=== PATIENT | male | born 1945 | race Caucasian/White ===

== ENCOUNTER 2018-05-01 09:45 | Day surgery (SDC) | payer MEDICARE ==
[2018-04-30 16:11] VITALS: BMI 29.5
--- NOTE | 2018-05-01 13:47 | OP ---
DATE OF PROCEDURE: 05/01/2018. SURGEON: Javier Neff M.D. PAVER SURGEON: None. PROCEDURE PERFORMED: Colonoscopy with snare polypectomy. INDICATION: 1. Colon cancer screening. This is the patient's first colonoscopy. 2. Family history of colon cancer in his mother, in her 80s. MEDICATIONS: See anesthesia record. FINDINGS: After discussion of the risks, benefits and alternatives of the procedure, informed consen t was obtained and witnessed. Pre-endoscopic cardiopulmonary examination was satisfactory. DESCRIPTION OF PROCEDURE: Timeout was performed before sedation was achieved. Sedation was achieved with anesthesia assistance in the endoscopy unit. Digital rectal exam was performed, which demonstr ated some external hemorrhoidal skin tags. A Pentax adult colonoscope was inserted into the anus and passed forward to the cecum in the usual fashion. The cecal base was identified by the appendiceal orifice as well as the ileocecal valve. The terminal ileum was not intubated. The colonoscope was t hen slowly withdrawn in a gradual and circumferential manner with careful examination of the entire c olonic mucosa. The quality of the prep was good. In the sigmoid colon, there were 2 small polyps me asuring 2-3 mm in diameter. These were both completely removed with cold snare and retrieved for pat hology. The remainder of the colonic mucosa appeared normal. Retroflexion in the rectum demonstrate d no additional abnormalities. The colonoscope was completely withdrawn and the patient allowed to r ecover. The patient tolerated the procedure well. There were no immediate post-procedure complicati ons. IMPRESSION: 1. Two diminutive sigmoid colon polyps, both removed with cold snare and retrieved for pathology. 2. Otherwise, normal colonoscopy to the cecum. RECOMMENDATIONS: 1. Follow up pathology on the sigmoid colon polyps. 2. Resume Plavix. 3. Repeat colonoscopy, recommendations to be based on pathology results. If the polyps are both hyp erplastic, then no further colonoscopy would be advised. If the polyps are adenomas, then I would re commend consideration of surveillance colonoscopy at a 5-year interval.
== END 2018-05-01 14:40 | disposition home or self-care (01) ==
LOC: SDC 09:45
PROVIDERS: ATTEND Internal Medicine
PROC: 0DBN8ZX Excision of Sigmoid Colon, Via Natural or Artificial Opening Endoscopic, Diagnostic (ICD-10-PCS; principal; 2018-05-01)
DX: Z12.11 Encounter for screening for malignant neoplasm of colon (principal); D12.5 Benign neoplasm of sigmoid colon; K64.4 Residual hemorrhoidal skin tags; Z80.0 Family history of malignant neoplasm of digestive organs; Z79.02 Long term (current) use of antithrombotics/antiplatelets; Z79.4 Long term (current) use of insulin; Z79.82 Long term (current) use of aspirin; Z79.899 Other long term (current) drug therapy; Z91.041 Radiographic dye allergy status
CPT/HCPCS: 36416; 88305

== ENCOUNTER 2018-05-03 16:22 | Emergency (ER) | payer MEDICARE ==
[2018-05-03] MEDS ORDERED: Labetalol HCl 100 MG/20 ML VIAL ONE (16:54)
--- NOTE | 2018-05-03 17:12 | RAD ---
CHEST ONE VIEW 05/03/18 HISTORY: Weakness. COMPARISON: Chest radiograph 03/08/17. FINDINGS: Lungs are clear. No pneumothorax or effusion. The cardiac silhouette and mediastinal contours are sim ilar. IMPRESSION: No acute intrathoracic abnormality. POS: [facility]
--- NOTE | 2018-05-03 17:24 | CT ---
CT ABDOMEN AND PELVIS WITHOUT CONTRAST 05/03/18 HISTORY: Weakness. COMPARISON: CT abdomen and pelvis from 2015. FINDINGS: Small volume left sided pleural fluid. No significant pericardial effusion. Extensive vascular calcif ications. There is infiltration of the soft tissue fat of the anterior abdominal wall on both sides of the midl ine. Mild diastasis recti. No hydroureteronephrosis. No calculus within the urinary bladder. No free intraperitoneal gas or fluid. Left hip hemiarthroplasty is in place. There is a wedge jonah adiel fracture at L2 which does not appear acute although is new from the 2015 exam. Old L4 compressio n fracture. IMPRESSION: 1. No acute inflammatory process of the abdomen or pelvis. 2. No hydroureteronephrosis. 3. Extensive arterial medial sclerosis. 4. Subcutaneous fat infiltration anterior abdominal wall may be sequela of injections. Celluliti s is also a possibility. POS: [facility]
[2018-05-03 17:48] LABS: #Basophils 0.1 thou/uL (0.0-0.2); #Eosinphils 0.2 thou/uL (0.0-0.7); #Monocytes 0.8 thou/uL (0.11-0.59); #Neutrophils 7.2 thou/uL (1.40-6.50); %Basophils 0.7 % (0.0-1.0); %Eosinophils 1.9 % (0.0-10.0); %Monocytes 9.1 % (0.0-10.0); %Neutrophils 77.4 % (42.0-75.0); Hemoglobin 11.7 g/dL (14.0-18.0); Mean Corpuscular HGB CONC 33.9 g/dL (32.0-36.0); Mean Corpuscular Hemoglobin 31.7 pg (27.0-31.0); Mean Corpuscular Volume 93.4 fL (78.0-98.0); Mean Platelet Volume 7.5 fL (7.4-10.4); Platelet Count 232 thou/uL (130-400); RBC Distribution Width 11.6 % (11.5-14.5); Red Blood Cell (RBC) Count 3.71 mill/uL (4.70-6.10); White Blood Cell (WBC) Count 9.3 thou/uL (4.8-10.8)
[2018-05-03 17:51] LABS: Bilirubin Negative (Negative); Blood, Urine Negative (Negative); Clarity CLEAR (Clear); Glucose, Urine (Dipstick) Negative (Negative); Leukocyte Negative (Negative); Nitrite Negative (Negative); Protein, Urine (Dipstick) 100 mg/dL (Neg-Trace); Specific Gravity, Urine 1.007 (1.002-1.036); Urobilinogen 0.2 mg/dL (0.2-1.0)
[2018-05-03 17:53] LABS: Bacteria/HPF None Seen HPF (None Seen); Hyaline Casts/LPF 0-3 HYALINE CAST LPF (0-3 Hyaline); Pathc Cast-AUWi Flag 0.14 (0-2.49); RBC/HPF None Seen HPF (0-3); Squamous Epithelial None Seen HPF (0-3); WBC/HPF None Seen HPF (0-3)
[2018-05-03 18:12] LABS: CKMB 2.2 ng/mL (0-6.6); Troponin I 0.021 ng/mL (< 0.028)
[2018-05-03 18:34] LABS: ALT (SGPT) 13 U/L (8-55); AST (SGOT) 18 U/L (5-34); Albumin 4.2 g/dL (3.4-4.8); Alkaline Phosphatase 91 U/L (40-150); Anion Gap 18 mmol/L (10-20); BUN (Urea Nitrogen) 22 mg/dL (8.4-25.7); Bilirubin, Total 0.5 mg/dL (0.2-1.2); CK (CPK) 89 U/L (30-200); Calc. Creatinine Clearance 0 mL/min (70-130); Carbon Dioxide 20 mmol/L (23-31); Chloride 108 mmol/L (98-107); Estimated GFR-MDRD 37; Globulin 2.8 g/dL (2.4-3.5); Glucose 126 mg/dL (80-115); Lipase 19 U/L (8-78); Sodium 141 mmol/L (136-145)
--- NOTE | 2018-05-10 11:32 | EKG ---
Test Reason : WEAKNESS Blood Pressure : / mmHG Vent. Rate : 098 BPM Atrial Rate : 098 BPM P-R Int : 226 ms QRS Dur : 098 ms QT Int : 368 ms P-R-T Axes : 049 -34 089 degrees QTc Int : 469 ms Sinus rhythm with 1st degree A-V block Left axis deviation Prolonged QT Abnormal ECG Confirmed by ROEL VILLARREAL, SHEELA ([id number]), pictures editor SCOTT CISNEROS ([id number]) on 05/10/2018 11:31:53 AM Referred By: Confirmed By:SHEELA SEVILLA MD
== END 2018-05-03 20:10 | disposition home or self-care (01) ==
LOC: ERS 16:22
DX: R53.1 Weakness (principal); I11.0 Hypertensive heart disease with heart failure; I50.9 Heart failure, unspecified; E11.9 Type 2 diabetes mellitus without complications; Z86.73 Personal history of transient ischemic attack (TIA), and cerebral infarction without residual deficits
CPT/HCPCS: 71045; 74176; 80053; 81003; 81015; 82553; 83690; 83880; 84484; 85025; 93005; 96374

== ENCOUNTER 2018-05-12 17:04 | Emergency (ER) | payer MEDICARE ==
[2018-05-12 18:59] LABS: #Lymphocytes 0.8 thou/uL (1.20-3.40); #Monocytes 0.6 thou/uL (0.11-0.59); #Neutrophils 13.4 thou/uL (1.40-6.50); %Basophils 0.2 % (0.0-1.0); %Eosinophils 0.2 % (0.0-10.0); %Lymphocytes 5.6 % (21.0-51.0); %Monocytes 3.9 % (0.0-10.0); %Neutrophils 90.2 % (42.0-75.0); Hemoglobin 11.1 g/dL (14.0-18.0); Mean Corpuscular HGB CONC 32.5 g/dL (32.0-36.0); Mean Corpuscular Hemoglobin 30.3 pg (27.0-31.0); Mean Corpuscular Volume 93.4 fL (78.0-98.0); Mean Platelet Volume 7.2 fL (7.4-10.4); Platelet Count 334 thou/uL (130-400); RBC Distribution Width 11.6 % (11.5-14.5); Red Blood Cell (RBC) Count 3.68 mill/uL (4.70-6.10); White Blood Cell (WBC) Count 14.9 thou/uL (4.8-10.8)
[2018-05-12 19:25] LABS: ALT (SGPT) 8 U/L (8-55); AST (SGOT) 13 U/L (5-34); Albumin 4.1 g/dL (3.4-4.8); Alkaline Phosphatase 77 U/L (40-150); Anion Gap 15 mmol/L (10-20); BUN (Urea Nitrogen) 32 mg/dL (8.4-25.7); Bilirubin, Total 0.4 mg/dL (0.2-1.2); Calc. Creatinine Clearance 0 mL/min (70-130); Calcium 8.9 mg/dL (7.8-10.44); Carbon Dioxide 22 mmol/L (23-31); Chloride 106 mmol/L (98-107); Estimated GFR-MDRD 37; Globulin 2.9 g/dL (2.4-3.5); Glucose 205 mg/dL (80-115); Lipase 13 U/L (8-78); Potassium 4.9 mmol/L (3.5-5.1); Sodium 138 mmol/L (136-145)
--- NOTE | 2018-05-12 20:02 | RAD ---
ABDOMEN ONE VIEW: HISTORY: Constipation for less than 24 hours. COMPARISON: None. FINDINGS: Nonspecific bowel gas pattern. Scattered material in a nondistended colon. Atherosclerosis of the splenic artery is noted. IMPRESSION: Nonspecific bowel gas pattern. There is some scattered fecal material present in the visualized colo n. If there is concern, consider CT. CT should involve oral and intravenous contrast. POS: [facility]
== END 2018-05-12 21:20 ==
LOC: ERS 17:04
DX: K59.00 Constipation, unspecified (principal); E11.9 Type 2 diabetes mellitus without complications; I11.0 Hypertensive heart disease with heart failure; I50.9 Heart failure, unspecified; Z86.73 Personal history of transient ischemic attack (TIA), and cerebral infarction without residual deficits
CPT/HCPCS: 36415; 74018; 80053; 83690; 85025

== ENCOUNTER 2018-11-28 02:07 | Inpatient (IN) | payer MEDICARE ==
[2018-11-28 02:56] LABS: Bilirubin Negative (Negative); Blood, Urine Negative (Negative); Clarity CLEAR (Clear); Glucose, Urine (Dipstick) Negative (Negative); Leukocyte Negative (Negative); Nitrite Negative (Negative); Protein, Urine (Dipstick) 100 mg/dL (Neg-Trace); Specific Gravity, Urine 1.014 (1.002-1.036); Urobilinogen 0.2 mg/dL (0.2-1.0); pH, Urine 5.5 (5.0-9.0)
[2018-11-28 02:59] LABS: Bacteria/HPF None Seen HPF (None Seen); Hyaline Casts/LPF 0-3 HYALINE CAST LPF (0-3 Hyaline); RBC/HPF None Seen HPF (0-3); Squamous Epithelial 0-3 HPF (0-3); WBC/HPF None Seen HPF (0-3)
[2018-11-28] MEDS ORDERED: Oxymetazoline HCl 0.05% ( 15 ML ) ONE (03:35)
[2018-11-28 04:07] LABS: Actual Bicarbonate (HCO3a) 23.8 mEq/L (22-28); Analyzer IN Cardio ER; Base Excess (BEa) -1.3 mEq/L (-2.0 to +3.0); CO2 Tension 41.8 mmHg (35.0-45.0); Calcium, Ionized 1.15 mmol/L (1.12-1.30); Hemoglobin (Hb) 12.5 g/dL (14.0-18.0); Potassium - ABG Lab 4.13 mmol/L (3.70-5.30); pH, Arterial 7.37 (7.35-7.45)
[2018-11-28 04:11] LABS: O2 Tension (PaO2) 45.7 mmHg (> 70.0); Puncture Site RRAD
[2018-11-28 04:32] LABS: #Basophils 0.1 thou/uL (0.0-0.2); #Eosinphils 0.3 thou/uL (0.0-0.7); #Lymphocytes 1.8 thou/uL (1.20-3.40); #Monocytes 0.6 thou/uL (0.11-0.59); #Neutrophils 7.3 thou/uL (1.40-6.50); %Eosinophils 2.5 % (0.0-10.0); %Lymphocytes 17.7 % (21.0-51.0); %Monocytes 5.7 % (0.0-10.0); Hemoglobin 12.4 g/dL (14.0-18.0); Mean Corpuscular HGB CONC 33.1 g/dL (32.0-36.0); Mean Corpuscular Hemoglobin 32.2 pg (27.0-31.0); Mean Corpuscular Volume 97.3 fL (78.0-98.0); Mean Platelet Volume 8.2 fL (7.4-10.4); Platelet Count 265 thou/uL (130-400); RBC Distribution Width 11.8 % (11.5-14.5); Red Blood Cell (RBC) Count 3.85 mill/uL (4.70-6.10)
[2018-11-28 04:56] LABS: ALT (SGPT) 13 U/L (8-55); AST (SGOT) 12 U/L (5-34); Albumin 4.5 g/dL (3.4-4.8); Alkaline Phosphatase 87 U/L (40-150); Anion Gap 17 mmol/L (10-20); BUN (Urea Nitrogen) 38 mg/dL (8.4-25.7); Bilirubin, Total 0.4 mg/dL (0.2-1.2); Calc. Creatinine Clearance 0 mL/min (70-130); Calcium 9.3 mg/dL (7.8-10.44); Carbon Dioxide 20 mmol/L (23-31); Chloride 110 mmol/L (98-107); Estimated GFR-MDRD 35; Globulin 2.6 g/dL (2.4-3.5); Glucose 203 mg/dL (83-110); Potassium 4.4 mmol/L (3.5-5.1); Protein, Total 7.1 g/dL (5.8-8.1); Sodium 143 mmol/L (136-145)
[2018-11-28] MEDS ORDERED: Furosemide 40 MG/4 ML VIAL ONE (05:24)
[2018-11-28] MEDS ORDERED: Nitroglycerin 2% Ointment 1 INCH/1 GM Packet ONE (05:34)
--- NOTE | 2018-11-28 07:33 | CT ---
PRELIMINARY REPORT/[facility]/EMERGENCY AFTER HOURS PROCEDURE: EXAM: CT Head Without Contrast EXAM DATE/TIME: 11/28/2018 3:03 AM CLINICAL HISTORY: 73 years old, male; Injury or trauma; Fall; Initial encounter; Blunt trauma (contusions or hematomas) ; Patient HX: M73 reports to ed via ems from [facility] C/O fall. PT states he had fallen out of bed tonight and landed on left hip. PT states he was not on ground long before someone arrived. PT states the fall woke him up. PT states nose bleed however denies pain to nose. Ems reports abrasion above left eye, hematoma to left eye and abrasion to left arm. TECHNIQUE: Imaging protocol: Axial computed tomography images of the head/brain without contrast. COMPARISON: No relevant prior studies available. FINDINGS: Brain: No acute intracranial hemorrhage. There are frontal and parietal lobe areas of hypoattenuation which appear chronic and probably represent encephalomalacia from chronic infarction. There are focal hypodensities within the basal ganglia compatible with chronic lacunar infarcts. Ventricles: Normal. No ventriculomegaly. Bones/joints: Unremarkable. No acute fracture. Sinuses: Visualized sinuses are unremarkable. No acute sinusitis. Mastoid air cells: Visualized mastoid air cells are unremarkable. No mastoid effusion. Soft tissues: There is a LEFT frontal scalp 7 x 1 cm hematoma. IMPRESSION: 1. No acute intracranial hemorrhage. Probably chronic bilateral frontal and parietal lobe infarcts as well as basal ganglia lacunar infarcts. 2. There is a LEFT frontal scalp 7 x 1 cm hematoma. Thank you for allowing us to participate in the care of your patient. Dictated and Authenticated by: Javier Osman MD 11/28/2018 3:34 AM Central Time ([place] & [place]) FINAL REPORT BRAIN CT WITHOUT IV CONTRAST: Emergency after hours exam 3:00 AM 11/28/2018 Left supraorbital and left frontal scalp hematoma. Stable atrophy and chronic white matter ischemic c briane. Code QA/[facility] Transcribed Date/Time: 11/28/2018 7:40 AM
[2018-11-28 07:55] LABS: Troponin I 0.559 ng/mL (< 0.028)
--- NOTE | 2018-11-28 08:04 | RAD ---
RADIOGRAPH CHEST 1 VIEW: Date: 11/28/18 Time: 0331 HOURS HISTORY: 73-year-old male with dyspnea. COMPARISON: 05/03/18. FINDINGS: Cardiomegaly appears worse now. New finding of pulmonary venous engorgement. Patchy, predominantly in terstitial densities heterogeneously distributed in both lungs, probably represent pulmonary edema, a lthough pneumonia is not excluded. No pneumothorax. IMPRESSION: Congestive heart failure. JN [] POS: [facility]
--- NOTE | 2018-11-28 08:05 | RAD ---
PELVIC RADIOGRAPH: DATE: 11/28/2018. PROVIDED CLINICAL HISTORY: Left hip pain. FINDINGS: There is no evidence for fracture or other acute osseous abnormality. Changes of left hip arthroplas ty are partially visualized. Vascular calcifications are seen. Alignment appears anatomic. IMPRESSION: No evidence for an acute osseous abnormality. If there is persistent clinical concern, conservative management and followup imaging are advised. POS: [facility]
--- NOTE | 2018-11-28 08:07 | RAD ---
LEFT HIP 2 VIEWS: COMPARISON: 12/09/2016. HISTORY: Fall. Pain. FINDINGS: Uncomplicated left hip arthroplasty. Vascular calcifications are noted. There is a hyperdensity projecting over the midline of the perineum and left hip, dependent on positi on, which is of uncertain etiology. This hyperdensity has a round appearance, measuring 5.7 cm. IMPRESSION: 1. No fracture. 2. Nonspecific hyperdensity projecting over the pelvis as described above. Correlate clinically. T here does not appear to be a corresponding finding on a CT from May 03, 2018. CODE T POS: [facility]
--- NOTE | 2018-11-28 08:16 | HP ---
PRIMARY CARE PHYSICIAN: Michael Arguleles MD CHIEF COMPLAINT: "I fell out of bed." HISTORY OF PRESENT ILLNESS: Mr. Blum is a pleasant 73-year-old gentleman, who has a history of hypertension and diabetes as well as congestive heart failure. He resides at the [facility] and says that during the day he was feeling fine and in fact he had some physical therapy earlier in the day, he believes. He had gone to bed and says that he began rolling over and knew that he was falling out of the bed. He says that it actually woke him up and he remembers hitting the side of the bed rail and believes he hit his head on the side of the bed rail. He says he did not lose consciousness and he says luckily he had his alert device in his pocket and he was also able to reach his cellphone. He called for help and one of the staff there called an ambulance. He says that they reached him in less than 15 minutes. It was very quick and brought him to the hospital. In the ER, he had a CT scan of the brain done, which was essentially negative. X-ray of the hip and pelvis, preliminary readings showed no fracture. However, chest x-ray showed findings consistent with pulmonary edema and it was also noted that while he was being evaluated in the ER, he became hypoxic and was having trouble lying down on the stretcher and is having to sit up in a chair in order to breathe and this is the reason he is being admitted. When I ask him, he states that he does not feel short of breath except when he tries to lay back. He denies having this problem at home. He denies any chest pain. He denies any palpitations. No PND. No orthopnea. He does note some swelling in his legs. However, I suspect that his history or memory is not reliable because our entire interview, he asked "well, are you going to watch me in the hospital," when I had told him that earlier. So, he may have had some symptoms consistent with congestive heart failure prior to the fall. REVIEW OF SYSTEMS: All systems were reviewed and are negative except for that mentioned in the history of present illness. PAST MEDICAL HISTORY: Significant for hypertension, diabetes mellitus, coronary artery disease, and chronic diastolic heart failure. PAST SURGICAL HISTORY: He has had coronary artery bypass grafting as well as a tonsillectomy. ALLERGIES: TO IODINE. SOCIAL HISTORY: He is . He has 2 children. He is a nonsmoker. He occasionally drinks some wine. He resides at [facility]. He says his son Jon, who lives in [place], is his surrogate decision maker and he would like to be a do not resuscitate. FAMILY HISTORY: Significant for colon cancer in his mother and father, who of a heart attack. MEDICATIONS: He is not sure of his medications. These are being taken from the ER records and include; 1. Aspirin 81 mg daily. 2. NovoLog insulin. 3. Torsemide 100 mg twice daily. 4. Plavix 75 mg a day. 5. Flomax 0.4 mg daily. 6. Gabapentin 100 mg once a day. 7. Potassium chloride 20 mEq 2 tabs daily. 8. Atorvastatin 20 mg daily. 9. Hydralazine 50 mg twice a day. 10. Lisinopril 10 mg daily. 11. Isosorbide mononitrate extended-release 30 mg daily. 12. Carvedilol 6.25 mg twice daily. 13. Amlodipine 10 mg daily. 14. Levemir insulin twice a day. 15. Namenda 28 mg daily. 16. Nitrostat 0.4 sublingual. 17. Tramadol 50 mg q.6. 18. Dulcolax 5 mg daily. 19. Lactulose 30 mL twice a day. PHYSICAL EXAMINATION: GENERAL: He is alert and oriented. He was actually able to tell me where he is, the year, the month, the date, the president, and the situation. VITAL SIGNS: Blood pressure was 193/83, heart rate 75, respiratory rate of 16, and temperature is 97.8. HEENT: Pupils are equal, round, and reactive. He does have a large bruise over the left eye and a hematoma on the forehead on the left side. Throat; there is no erythema. No exudates. NECK: No adenopathy. No bruits. LUNGS: He had rales at both bases. There is no wheezing. CARDIOVASCULAR: He has a normal S1 and S2. He does have an S3 gallop. He did have a slight grade 2/6 systolic murmur. ABDOMEN: Obese. It is soft, nontender, and nondistended. Positive for bowel sounds. No rebound or guarding. EXTREMITIES: He has 2+ pitting edema bilaterally. NEUROLOGICAL: His exam is grossly nonfocal. His muscle strength is 5/5 in both his upper and lower extremities. SKIN AND INTEGUMENT: There are no skin changes. No rash. LABORATORY DATA AND X-RAY: He had a chest x-ray that was by my reading that showed cardiomegaly with increased pulmonary vascular markings. EKG showed an incomplete left bundle-branch block with a first-degree AV block. Heart rate was 88. His white blood cell count was 10, hemoglobin 12.4, hematocrit is 37.4, and platelet count was 265. D-dimer is 1.2. Sodium is 143, potassium 4.4, chloride is 110, CO2 is 20, BUN of 38, creatinine 1.89, and glucose is 203. ASSESSMENT: This is a 73-year-old gentleman, who presents to the emergency room with a fall. He has had an injury to his head, but CT scan did not show any subdural or acute stroke. He will be monitored in the hospital with regard to the head injury. He also has evidence of an exacerbation of congestive heart failure. 1. Acute on chronic diastolic heart failure. He has already been given a dose of Lasix in the ER. We will continue IV Lasix as he appears to still have some volume overload. Continue aspirin and nitrates and restart his home medications. We will also get an echo. We will also request his records from Dr. Martinez's office. If he has not had a recent echo, then one should be obtained. 2. Closed head injury. Currently, he seems neurologically intact. We will do neuro checks q.shift and also get a PT and OT evaluation. 3. Diabetes mellitus. Again, start his home medications as well as a sliding scale. 4. Hypertension, reconcile and restart home medications and have p.r.n. medications available as needed. Job ID: [id number]
[2018-11-28] MEDS ORDERED: Ondansetron PF 4 MG/2 ML Vial IVP PRN (08:24)
[2018-11-28] MEDS ORDERED: Ondansetron ODT 4 MG TAB PO PRN (08:24)
[2018-11-28] MEDS ORDERED: Dextrose 5% in Water 1,000 ML IV PRN (08:24)
[2018-11-28] MEDS ORDERED: HumaLOG 300 UNITS/3 ML VIAL SC PRN (08:24)
[2018-11-28] MEDS ORDERED: Dextrose 50% Abboject 50 ML SYRINGE SLOW IVP PRN (08:24)
[2018-11-28] MEDS ORDERED: hydrALAZINE 20 MG/ML VIAL SLOW IVP PRN (08:24)
[2018-11-28] MEDS ORDERED: Enoxaparin Sodium 40 MG/0.4 ML SYRINGE ONE (09:34)
[2018-11-28] MEDS: Enoxaparin Sodium 40 MG/0.4 ML SYRINGE SC SCH (10:30)
[2018-11-28] MEDS: Aspirin 81 mg Enteric Coated Tablet PO SCH (10:30)
[2018-11-28 10:49] LABS: Troponin I 1.166 ng/mL (< 0.028)
--- NOTE | 2018-11-28 12:25 | ULT ---
VENOUS DOPPLER ULTRASOUND OF THE LEFT LOWER EXTREMITY: Date: 11/28/18 HISTORY: Left calf pain. TECHNIQUE: [place] scale ultrasound with color flow and spectral Doppler imaging of the deep venous system of the l eft lower extremity was performed. FINDINGS: There is good flow, compression, and augmentation noted in the left common femoral, femoral, deep fem oral, popliteal, posterior tibial, and greater saphenous veins. IMPRESSION: No evidence of deep venous thrombosis in the left lower extremity. POS: [facility]
[2018-11-28] MEDS: HumaLOG 300 UNITS/3 ML VIAL SC PRN ×2 (13:04→18:19)
[2018-11-28] MEDS: Nitroglycerin 2% Ointment 1 INCH/1 GM Packet TOP SCH ×2 (16:45→21:24)
[2018-11-28] MEDS: Acetaminophen 325 MG TAB PO PRN (16:45)
[2018-11-28] MEDS: Furosemide 40 MG/4 ML VIAL SLOW IVP SCH (16:45)
[2018-11-28] MEDS ORDERED: Prevnar 13-Val Conj/PF 0.5 ML SYRINGE IM ONE (21:00)
[2018-11-29 05:41] LABS: #Monocytes 0.6 thou/uL (0.11-0.59); #Neutrophils 11.7 thou/uL (1.40-6.50); %Basophils 0.2 % (0.0-1.0); %Eosinophils 0.2 % (0.0-10.0); %Lymphocytes 7.2 % (21.0-51.0); %Monocytes 4.4 % (0.0-10.0); %Neutrophils 88.1 % (42.0-75.0); Hemoglobin 10.9 g/dL (14.0-18.0); Mean Corpuscular HGB CONC 33.7 g/dL (32.0-36.0); Mean Corpuscular Hemoglobin 32.4 pg (27.0-31.0); Mean Platelet Volume 7.9 fL (7.4-10.4); Platelet Count 239 thou/uL (130-400); RBC Distribution Width 11.7 % (11.5-14.5); Red Blood Cell (RBC) Count 3.38 mill/uL (4.70-6.10); White Blood Cell (WBC) Count 13.3 thou/uL (4.8-10.8)
[2018-11-29 05:55] LABS: Anion Gap 15 mmol/L (10-20); BUN (Urea Nitrogen) 37 mg/dL (8.4-25.7); Calc. Creatinine Clearance 53 mL/min (70-130); Carbon Dioxide 22 mmol/L (23-31); Chloride 108 mmol/L (98-107); Estimated GFR-MDRD 39; Glucose 232 mg/dL (83-110); Potassium 4.4 mmol/L (3.5-5.1); Sodium 141 mmol/L (136-145)
[2018-11-29] MEDS: Nitroglycerin 2% Ointment 1 INCH/1 GM Packet TOP SCH ×2 (06:50→14:56)
[2018-11-29] MEDS: Furosemide 40 MG/4 ML VIAL SLOW IVP SCH ×2 (06:51→14:56)
[2018-11-29] MEDS: HumaLOG 300 UNITS/3 ML VIAL SC PRN ×3 (06:51→18:07)
[2018-11-29] MEDS: Aspirin 81 mg Enteric Coated Tablet PO SCH (08:56)
[2018-11-29] MEDS: Enoxaparin Sodium 40 MG/0.4 ML SYRINGE SC SCH (08:56)
[2018-11-29] MEDS ORDERED: Carvedilol 6.25 MG TAB PO SCH ×2 (09:00→10:31)
[2018-11-29] MEDS ORDERED: Amlodipine 10 MG TAB PO SCH ×2 (09:00→10:30)
--- NOTE | 2018-11-29 09:46 | CON ---
DATE OF CONSULTATION: 11/28/2018 REASON FOR CONSULTATION: Elevated troponin. HISTORY OF PRESENT ILLNESS: Mr. Blum is a very pleasant 73-year-old gentleman with previous history of CAD, status post stent placement to his right coronary artery. This went in 2014. The description of procedure was noted to be a very difficult procedure with difficult access. This was a right radial access. He had no significant coronary artery disease to the LAD or circumflex artery. He states he recently fell. He states he fell out of bed. He had a trauma to his face. He denied chest pain, pressure, or other associated symptoms. PAST MEDICAL HISTORY: 1. CAD status post stent placement as described above. 2. Diabetes mellitus. 3. Hypertension. 4. Hyperlipidemia. ALLERGIES: NONE. SOCIAL HISTORY: No current tobacco or alcohol use. HOME MEDICATIONS: Include; 1. Tamsulosin. 2. Aspirin. 3. Isosorbide. 4. Plavix. 5. NovoLog. 6. Gabapentin. 7. Iron. 8. Multivitamin. 9. Atorvastatin. 10. Amlodipine. 11. Hydralazine. 12. Lisinopril. 13. Pantoprazole. 14. Sertraline. 15. Torsemide. REVIEW OF SYSTEMS: A 10-point review of systems is reviewed and as above, otherwise negative. PHYSICAL EXAMINATION: VITAL SIGNS: . PHYSICAL EXAMINATION: GENERAL: Patient is a pleasant male who is in no acute distress. The patient appears their stated age. VITAL SIGNS: Blood pressure 183/88, pulse 105, and temperature 97.8. NEUROLOGIC: The patient is alert and oriented x3 with no focal neurologic deficits. HEENT: Sclerae without icterus. Mouth has moist mucous membranes with normal pallor. Ecchymosis noted to the right orbital region. NECK: No JVD. Carotid upstroke brisk. No bruits bilaterally. LUNGS: Clear to auscultation with unlabored respirations. BACK: No scoliosis or kyphosis. CARDIAC: Regular rate and rhythm with normal S1 and S2. No S3 or S4 noted. No significant rubs, murmurs, thrills, or gallops noted throughout the precordium. PMI is not displaced. There is no parasternal heave. ABDOMEN: Soft, nontender, nondistended. No peritoneal signs present. No hepatosplenomegaly. No abnormal striae. EXTREMITIES: 2+ femoral and 2+ dorsalis pedis pulses. No cyanosis, clubbing, or edema. SKIN: No gross abnormalities. PERTINENT LABORATORY DATA: Hemoglobin 12.4 and platelet count 265. Creatinine 1.89 with a GFR of 35. Peak troponin 1.1. BNP of 374. IMPRESSION: 1. Recent fall. 2. Elevated troponin. 3. Coronary artery disease. RECOMMENDATIONS: Mr. Blum'adelita elevated troponin likely due to type 2 IA, not type 1. This is not felt to be an acute event. Likely from stress from recent trauma. At this point, I recommend conservative therapy. Continue aspirin and Plavix. Continue Imdur and beta-carole therapy. The patient would prefer conservative means and measures. GFR is also decreased. Job ID: [id number]
[2018-11-29] MEDS ORDERED: traMADol HCl 50 MG TAB PO PRN (10:21)
--- NOTE | 2018-11-29 10:27 | PDOC.PN ---
- Subjective Encounter Start Date: 11/29/18 Encounter Start Time: 10:25 Patient seen and examined. No new complaints. No overnight events. No chest pain or sob reported. sitting up in chair and having breakfast. no headache or N/V. - Objective Resuscitation Status - Order Detail: 11/28/18 07:27 Resuscitation Status Routine Resuscitation Status: DNAR: NO Resuscitation Discussed with: Discussed with the patient MAR Reviewed: Yes Vital Signs & Weight: Vital Signs (12 hours) Temp Pulse Resp BP Pulse Ox 11/29/18 08:00 100.3 F H 98 18 193/100 H 94 L 11/29/18 04:00 98.1 F 76 16 156/75 H 93 L 11/28/18 23:53 97.8 F 105 H 16 183/88 H 87 L Weight Weight 211 lb 3 oz I&O: 11/28/18 11/29/18 11/30/18 06:59 06:59 06:59 Intake Total 240 480 Output Total 700 200 Balance -460 280 Result Diagrams: 11/29/18 05:09 11/29/18 05:09 Additional Labs: Accuchecks 11/29/18 11/28/18 11/28/18 05:58 20:17 16:48 POC Glucose 248 H 193 H 201 H 11/28/18 11:49 POC Glucose 318 H Phys Exam - Physical Examination Constitutional: NAD left periorbital hematoma and edema Respiratory: no wheezing crackles present Cardiovascular: RRR Gastrointestinal: soft Musculoskeletal: no edema Neurological: non-focal Psychiatric: normal affect Skin: normal turgor Deviation from normal: left periorbital hematoma Dx/Plan (1) Diastolic CHF Code(s): I50.30 - UNSPECIFIED DIASTOLIC (CONGESTIVE) HEART FAILURE Status: Acute (2) Closed head injury Code(s): S09.90XA - UNSPECIFIED INJURY OF HEAD, INITIAL ENCOUNTER Status: Acute (3) CAD (coronary artery disease) Code(s): I25.10 - ATHSCL HEART DISEASE OF [place] CORONARY ARTERY W/O ANG PCTRS Status: Chronic Qualifiers: Coronary Disease-Associated Artery/Lesion type: [place] artery [place] vs. transplanted heart: [place] heart (4) CHF (congestive heart failure) Code(s): I50.9 - HEART FAILURE, UNSPECIFIED Status: Chronic (5) CKD (chronic kidney disease) Code(s): N18.9 - CHRONIC KIDNEY DISEASE, UNSPECIFIED Status: Chronic (6) Diabetes mellitus type 2, uncontrolled Code(s): E11.65 - TYPE 2 DIABETES MELLITUS WITH HYPERGLYCEMIA Status: Chronic (7) H/O: CVA (cerebrovascular accident) Code(s): Z86.73 - PRSNL HX OF TIA (TIA), AND CEREB INFRC W/O RESID DEFICITS Status: Chronic (8) Hypertension Code(s): I10 - ESSENTIAL (PRIMARY) HYPERTENSION Status: Chronic Qualifiers: Hypertension type: essential hypertension Qualified Code(s): I10 - Essential (primary) hypertension - Plan cont current plan of care, plan discussed w/ family, PT/OT, social media specialist, DVT proph w/heparin * . low grade fever present blood culture present appreciate input from cardiology will resume selected home meds monitor BP and BS on low dose ASA, will hold plavix for few days due to recent fall. AM labs.
[2018-11-29] MEDS: Gabapentin 100 MG CAP PO SCH (11:30)
[2018-11-29] MEDS: Carvedilol 6.25 MG TAB PO SCH (21:22)
[2018-11-29] MEDS: Atorvastatin Calcium 20 MG TAB PO SCH (21:22)
[2018-11-29] MEDS: Insulin Glargine 20 UNITS in Pre-Filled Syringe 1 EACH SC SCH (21:23)
[2018-11-29] MEDS: Tamsulosin HCl 0.4 MG CAP PO SCH (21:23)
[2018-11-29] MEDS: Acetaminophen 325 MG TAB PO PRN (22:34)
[2018-11-30] MEDS: Nitroglycerin 2% Ointment 1 INCH/1 GM Packet TOP SCH ×3 (03:00→14:33)
[2018-11-30 06:05] LABS: #Basophils 0.1 thou/uL (0.0-0.2); #Lymphocytes 1.7 thou/uL (1.20-3.40); #Monocytes 0.9 thou/uL (0.11-0.59); #Neutrophils 10.4 thou/uL (1.40-6.50); %Basophils 0.6 % (0.0-1.0); %Eosinophils 0.3 % (0.0-10.0); %Lymphocytes 12.9 % (21.0-51.0); %Monocytes 6.8 % (0.0-10.0); %Neutrophils 79.5 % (42.0-75.0); Hemoglobin 9.5 g/dL (14.0-18.0); Mean Corpuscular HGB CONC 33.5 g/dL (32.0-36.0); Mean Corpuscular Hemoglobin 32.6 pg (27.0-31.0); Mean Corpuscular Volume 97.2 fL (78.0-98.0); Mean Platelet Volume 8.1 fL (7.4-10.4); Platelet Count 205 thou/uL (130-400); RBC Distribution Width 11.6 % (11.5-14.5); Red Blood Cell (RBC) Count 2.92 mill/uL (4.70-6.10); White Blood Cell (WBC) Count 13.1 thou/uL (4.8-10.8)
[2018-11-30] MEDS: Furosemide 40 MG/4 ML VIAL SLOW IVP SCH ×2 (06:11→14:33)
[2018-11-30] MEDS: HumaLOG 300 UNITS/3 ML VIAL SC PRN ×2 (06:18→17:27)
[2018-11-30 06:27] LABS: Anion Gap 15 mmol/L (10-20); BUN (Urea Nitrogen) 36 mg/dL (8.4-25.7); Calc. Creatinine Clearance 51 mL/min (70-130); Calcium 8.6 mg/dL (7.8-10.44); Carbon Dioxide 23 mmol/L (23-31); Chloride 107 mmol/L (98-107); Estimated GFR-MDRD 37; Glucose 150 mg/dL (83-110); Potassium 3.6 mmol/L (3.5-5.1); Sodium 141 mmol/L (136-145)
--- NOTE | 2018-11-30 09:33 | PDOC.PN ---
- Subjective Encounter Start Date: 11/30/18 Encounter Start Time: 09:32 Patient seen and examined. No new complaints. No overnight events. feeling better. sitting up in chair. Not on O2. slept well. - Objective Resuscitation Status - Order Detail: 11/28/18 07:27 Resuscitation Status Routine Resuscitation Status: DNAR: NO Resuscitation Discussed with: Discussed with the patient MAR Reviewed: Yes Vital Signs & Weight: Vital Signs (12 hours) Temp Pulse Resp BP BP Pulse Ox 11/30/18 08:00 98.6 F 74 16 152/66 H 93 L 11/30/18 04:09 98.5 F 16 138/63 95 11/30/18 00:00 97.9 F 77 16 133/68 91 L Weight Weight 212 lb 8 oz I&O: 11/29/18 11/30/18 12/01/18 06:59 06:59 06:59 Intake Total 240 1620 Output Total 700 200 Balance -460 1420 Result Diagrams: 11/30/18 05:05 11/30/18 05:05 Additional Labs: Accuchecks 11/30/18 11/29/18 11/29/18 05:31 19:58 16:51 POC Glucose 172 H 168 H 203 H 11/29/18 10:55 POC Glucose 198 H Phys Exam - Physical Examination Constitutional: NAD HEENT: sclera anicteric Neck: supple Respiratory: no wheezing rales present Cardiovascular: RRR Gastrointestinal: soft Musculoskeletal: edema present Neurological: non-focal, moves all 4 limbs Psychiatric: normal affect, A&O x 3 Skin: no rash Dx/Plan (1) Diastolic CHF Code(s): I50.30 - UNSPECIFIED DIASTOLIC (CONGESTIVE) HEART FAILURE Status: Acute (2) Closed head injury Code(s): S09.90XA - UNSPECIFIED INJURY OF HEAD, INITIAL ENCOUNTER Status: Acute (3) CAD (coronary artery disease) Code(s): I25.10 - ATHSCL HEART DISEASE OF [place] CORONARY ARTERY W/O ANG PCTRS Status: Chronic Qualifiers: Coronary Disease-Associated Artery/Lesion type: [place] artery [place] vs. transplanted heart: [place] heart (4) CHF (congestive heart failure) Code(s): I50.9 - HEART FAILURE, UNSPECIFIED Status: Chronic (5) CKD (chronic kidney disease) Code(s): N18.9 - CHRONIC KIDNEY DISEASE, UNSPECIFIED Status: Chronic (6) Diabetes mellitus type 2, uncontrolled Code(s): E11.65 - TYPE 2 DIABETES MELLITUS WITH HYPERGLYCEMIA Status: Chronic (7) H/O: CVA (cerebrovascular accident) Code(s): Z86.73 - PRSNL HX OF TIA (TIA), AND CEREB INFRC W/O RESID DEFICITS Status: Chronic (8) Hypertension Code(s): I10 - ESSENTIAL (PRIMARY) HYPERTENSION Status: Chronic Qualifiers: Hypertension type: essential hypertension Qualified Code(s): I10 - Essential (primary) hypertension - Plan cont current plan of care, PT/OT, pediatric social worker, DVT proph w/lovenox * . continue on IV lasix. Blood cultures remain negative Plavix on hold. Monitor labs. AM labs.
[2018-11-30] MEDS: Enoxaparin Sodium 40 MG/0.4 ML SYRINGE SC SCH (10:15)
[2018-11-30] MEDS: Amlodipine 10 MG TAB PO SCH (10:15)
[2018-11-30] MEDS: Carvedilol 6.25 MG TAB PO SCH ×2 (10:16→21:29)
[2018-11-30] MEDS: Aspirin 81 mg Enteric Coated Tablet PO SCH (10:16)
[2018-11-30] MEDS: Gabapentin 100 MG CAP PO SCH (10:16)
[2018-11-30] MEDS: Insulin Glargine 20 UNITS in Pre-Filled Syringe 1 EACH SC SCH ×2 (10:16→21:30)
[2018-11-30] MEDS: Acetaminophen 325 MG TAB PO PRN (10:53)
--- NOTE | 2018-11-30 14:43 | ULT ---
EXAM: Carotid Doppler PROVIDED CLINICAL HISTORY: Syncope COMPARISON: None FINDINGS: Grayscale and color Doppler sonography with spectral analysis was performed of the extracranial carot id system bilaterally. Intimal thickening and scattered bilateral atherosclerotic plaque. Portions of the left ICA are obscured by shadowing from the anterior plaque. There is no evidence for a hemody namically significant internal carotid artery stenosis by peak systolic velocity or ratio criteria. Antegrade flow is seen in the vertebral arteries. IMPRESSION: No sonographic evidence for a hemodynamically significant internal carotid artery stenosis with limit ations as above.
--- NOTE | 2018-11-30 18:11 | PDOC.CTH ---
Cardiology Progress Note - Subjective The pt seen and examined. No overnight events. No cardiac complaints. He cont having SOB - Objective Vital Signs Temp Pulse Resp BP BP Pulse Ox 11/30/18 16:00 99.3 F 73 20 124/64 92 L 11/30/18 12:00 99.1 F 79 16 134/66 98 11/30/18 10:16 163/78 H 11/30/18 10:15 85 163/78 H 11/30/18 08:00 98.6 F 74 16 152/66 H 93 L Weight 212 lb 8 oz 11/29/18 11/30/18 12/01/18 06:59 06:59 06:59 Intake Total 240 1620 Output Total 700 200 Balance -460 1420 - Physical Examination General/Neuro: alert & oriented x3 Neck: no JVD present Lungs: CTA Heart: RRR Abdomen: soft Extremities: other: (No edema; hematoma around lt obital area) - Telemetry Telemetry Rhythm: SR - Labs Result Diagrams: 11/30/18 05:05 11/30/18 05:05 Troponin/CKMB Troponin I 1.166 ng/mL (< 0.028) H* 11/28/18 10:08 - Assessment/Plan 1. Acute on Chronic Diastolic HF - stable with Lasix 40mg IV BID and Coreg; Not on CARMELITA/ARB due to hx of CKD 2. Closed head injury 2/2 recent fall - Plavix is on hold for now 3. CAD with hx of stent placement in RCA in 2014 - on BBlocker and ASA, but no Plavix due to hx of recent fall 4. DM type 2 - 5. CKD - unchanged 6. HTN - stable MAR reviewed. Pt. seen and eval. by me. I agree with the A/P by the SUPERVISOR [employer] RO[employer] gjm Review of Systems - Review of Systems Constitutional: reports: no symptoms reported EENTM: reports: no symptoms reported Respiratory: reports: see HPI Cardiac (ROS): reports: no symptoms reported ABD/GI: reports: no symptoms reported : reports: no symptoms reported Musculoskeletal: reports: no symptoms reported
[2018-11-30] MEDS: Atorvastatin Calcium 20 MG TAB PO SCH (21:29)
[2018-11-30] MEDS: Tamsulosin HCl 0.4 MG CAP PO SCH (21:29)
[2018-12-01] MEDS: Acetaminophen 325 MG TAB PO PRN ×3 (04:16→18:21)
[2018-12-01] MEDS: Nitroglycerin 2% Ointment 1 INCH/1 GM Packet TOP SCH ×4 (04:18→21:05)
[2018-12-01 05:44] LABS: #Eosinphils 0.1 thou/uL (0.0-0.7); #Monocytes 0.8 thou/uL (0.11-0.59); %Basophils 0.3 % (0.0-1.0); %Eosinophils 1.1 % (0.0-10.0); %Lymphocytes 9.4 % (21.0-51.0); %Monocytes 7.2 % (0.0-10.0); Hemoglobin 9.3 g/dL (14.0-18.0); Mean Corpuscular HGB CONC 33.5 g/dL (32.0-36.0); Mean Corpuscular Hemoglobin 32.2 pg (27.0-31.0); Mean Corpuscular Volume 96.1 fL (78.0-98.0); Mean Platelet Volume 7.5 fL (7.4-10.4); Platelet Count 191 thou/uL (130-400); RBC Distribution Width 11.5 % (11.5-14.5); Red Blood Cell (RBC) Count 2.88 mill/uL (4.70-6.10)
[2018-12-01 06:04] LABS: Anion Gap 12 mmol/L (10-20); BUN (Urea Nitrogen) 45 mg/dL (8.4-25.7); Calc. Creatinine Clearance 47 mL/min (70-130); Calcium 8.2 mg/dL (7.8-10.44); Carbon Dioxide 25 mmol/L (23-31); Chloride 105 mmol/L (98-107); Estimated GFR-MDRD 33; Glucose 96 mg/dL (83-110); Potassium 3.1 mmol/L (3.5-5.1); Sodium 139 mmol/L (136-145)
--- NOTE | 2018-12-01 06:25 | PDOC.CTH ---
Cardiology Progress Note - Subjective Doing well from CV standpoint. No complaints. - Objective Vital Signs Temp Pulse Resp BP BP Pulse Ox 12/01/18 04:15 92 L 12/01/18 04:00 84 18 154/78 H 78 L 11/30/18 23:15 99.0 F 77 20 155/77 H 95 11/30/18 21:29 163/78 H 11/30/18 21:05 95 11/30/18 19:23 99.0 F 79 16 168/77 H 97 Weight 212 lb 8 oz 11/29/18 11/30/18 12/01/18 06:59 06:59 06:59 Intake Total 240 1620 1167 Output Total 700 200 Balance -460 1420 1167 - Physical Examination General/Neuro: alert & oriented x3, NAD Neck: carotid US brisk, no JVD present Lungs: CTA, unlabored respirations Heart: PMI normal, RRR Abdomen: NT/ND, soft Extremities: + femoral B - Telemetry Telemetry Rhythm: SR - Labs Result Diagrams: 12/01/18 05:35 12/01/18 05:35 Troponin/CKMB Troponin I 1.166 ng/mL (< 0.028) H* 11/28/18 10:08 - Assessment/Plan Type II [place] CAD s/p stent Recent head injury Anemia CKD Continue conservative treatment On BB Avoid ACEI, ARB secondary to RI Check echo Avoid plavix for now Last EF 55-60% in 03/2018 If echo stable, recommend close outpatient fu
[2018-12-01] MEDS: Furosemide 40 MG/4 ML VIAL SLOW IVP SCH ×2 (06:36→13:51)
[2018-12-01] MEDS: Gabapentin 100 MG CAP PO SCH (09:48)
[2018-12-01] MEDS: Amlodipine 10 MG TAB PO SCH (09:49)
[2018-12-01] MEDS: Aspirin 81 mg Enteric Coated Tablet PO SCH (09:49)
[2018-12-01] MEDS: Carvedilol 6.25 MG TAB PO SCH ×2 (09:49→20:06)
[2018-12-01] MEDS: Enoxaparin Sodium 40 MG/0.4 ML SYRINGE SC SCH (09:50)
[2018-12-01] MEDS: Insulin Glargine 20 UNITS in Pre-Filled Syringe 1 EACH SC SCH ×2 (10:08→20:05)
--- NOTE | 2018-12-01 12:09 | PQF ---
BRENT CORRIGANRADHA DO [id number] CLINICAL DOCUMENTATION IMPROVEMENT CLARIFICATION FORM: ICD-10 Updated PLEASE DO AN ADDENDUM TO THE PROGRESS NOTE WITH ANY DOCUMENTATION UPDATES OR ADDITIONS AND CARRY THROUGH TO DC SUMMARY. THANK YOU. DATE: 12/01/18 ATTN: Dr. Beck Please exercise your independent, professional judgment in responding to the clarification form. Clinical indicators are provided on the bottom of this form for your review Please check appropriate box(s): [ ] Acute on Chronic Renal Failure please specify Stage of CKD III (see below) [ ] CKD III without ARF/CLAUDIO [ x ] Other diagnosis ___AKI on CKD III [ ] Unable to determine In addition, please specify: Present on Admission (POA): [ x ] Yes [ ] No [ ] Unable to determine National Kidney Foundation Guidelines for CKD Staging Stage I Kidney damage with normal or increased GFRGFR > 90 Stage IIKidney damage with mildly decreased GFRGFR 60-89 Stage III Kidney damage with moderately decreased GFRGFR 30-59 Stage IVKidney damage with severely decreased GFRGFR 16-29 Stage VKidney failureGFR<15 ESRDEnd Stage Renal DiseaseOn dialysis Acute Renal Failure/Acute Kidney Failure defined as: Increases in SCr by (>) 0.3 mg/dl within 48 hours OR- Increases in SCr by (>) 1.5 times baseline, known or presumed to have occurred within the prior 7 days OR- Urine volume < 0.5 ml/kg/hour for 6 hours (KDIGO supplement 2012 for RIFLE/RIVAS criteria) For continuity of documentation, please document condition throughout progress notes and discharge summary. Thank You. CLINICAL INDICATORS - SIGNS / SYMPTOMS / LABS Abnormal labs (BUN, creatinine, K+, creatinine clearance, low GFR)--> LAB (11/28 ) BUN 38, CREAT 1.89, GFR 35, 11/29) BUN 37, CREAT 1.75, GFR 39 ( 11/30) BUN 36, CREAT 1.80, GFR 37; (12/01) BUN 45, CREAT 1.98 GFR 33 11/29 Card notes GFR decreased 11/29 IM: CKD RISK FACTORS admitted 11/28 with acute on chronic diastolic CHF per H&P on IV lasix 11/28-12/01 per MAR TREATMENTS: 12/01 Cardiology notes to avoid ACEi, ARB due to RI daily BMP 11/28-10/31 per orders (This form is maintained as a part of the permanent medical record) 2014 [email or web address]. All Rights Reserved Pao Harden RN, BSN, CCDS [email or web address]
--- NOTE | 2018-12-01 15:35 | RAD ---
2 VIEW CHEST: Date: 12/01/18 HISTORY: Shortness of breath. Correlate with VQ scan. COMPARISON: 11/28/18. FINDINGS: Cardiomegaly with postop sternotomy change. Mild vascular congestion. CP angles are obscured on the l ateral view suggesting small bilateral effusions. I cannot exclude mild interstitial edema. IMPRESSION: Cardiomegaly with mild congestion and small bilateral effusions. POS: [facility]
[2018-12-01 15:53] VITALS: BMI 31.8
--- NOTE | 2018-12-01 16:00 | NM ---
Radionuclide ventilation/perfusion lung scan HISTORY: Hypoxemia. FINDINGS: Ventilation images show good uptake throughout each lung. Mild diffuse air trapping on the delayed images. Perfusion exam: It appears that arms were by the side of the patient on the lateral views.. Heterogen eous uptake. No segmental or subsegmental perfusion mismatches. IMPRESSION: Exam is very low probability for clinically significant pulmonary embolus.
--- NOTE | 2018-12-01 17:13 | CON ---
DATE OF CONSULTATION: 12/01/2018 CONSULTING PHYSICIAN: Franklin Vera MD, who was representing the [employer] when the consult was named. REASON FOR CONSULTATION: Nocturnal hypoxemia. The following encompassed 70 minutes time, of that time, greater than 50% spent with the patient and/or on the patient's unit in the hospital. HISTORY OF PRESENT ILLNESS: The patient is a 73-year-old male, who was initially hospitalized on 11/28/2018 after falling out of bed and sustaining bruises around his eyes. At that time, he was felt to be in acute on chronic diastolic heart failure and started diuresis. Nursing staff has noted him to be extremely hypoxemic at night even while on oxygen. The patient says he has no history of low oxygen levels in the past. He has no previous history of central or obstructive sleep apnea, but has never had a sleep test in the past. PAST MEDICAL HISTORY: 1. Chronic diastolic cardiac dysfunction. 2. Hypertension. 3. Diabetes mellitus. 4. Coronary artery disease. PAST SURGICAL HISTORY: 1. Coronary artery bypass grafting surgery. 2. Tonsillectomy. ALLERGIES: IODINE. SOCIAL HISTORY: He is . He lives in [facility] independently, but has someone come and do the cleaning for him. He very occasionally drinks alcohol. He is a never smoker. He is retired. 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 FAMILY MEDICAL HISTORY: Remarkable for colon cancer and myocardial infarction. MEDICATIONS: Prior to admission were reviewed. See medication list of the chart. Of note, this patient is on carvedilol, but no narcotic type medications. REVIEW OF SYSTEMS: Denies fever, chills, nausea, vomiting, hematemesis, melena, hematochezia, hematuria, or dysuria. Remainder of 12-point review of systems is negative. PHYSICAL EXAMINATION: VITAL SIGNS: Temperature 99.4, pulse 67, blood pressure 156/77, O2 saturation 99% on 5 L, blood pressure 142/66. GENERAL: He is awake and alert, and in no acute distress. HEENT: Remarkable for ecchymosis around both eyes, left greater than right. Oropharynx has a class 4 Mallampati airway. NECK: No adenopathy, JVD or bruits. LUNGS: Inspiratory crackles in both bases. CARDIAC: S1 and S2 regular without audible murmur. ABDOMEN: Soft, nontender, and nondistended. EXTREMITIES: No clubbing, cyanosis, or edema. LABORATORY DATA: White blood cell count 11, hematocrit 27.7, and platelet count 191. D-dimer was 1.22. PH 7.37, pCO2 of 41, PO2 of 45-that appears to be a venous gas. Sodium 139, potassium 3.1, chloride 105, CO2 of 25, BUN 45, creatinine 1.9, and glucose 96. ASSESSMENT: Nocturnal hypoxemia. Also, has daytime hypoxemia. The nocturnal hypoxemia could be caused by congestive heart failure alone. He could also have a component of central or obstructive sleep apnea. He could also have thromboembolic disease. RECOMMENDATIONS: 1. He needs a ventilation-perfusion scan since he has allergy to iodinated contrast. 2. Outpatient sleep study to rule out central or obstructive sleep apnea. 3. May need oxygen at home set up prior to hospital discharge. Thank you for the referral. Job ID: [id number]
[2018-12-01] MEDS ORDERED: Potassium Chloride 20 MEQ TAB PO SCH (18:45)
--- NOTE | 2018-12-01 18:45 | PDOC.PN ---
- Subjective Encounter Start Date: 12/01/18 Encounter Start Time: 18:35 Subjective: f/u for acute hypoxic resp failure and diast CHF on Lasix. Feels better -: overall and currently on RA while seated. Walked short distance with -: PT. Appetite good. - Objective Resuscitation Status - Order Detail: 11/28/18 07:27 Resuscitation Status Routine Resuscitation Status: DNAR: NO Resuscitation Discussed with: Discussed with the patient MAR Reviewed: Yes Vital Signs & Weight: Vital Signs (12 hours) Temp Pulse Pulse Resp BP BP BP 12/01/18 16:00 97.7 F 66 18 145/74 H 12/01/18 14:00 69 126/67 12/01/18 11:24 97.9 F 72 18 162/84 H 12/01/18 09:49 67 156/77 H 12/01/18 07:44 99.4 F 67 18 142/66 H Pulse Ox 12/01/18 16:00 93 L 12/01/18 14:00 12/01/18 11:24 91 L 12/01/18 09:49 99 12/01/18 07:44 99 Weight Weight 215 lb 4.8 oz I&O: 11/30/18 12/01/18 12/02/18 06:59 06:59 06:59 Intake Total 1620 2167 Output Total 200 Balance 1420 2167 Result Diagrams: 12/01/18 05:35 12/01/18 05:35 Additional Labs: Accuchecks 12/01/18 12/01/18 12/01/18 16:53 10:09 06:36 POC Glucose 127 H 218 H 92 11/30/18 20:40 POC Glucose 145 H Laboratory Tests 11/28/18 11/29/18 11/30/18 04:17 05:09 05:05 Potassium 3.6 Creatinine 1.89 H 1.75 H 1.80 H Radiology Reviewed by me: Yes (Echo - EF 50-55%, hypokinesis inf wall, mild ) EKG Reviewed by me: Yes (Tele - SR) Phys Exam - Physical Examination Constitutional: NAD alert, responsive L periorbital ecchymosis HEENT: PERRLA, sclera anicteric, oral pharynx no lesions Neck: no nodes, no JVD, supple, full ROM Respiratory: no wheezing, no rales, no rhonchi, clear to auscultation bilateral S1, S2 Cardiovascular: RRR, no significant murmur, no rub, gallop Gastrointestinal: soft, non-tender, no distention, positive bowel sounds Musculoskeletal: no edema, pulses present Neurological: normal sensation, moves all 4 limbs Psychiatric: A&O x 3 Skin: normal turgor, cap refill <2 seconds Dx/Plan (1) Acute on chronic diastolic CHF (congestive heart failure) Code(s): I50.33 - ACUTE ON CHRONIC DIASTOLIC (CONGESTIVE) HEART FAILURE Status : Acute Comment: EF 50-55%, convert to Lasix 40mg po daily (2) Acute respiratory failure with hypoxia Code(s): J96.01 - ACUTE RESPIRATORY FAILURE WITH HYPOXIA Status: Acute Comment: Suspect secondary to #1, RA resting/ambulation trial, outpt sleep study /PFT's (3) Closed head injury Code(s): S09.90XA - UNSPECIFIED INJURY OF HEAD, INITIAL ENCOUNTER Status: Acute Comment: Stable, monitor clinically (4) Acute kidney failure Status: Acute Qualifiers: Acute renal failure type: unspecified Qualified Code(s): N17.9 - Acute kidney failure, unspecified Comment: Likely iatrogenic, d/c Lasix IV and convert to po, serial creatinine monitoring (5) Chronic kidney disease, stage 3 Status: Chronic Comment: See above, avoid nephrotoxic meds and limit contrast exposure - Plan PT/OT, 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
[2018-12-01] MEDS: Atorvastatin Calcium 20 MG TAB PO SCH (20:06)
[2018-12-01] MEDS: Tamsulosin HCl 0.4 MG CAP PO SCH (20:06)
[2018-12-02 05:24] LABS: Anion Gap 11 mmol/L (10-20); BUN (Urea Nitrogen) 51 mg/dL (8.4-25.7); Calc. Creatinine Clearance 49 mL/min (70-130); Calcium 8.7 mg/dL (7.8-10.44); Carbon Dioxide 29 mmol/L (23-31); Chloride 104 mmol/L (98-107); Estimated GFR-MDRD 35; Glucose 96 mg/dL (83-110); Potassium 3.6 mmol/L (3.5-5.1); Sodium 140 mmol/L (136-145)
[2018-12-02] MEDS: Nitroglycerin 2% Ointment 1 INCH/1 GM Packet TOP SCH ×3 (06:16→21:28)
[2018-12-02] MEDS: Potassium Chloride 20 MEQ TAB PO SCH ×2 (08:05→17:44)
[2018-12-02] MEDS: Amlodipine 10 MG TAB PO SCH (08:08)
[2018-12-02] MEDS: Aspirin 81 mg Enteric Coated Tablet PO SCH (08:09)
[2018-12-02] MEDS: Gabapentin 100 MG CAP PO SCH (08:10)
[2018-12-02] MEDS: Carvedilol 6.25 MG TAB PO SCH ×2 (08:10→21:28)
[2018-12-02] MEDS: Furosemide 20 MG TAB PO SCH (08:11)
[2018-12-02] MEDS: Enoxaparin Sodium 40 MG/0.4 ML SYRINGE SC SCH (08:13)
--- NOTE | 2018-12-02 09:53 | PRG ---
DATE OF SERVICE: 12/02/2018 SUBJECTIVE: Mr. Blum says he feels better. He had no acute complaints. OBJECTIVE: VITAL SIGNS: Temperature 98.4, pulse 69, blood pressure 149/77, and O2 saturations 97% on 4 L nasal cannula. His ventilation perfusion scan yesterday was negative. HEENT: Remarkable for ecchymoses around both eyes. NECK: No JVD. CHEST: His chest is fairly clear. CARDIAC: S1 and S2. Regular. ABDOMEN: Soft. EXTREMITIES: No edema. DIAGNOSTIC DATA: His echo demonstrated hypokinetic motion in the inferior wall of the left ventricle. He has mild mitral regurgitation and mild aortic stenosis. His labs show sodium 140, potassium 3.6, chloride 104, CO2 of 29, BUN 51, creatinine 1.9, and glucose 96. ASSESSMENT: Hypoxemia, which is likely multifactorial. I think the worsening of his nighttime O2 saturations are definite due to sleep apnea. I think his daytime hypoxemia is probably secondary to diastolic congestive heart failure with fluid overload. RECOMMENDATION: 1. He will need a sleep study as an outpatient. This can be set up when he comes to my office for followup. 2. He will need home oxygen at the time of discharge. 3. Continue diuretics. Job ID: [id number]
[2018-12-02] MEDS: Insulin Glargine 20 UNITS in Pre-Filled Syringe 1 EACH SC SCH ×2 (10:31→21:28)
--- NOTE | 2018-12-02 13:38 | PDOC.PN ---
- Subjective Encounter Start Date: 12/02/18 Encounter Start Time: 13:20 Subjective: f/u for acute hypoxic resp failure and diast CHF. Remains on O2 -: supplementation, ambulated in halls today. Feels better overall. - Objective Resuscitation Status - Order Detail: 11/28/18 07:27 Resuscitation Status Routine Resuscitation Status: DNAR: NO Resuscitation Discussed with: Discussed with the patient MAR Reviewed: Yes Vital Signs & Weight: Vital Signs (12 hours) Temp Pulse Pulse Pulse Resp BP BP 12/02/18 11:37 97.8 F 68 18 12/02/18 09:24 71 73 159/80 H 12/02/18 08:10 149/77 H 12/02/18 08:08 69 149/77 H 12/02/18 08:00 12/02/18 07:52 98.4 F 69 18 12/02/18 04:00 97.5 F L 70 16 BP BP BP Pulse Ox 12/02/18 11:37 147/71 H 94 L 12/02/18 09:24 153/77 H 12/02/18 08:10 12/02/18 08:08 12/02/18 08:00 97 12/02/18 07:52 149/77 H 97 12/02/18 04:00 166/83 H 95 Weight Weight 215 lb 4.8 oz I&O: 12/01/18 12/02/18 12/03/18 06:59 06:59 06:59 Intake Total 2167 1080 Balance 2167 1080 Result Diagrams: 12/01/18 05:35 12/02/18 04:39 Additional Labs: Accuchecks 12/02/18 12/02/18 12/01/18 10:32 05:51 19:56 POC Glucose 164 H 109 225 H 12/01/18 16:53 POC Glucose 127 H Laboratory Tests 11/28/18 11/29/18 11/30/18 04:17 05:09 05:05 Potassium 3.6 Creatinine 1.89 H 1.75 H 1.80 H Radiology Reviewed by me: Yes (Echo - EF 50-55%, inf wall hypokinesis) EKG Reviewed by me: Yes (Tele - SR) Phys Exam - Physical Examination Constitutional: NAD alert, responsive periorbital ecchymosis HEENT: PERRLA, sclera anicteric, oral pharynx no lesions Neck: no nodes, no JVD, supple, full ROM Respiratory: no wheezing, no rales, no rhonchi, clear to auscultation bilateral S1, S2 Cardiovascular: RRR, no significant murmur, no rub, gallop Gastrointestinal: soft, non-tender, no distention, positive bowel sounds Musculoskeletal: no edema, pulses present Neurological: normal sensation, moves all 4 limbs Psychiatric: A&O x 3 Skin: normal turgor, cap refill <2 seconds Dx/Plan (1) Acute on chronic diastolic CHF (congestive heart failure) Code(s): I50.33 - ACUTE ON CHRONIC DIASTOLIC (CONGESTIVE) HEART FAILURE Status : Acute Comment: EF 50-55%, convert to Lasix 40mg po daily (2) Acute respiratory failure with hypoxia Code(s): J96.01 - ACUTE RESPIRATORY FAILURE WITH HYPOXIA Status: Acute Comment: Suspect secondary to #1, RA resting/ambulation trial, outpt sleep study /PFT's, appears pt will need continuous O2 supplementation (3) Closed head injury Code(s): S09.90XA - UNSPECIFIED INJURY OF HEAD, INITIAL ENCOUNTER Status: Acute Comment: Stable, monitor clinically (4) Acute kidney failure Status: Acute Qualifiers: Acute renal failure type: unspecified Qualified Code(s): N17.9 - Acute kidney failure, unspecified Comment: Likely iatrogenic, d/c Lasix IV and convert to po, serial creatinine monitoring (5) Chronic kidney disease, stage 3 Status: Chronic Comment: See above, avoid nephrotoxic meds and limit contrast exposure - Plan 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
[2018-12-02] MEDS: HumaLOG 300 UNITS/3 ML VIAL SC PRN (17:44)
[2018-12-02] MEDS: Atorvastatin Calcium 20 MG TAB PO SCH (21:27)
[2018-12-02] MEDS: Tamsulosin HCl 0.4 MG CAP PO SCH (21:28)
[2018-12-03 05:40] LABS: Anion Gap 11 mmol/L (10-20); BUN (Urea Nitrogen) 48 mg/dL (8.4-25.7); Calc. Creatinine Clearance 56 mL/min (70-130); Calcium 8.7 mg/dL (7.8-10.44); Carbon Dioxide 27 mmol/L (23-31); Chloride 106 mmol/L (98-107); Estimated GFR-MDRD 41; Glucose 89 mg/dL (83-110); Sodium 140 mmol/L (136-145)
[2018-12-03] MEDS: Nitroglycerin 2% Ointment 1 INCH/1 GM Packet TOP SCH (06:28)
[2018-12-03] MEDS: Insulin Glargine 20 UNITS in Pre-Filled Syringe 1 EACH SC SCH (08:46)
[2018-12-03] MEDS: Potassium Chloride 20 MEQ TAB PO SCH (08:47)
[2018-12-03] MEDS: Carvedilol 6.25 MG TAB PO SCH (08:47)
[2018-12-03] MEDS: Furosemide 20 MG TAB PO SCH (08:52)
[2018-12-03] MEDS: Aspirin 81 mg Enteric Coated Tablet PO SCH (08:52)
[2018-12-03] MEDS: Amlodipine 10 MG TAB PO SCH (08:52)
[2018-12-03] MEDS: Enoxaparin Sodium 40 MG/0.4 ML SYRINGE SC SCH (08:53)
[2018-12-03] MEDS: Gabapentin 100 MG CAP PO SCH (08:53)
--- NOTE | 2018-12-03 11:27 | DIS ---
DATE OF ADMISSION: 11/28/2018 DATE OF DISCHARGE: 12/03/2018 DISCHARGE DIAGNOSES: 1. Acute on chronic diastolic congestive heart failure with ejection fraction of 50% to 55%. 2. Acute hypoxic respiratory failure, multifactorial. Oxygen requirement 2 to 3 L/minute by nasal cannula. 3. Closed head injury, status post fall. 4. Acute kidney injury on chronic kidney disease, stage 3. 5. Deconditioning. 6. Diabetes mellitus type 2, insulin requiring. CONSULTATIONS: 1. Dr. David Hudson with Pulmonology Service. 2. Dr. Kurtis Martinez with Cardiology Service. PERTINENT LAB AND X-RAY FINDINGS: Creatinine ranged between 1.67 to 1.98. Estimated GFR ranged between 33 to 41. BNP ranged between 374 to 1243. Troponin I ranged between 0.010 to 1.17. CBC showed a white blood cell count ranged between 10.0 to 13.3, hemoglobin ranged between 9.3 to 12.4. Blood culture x2 dated 11/28/2018, showed no growth at [address] of the brain without contrast dated 11/28/2018, showed no acute intracranial process. Chronic changes including encephalomalacia noted. Two views of the left hip dated 11/28/2018, showed no acute fracture dislocation. Pelvic radiographs dated 11/28/2018, showed no evidence for acute process. Portable chest x-ray dated 11/28/2018, showed pulmonary vascular congestion bilaterally. Left lower extremity venous Doppler study dated 11/28/2018, showed no evidence for DVT. Carotid Doppler study dated 11/30/2018, showed no hemodynamically significant stenosis. Pulmonary ventilation perfusion study dated 12/01/2018, showed low probability for pulmonary embolus. 2D transthoracic echocardiogram dated 12/01/2018, showed ejection fraction of 50% to 55%. Hypokinesis of the inferior wall noted. HOSPITAL COURSE: The patient was initially admitted after presenting status post fall with closed head injury. The patient underwent extensive evaluation with multiple imaging modalities and metabolic screening with evidence of pulmonary edema on chest imaging and elevated BNP. The patient was placed on IV Lasix for acute on chronic diastolic heart failure and continued on aspirin and nitroglycerin. 2D transthoracic echocardiogram was performed showing a preserved ejection fraction of 50% to 55% with hypokinesis of the inferior wall. The patient was evaluated by the Cardiology Service after initial troponins were noted elevated as stated previously. No specific acute intervention was recommended and troponin elevation was likely demand ischemic state after patient's fall. The patient received local care for closed head injury and was evaluated by the Physical and Occupational Therapy Service due to history of multiple falls. The patient was deemed an appropriate candidate for ongoing skilled care and met inpatient rehabilitation criteria. The patient continued to receive diuretic therapy throughout the hospital course, stabilizing in regard to volume status. The patient had persistent requirement for oxygen supplementation and was evaluated by the Pulmonology Critical Care Service. Current recommendations are for outpatient sleep study and to continue oxygen supplementation at 2 to 3 L/minute by nasal cannula. Overall, the patient did remain clinically stable during the hospital course, tolerating regular oral intake and voiding appropriately. I have examined the patient at the time of discharge and discussed followup instructions. The patient verbalized understanding and agreement ready for discharge to inpatient rehabilitation on 12/03/2018. DISCHARGE MEDICATIONS: 1. Vitamin C 500 mg p.o. b.i.d. 2. Aspirin 325 mg p.o. daily. 3. Lipitor 40 mg p.o. at bedtime. 4. Vitamin D3 of 2000 units p.o. b.i.d. 5. Plavix 75 mg p.o. daily. 6. Proscar 5 mg p.o. daily. 7. Gabapentin 100 mg p.o. daily. 8. Hydralazine 50 mg p.o. b.i.d. 9. Levemir 22 units subcutaneously b.i.d. 10. Imdur 30 mg p.o. daily. 11. Oxybutynin 5 mg p.o. at bedtime. 12. Protonix 40 mg p.o. daily. 13. K-Dur 40 mEq p.o. daily. 14. Zoloft 50 mg p.o. daily. 15. Flomax 0.4 mg p.o. b.i.d. 16. Coenzyme Q10 of 100 mg p.o. daily. 17. Norvasc 10 mg p.o. daily. 18. Ferrous sulfate 325 mg p.o. daily. 19. Lisinopril 20 mg p.o. q.a.m., hold until first followup visit with primary care provider. 20. Torsemide 20 mg p.o. daily. FOLLOWUP: The patient may follow up with his primary care provider, Dr. Michael Arguelles. The patient will follow up with Dr. Kurtis Martinez with [facility] Cardiology Service. The patient will follow up with Dr. Lisandra Barriga with Urology Service. CONDITION ON DISCHARGE: Fair. ACTIVITY: Ad digna, rolling walker with standby assistance. DIET: ADA and heart healthy. CODE STATUS: Do not attempt resuscitation. SPECIAL INSTRUCTIONS: Continue oxygen supplementation at 2 to 3 L/minute by nasal cannula. DISPOSITION: Discharged to inpatient Rehabilitation, 12/03/2018. TIME SPENT: Total time preparing and coordinating discharge, 37 minutes. Job ID: [id number]
[2018-12-03 12:24] VITALS: BP 129/59; TEMP 97.8
[2018-12-03] MEDS: HumaLOG 300 UNITS/3 ML VIAL SC PRN (12:45)
--- NOTE | 2018-12-04 12:18 | PQF ---
BRENT CORRIGAN RADHA BECK DO [id number] CLINICAL DOCUMENTATION IMPROVEMENT CLARIFICATION FORM: ICD-10 Updated PLEASE DO AN ADDENDUM TO THE PROGRESS NOTE WITH ANY DOCUMENTATION UPDATES OR ADDITIONS AND CARRY THROUGH TO DC SUMMARY. THANK YOU. DATE: 12/04/18 ATTN: Dr. Beck Please exercise your independent, professional judgment in responding to the clarification form. Clinical indicators are provided on the bottom of this form for your review Please check appropriate box(s): Conflicting documentation was noted in the Medical Record, please clarify if patient is being treated/monitored for: [ ] Type II CT d/t Demand Ischemia from recent fall (diagnosis #1) [ ] Demand Ischemia d/t recent fall (diagnosis #2) [ ] Other diagnosis [ ] Unable to determine In addition, please specify: Present on Admission (POA): [ ] Yes [ ] No [ ] Unable to determine For continuity of documentation, please document condition throughout progress notes and discharge summary. Thank You. CLINICAL INDICATORS - SIGNS / SYMPTOMS/ LABS DC Summary 12/03 (Kiran): The patient was evaluated by the Cardiology Service after initial troponins were noted elevated as stated previously. No specific acute intervention was recommended & troponin elevation was likely demand ischemia after the patient's fall. Cardiology consult 11/29 (Juan): Elevated troponins likely D/T Type 2 CT not Type 1. This is not felt to be an acute event. Likely from stress from recent trauma. Troponins: <0.010, 0.559, 1.166 (11/28, admit) RISK FACTORS H&P: fell out of bed with closed head injury; history of HTN, CAD s/p CABG and chronic diastolic CHF TREATMENT Continue conservative measures: asa, plavix, imdur and beta carole per Card note/OCT 20 Thank you, Pao Harden RN, CCDS (This form is maintained as a part of the permanent medical record) 2014 [employer]. All Rights Reserved Pao Harden RN, BSN, CCDS [email or web address]
== END 2018-12-03 13:38 | DRG 280 ==
LOC: ERS 02:07 → ERHOLD 05:10 → 2SE 05:45
PROVIDERS: ADMIT Internal Medicine; ATTEND Internal Medicine
DX: I13.0 Hypertensive heart and chronic kidney disease with heart failure and stage 1 through stage 4 chronic kidney disease, or unspecified chronic kidney disease (principal); I50.33 Acute on chronic diastolic (congestive) heart failure; I21.A1 Myocardial infarction type 2; J96.01 Acute respiratory failure with hypoxia; N17.9 Acute kidney failure, unspecified; Z66 Do not resuscitate; E11.22 Type 2 diabetes mellitus with diabetic chronic kidney disease; N18.3 Chronic kidney disease, stage 3 (moderate); I25.10 Atherosclerotic heart disease of native coronary artery without angina pectoris; E78.00 Pure hypercholesterolemia, unspecified; G47.30 Sleep apnea, unspecified; S09.90XA Unspecified injury of head, initial encounter; Z95.1 Presence of aortocoronary bypass graft; Z91.041 Radiographic dye allergy status; Z79.4 Long term (current) use of insulin; Z79.82 Long term (current) use of aspirin; Z79.899 Other long term (current) drug therapy; Z79.02 Long term (current) use of antithrombotics/antiplatelets; Z95.5 Presence of coronary angioplasty implant and graft; E11.65 Type 2 diabetes mellitus with hyperglycemia; E11.319 Type 2 diabetes mellitus with unspecified diabetic retinopathy without macular edema; W06.XXXA Fall from bed, initial encounter; Y92.099 Unspecified place in other non-institutional residence as the place of occurrence of the external cause; D63.1 Anemia in chronic kidney disease
CPT/HCPCS: 36415; 36416; 70450; 71045; 71046; 72170; 78582; 80048; 80053; 81003; 81015; 82805; 83605; 83880; 84484; 85025; 85379; 87040; 90471; 90670; 93005; 93306; 93798; 93880; A9540; A9558; G0009; J0360; J1650; J1825; J1940

== ENCOUNTER 2019-04-20 14:23 | Inpatient (IN) | payer MEDICARE ==
[2019-04-20 14:57] LABS: #Basophils 0.1 thou/uL (0.0-0.2); #Eosinphils 0.3 thou/uL (0.0-0.7); #Lymphocytes 1.8 thou/uL (1.20-3.40); #Monocytes 1.1 thou/uL (0.11-0.59); #Neutrophils 10.8 thou/uL (1.40-6.50); %Basophils 0.5 % (0.0-1.0); %Eosinophils 1.9 % (0.0-10.0); %Lymphocytes 12.9 % (21.0-51.0); %Monocytes 7.7 % (0.0-10.0); %Neutrophils 77.1 % (42.0-75.0); Hemoglobin 9.7 g/dL (14.0-18.0); Mean Corpuscular HGB CONC 33.3 g/dL (32.0-36.0); Mean Corpuscular Hemoglobin 31.6 pg (27.0-31.0); Mean Platelet Volume 7.6 fL (7.4-10.4); Platelet Count 251 thou/uL (130-400); RBC Distribution Width 11.9 % (11.5-14.5); Red Blood Cell (RBC) Count 3.07 mill/uL (4.70-6.10); White Blood Cell (WBC) Count 13.9 thou/uL (4.8-10.8)
--- NOTE | 2019-04-20 15:01 | RAD ---
EXAM: Chest one view: HISTORY: Cellulitis the chest COMPARISON: 11/28/2018 FINDINGS: Postop midline sternotomy. Heart size: Borderline enlarged. Lungs: Clear of acute process. No evidence for pneumonia, pleural effusion, acute edema, or pneumothorax, or other significant acute process. IMPRESSION: No significant acute intrathoracic disease.
[2019-04-20 15:20] LABS: ALT (SGPT) 8 U/L (8-55); AST (SGOT) 10 U/L (5-34); Albumin 3.9 g/dL (3.4-4.8); Alkaline Phosphatase 71 U/L (40-150); Anion Gap 13 mmol/L (10-20); BUN (Urea Nitrogen) 45 mg/dL (8.4-25.7); Bilirubin, Total 0.4 mg/dL (0.2-1.2); Calc. Creatinine Clearance 0 mL/min (70-130); Calcium 8.9 mg/dL (7.8-10.44); Carbon Dioxide 24 mmol/L (23-31); Chloride 108 mmol/L (98-107); Estimated GFR-MDRD 25; Globulin 2.7 g/dL (2.4-3.5); Glucose 153 mg/dL (83-110); Potassium 5.1 mmol/L (3.5-5.1); Protein, Total 6.6 g/dL (5.8-8.1); Sodium 140 mmol/L (136-145)
[2019-04-20] MEDS ORDERED: Adacel (T-DAP) 0.5 ML SYRINGE ONE (15:33)
[2019-04-20] MEDS ORDERED: Lidocaine 1% w/Epinephrine 1:100K 20 ML VIAL ONE (15:33)
[2019-04-20] MEDS ORDERED: Morphine 4 MG/ML VIAL ONE (16:54)
[2019-04-20] MEDS ORDERED: Aspirin Chewable 81 MG TAB ONE (17:18)
[2019-04-20] MEDS ORDERED: Clindamycin/D5W 600 mg/50 ml Premix Bag ONE (17:18)
[2019-04-20 17:38] LABS: Troponin I 0.068 ng/mL (< 0.028)
--- NOTE | 2019-04-20 17:40 | RAD ---
PORTABLE CHEST ONE VIEW: Date: 04-20-19 Time: 5:04 p.m. History: Chest pain. FINDINGS/IMPRESSION: Comparison made with exam of 04-20-19. There are changes of median sternotomy. The heart size is enlarged. No lobar consolidation, pneumotho races, ibrahima pulmonary edema or large effusions are seen. There is mild prominence of the pulmonary v ascularity. POS: H
[2019-04-20] MEDS ORDERED: Dextrose 50% Abboject 50 ML SYRINGE SLOW IVP PRN (18:15)
[2019-04-20] MEDS ORDERED: Dextrose 5% in Water 1,000 ML IV PRN (18:15)
[2019-04-20] MEDS ORDERED: Acetaminophen 650 MG Suppository PR PRN (18:19)
[2019-04-20] MEDS ORDERED: Ondansetron ODT 4 MG TAB PO PRN (18:19)
[2019-04-20] MEDS ORDERED: Senokot S 8.6-50 MG TAB PO PRN (18:19)
[2019-04-20] MEDS ORDERED: Ondansetron PF 4 MG/2 ML Vial IVP PRN (18:19)
[2019-04-20 18:33] LABS: INR-International Normal Ratio 1.2; PTT 30.5 SEC (22.9-36.1); Prothrombin Time 15.6 SEC (12.0-14.7)
[2019-04-20] MEDS ORDERED: Vancomycin HCl 1.5 GM in Sodium Chloride 0.9% 250 ML 300 ML IVPB SCH ×2 (19:15→21:15)
--- NOTE | 2019-04-20 20:10 | HP ---
PRIMARY CARE PHYSICIAN: Dr. Michael Arguelles. CHIEF COMPLAINT: Chest pain. HISTORY OF PRESENT ILLNESS: Mr. Blum is a pleasant 73-year-old gentleman with a past medical history of CHF, CKD, type 2 diabetes mellitus, and history of CABG as well as stents x5. He was referred to the emergency department by his primary care physician due to infection with a chronic left upper chest cyst. The patient states he required I and D, which was done in the emergency department and immediately after the procedure, he began to experience substernal chest pain which he rates a 2/10 in severity. He states the pain was nonradiating and dull aching in nature. States he was given a pain reliever and his pain subsided. According to the ED notes, he was treated with 324 mg of aspirin and given 4 mg of morphine. The patient states he has remained pain-free since then. He had an EKG done in the emergency department, which showed first-degree AV block with a heart rate of 100 and an incomplete left bundle-branch block. A repeat EKG showed again first- degree AV block and according to the ED physician, no dynamic changes with nonspecific ST abnormality and nonspecific T-wave abnormalities. Laboratory studies were obtained including a troponin. He did have evidence of leukocytosis with a white count of 13.9. Lactic acid was normal. A chest x-ray had been done prior to the procedure and showed no significant acute intrathoracic disease. This was repeated after he experienced chest pain and again there was no interval change and no intrathoracic acute abnormality. Laboratory studies had demonstrated Saturday. The chest x- ray did demonstrate an enlarged heart and mild prominence of the pulmonary vascularity. The initial troponin was elevated at 0.068. He has been referred for further observation and ACS rule out. With regard to the abscess, the wound was packed and he was treated with IV clindamycin. It appears that the morphine was actually given in preparation for the I and D rather than in response to chest pain. The patient likely had improvement after the aspirin was given. He states he is known to Dr. Martinez, but does not recall the last followup he had with him. Of note, the patient had an echo done in November 2018 at which time he was noted to have an EF of 50% to 55% with hypokinetic motion of the inferior wall noted in the left ventricle, mild MR present, moderately thickened trileaflet aortic valve with decreased excursion, mild aortic stenosis and mild tricuspid regurgitation. REVIEW OF SYSTEMS: The patient states he did have a temperature while in the ED of 100.1. I do not see that documented in his chart, but he did have a max temp documented of 99.5. He states he became slightly short of breath when lying flat for the I and D and was put on 3L of oxygen with sats of 98%. His breathing improved once he was set up and took a few breaths. He denies having any cough or hemoptysis. He denies having any lightheadedness or dizziness. He does report feeling more tired recently and felt it was due to the infection. He did have one episode two days ago when walking and became very tired with his legs giving out and he held on to a post. He did not have any presyncope type of symptoms and states he simply got tired. He has not experienced any lightheadedness or dizziness. No headaches. His appetite has been unchanged and he denies having any nausea or vomiting. No changes with his bowels. No urinary symptoms. All other review of systems are negative. PAST MEDICAL HISTORY: 1. Coronary artery disease. 2. Diabetes mellitus. 3. Hypertension. 4. CHF. 5. Hyperlipidemia. 6. Obesity. 7. CKD. PAST SURGICAL HISTORY: 1. History of cardiac stents x5. 2. History of CABG. 3. Tonsillectomy. 4. Left hip surgery. SOCIAL HISTORY: The patient lives at home alone at [facility]. He drinks occasionally a couple of times a month. Denies any history of tobacco use or illicit drug use. FAMILY HISTORY: Noncontributory. ALLERGIES: IODINE CONTRAST. CURRENT MEDICATIONS: 1. Aspirin. 2. NovoLog. 3. Torsemide. 4. Clopidogrel. 5. Tamsulosin. 6. Gabapentin. 7. Potassium chloride. 8. Atorvastatin. 9. Hydralazine. 10. Lisinopril. 11. Isosorbide mononitrate. 12. Carvedilol. 13. Amlodipine. 14. Levemir. 15. Namenda. 16. Nitrostat. 17. Tramadol. 18. Dulcolax. PHYSICAL EXAMINATION: GENERAL: The patient appears well developed, well nourished, and is in no acute distress. VITAL SIGNS: Temperature 99.5, pulse 93, blood pressure 162/88, respirations 20 , O2 saturation 98% on 3 L. HEENT: Normocephalic and atraumatic. Pupils are equal, round, reactive to light. Sclerae without icterus. Oropharynx is clear. NECK: Supple. LUNGS: Clear bilaterally. CARDIAC: S1, S2. No central chest tenderness to palpation. He does have a bandage to the wound in the left upper anterior chest with slight serosanguineous drainage, packing in place. There is surrounding erythema with firm edema. ABDOMEN: Obese, soft, nontender, nondistended. Active bowel sounds present. EXTREMITIES: Trace edema involving bilateral lower extremities, chronic. No calf tenderness. NEUROLOGIC: Alert and oriented x3. SKIN: Pale. No jaundice or rash. LABORATORY DATA: White blood count 13.9, hemoglobin 9.7, chronic and stable, hematocrit 29.2, MCV 95, and platelet count 251. Sodium 140, potassium 5.1, carbon dioxide 24, anion gap 13, BUN 45, creatinine 2.51, GFR 25, glucose 153, lactic acid 0.6, calcium 8.9, total bilirubin 0.4, AST 10, ALT 8, alkaline phosphatase 71, troponin 0.068. Total protein 6.6, albumin 3.9. IMAGING DATA: As mentioned above in HPI. IMPRESSION AND PLAN: Mr. Blum is a pleasant 73-year-old gentleman who has been referred for management of the followin. Chest pain. The patient reports very mild chest pain that has settled after given aspirin. Lasted 20 minutes and has not recurred since. Initial troponin elevated. We will continue to trend. BNP added on to laboratory studies as well as magnesium. The patient with complicated cardiac history. Consultation placed to Dr. Martinez who is his pulper tender. We will continue to monitor results of troponins. We will keep patient n.p.o. starting at midnight. 2. Presyncope. The patient did mention an episode with near fall due to feeling tired suddenly. This could be associated with the underlying infection. We will, however, add on orthostatic blood pressures. 3. Left subcutaneous chest abscess. Status post incision and drainage. Continue antibiotics. We will give him vancomycin and Zosyn given the fact that he is diabetic. We will also consult Wound Care. 4. Chronic kidney disease. The patient with history of stage 3 chronic kidney disease. However, his glomerular filtration rate is further reduced to 25, which is stable since November. However, patient has not been following with Nephrology as an outpatient. In light of medications and the potential need for contrast, we will consult Dr. Vera who has seen him in the past. 5. Congestive heart failure. We will add BNP to his laboratory studies. We will initiate very gentle hydration at midnight once he is made n.p.o. No clinical evidence for congestive heart failure exacerbation at this present time. He does have trace lower extremity edema, which he states is chronic. 6. Diabetes mellitus. We will initiate insulin sliding scale. 7. Code status: The patient is full code at present. He does however wish to discuss advance directives in more detail. We will place consultation with Palliative Care. 8. Deep venous thrombosis prophylaxis with DELONTE hose stockings. The patient is ambulatory. 9. Gastrointestinal prophylaxis. We will resume his home dose of Protonix. The patient's case was discussed with attending, who agrees with plan of care as described above. Job ID: [id number] MTDD
[2019-04-20] MEDS ORDERED: Famotidine/PF 20 mg/2ml Vial SLOW IVP SCH (21:00)
[2019-04-20 21:55] LABS: Troponin I 0.068 ng/mL (< 0.028)
[2019-04-20] MEDS: Piperacillin/Tazobactam 2.25 GM in Sodium Chloride 0.9% 100 ML IVPB SCH (22:10)
[2019-04-21] MEDS: Piperacillin/Tazobactam 2.25 GM in Sodium Chloride 0.9% 100 ML IVPB SCH ×3 (05:27→21:02)
[2019-04-21 05:55] LABS: #Eosinphils 0.1 thou/uL (0.0-0.7); #Lymphocytes 1.9 thou/uL (1.20-3.40); #Monocytes 1.1 thou/uL (0.11-0.59); #Neutrophils 12.3 thou/uL (1.40-6.50); %Basophils 0.2 % (0.0-1.0); %Eosinophils 0.8 % (0.0-10.0); %Lymphocytes 12.3 % (21.0-51.0); %Neutrophils 79.7 % (42.0-75.0); Hemoglobin 10.4 g/dL (14.0-18.0); Mean Corpuscular HGB CONC 33.4 g/dL (32.0-36.0); Mean Corpuscular Hemoglobin 31.9 pg (27.0-31.0); Mean Corpuscular Volume 95.6 fL (78.0-98.0); Platelet Count 257 thou/uL (130-400); RBC Distribution Width 11.9 % (11.5-14.5); Red Blood Cell (RBC) Count 3.27 mill/uL (4.70-6.10); White Blood Cell (WBC) Count 15.5 thou/uL (4.8-10.8)
[2019-04-21 06:20] LABS: Anion Gap 16 mmol/L (10-20); BUN (Urea Nitrogen) 50 mg/dL (8.4-25.7); Calc. Creatinine Clearance 35 mL/min (70-130); Calcium 8.8 mg/dL (7.8-10.44); Carbon Dioxide 19 mmol/L (23-31); Chloride 109 mmol/L (98-107); Estimated GFR-MDRD 24; Glucose 209 mg/dL (83-110); Potassium 5.4 mmol/L (3.5-5.1); Sodium 139 mmol/L (136-145)
[2019-04-21] MEDS ORDERED: Ventilator Sedation Protocol 1 EACH FS ONE (06:44)
[2019-04-21] MEDS ORDERED: Propofol 1,000 MG/100 ML VIAL IV ONE (06:45)
[2019-04-21] MEDS ORDERED: Lorazepam 2 MG/ML VIAL SLOW IVP PRN (06:47)
[2019-04-21] MEDS ORDERED: Fentanyl BOLUS 250 ML IVPB PRN (06:47)
[2019-04-21] MEDS ORDERED: fentaNYL Citrate/PF 2,000 MCG in Sodium Chloride 0.9% 60 ML IV SCH (06:47)
[2019-04-21] MEDS ORDERED: Propofol BOLUS 1,000 MG/100 ML VIAL IV PRN (06:47)
--- NOTE | 2019-04-21 06:57 | PDOC.EVN ---
Event Note - Event Note Event Note: Pt went into cardiac arrest, with rapid ROSC, intubated, placed in icu, cardiology had been consulted and has been notified of changes in pt. status, will follow rec's, will consult pulmonary, ekg, labs reviewed, cxr/abg pending , will follow, please see code sheet for details
--- NOTE | 2019-04-21 06:59 | PDOC.EVN ---
Event Note - Event Note Event Note: CODE BLUE called on patient. I was first physician at the site. Patient had developed bradycardia and then asystole. Chest compressions were started and RT began bagging patient. 1 dose of epinephrine given. Pt had been complaining of chest pain per the nurse Recent labs showed borderline high hyperkalemia, so calcium was given. PEA was noted at first pulse check ROSC was achieved at second pulse check. At this time I intubated patient with glidescope and 7.5 ET tube on first attempt. Tube was secured at 23 with breath sounds heard bilaterally. CXR ordered Patient transferred to ICU, further management per primary team. Addendum - Attending - Attending Attestation Date/Time: 04/21/19 8942 I personally evaluated the patient and discussed the management with Dr. Mccain. I agree with the History, Examination, Assessment and Plan documented above with any addition or exceptions noted below. 30 minutes CC time, including chart review. Patient underwent ACLS with ROSC and subsequent intubation 2/2 agonal breathing after termination of code.
[2019-04-21 07:06] LABS: Actual Bicarbonate (HCO3a) 16.4 mEq/L (22-28); Base Excess (BEa) -10.8 mEq/L (-2.0 to +3.0); CO2 Tension 41.8 mmHg (35.0-45.0); Calcium, Ionized 1.26 mmol/L (1.12-1.30); Carboxyhemoglobin (COHb) 1.1 gm% (0.0-3.0); Hemoglobin (Hb) 10.3 g/dL (14.0-18.0); O2 Tension (PaO2) 71.3 mmHg (> 70.0); Potassium - ABG Lab 4.42 mmol/L (3.70-5.30)
[2019-04-21 07:44] LABS: Puncture Site LRA; pH, Arterial 7.21 (7.35-7.45)
--- NOTE | 2019-04-21 07:45 | RAD ---
RADIOGRAPH CHEST 1 VIEW: DATE: 04/21/2019 TIME: 6:55 AM HISTORY: 73-year-old male status post intubation for respiratory failure. COMPARISON: 04/20/2019 5:04 PM FINDINGS: New endotracheal tube distal tip 1.5 cm superior to k[place]. Interval worsening of patchy airspace opa [place] at right midlung zone, and another one at right infrahilar lower lung zone medially. Defibrillation paddle. Sternotomy wires. This is a supine image which would be insensitive for pneumo thorax detection. Pulmonary venous engorgement. IMPRESSION: 1. Status post intubation with endotracheal tube. 2. Interval development of airspace opacities in the right lung. 3. Pulmonary venous congestion.
[2019-04-21] MEDS ORDERED: PROPOFOL 200 MG/20 ML VIAL ONE (09:00)
[2019-04-21] MEDS: HumaLOG 300 UNITS/3 ML VIAL SC PRN ×2 (10:01→17:22)
[2019-04-21] MEDS: Morphine 2 MG/ML SYRINGE SLOW IVP PRN (10:03)
[2019-04-21 10:40] LABS: Bacteria/HPF 4+ HPF (None Seen); Bilirubin Negative (Negative); Blood, Urine Negative (Negative); Clarity Extra Turbid (Clear); Glucose, Urine (Dipstick) Normal (Negative); Leukocyte 500 Leu/uL (Negative); Nitrite Negative (Negative); Protein, Urine (Dipstick) 200 mg/dL (Neg-Trace); RBC/HPF Greater than 50 HPF (0-3); Urobilinogen Normal mg/dL (Less than 2); WBC/HPF Greater than 50 HPF (0-3)
[2019-04-21] MEDS: Propofol 1,000 MG/100 ML VIAL IV PRN ×2 (10:53→20:19)
--- NOTE | 2019-04-21 11:03 | CON ---
DATE OF CONSULTATION: 04/21/2019 CONSULTING PHYSICIAN: Dr. Beck. REASON FOR CONSULTATION: Acute kidney injury and hyperkalemia. REASON FOR ADMISSION: Chest pain. HISTORY OF PRESENT ILLNESS: This is a 73-year-old male with history of CKD, CHF, type 2 diabetes, edema, CABG, and CAD, came to the hospital with chest pain and has been evaluated. The patient even had a Code Blue and was transferred to ICU. He does follow with me at the clinic for chronic kidney disease care and his creatinine was elevated at 2.6. Baseline is around 1.8 to 2.2. He was also hyperkalemic. The patient is currently intubated, not able to give a history. He is having further evaluation. PAST MEDICAL HISTORY: Positive for coronary artery disease, type 2 diabetes, hypertension, CHF, CKD stage 3, hyperlipidemia, and obesity. PAST SURGICAL HISTORY: History of cardiac stents, CABG, tonsillectomy, and left hip surgery. HOME MEDICATIONS: 1. Hydralazine. 2. CoQ10. 3. Torsemide. 4. Flomax. 5. Zoloft. 6. Protonix. 7. Oxybutynin. 8. Lisinopril. 9. Imdur. 10. Levemir. 11. Gabapentin. 12. Proscar. 13. Lipitor. 14. Amlodipine. ALLERGIES: IODINE CONTRAST. SOCIAL HISTORY: No smoking, alcohol, or illicit drugs abuse. FAMILY HISTORY: No significant kidney disease. REVIEW OF SYSTEMS: CONSTITUTIONAL: Negative for weight loss or gain, ability to conduct usual activities. SKIN: Negative for rash, itching. EYES: Negative for double vision, pain. ENT/MOUTH: Negative for nose bleeding, neck stiffness, pain, tenderness. CARDIOVASCULAR: Negative for palpitations, dyspnea on exertion, orthopnea. RESPIRATORY: Negative for shortness of breath, wheezing, cough, hemoptysis, fever or night sweats. GASTROINTESTINAL: Negative for poor appetite, abdominal pain, heartburn, nausea, vomiting, constipation, or diarrhea. GENITOURINARY: Negative for urgency, frequency, dysuria, nocturia. MUSCULOSKELETAL: Negative for pain, swelling. NEUROLOGIC/PSYCHIATRIC: Negative for anxiety, depression. ALLERGY/IMMUNOLOGIC: Negative for skin rash, bleeding tendency. PHYSICAL EXAMINATION: GENERAL: This is a well-built male, in no apparent distress. VITAL SIGNS: Temperature 98.5, pulse 74, respiratory rate 20, and blood pressure 154/71. HEENT: Intubated. CV: S1 and S2 heard. RESPIRATORY: Coarse breath sounds. GI: Abdomen is distended and soft. No hepatosplenomegaly. Bowel sounds sluggish. MUSCULOSKELETAL: No edema. DERMATOLOGIC: No skin rash. NEUROLOGIC: Intubated. LABORATORY DATA: Hemoglobin is 10.4. A pH is 7.2. Potassium 5.4, bicarb 19, BUN is 50, and creatinine is 2.6. ASSESSMENT AND PLAN: 1. Acute kidney injury on chronic kidney disease, stage 4. We will continue to monitor. No acute indication for dialysis. Monitor urine output. Avoid nephrotoxins. 2. Hyperkalemia. We will monitor. 3. Acidosis. 4. Chronic anemia. 5. Edema. 6. Cardiorenal syndrome. 7. History of hypertension. 8. Acute hypoxic respiratory failure, currently intubated. We will continue to monitor. No acute indication for dialysis. Medication list reviewed. Monitor vancomycin level and dose based on the level. Avoid levels more than 20 to avoid nephrotoxicity. Recommend cautious use of morphine and avoid NSAIDs if possible. Thank you for the consult. We will follow. Job ID: [id number]
[2019-04-21] MEDS ORDERED: Sodium Bicarbonate Tab 325 MG TAB PO SCH (13:00)
[2019-04-21] MEDS ORDERED: Lisinopril 20 MG TAB PO SCH (13:00)
[2019-04-21] MEDS ORDERED: Torsemide 20 MG TAB PO SCH (13:00)
[2019-04-21] MEDS ORDERED: Amlodipine 10 MG TAB PO SCH (13:00)
--- NOTE | 2019-04-21 13:41 | CON ---
DATE OF CONSULTATION: REASON FOR CONSULTATION: Cardiopulmonary arrest. HISTORY OF PRESENT ILLNESS: Mr. Blum is a 73-year-old gentleman, who was seen and evaluated in the past. He has a history of CAD, status post bypass surgery. He recently presented with chest wall abscess. He underwent I and D on 04/19/2019. The information surrounding the events are vague. From the nursing notes, it appears the nurse went to check on the patient and the patient was unresponsive. He had significant bradycardia. He then went into PEA. Code blue was called. CPR was performed briefly. Return of spontaneous circulation then noted. The patient is transferred to the ICU in a guarded condition. He was intubated. His CK and troponin from this morning, so far are negative. CK-MB and troponin second set is currently pending. EKG does not suggest acute ST-segment elevation. PAST MEDICAL HISTORY: Diabetes mellitus, hypertension, hyperlipidemia, CAD status post bypass surgery with ANTHONY to the LAD and multiple stents placed, previous MO. ALLERGIES: NONE. SOCIAL HISTORY: No current tobacco or alcohol use. REVIEW OF SYSTEMS: Unobtainable. He is currently intubated and sedated. PHYSICAL EXAMINATION: GENERAL: He is currently intubated and sedated. VITAL SIGNS: Blood pressure 130/58, pulse 66, temperature afebrile. NEUROLOGIC: The patient is alert and oriented x3 with no focal neurologic deficits. HEENT: Sclerae without icterus. Mouth has moist mucous membranes with normal pallor. NECK: No JVD. Carotid upstroke brisk. No bruits bilaterally. LUNGS: Clear to auscultation with unlabored respirations. BACK: No scoliosis or kyphosis. CARDIAC: Regular rate and rhythm with normal S1 and S2. No S3 or S4 noted. No significant rubs, murmurs, thrills, or gallops noted throughout the precordium. PMI is not displaced. There is no parasternal heave. ABDOMEN: Soft, nontender, nondistended. No peritoneal signs present. No hepatosplenomegaly. No abnormal striae. EXTREMITIES: 2+ femoral and 2+ dorsalis pedis pulses. No cyanosis, clubbing, or edema. SKIN: No gross abnormalities. PERTINENT LABORATORY DATA: Creatinine 2.6, potassium 5.4, chloride 109, GFR 24. Peak troponin 0.3. DIAGNOSTIC STUDIES: Echo pending. IMPRESSION: 1. Cardiopulmonary arrest. 2. Recent I and D of chest wall abscess. 3. Bradycardia. 4. Coronary artery disease, status post bypass surgery. RECOMMENDATIONS: At this point, the inciting event is currently unknown. It appears he glenn down and lost his pulse. He initially did complain of chest pain, but may have been related to his chest wall. At this point, we will continue with serial CK, troponin. We will review his echo. He may need to have angiogram performed prior to discharge. He currently is hemodynamically stable. No family is currently present for discussion. Job ID: [id number]
--- NOTE | 2019-04-21 16:32 | CON ---
DATE OF CONSULTATION: 04/21/2019 SERVICE: Pulmonary Medicine. REASON FOR CONSULTATION: Respiratory failure. HISTORY OF PRESENT ILLNESS: The patient is a 73-year-old white male with past medical history significant for an anterior chest wall abscess. He came into the Emergency Department on the April 21 with complaints of swelling in the left anterior chest. He had purulent drainage coming from this location for a period of about 5 days. He also had increasing weakness. In the Emergency Department, the patient underwent an I and D procedure. He was tucked into the observation unit for further monitoring. At this point, I am told that he was on room air. In the observation unit, he had an event, where he developed some bradycardia. He developed respiratory failure and required mechanical intubation. He had a brief round of chest compressions. He is currently on mechanical ventilation, is not able to provide additional elements of the history. Overnight, he did not have any significant respiratory issues. His oxygen requirements were extremely elevated. They have been decreasing slightly. PAST MEDICAL HISTORY: 1. Coronary artery disease. 2. Type 2 diabetes mellitus. 3. Hypertension. 4. Dyslipidemia. 5. Morbid obesity. 6. Chronic kidney disease. 7. Chronic diastolic heart failure. PAST SURGICAL HISTORY: 1. Coronary artery bypass graft. 2. Percutaneous coronary intervention x5, stent placement. 3. Left hip surgery. 4. Tonsillectomy. 5. I and D of the left anterior chest wall. SOCIAL HISTORY: The patient is a permanent resident of [facility]. He uses alcohol occasionally. Denies any tobacco or illicit drugs. He has no exposure to chemicals, dust, asbestos, or tuberculosis. FAMILY HISTORY: Noncontributory. ALLERGIES: IODINE. MEDICATIONS: List of his inpatient medications was reviewed. No specific updates were made at this time. REVIEW OF SYSTEMS: This cannot be obtained as the patient is currently intubated and sedated. PHYSICAL EXAMINATION: VITAL SIGNS: Currently, afebrile with a T-max of 100.3. Pulse is 73, blood pressure 161/80, respirations 17, and saturation 98%, currently on 53% FiO2 and a PEEP of 10. HEENT: Normocephalic and atraumatic. Sclerae white. Conjunctivae pink. Oral mucosa is moist without lesions. LUNGS: Decent air entry. There is no prolonged expiratory phase. Dependent crackles are noted. No wheezing or rhonchi are appreciated. HEART: Normal rate. Regular. ABDOMEN: Soft. Nontender and nondistended. Bowel sounds are hypoactive. : Grubbs catheter in place. NEUROLOGIC: Grossly nonfocal. MUSCULOSKELETAL: No cyanosis or clubbing. There is trace 1+ pitting throughout, now will move on. LABORATORY DATA: WBC 15.5, hemoglobin 10.4, and platelets 257,000. INR 1.2. A pH of 7.21, pCO2 of 42, and pO2 of 71. Creatinine 2.60, which is fairly close to baseline, bicarb 19 and BUN 50. Troponin is downtrending to 0.3, CK-MB 4, magnesium 1.9, and calcium 8.8. Liver function studies are completely unremarkable. BNP 522, which is slightly above his baseline, but much lower than his high. Urinalysis is positive for significant pyuria, and bacteria with few squamous cells identified. Leukocyte esterase is positive and nitrites are negative. Blood cultures x2. Chest wall culture are negative to-date. IMAGING: Chest x-ray demonstrates endotracheal tube is in good position. Pulmonary venous congestion, and perihilar edema are appreciated. Sternotomy wires are noted. Cardiac silhouette is quite generous despite the fact that this is an AP film. Of note, these findings were not present one day prior. ASSESSMENT: 1. Acute hypoxic respiratory failure secondary to flash pulmonary edema. 2. Acute on chronic diastolic and likely valvular heart failure. 3. Severe sepsis secondary to an anterior chest wall abscess, status post I and D. DISCUSSION AND PLAN: The patient will need to be diuresed to euvolemia, which he is actually quite close to. More important that, however, it is going to be his blood pressure control. His oxygen requirements at this point are too high to consider extubation. We are going to need to wean this over the next 24 hours and hopefully, he will be able to liberate from mechanical ventilation in the morning. I am going to initiate schedule bicarb as the patient has a significant acidosis associated with chronic renal disease. Pulmonary/Critical Care will follow closely. CRITICAL CARE TIME: 30 minutes. Job ID: [id number]
[2019-04-21] MEDS: Acetaminophen 325 MG TAB PO PRN (17:22)
--- NOTE | 2019-04-21 17:51 | PDOC.HOSPP ---
- Subjective Encounter Date: 04/21/19 Encounter Time: 16:00 Subjective: f/u for resp failure, bradycardia and [facility] Receiving Zos[facility]/ Vanc and local wound care to L upper chest abscess s/p I&D. - Objective Vital Signs & Weight: Vital Signs (12 hours) Temp Pulse Resp BP Pulse Ox 04/21/19 17:00 101.7 F H 04/21/19 16:00 17 04/21/19 14:31 71 163/72 H 04/21/19 14:05 72 141/57 H 04/21/19 14:00 17 04/21/19 12:00 99.8 F H 17 04/21/19 11:16 72 158/78 H 04/21/19 10:00 21 H 04/21/19 08:00 21 H 92 L 04/21/19 07:15 98.5 F 04/21/19 06:51 100 131/96 H Weight Weight 200 lb 9.93 oz Most Recent Monitor Data Heart Rate from ECG 67 NIBP 143/80 NIBP BP-Mean 101 Respiration from ECG 0 SpO2 95 I&O: 04/20/19 04/21/19 04/22/19 06:59 06:59 06:59 Intake Total 260 Output Total 610 Balance -350 Result Diagrams: 04/21/19 05:21 04/21/19 05:21 Additional Labs: Accuchecks 04/21/19 04/21/19 04/21/19 17:07 10:01 06:19 POC Glucose 219 H 291 H 289 H 04/20/19 21:03 POC Glucose 172 H Microbiology 04/20/19 17:00 Chest - Pending Bacterial Culture - Preliminary 04/20/19 14:46 Venous blood - Right Hand Blood Culture - Preliminary Specimen has been received and culture in progress. No Growth to date. 04/20/19 14:46 Venous blood - Left Arm Blood Culture - Preliminary Specimen has been received and culture in progress. No Growth to date. Laboratory Tests 11/28/18 11/29/18 11/29/18 04:17 05:09 05:09 WBC Hgb Potassium BUN Creatinine 1.89 H 1.75 H Lactic Acid Troponin I B-Natriuretic Peptide 1242.6 H 11/30/18 04/20/19 04/20/19 05:05 14:40 14:40 WBC 13.9 H Hgb 9.7 L Potassium 3.6 5.1 BUN 45 H Creatinine 1.80 H Lactic Acid Troponin I B-Natriuretic Peptide 04/20/19 04/20/19 04/20/19 14:40 14:40 14:40 WBC Hgb Potassium BUN Creatinine Lactic Acid 0.6 Troponin I 0.068 H B-Natriuretic Peptide 522.8 H 04/20/19 04/20/19 04/21/19 18:19 21:17 08:53 WBC Hgb Potassium BUN Creatinine Lactic Acid Troponin I 0.039 H 0.068 H 0.300 H B-Natriuretic Peptide Radiology Reviewed by me: Yes (PCXR - lines/tubes in place, pulm vasc congestion ) EKG Reviewed by me: Yes (Tele - SR) Hospitalist ROS - Medication Medications: Active Medications Generic Name Dose Route Start Last Admin Trade Name Freq PRN Reason Stop Dose Admin Acetaminophen 650 mg 04/20/19 18:19 04/21/19 17:22 Tylenol PO 650 mg Q4H PRN Administration Headache/Fever/Mild Pain (1-3) Piperacillin Sod/Tazobactam 100 mls @ 200 mls/hr 04/20/19 22:00 04/21/19 14: 06 Sod 2.25 gm/ Sodium Chloride IVPB 100 mls Q8HR AIDAN Administration Insulin Human Lispro 0 units 04/20/19 18:15 04/21/19 17:22 Humalog SC 3 unit .MILD SLIDING SCALE PRN Administration Mild Correctional Scale Morphine Sulfate 2 mg 04/21/19 06:47 04/21/19 10:03 Morphine SLOW IVP 05/21/19 06:47 2 mg Q1H PRN Administration BREAKTHROUGH PAIN/Agitation Ondansetron HCl 4 mg 04/20/19 18:19 04/20/19 20:32 Zofran Odt PO 4 mg Q6H PRN Administration Nausea/Vomiting Propofol 1,000 mg 04/21/19 06:47 04/21/19 10:53 Diprivan IV 05/21/19 06:47 1,000 mg INF PRN Administration TO ACHIEVE GOAL RASS Protocol - Exam General - other findings: sedate on mech vent Eye: PERRL ENT: normocephalic atraumatic, no oropharyngeal lesions ENT - other findings: ETT in place Neck: supple, symmetric, no JVD, no thyromegaly Heart: RRR, no gallops, no rubs, normal peripheral pulses Heart - other findings: S1, S2 Respiratory: no ronchi, normal chest expansion Respiratory - other findings: few basilar crackles Gastrointestinal: soft, non-distended, normal bowel sounds, no palpable masses, no hepatomegaly Extremities: no cyanosis, no edema Skin: normal turgor Neurological - other findings: sedate on mech ventilation Hosp A/P (1) Acute respiratory failure with hypoxia Code(s): J96.01 - ACUTE RESPIRATORY FAILURE WITH HYPOXIA Status: Acute Plan: Continue mech ventilation, pulmonary supportive measures, wean as clinically indicated (2) Cardiac arrest Code(s): I46.9 - CARDIAC ARREST, CAUSE UNSPECIFIED Status: Acute Plan: s/p Cardiac arrest with ROSC, continue med mgmt, may need repeat Echo, continue ASA/Plavix (3) Acute kidney failure Status: Acute Qualifiers: Acute renal failure type: unspecified Qualified Code(s): N17.9 - Acute kidney failure, unspecified Plan: Avoid nephrotoxic meds and limit contrast exposure, serial creatinine (4) Chronic kidney disease, stage 3 Status: Chronic (5) DM2 (diabetes mellitus, type 2) Status: Chronic Plan: Labile, ISS, serial accuchecks (6) Abscess of chest wall Code(s): L02.213 - CUTANEOUS ABSCESS OF CHEST WALL Status: Acute Plan: s/p I&D with WCT and local packing, continue Zosyn/Vanc - Plan continue antibiotics, social media senior associate, respiratory therapy, DVT proph w/SCDs Continue aggressive pulmonary support Continue ASA/Plavix Resume home BP regimen WCT for local care of L upper chest wall abscess PCXR in am AM lab: BMP, CBC
--- NOTE | 2019-04-21 18:35 | PDOC.PALCO ---
Palliative Care Consult - Consult Details Requesting Physician: Dr Hancock Reason for Consult: goals of care, advance directives assistance Family Members Present: none - Pertinent HPI 73 year old male who is a resident at an assisted living facility. He was referred to the emergency room by his primary care physician secondary to infection to left upper chest cyst. I&D to abscess in the emergency room when patient subsequently had chest pain, non radiating and AV block. Admitted for further evaluation. Episode where patient required resuscitative measures and is currently on a mechanical vent. Palliative care consult for assistance with advance directives and goals of care. - Pertinent PMH Coronary artery disease, diabetes mellitus, hypertension, CHF, hyperlipidemia, obesity, CKD - Social History Smoking Status: Never smoker Smoking: no tobacco exposure Alcohol Use: occasional Drug Use History: none Living Situation: independent - Medications MAR Reviewed: Yes - Allergies Allergies/Adverse Reactions: Allergies Allergy/AdvReac Type Severity Reaction Status Date / Time Iodinated Contrast Media Allergy n/v Verified 04/30/18 16:11 [Iodinated Contrast Media - IV Dye] - Objective Vital Signs: Vital Signs - Most Recent Temp Pulse Resp BP Pulse Ox 101.7 F H 63 17 148/68 H 92 L 04/21/19 17:00 04/21/19 18:16 04/21/19 18:00 04/21/19 18:16 04/21/19 08:00 Palliative Performance Scale: 20 (But usually functions independently) - Physical Exam Deviation from normal: Sedated on vent, HEENT: moist MMs Deviation from normal: Vent dependent, Cardiovascular: RRR Gastrointestinal: soft, non-tender, positive bowel sounds Musculoskeletal: no edema, pulses present Deviation from normal: Sedated Skin: normal turgor Deviation from normal: wound to chest wall - Problem List (1) Palliative care encounter Code(s): Z51.5 - ENCOUNTER FOR PALLIATIVE CARE Current Visit: Yes Status: Acute (2) Abscess of chest wall Code(s): L02.213 - CUTANEOUS ABSCESS OF CHEST WALL Current Visit: Yes Status : Acute (3) Cardiac arrest Code(s): I46.9 - CARDIAC ARREST, CAUSE UNSPECIFIED Current Visit: Yes Status : Acute (4) Acute on chronic diastolic CHF (congestive heart failure) Code(s): I50.33 - ACUTE ON CHRONIC DIASTOLIC (CONGESTIVE) HEART FAILURE Current Visit: No Status: Acute (5) Hyperglycemia due to type 2 diabetes mellitus Code(s): E11.65 - TYPE 2 DIABETES MELLITUS WITH HYPERGLYCEMIA Current Visit: No Status: Chronic - Plan/Recommendations Plan: Cesar Miller RN to reach out to the son in [place] to discuss resuscitative measures and establish who is MPOA. It is believed his ex may still be the MPOA. *Palliative Care will continue to address and offer assistance in identifying MPOA for patient and if he has expressed wishes in the past in relation to resuscitative measures. *Further support as needed to identify goals of care for patient [40] minutes spent on this encounter with >50% of the time in counseling and coordination of care. Thank you for this very appropriate consult.
[2019-04-21] MEDS ORDERED: Pancrelipase DR 12000 1 CAP FS PRN (19:00)
[2019-04-21] MEDS ORDERED: Sodium Bicarbonate Tab 325 MG TAB PER TUBE PRN (19:00)
[2019-04-21] MEDS: hydrALAZINE 25 MG TAB PO SCH (20:19)
[2019-04-21] MEDS: Sodium Bicarbonate Tab 325 MG TAB PO SCH (20:19)
[2019-04-21] MEDS: Famotidine 20 MG TAB PO SCH (20:19)
[2019-04-21] MEDS ORDERED: Vancomycin HCl 1.5 GM in Sodium Chloride 0.9% 250 ML 300 ML IVPB SCH (21:00)
[2019-04-22] MEDS: Vancomycin HCl 1.25 GM in Sodium Chloride 0.9% 250 ML 250 ML IVPB SCH ×2 (00:42→23:42)
[2019-04-22] MEDS: Propofol 1,000 MG/100 ML VIAL IV PRN (00:54)
[2019-04-22] MEDS: Morphine 2 MG/ML SYRINGE SLOW IVP PRN ×3 (02:13→16:41)
[2019-04-22] MEDS: Piperacillin/Tazobactam 2.25 GM in Sodium Chloride 0.9% 100 ML IVPB SCH ×3 (05:02→21:04)
[2019-04-22] MEDS: HumaLOG 300 UNITS/3 ML VIAL SC PRN ×4 (05:07→20:21)
[2019-04-22 07:07] LABS: Hemoglobin 9.6 g/dL (14.0-18.0); Mean Corpuscular HGB CONC 33.9 g/dL (32.0-36.0); Mean Corpuscular Volume 94.2 fL (78.0-98.0); Mean Platelet Volume 7.8 fL (7.4-10.4); Platelet Count 225 thou/uL (130-400); RBC Distribution Width 11.8 % (11.5-14.5); Red Blood Cell (RBC) Count 3.02 mill/uL (4.70-6.10); White Blood Cell (WBC) Count 11.3 thou/uL (4.8-10.8)
[2019-04-22 07:26] LABS: Anion Gap 12 mmol/L (10-20); BUN (Urea Nitrogen) 53 mg/dL (8.4-25.7); Calc. Creatinine Clearance 38 mL/min (70-130); Calcium 8.7 mg/dL (7.8-10.44); Carbon Dioxide 21 mmol/L (23-31); Chloride 111 mmol/L (98-107); Estimated GFR-MDRD 28; Glucose 179 mg/dL (83-110); Potassium 3.9 mmol/L (3.5-5.1); Sodium 140 mmol/L (136-145)
[2019-04-22 08:06] LABS: CKMB 2.5 ng/mL (0-6.6)
[2019-04-22 08:14] LABS: Troponin I 1.259 ng/mL (< 0.028)
[2019-04-22] MEDS ORDERED: DC Sedation Protocol FS ONE (08:14)
[2019-04-22 08:21] LABS: Band 6 % (5-11); Lymphocytes 14 % (21-51); MDiff Complete? YES; Monocytes 8 % (0-10); Neutrophil 72 % (42-75); RBC Morphology Normal
[2019-04-22] MEDS: Sodium Bicarbonate Tab 325 MG TAB PO SCH ×2 (08:27→20:22)
[2019-04-22] MEDS: Isosorbide Mononitrate (ER) 30 MG TAB PO SCH (08:27)
[2019-04-22] MEDS: Clopidogrel Bisulfate 75 MG TAB PO SCH (08:27)
[2019-04-22] MEDS: Amlodipine 10 MG TAB PO SCH (08:27)
[2019-04-22] MEDS: Aspirin 81 mg Enteric Coated Tablet PO SCH (08:27)
[2019-04-22] MEDS: Lisinopril 20 MG TAB PO SCH (08:28)
[2019-04-22] MEDS: hydrALAZINE 25 MG TAB PO SCH ×2 (08:28→20:22)
[2019-04-22] MEDS: Torsemide 20 MG TAB PO SCH (08:29)
[2019-04-22] MEDS ORDERED: Furosemide 40 MG/4 ML VIAL SLOW IVP SCH (08:30)
--- NOTE | 2019-04-22 09:52 | PRG ---
DATE OF SERVICE: 04/22/2019 35 minutes critical care time. SUBJECTIVE: The patient remains intubated on mechanical ventilation. He will wake up and follow commands appropriately. OBJECTIVE: VITAL SIGNS: His temperature is 99.6, pulse 61, blood pressure 124/53, O2 saturation 97%. He is currently on propofol for sedation. Intake for last 24 hours 1671, output 1420. HEENT: Unremarkable. NECK: No adenopathy or JVD. CHEST: Clear anteriorly. CARDIAC: S1, S2. Regular with 2/6 systolic murmur. ABDOMEN: Soft. Nontender. EXTREMITIES: No clubbing, cyanosis, or edema. LABORATORY DATA: Sodium 140, potassium 3.9, chloride 111, CO2 of 21, BUN 53, creatinine 2.3, glucose 179. White blood cell count 11.3, hematocrit 28.4, and platelet count 225. His x-ray from yesterday, showed pulmonary edema. Echocardiogram showed a moderately diminished EF, [id number] mitral regurgitation, mild to moderate tricuspid regurgitation. ASSESSMENT: 1. Acute respiratory failure requiring mechanical ventilation. 2. Flash pulmonary edema. 3. Acute systolic cardiac dysfunction. 4. Sepsis secondary to anterior chest wall abscess. 5. Chronic kidney disease. PLAN: 1. One dose diuretics. 2. Extubate to high-flow nasal cannula and observe. 3. Continue IV antibiotics for chest wall abscess. 4. Continue to follow closely. Job ID: [id number]
[2019-04-22] MEDS ORDERED: Morphine 4 MG/ML VIAL SLOW IVP PRN (10:50)
--- NOTE | 2019-04-22 11:25 | PRG ---
DATE OF SERVICE: 04/22/2019 SUBJECTIVE: Patient was seen and examined at bedside and overnight events noted. Patient denies any shortness of breath or chest pain or palpitation. No history of nausea or vomiting or diarrhea or fever or chills or cramps. OBJECTIVE: GENERAL: This is a well-built male, in no apparent distress. VITAL SIGNS: Temperature 97.9. Heart rate 82. Respiratory rate 18. Blood pressure 130/58. HEENT: Atraumatic, normocephalic. Oral mucosa is moist NECK: Supple. CARDIOVASCULAR: S1, S2 heard. Rate and rhythm regular. RESPIRATORY: Clear to auscultation. GASTROINTESTINAL: Abdomen is soft. MUSCULOSKELETAL: No tenderness. No edema. DERMATOLOGIC: No skin rash. NEUROLOGIC: Alert and awake and oriented X3. No focal neurologic deficits. Moving all the extremities. PSYCHIATRIC: Mood and affect normal. LABORATORY DATA: Potassium 3.9, BUN is 53, and creatinine is 2.3. ASSESSMENT AND PLAN: 1. Acute kidney injury, getting better. 2. Chronic kidney disease, stage 4, stable. 3. Edema, okay with Lasix. 4. Cardiorenal syndrome. 5. History of hypertension. 6. Hyperkalemia, better. 7. Mild acidosis. Overall, labs are stable from Nephrology standpoint. I will follow. Okay with Lasix with cautious monitoring. Job ID: [id number]
[2019-04-22 12:04] LABS: Critical Call Chem Troponin I RESULT DECREASING
--- NOTE | 2019-04-22 14:53 | PDOC.HOSPP ---
- Subjective Encounter Date: 04/22/19 Encounter Time: 14:45 Subjective: f/u s/p cardiac arrest ROSC and resp failure now extubated. s/p I&D L upper chest wall abscess on Zosyn/Vanc. - Objective Vital Signs & Weight: Vital Signs (12 hours) Temp Pulse Resp BP Pulse Ox 04/22/19 12:00 99.0 F 99 04/22/19 11:10 95 04/22/19 08:48 93 L 04/22/19 08:28 83 145/59 H 04/22/19 08:27 93 145/59 H 04/22/19 08:26 82 145/59 H 04/22/19 08:00 97.9 F 11 L 97 04/22/19 06:00 11 L 04/22/19 04:00 99.6 F 11 L Weight Admit Weight 212 lb Weight 200 lb 9.93 oz Most Recent Monitor Data Heart Rate from ECG 70 NIBP 156/65 NIBP BP-Mean 95 Respiration from ECG 21 SpO2 98 I&O: 04/21/19 04/22/19 04/23/19 06:59 06:59 06:59 Intake Total 1671 107 Output Total 1420 870 Balance 251 -763 Result Diagrams: 04/22/19 06:48 04/22/19 06:48 Additional Labs: Accuchecks 04/22/19 04/22/19 04/21/19 11:21 05:09 20:56 POC Glucose 225 H 189 H 167 H 04/21/19 04/21/19 17:07 06:19 POC Glucose 219 H 289 H Microbiology 04/21/19 07:20 Urine gonzlaez catheter Urine Culture - Preliminary Gram Negative Renaldo 04/20/19 17:00 Chest - Pending Bacterial Culture - Preliminary 04/20/19 17:00 Chest - Pending Bacterial Culture - Preliminary 04/20/19 14:46 Venous blood - Right Hand Blood Culture - Preliminary Specimen has been received and culture in progress. No Growth to date. 04/20/19 14:46 Venous blood - Right Hand Blood Culture - Preliminary NO GROWTH AT 24 HOURS 04/20/19 14:46 Venous blood - Left Arm Blood Culture - Preliminary Specimen has been received and culture in progress. No Growth to date. 04/20/19 14:46 Venous blood - Left Arm Blood Culture - Preliminary NO GROWTH AT 24 HOURS Laboratory Tests 11/28/18 11/29/18 11/29/18 04:17 05:09 05:09 WBC Hgb Potassium BUN Creatinine 1.89 H 1.75 H Lactic Acid Troponin I B-Natriuretic Peptide 1242.6 H 11/30/18 04/20/19 04/20/19 05:05 14:40 14:40 WBC 13.9 H Hgb 9.7 L Potassium 3.6 5.1 BUN 45 H Creatinine 1.80 H 2.51 H Lactic Acid Troponin I B-Natriuretic Peptide 04/20/19 04/20/19 04/20/19 14:40 14:40 14:40 WBC Hgb Potassium BUN Creatinine Lactic Acid 0.6 Troponin I 0.068 H B-Natriuretic Peptide 522.8 H 04/20/19 04/20/19 04/21/19 18:19 21:17 05:21 WBC Hgb Potassium BUN Creatinine 2.60 H Lactic Acid Troponin I 0.039 H 0.068 H B-Natriuretic Peptide 04/21/19 04/22/19 04/22/19 08:53 06:48 11:34 WBC Hgb Potassium BUN Creatinine Lactic Acid Troponin I 0.300 H 1.259 H* 0.504 H* B-Natriuretic Peptide 04/22/19 12:59 WBC Hgb Potassium BUN Creatinine Lactic Acid Troponin I 0.846 H* B-Natriuretic Peptide Radiology Reviewed by me: Yes (Echo - EF diminished, poor endocardial windows) EKG Reviewed by me: Yes (Tele - SR) Hospitalist ROS - Medication Medications: Active Medications Generic Name Dose Route Start Last Admin Trade Name Freq PRN Reason Stop Dose Admin Acetaminophen 650 mg 04/20/19 18:19 04/21/19 17:22 Tylenol PO 650 mg Q4H PRN Administration Headache/Fever/Mild Pain (1-3) Amlodipine Besylate 10 mg 04/22/19 09:00 04/22/19 08:27 Norvasc PO 10 mg DAILY AIDAN Administration Aspirin 81 mg 04/22/19 09:00 04/22/19 08:27 Ecotrin PO 81 mg DAILY AIDAN Administration Clopidogrel Bisulfate 75 mg 04/22/19 09:00 04/22/19 08:27 Plavix PO 75 mg DAILY AIDAN Administration Famotidine 20 mg 04/21/19 21:00 04/21/19 20:19 Pepcid PO 20 mg HS AIDAN Administration Hydralazine HCl 50 mg 04/21/19 21:00 04/22/19 08:28 Apresoline PO 50 mg BID AIDAN Administration Piperacillin Sod/Tazobactam 100 mls @ 200 mls/hr 04/20/19 22:00 04/22/19 05: 02 Sod 2.25 gm/ Sodium Chloride IVPB 100 mls Q8HR AIDAN Administration Vancomycin HCl 1.25 gm/ Sodium 250 mls @ 166.667 mls/hr 04/21/19 23:59 00:42 Chloride IVPB 250 mls 2359 AIDAN Administration Insulin Human Lispro 0 units 04/20/19 18:15 04/22/19 11:20 Humalog SC 3 unit .MILD SLIDING SCALE PRN Administration Mild Correctional Scale Isosorbide Mononitrate 30 mg 04/22/19 09:00 04/22/19 08:27 Imdur Er PO 30 mg DAILY AIDAN Administration Lisinopril 20 mg 04/22/19 09:00 04/22/19 08:28 Zestril PO 20 mg DAILY AIDAN Administration Morphine Sulfate 2 mg 04/22/19 10:49 04/22/19 11:20 Morphine SLOW IVP 2 mg Q4H PRN Administration CHEST PAIN (1-4) Ondansetron HCl 4 mg 04/20/19 18:19 04/20/19 20:32 Zofran Odt PO 4 mg Q6H PRN Administration Nausea/Vomiting Propofol 1,000 mg 04/21/19 06:47 04/22/19 00:54 Diprivan IV 05/21/19 06:47 1,000 mg INF PRN Administration TO ACHIEVE GOAL RASS Protocol Sodium Bicarbonate 325 mg 04/21/19 21:00 04/22/19 08:27 Bicarbonate, Sodium PO 325 mg BID AIDAN Administration Torsemide 20 mg 04/22/19 09:00 04/22/19 08:29 Demadex PO 20 mg DAILY AIDAN Administration - Exam General Appearance: NAD, awake alert Eye: PERRL, anicteric sclera ENT: normocephalic atraumatic, no oropharyngeal lesions, dry oral mucosa Neck: supple, symmetric, no JVD, no thyromegaly, no lymphadenopathy Heart: RRR, no murmur, no gallops, no rubs, normal peripheral pulses Respiratory: CTAB, no wheezes, no rales, no ronchi, normal chest expansion Gastrointestinal: soft, non-tender, non-distended, normal bowel sounds, no palpable masses Extremities: no cyanosis, no clubbing, no edema Skin: normal turgor Skin - other findings: L upper chest wall with dressing in place Neurological: CN's grossly intact, no new deficit Musculoskeletal: generalized weakness Psychiatric: A&O x 3 Hosp A/P (1) Acute respiratory failure with hypoxia Code(s): J96.01 - ACUTE RESPIRATORY FAILURE WITH HYPOXIA Status: Acute Plan: s/p intubation and extubated this am, continue O2 supplementation NC (2) Cardiac arrest Code(s): I46.9 - CARDIAC ARREST, CAUSE UNSPECIFIED Status: Acute Plan: s/p CPR with ROSC, troponins trending downward (3) Acute kidney failure Status: Acute Qualifiers: Acute renal failure type: unspecified Qualified Code(s): N17.9 - Acute kidney failure, unspecified Plan: Slow improvement, avoid nephrotoxic meds and limit contrast exposure, serial creatinine (4) Chronic kidney disease, stage 3 Status: Chronic (5) DM2 (diabetes mellitus, type 2) Status: Chronic (6) Abscess of chest wall Code(s): L02.213 - CUTANEOUS ABSCESS OF CHEST WALL Status: Acute Plan: s/p I&D without identified dominant organism, continue Zosyn/Vanc pending final cx results, WCT for local care - Plan continue antibiotics, PT/OT, social media designer, respiratory therapy, DVT proph w/ SCDs Consults: Palliative Care Continue aggressive pulmonary support Continue ASA/Plavix Resume home BP regimen WCT for local care of L upper chest wall abscess Place Midline catheter for reliable access AM lab: BMP, CBC
[2019-04-22] MEDS: Acetaminophen 325 MG TAB PO PRN (20:22)
[2019-04-22] MEDS: Famotidine 20 MG TAB PO SCH (20:22)
[2019-04-22 23:29] LABS: Vancomycin, Trough 15.5 ug/mL
[2019-04-23] MEDS: Piperacillin/Tazobactam 2.25 GM in Sodium Chloride 0.9% 100 ML IVPB SCH ×3 (05:01→21:19)
--- NOTE | 2019-04-23 06:26 | CON ---
DATE OF CONSULTATION: 04/22/2019 SUBJECTIVE: Mr. Blum continues to be intubated. He is awake to voice and following commands. He is squeezing hands on command. His CK and troponin have been negative. OBJECTIVE: VITAL SIGNS: Blood pressure 162/72, pulse 78, and T-max 101.0. GENERAL: The patient is currently intubated but following commands. LUNGS: Clear to auscultation. HEART: Regular rate and rhythm. ABDOMEN: Soft, nontender, nondistended. EXTREMITIES: No edema. PERTINENT LABORATORY DATA: Hemoglobin 9.6. Peak troponin 1.2. CK-MB of 2.5. IMPRESSION: 1. Cardiopulmonary arrest. 2. Sepsis? 3. Respiratory failure. 4. Elevated troponin. 5. Coronary artery disease. 6. Status post bypass surgery. 7. Chronic renal insufficiency. RECOMMENDATIONS: I discussed the case with Dr. Holloway. He likely had acidosis that may have likely precipitated his current events. His increased troponin likely related to compression. This may also be a type II WA with demand ischemia. At this point, continue conservative therapy. The patient is to be extubated today. Plan is to proceed with conservative therapy unless his current situation changes. Continue antibiotic therapy for chest wall abscess. Job ID: [id number]
[2019-04-23] MEDS: HumaLOG 300 UNITS/3 ML VIAL SC PRN ×4 (06:48→21:21)
[2019-04-23 07:41] LABS: Hemoglobin 9.9 g/dL (14.0-18.0); Mean Corpuscular HGB CONC 33.8 g/dL (32.0-36.0); Mean Corpuscular Hemoglobin 31.8 pg (27.0-31.0); Mean Corpuscular Volume 94.1 fL (78.0-98.0); Mean Platelet Volume 7.4 fL (7.4-10.4); Platelet Count 272 thou/uL (130-400); RBC Distribution Width 11.8 % (11.5-14.5); White Blood Cell (WBC) Count 12.9 thou/uL (4.8-10.8)
[2019-04-23 07:58] LABS: Anion Gap 17 mmol/L (10-20); BUN (Urea Nitrogen) 50 mg/dL (8.4-25.7); Calc. Creatinine Clearance 41 mL/min (70-130); Calcium 8.7 mg/dL (7.8-10.44); Carbon Dioxide 20 mmol/L (23-31); Chloride 110 mmol/L (98-107); Estimated GFR-MDRD 30; Glucose 198 mg/dL (83-110); Potassium 3.8 mmol/L (3.5-5.1); Sodium 143 mmol/L (136-145)
[2019-04-23] MEDS ORDERED: Furosemide 40 MG/4 ML VIAL SLOW IVP SCH (08:15)
--- NOTE | 2019-04-23 08:22 | RAD ---
CHEST 1 VIEW: HISTORY: Pneumonia. COMPARISON: Radiograph 04/21/2019. FINDINGS: The airspace opacities are worsening. There are enlarging effusions. Heart size is enlarged. The p atient has been extubated. IMPRESSION: Worsening pulmonary edema and pleural effusions. POS: CET
[2019-04-23 08:25] LABS: Band 2 % (5-11); Eosinophils 2 % (0-10); Lymphocytes 5 % (21-51); MDiff Complete? YES; Monocytes 8 % (0-10); Neutrophil 83 % (42-75); Platelet Morphology Comment Appears Adequate; Polychromasia SLIGHT = 2-3 cells (100X) (0-2/hpf)
[2019-04-23] MEDS ORDERED: Calcium Chloride 1 GM/10 ML Abboject SYRINGE ONE (09:00)
[2019-04-23] MEDS ORDERED: EPINEPHrine 1 MG/10 ML Abboject SYRINGE ONE (09:00)
[2019-04-23] MEDS: Amlodipine 10 MG TAB PO SCH (09:06)
[2019-04-23] MEDS: Sodium Bicarbonate Tab 325 MG TAB PO SCH (09:07)
[2019-04-23] MEDS: Aspirin 81 mg Enteric Coated Tablet PO SCH (09:07)
[2019-04-23] MEDS: Lisinopril 20 MG TAB PO SCH (09:07)
[2019-04-23] MEDS: hydrALAZINE 25 MG TAB PO SCH ×2 (09:07→20:35)
[2019-04-23] MEDS: Torsemide 20 MG TAB PO SCH (09:07)
[2019-04-23] MEDS: Clopidogrel Bisulfate 75 MG TAB PO SCH (09:07)
[2019-04-23] MEDS: Isosorbide Mononitrate (ER) 30 MG TAB PO SCH (09:07)
--- NOTE | 2019-04-23 10:17 | PRG ---
DATE OF SERVICE: 04/23/2019 SUBJECTIVE: Mr. Blum was extubated to high-flow nasal cannula yesterday. He did fairly well. He has had borderline oxygenation, where he is now requiring about 75% to 80% high-flow. OBJECTIVE: VITAL SIGNS: His temperature is 100.7 with a T-max of 101.7, pulse 78, blood pressure 155/63, and O2 saturation 93%. Intake for 24 hours 1962, output 2034. HEENT: Unremarkable. NECK: No adenopathy or JVD. LUNGS: Coarse breath sounds anteriorly bilaterally. CARDIOVASCULAR: S1 and S2, regular. ABDOMEN: Mildly tender right upper quadrant. EXTREMITIES: Edematous throughout. LABORATORY DATA: Sodium 143, potassium 3.8, chloride 110, CO2 of 20, BUN 50, creatinine 2.2, and glucose 198. White blood cell count 12.8, hematocrit 29.2, and platelet count 272. Chest x-ray continues to show pulmonary edema bilaterally. ASSESSMENT: 1. Sepsis. 2. Pulmonary edema. 3. Status post acute hypoxic respiratory failure, requiring mechanical ventilation. 4. Renal insufficiency. PLAN: 1. I will go ahead and try to diurese him some more today. 2. Trend labs. 3. Recheck x-ray tomorrow. 4. Continue high-flow nasal cannula, wean oxygen as tolerated. Job ID: [id number]
--- NOTE | 2019-04-23 11:13 | PRG ---
DATE OF SERVICE: SUBJECTIVE: Patient was seen and examined at bedside and overnight events noted. Patient denies any shortness of breath or chest pain or palpitation. No history of nausea or vomiting or diarrhea or fever or chills or cramps. OBJECTIVE: GENERAL: This is a well-built male, in no apparent distress. VITAL SIGNS: Temperature 99.1. Heart rate 82. Respiratory rate . Blood pressure 161/67. HEENT: Atraumatic, normocephalic. Oral mucosa is moist NECK: Supple. CARDIOVASCULAR: S1, S2 heard. Rate and rhythm regular. RESPIRATORY: Clear to auscultation. GASTROINTESTINAL: Abdomen is soft. MUSCULOSKELETAL: 1+ edema. DERMATOLOGIC: No skin rash. NEUROLOGIC: Alert and awake and oriented X3. No focal neurologic deficits. Moving all the extremities. PSYCHIATRIC: Mood and affect normal. LABORATORY DATA: Potassium is 3.8, BUN is 50, creatinine is 2.1. ASSESSMENT AND PLAN: 1. Acute kidney injury on chronic kidney, stage 4. Renal function continues to get better. We will hold lisinopril and sodium bicarb while diuresing. 2. Edema, better. Follow up with Pulmonology. 3. Cardiorenal syndrome. 4. Hypertension. 5. Hyperkalemia, better. 6. Acidosis, stable. We will stop bicarb for now. 7. Continue diuresis with cautious monitoring. renal function and we will follow. Job ID: [id number]
[2019-04-23] MEDS: Morphine 2 MG/ML SYRINGE SLOW IVP PRN ×3 (12:34→20:34)
--- NOTE | 2019-04-23 14:42 | PDOC.HOSPP ---
- Subjective Encounter Date: 04/23/19 Encounter Time: 14:40 Subjective: f/u s/p cardiac arrest with ROSC, CLAUDIO/CKD IV, L upper chest wall abscess s/p I& D and resp failure on current high-flow NC. No new issues per nursing but pt remains weak. - Objective Vital Signs & Weight: Vital Signs (12 hours) Temp Pulse Pulse BP BP BP Pulse Ox 04/23/19 14:09 90 L 04/23/19 12:00 94 L 04/23/19 11:40 86 174/74 H 184/76 H 04/23/19 11:00 99.2 F 04/23/19 10:41 98 04/23/19 09:07 83 182/78 H 04/23/19 09:06 83 182/78 H 04/23/19 08:00 99.1 F 94 L 04/23/19 04:00 100.7 F H Weight Admit Weight 212 lb Weight 204 lb 12.951 oz Most Recent Monitor Data Heart Rate from ECG 86 NIBP 166/82 NIBP BP-Mean 110 Respiration from ECG 27 SpO2 90 I&O: 04/22/19 04/23/19 04/24/19 06:59 06:59 06:59 Intake Total 1671 1963 400 Output Total 1420 2035 850 Balance 251 72 -450 Result Diagrams: 04/23/19 07:30 04/23/19 07:30 Additional Labs: Accuchecks 04/23/19 04/23/19 04/22/19 11:04 06:38 20:19 POC Glucose 231 H 190 H 215 H 04/22/19 16:32 POC Glucose 216 H Microbiology 04/21/19 07:20 Urine gonzalez catheter Urine Culture - Preliminary Gram Negative Renaldo 04/20/19 17:00 Chest - Pending Bacterial Culture - Preliminary 04/20/19 17:00 Chest - Pending Bacterial Culture - Preliminary 04/20/19 14:46 Venous blood - Right Hand Blood Culture - Preliminary Specimen has been received and culture in progress. No Growth to date. 04/20/19 14:46 Venous blood - Right Hand Blood Culture - Preliminary NO GROWTH AT 24 HOURS 04/20/19 14:46 Venous blood - Left Arm Blood Culture - Preliminary Specimen has been received and culture in progress. No Growth to date. 04/20/19 14:46 Venous blood - Left Arm Blood Culture - Preliminary NO GROWTH AT 24 HOURS Laboratory Tests 11/28/18 11/29/18 11/29/18 04:17 05:09 05:09 WBC Hgb Potassium BUN Creatinine 1.89 H 1.75 H Lactic Acid Troponin I B-Natriuretic Peptide 1242.6 H 11/30/18 04/20/19 04/20/19 05:05 14:40 14:40 WBC 13.9 H Hgb 9.7 L Potassium 3.6 5.1 BUN 45 H Creatinine 1.80 H 2.51 H Lactic Acid Troponin I B-Natriuretic Peptide 04/20/19 04/20/19 04/20/19 14:40 14:40 14:40 WBC Hgb Potassium BUN Creatinine Lactic Acid 0.6 Troponin I 0.068 H B-Natriuretic Peptide 522.8 H 04/20/19 04/20/19 04/21/19 18:19 21:17 05:21 WBC Hgb Potassium BUN Creatinine 2.60 H Lactic Acid Troponin I 0.039 H 0.068 H B-Natriuretic Peptide 04/21/19 04/22/19 04/22/19 08:53 06:48 11:34 WBC Hgb Potassium BUN Creatinine Lactic Acid Troponin I 0.300 H 1.259 H* 0.504 H* B-Natriuretic Peptide 04/22/19 12:59 WBC Hgb Potassium BUN Creatinine Lactic Acid Troponin I 0.846 H* B-Natriuretic Peptide Radiology Reviewed by me: Yes (PCXR - increasing pulm edema) EKG Reviewed by me: Yes (Tele - SR) Hospitalist ROS - Medication Medications: Active Medications Generic Name Dose Route Start Last Admin Trade Name Stephanq PRN Reason Stop Dose Admin Acetaminophen 650 mg 04/20/19 18:19 04/22/19 20:22 Tylenol PO 650 mg Q4H PRN Administration Headache/Fever/Mild Pain (1-3) Amlodipine Besylate 10 mg 04/22/19 09:00 04/23/19 09:06 Norvasc PO 10 mg DAILY AIDAN Administration Aspirin 81 mg 04/22/19 09:00 04/23/19 09:07 Ecotrin PO 81 mg DAILY AIDAN Administration Clopidogrel Bisulfate 75 mg 04/22/19 09:00 04/23/19 09:07 Plavix PO 75 mg DAILY AIDAN Administration Famotidine 20 mg 04/21/19 21:00 04/22/19 20:22 Pepcid PO 20 mg HS AIDAN Administration Hydralazine HCl 50 mg 04/21/19 21:00 04/23/19 09:07 Apresoline PO 50 mg BID AIDAN Administration Piperacillin Sod/Tazobactam 100 mls @ 200 mls/hr 04/20/19 22:00 04/23/19 14: 30 Sod 2.25 gm/ Sodium Chloride IVPB 100 mls Q8HR AIDAN Administration Vancomycin HCl 1.25 gm/ Sodium 250 mls @ 166.667 mls/hr 04/21/19 23:59 23:42 Chloride IVPB 250 mls 2359 AIDAN Administration Insulin Human Lispro 0 units 04/20/19 18:15 04/23/19 12:05 Humalog SC 3 unit .MILD SLIDING SCALE PRN Administration Mild Correctional Scale Insulin Human Lispro 0 units 04/20/19 18:15 04/22/19 20:21 Humalog SC 2 unit .BEDTIME SLIDING SC PRN Administration Bedtime Correctional Scale Isosorbide Mononitrate 30 mg 04/22/19 09:00 04/23/19 09:07 Imdur Er PO 30 mg DAILY AIDAN Administration Morphine Sulfate 2 mg 04/22/19 10:49 04/23/19 12:34 Morphine SLOW IVP 2 mg Q4H PRN Administration CHEST PAIN (1-4) Ondansetron HCl 4 mg 04/20/19 18:19 04/20/19 20:32 Zofran Odt PO 4 mg Q6H PRN Administration Nausea/Vomiting Propofol 1,000 mg 04/21/19 06:47 04/22/19 00:54 Diprivan IV 05/21/19 06:47 1,000 mg INF PRN Administration TO ACHIEVE GOAL RASS Protocol Torsemide 20 mg 04/22/19 09:00 04/23/19 09:07 Demadex PO 20 mg DAILY AIDAN Administration - Exam General Appearance: NAD, awake alert Eye: PERRL, anicteric sclera ENT: normocephalic atraumatic, no oropharyngeal lesions ENT - other findings: high-flow NC in place Neck: supple, symmetric, no JVD, no thyromegaly Heart: RRR, no murmur, no gallops, no rubs, normal peripheral pulses Respiratory: no wheezes Respiratory - other findings: few basilar crackles, diminished in bases Gastrointestinal: soft, non-tender, non-distended, normal bowel sounds, no palpable masses Extremities: no cyanosis, no clubbing Skin: normal turgor Skin - other findings: L upper chest wall with dressing in place over prior abscess Neurological: CN's grossly intact, no new deficit Musculoskeletal: generalized weakness Psychiatric: oriented to person, oriented to place Hosp A/P (1) Acute respiratory failure with hypoxia Code(s): J96.01 - ACUTE RESPIRATORY FAILURE WITH HYPOXIA Status: Acute Plan: s/p mech vent now on high-flow NC, continue slow wean, Lasix IV x 1 and continue Torsemide (2) Cardiac arrest Code(s): I46.9 - CARDIAC ARREST, CAUSE UNSPECIFIED Status: Acute Plan: ROSC, continue ASA/Plavix (3) Acute kidney failure Status: Acute Qualifiers: Acute renal failure type: unspecified Qualified Code(s): N17.9 - Acute kidney failure, unspecified Plan: Improving currently, avoid nephrotoxic agents and limit contrast exposure, appreciate Nephrology assistance (4) Chronic kidney disease, stage 3 Status: Chronic (5) DM2 (diabetes mellitus, type 2) Status: Chronic (6) Abscess of chest wall Code(s): L02.213 - CUTANEOUS ABSCESS OF CHEST WALL Status: Acute Plan: s/p I&D, no dominant organism identified, WCT for local care, continue Zosyn/ Vancomycin (7) UTI (urinary tract infection) Status: Acute Plan: Suspected given initial Ucx, await final identification/sensitivities, continue Zosyn/Vanc - Plan continue antibiotics, PT/OT, social worker clinical, respiratory therapy, out of bed/ ambulate, DVT proph w/SCDs Consults: Palliative Care Continue aggressive pulmonary support Continue ASA/Plavix Resume home BP regimen WCT for local care of L upper chest wall abscess Place Midline catheter for reliable access Torsemide 20mg po daily AM lab: BMP, CBC
[2019-04-23] MEDS: Carvedilol 3.125 MG TAB PO SCH (16:21)
--- NOTE | 2019-04-23 16:21 | CON ---
DATE OF CONSULTATION: 04/23/2019 HISTORY OF PRESENT ILLNESS: Mr. Blum was extubated yesterday. He has no current complaints. He does appear tired and weak. He did have elevated temperature of 101.7. PHYSICAL EXAMINATION: GENERAL: The patient is a pleasant 73-year-old, who is in no acute distress. The patient appears their stated age. VITAL SIGNS: Blood pressure 166/82, pulse 86, and temperature afebrile. NEUROLOGIC: The patient is alert and oriented x3 with no focal neurologic deficits. HEENT: Sclerae without icterus. Mouth has moist mucous membranes with normal pallor. NECK: No JVD. Carotid upstroke brisk. No bruits bilaterally. LUNGS: Clear to auscultation with unlabored respirations. BACK: No scoliosis or kyphosis. CARDIAC: Regular rate and rhythm with normal S1 and S2. No S3 or S4 noted. No significant rubs, murmurs, thrills, or gallops noted throughout the precordium. PMI is not displaced. There is no parasternal heave. ABDOMEN: Soft, nontender, nondistended. No peritoneal signs present. No hepatosplenomegaly. No abnormal striae. EXTREMITIES: 2+ femoral and 2+ dorsalis pedis pulses. No cyanosis, clubbing, or edema. SKIN: No gross abnormalities. PERTINENT LABORATORY DATA: Hemoglobin 9.9. Creatinine 2.15 with a GFR of 30. IMPRESSION: 1. Sepsis syndrome. 2. Left chest wall abscess. 3. Coronary artery disease. 4. Status post bypass surgery. 5. Chronic renal insufficiency. RECOMMENDATION: Elevated troponin likely type 2 myocardial infarction and secondary to demand. He continues to have intermittent fevers. He is on antibiotic therapy. He has no current symptoms suggesting angina. At this point, we would recommend continuing aspirin in addition to Plavix and Lasix. We will add low-dose beta-carole therapy. Job ID: [id number]
--- NOTE | 2019-04-23 16:40 | EKG ---
Test Reason : CODE BLUE Blood Pressure : / mmHG Vent. Rate : 104 BPM Atrial Rate : 104 BPM P-R Int : 242 ms QRS Dur : 112 ms QT Int : 340 ms P-R-T Axes : 041 -42 117 degrees QTc Int : 447 ms Sinus tachycardia with 1st degree A-V block with Premature atrial complexes with Abberant conduction Non-specific intra-ventricular conduction delay Left axis deviation Abnormal ECG Confirmed by LISA LARSEN ([id number]) on 04/23/2019 4:39:44 PM Referred By: DEEPTHI Confirmed By:LISA LARSEN
--- NOTE | 2019-04-23 17:10 | PDOC.PALPN ---
Palliative Progress Note - Objective Vital Signs: Vital Signs - Most Recent Temp Pulse Resp BP Pulse Ox 99.4 F 86 11 L 174/74 H 93 L 04/23/19 16:00 04/23/19 11:40 04/22/19 08:00 04/23/19 11:40 04/23/19 16:00 - Assessment (1) Palliative care encounter Code(s): Z51.5 - ENCOUNTER FOR PALLIATIVE CARE Current Visit: Yes Status: Acute (2) Abscess of chest wall Code(s): L02.213 - CUTANEOUS ABSCESS OF CHEST WALL Current Visit: Yes Status : Acute (3) Cardiac arrest Code(s): I46.9 - CARDIAC ARREST, CAUSE UNSPECIFIED Current Visit: Yes Status : Acute (4) Acute on chronic diastolic CHF (congestive heart failure) Code(s): I50.33 - ACUTE ON CHRONIC DIASTOLIC (CONGESTIVE) HEART FAILURE Current Visit: No Status: Acute (5) Hyperglycemia due to type 2 diabetes mellitus Code(s): E11.65 - TYPE 2 DIABETES MELLITUS WITH HYPERGLYCEMIA Current Visit: No Status: Chronic - Plan Plan: [] minutes spent on this encounter with >50% of the time in counseling and coordination of care.
[2019-04-23] MEDS: Famotidine 20 MG TAB PO SCH (20:35)
[2019-04-23] MEDS: Vancomycin HCl 1.25 GM in Sodium Chloride 0.9% 250 ML 250 ML IVPB SCH (23:55)
[2019-04-24] MEDS: Piperacillin/Tazobactam 2.25 GM in Sodium Chloride 0.9% 100 ML IVPB SCH ×3 (05:44→21:08)
[2019-04-24] MEDS: HumaLOG 300 UNITS/3 ML VIAL SC PRN ×3 (05:44→18:07)
[2019-04-24 06:33] LABS: Hemoglobin 8.9 g/dL (14.0-18.0); Mean Corpuscular Hemoglobin 32.2 pg (27.0-31.0); Mean Corpuscular Volume 94.5 fL (78.0-98.0); Mean Platelet Volume 7.7 fL (7.4-10.4); Platelet Count 278 thou/uL (130-400); RBC Distribution Width 11.9 % (11.5-14.5); Red Blood Cell (RBC) Count 2.76 mill/uL (4.70-6.10); White Blood Cell (WBC) Count 12.1 thou/uL (4.8-10.8)
[2019-04-24 06:51] LABS: Anion Gap 14 mmol/L (10-20); BUN (Urea Nitrogen) 49 mg/dL (8.4-25.7); Calc. Creatinine Clearance 41 mL/min (70-130); Calcium 8.2 mg/dL (7.8-10.44); Carbon Dioxide 22 mmol/L (23-31); Chloride 109 mmol/L (98-107); Estimated GFR-MDRD 30; Glucose 208 mg/dL (83-110); Potassium 3.8 mmol/L (3.5-5.1); Sodium 141 mmol/L (136-145)
[2019-04-24 07:48] LABS: Band 4 % (5-11); Eosinophils 1 % (0-10); Lymphocytes 6 % (21-51); MDiff Complete? YES; Monocytes 1 % (0-10); Neutrophil 87 % (42-75); Ovalocytes SLIGHT = 2-5 cells (100X) (0-1/hpf); Platelet Morphology Comment Appears Adequate; Polychromasia SLIGHT = 2-3 cells (100X) (0-2/hpf)
[2019-04-24] MEDS: Carvedilol 3.125 MG TAB PO SCH ×2 (08:44→18:00)
[2019-04-24] MEDS: hydrALAZINE 25 MG TAB PO SCH ×2 (08:44→20:00)
[2019-04-24] MEDS: Isosorbide Mononitrate (ER) 30 MG TAB PO SCH (08:44)
[2019-04-24] MEDS: Amlodipine 10 MG TAB PO SCH (08:44)
[2019-04-24] MEDS: Torsemide 20 MG TAB PO SCH (08:44)
[2019-04-24] MEDS: Aspirin 81 mg Enteric Coated Tablet PO SCH (08:45)
[2019-04-24] MEDS: Clopidogrel Bisulfate 75 MG TAB PO SCH (08:45)
--- NOTE | 2019-04-24 09:14 | PRG ---
DATE OF SERVICE: 04/24/2019 SUBJECTIVE: Patient was seen and examined at bedside and overnight events noted. Patient denies any shortness of breath or chest pain or palpitation. No history of nausea or vomiting or diarrhea or fever or chills or cramps. OBJECTIVE: GENERAL: This is a well-built white male, in no apparent distress. VITAL SIGNS: Temperature 98.5. Heart rate 67. Respiratory rate 18. Blood pressure 150/61. HEENT: Atraumatic, normocephalic. Oral mucosa is moist NECK: Supple. CARDIOVASCULAR: S1, S2 heard. Rate and rhythm regular. RESPIRATORY: Clear to auscultation. GASTROINTESTINAL: Abdomen is soft. MUSCULOSKELETAL: No tenderness. No edema. DERMATOLOGIC: No skin rash. NEUROLOGIC: Alert and awake and oriented X3. No focal neurologic deficits. Moving all the extremities. PSYCHIATRIC: Mood and affect normal. LABORATORY DATA: Potassium is 3.8, BUN is 49, and creatinine is 2.1. ASSESSMENT AND PLAN: 1. Acute kidney injury on chronic kidney disease stage 4. Renal function stable. 2. Edema. 3. Cardiorenal syndrome. 4. Hypertension. 5. Hyperkalemia. 6. Acidosis. Labs are stable. Okay with diuretics with close monitoring. Job ID: [id number]
--- NOTE | 2019-04-24 09:47 | RAD ---
CHEST 1 VIEW: INDICATION: Pneumonia. COMPARISON: Prior exam dated 04/23/2019. IMPRESSION: Stable exam. Cardiomegaly with pulmonary vascular congestion, central edema pattern, and bilateral p leural effusions are stable. No pneumothorax. POS: OFF
--- NOTE | 2019-04-24 10:03 | PRG ---
DATE OF SERVICE: 04/24/2019 SUBJECTIVE: He remains in the CCU on high-flow oxygen. OBJECTIVE: VITAL SIGNS: Temperature is 98.5, O2 saturation 95%, pulse 67, and blood pressure 150/61. HEENT: Unremarkable. NECK: No JVD. LUNGS: He has diminished breath sounds in both bases. CARDIAC: S1 and S2. Regular. ABDOMEN: Soft. EXTREMITIES: Edematous throughout. LABORATORY DATA: Sodium 141, potassium 3.8, chloride 109, CO2 of 22, BUN 49, creatinine 2.2, and glucose 208. White blood cell count 12.1, hematocrit 26.1, and platelet count 278. ASSESSMENT: 1. Status post mechanical ventilation. 2. Anasarca. 3. Congestive heart failure. 4. Status post resection of chest wall abscess. 5. Chronic renal insufficiency. PLAN: 1. He needs to be diuresed significantly. I have gone up on his Lasix and added Zaroxolyn. I will hold his torsemide. Hopefully, we can get volume off so that we can wean the oxygen and then, consider transferring him to intermediate care or telemetry. 2. Follow electrolytes closely. Job ID: [id number]
[2019-04-24] MEDS: Furosemide 40 MG/4 ML VIAL SLOW IVP SCH ×2 (11:18→18:00)
[2019-04-24] MEDS: Metolazone 5 MG TAB PO SCH (11:20)
--- NOTE | 2019-04-24 12:30 | PRG ---
DATE OF SERVICE: SUBJECTIVE: Mr. Blum is doing well. He continues to be on high-flow oxygen. He does continue to complain of persistent chest pain. He did have CPR performed. The pain is worse with deep breath and sharp. His CKs and troponins have trended down. OBJECTIVE: VITAL SIGNS: Blood pressure 159/71, pulse 72, temperature afebrile. LUNGS: Clear to auscultation. HEART: Regular rate and rhythm. ABDOMEN: Soft, nontender, and nondistended. EXTREMITIES: No edema. PERTINENT LABORATORY DATA: Hemoglobin 8.9. Creatinine 2.17. IMPRESSION: 1. Status post cardiopulmonary arrest. 2. Sepsis. 3. Chest wall abscess. 4. Coronary artery disease. 5. Status post bypass surgery. RECOMMENDATIONS: Mr. Blum's symptoms are likely related to recent CPR. Continue conservative therapy from a CV standpoint. The patient does wish on continued medical therapy, but no aggressive means or measures. We will continue carvedilol in addition to aspirin and Plavix. Otherwise, I have no further recommendations. Dr. Lemos to be on-call this weekend. Please call with questions. Job ID: [id number]
--- NOTE | 2019-04-24 13:42 | PDOC.HOSPP ---
- Subjective Subjective: Seen and examined. Requiring high flow NC to maintain O2. Patient denies chest pain currently. LE edema seems to be improving per patient. - Objective Vital Signs & Weight: Vital Signs (12 hours) Temp 04/24/19 11:00 99.1 F 04/24/19 08:00 98.5 F 04/24/19 04:00 99.6 F Weight Admit Weight 212 lb Weight 202 lb 9.677 oz Most Recent Monitor Data Heart Rate from ECG 76 NIBP 154/69 NIBP BP-Mean 97 Respiration from ECG 27 SpO2 98 I&O: 04/23/19 04/24/19 04/25/19 06:59 06:59 06:59 Intake Total 1962 1670 480 Output Total 5 1805 420 Balance -72 -135 60 Result Diagrams: 04/24/19 06:10 04/24/19 06:10 Additional Labs: Accuchecks 04/24/19 04/24/19 04/23/19 11:24 05:45 21:23 POC Glucose 269 H 212 H 204 H 04/23/19 16:20 POC Glucose 259 H Radiology Reviewed by me: Yes (Chest x ray) Hospitalist ROS - Review of Systems All other systems reviewed; all pertinent +/- noted in HPI/Subj - Medication Medications: Active Medications Generic Name Dose Route Start Last Admin Trade Name Freq PRN Reason Stop Dose Admin Acetaminophen 650 mg 04/20/19 18:19 04/22/19 20:22 Tylenol PO 650 mg Q4H PRN Administration Headache/Fever/Mild Pain (1-3) Amlodipine Besylate 10 mg 04/22/19 09:00 04/24/19 08:44 Norvasc PO 10 mg DAILY AIDAN Administration Aspirin 81 mg 04/22/19 09:00 04/24/19 08:45 Ecotrin PO 81 mg DAILY AIDAN Administration Carvedilol 3.125 mg 04/23/19 17:00 04/24/19 08:44 Coreg PO 3.125 mg BID-WM AIDAN Administration Clopidogrel Bisulfate 75 mg 04/22/19 09:00 04/24/19 08:45 Plavix PO 75 mg DAILY AIDAN Administration Famotidine 20 mg 04/21/19 21:00 04/23/19 20:35 Pepcid PO 20 mg HS AIDAN Administration Furosemide 60 mg 04/24/19 12:00 04/24/19 11:18 Lasix SLOW IVP 60 mg 1200,1800 AIDAN Administration Hydralazine HCl 50 mg 04/21/19 21:00 04/24/19 08:44 Apresoline PO 50 mg BID AIDAN Administration Piperacillin Sod/Tazobactam 100 mls @ 200 mls/hr 04/20/19 22:00 04/24/19 05: 44 Sod 2.25 gm/ Sodium Chloride IVPB 100 mls Q8HR AIDAN Administration Vancomycin HCl 1.25 gm/ Sodium 250 mls @ 166.667 mls/hr 04/21/19 23:59 23:55 Chloride IVPB 250 mls 2359 AIDAN Administration Insulin Human Lispro 0 units 04/20/19 18:15 04/24/19 11:22 Humalog SC 4 unit .MILD SLIDING SCALE PRN Administration Mild Correctional Scale Insulin Human Lispro 0 units 04/20/19 18:15 04/23/19 21:21 Humalog SC 2 unit .BEDTIME SLIDING SC PRN Administration Bedtime Correctional Scale Isosorbide Mononitrate 30 mg 04/22/19 09:00 04/24/19 08:44 Imdur Er PO 30 mg DAILY AIDAN Administration Metolazone 5 mg 04/24/19 12:00 04/24/19 11:20 Zaroxolyn PO 5 mg 1200 AIDAN Administration Morphine Sulfate 2 mg 04/22/19 10:49 04/23/19 20:34 Morphine SLOW IVP 2 mg Q4H PRN Administration CHEST PAIN (1-4) Ondansetron HCl 4 mg 04/20/19 18:19 04/20/19 20:32 Zofran Odt PO 4 mg Q6H PRN Administration Nausea/Vomiting Propofol 1,000 mg 04/21/19 06:47 04/22/19 00:54 Diprivan IV 05/21/19 06:47 1,000 mg INF PRN Administration TO ACHIEVE GOAL RASS Protocol Sodium Chloride 10 ml 04/24/19 09:00 04/24/19 11:18 Flush - Normal Saline IVF 10 ml Q12HR AIDAN Administration - Exam General Appearance: NAD, awake alert Eye: PERRL, anicteric sclera Eye - other findings: EOMI ENT: no oropharyngeal lesions, moist mucosa Neck: supple, symmetric Heart: no murmur, no gallops, no rubs Heart - other findings: S1 and S2 present Respiratory: no wheezes, no ronchi, normal chest expansion, rales (Faint, high flow NC limits) Gastrointestinal: soft, non-tender, no guarding, no rigidity Extremities: 2+ LE edema Skin: no lesions, no rashes Neurological: CN's grossly intact, no weakness, no focal deficits Musculoskeletal: generalized weakness Psychiatric: normal affect, A&O x 3 Hosp A/P (1) Abscess of chest wall Code(s): L02.213 - CUTANEOUS ABSCESS OF CHEST WALL Status: Acute (2) Cardiac arrest Code(s): I46.9 - CARDIAC ARREST, CAUSE UNSPECIFIED Status: Acute (3) Acute kidney failure Status: Acute Qualifiers: Acute renal failure type: unspecified Qualified Code(s): N17.9 - Acute kidney failure, unspecified (4) Acute on chronic diastolic CHF (congestive heart failure) Code(s): I50.33 - ACUTE ON CHRONIC DIASTOLIC (CONGESTIVE) HEART FAILURE Status : Acute (5) Acute respiratory failure with hypoxia Code(s): J96.01 - ACUTE RESPIRATORY FAILURE WITH HYPOXIA Status: Acute (6) Systolic CHF, acute on chronic Code(s): I50.23 - ACUTE ON CHRONIC SYSTOLIC (CONGESTIVE) HEART FAILURE Status : Acute (7) CAD (coronary artery disease) Code(s): I25.10 - ATHSCL HEART DISEASE OF [place] CORONARY ARTERY W/O ANG PCTRS Status: Chronic Qualifiers: Coronary Disease-Associated Artery/Lesion type: [place] artery [place] vs. transplanted heart: robinson heart (8) CHF (congestive heart failure) Code(s): I50.9 - HEART FAILURE, UNSPECIFIED Status: Chronic (9) CKD (chronic kidney disease) Code(s): N18.9 - CHRONIC KIDNEY DISEASE, UNSPECIFIED Status: Chronic (10) Diabetes mellitus type 2, uncontrolled Code(s): E11.65 - TYPE 2 DIABETES MELLITUS WITH HYPERGLYCEMIA Status: Chronic - Plan Plan: ICU Pulm/ CC consult, recommendations appreciated Cardiology consult, recommendations appreciated Lasix and Metolazone needs more diuresis, still with central pulm edema cardiomyopathy regimen Restart long acting insulin, ISS for prandial Continue other home meds as able Replace electrolytes as needed GI PPX - restart Protonix DVT PPX
[2019-04-24 15:25] LABS: Potassium 3.8 mmol/L (3.5-5.1)
--- NOTE | 2019-04-24 17:01 | PDOC.PALPN ---
Palliative Progress Note - Subjective Sleeping but arousable. Mild delay in verbal response and recall. States minimal chest wall discomfort that is intermittent, could not rate. On high flow O2 via NC. ROS: 10 point review otherwise negative. - Objective Vital Signs: Vital Signs - Most Recent Temp Pulse Resp BP Pulse Ox 99.1 F 83 11 L 179/77 H 93 L 04/24/19 11:00 04/24/19 13:58 04/22/19 08:00 04/24/19 13:58 04/24/19 07:30 - Physical Exam Deviation from normal: delay in memory recall HEENT: PERRLA, EOMI Respiratory: no wheezing Cardiovascular: RRR Gastrointestinal: soft, positive bowel sounds Musculoskeletal: edema present Neurological: moves all 4 limbs Psychiatric: A&O x 3 Deviation from normal: Delay in thought pattern, but oriented Skin: no rash - Assessment (1) Palliative care encounter Code(s): Z51.5 - ENCOUNTER FOR PALLIATIVE CARE Current Visit: Yes Status: Acute (2) Abscess of chest wall Code(s): L02.213 - CUTANEOUS ABSCESS OF CHEST WALL Current Visit: Yes Status : Acute (3) Cardiac arrest Code(s): I46.9 - CARDIAC ARREST, CAUSE UNSPECIFIED Current Visit: Yes Status : Acute (4) Acute on chronic diastolic CHF (congestive heart failure) Code(s): I50.33 - ACUTE ON CHRONIC DIASTOLIC (CONGESTIVE) HEART FAILURE Current Visit: No Status: Acute (5) Hyperglycemia due to type 2 diabetes mellitus Code(s): E11.65 - TYPE 2 DIABETES MELLITUS WITH HYPERGLYCEMIA Current Visit: No Status: Chronic - Plan Plan: Cesar singh RNradiation therapy technician continues to have contact with patient son, and attempting to obtain daughters contact information. *Rehab consult ordered as patient previous homecare provider states patient was having increase in falls and inability to carry out ALD's. *Toradol IVP for pain [40] minutes spent on this encounter with >50% of the time in counseling and coordination of care.
[2019-04-24] MEDS: Ascorbic Acid 500 mg Chewable Tablet PO SCH (20:00)
[2019-04-24] MEDS: Famotidine 20 MG TAB PO SCH (20:00)
[2019-04-24] MEDS: Insulin Glargine 22 UNITS in Pre-Filled Syringe 1 EACH SC SCH (20:01)
[2019-04-24] MEDS: Tamsulosin HCl 0.4 MG CAP PO SCH (20:01)
[2019-04-24] MEDS ORDERED: Non-Formulary Item 1 EACH (Hydralazine Hcl [Apresoline] 50 MG) PO SCH (21:00)
[2019-04-24] MEDS ORDERED: INSULIN DETEMIR SC SCH (21:00)
[2019-04-24] MEDS: Ketorolac Tromethamine 30 MG/ML VIAL IVP PRN (21:26)
[2019-04-25 00:24] LABS: Vancomycin, Trough 25.5 ug/mL
[2019-04-25] MEDS: Vancomycin HCl 1.25 GM in Sodium Chloride 0.9% 250 ML 250 ML IVPB SCH (01:57)
[2019-04-25] MEDS: Piperacillin/Tazobactam 2.25 GM in Sodium Chloride 0.9% 100 ML IVPB SCH ×3 (05:54→20:59)
[2019-04-25 07:29] LABS: Anion Gap 15 mmol/L (10-20); BUN (Urea Nitrogen) 48 mg/dL (8.4-25.7); Calc. Creatinine Clearance 43 mL/min (70-130); Calcium 8.6 mg/dL (7.8-10.44); Carbon Dioxide 24 mmol/L (23-31); Chloride 104 mmol/L (98-107); Estimated GFR-MDRD 32; Glucose 131 mg/dL (83-110); Potassium 3.1 mmol/L (3.5-5.1); Sodium 140 mmol/L (136-145)
--- NOTE | 2019-04-25 07:38 | RAD ---
EXAM: Portable chest PROVIDED CLINICAL HISTORY: Pneumonia COMPARISON: 04/24/2019 FINDINGS: Significant interval change with respect to the prior examination is not apparent. IMPRESSION: As above.
[2019-04-25] MEDS: hydrALAZINE 25 MG TAB PO SCH ×2 (07:55→20:50)
[2019-04-25] MEDS: Finasteride 5 MG TAB PO SCH (07:55)
[2019-04-25] MEDS: Ascorbic Acid 500 mg Chewable Tablet PO SCH ×2 (07:55→20:50)
[2019-04-25] MEDS: Aspirin 81 mg Enteric Coated Tablet PO SCH (07:56)
[2019-04-25] MEDS: Tamsulosin HCl 0.4 MG CAP PO SCH ×2 (07:56→20:50)
[2019-04-25] MEDS: Isosorbide Mononitrate (ER) 30 MG TAB PO SCH (07:56)
[2019-04-25] MEDS: Carvedilol 3.125 MG TAB PO SCH ×2 (07:56→16:55)
[2019-04-25] MEDS: Ferrous Sulfate 325 MG TAB PO SCH (07:56)
[2019-04-25] MEDS: Clopidogrel Bisulfate 75 MG TAB PO SCH (07:56)
[2019-04-25] MEDS: Amlodipine 10 MG TAB PO SCH (07:56)
[2019-04-25] MEDS: Insulin Glargine 22 UNITS in Pre-Filled Syringe 1 EACH SC SCH ×2 (07:57→20:50)
[2019-04-25] MEDS ORDERED: Clopidogrel Bisulfate 75 MG TAB PO SCH (09:00)
[2019-04-25] MEDS ORDERED: Isosorbide Mononitrate (ER) 30 MG TAB PO SCH (09:00)
[2019-04-25] MEDS ORDERED: Potassium Chloride 20 MEQ TAB PO SCH ×2 (10:45→12:00)
--- NOTE | 2019-04-25 10:45 | PRG ---
DATE OF SERVICE: 04/25/2019 SUBJECTIVE: The patient is up, sitting on the side of the bed, looks better than yesterday. OBJECTIVE: VITAL SIGNS: Temperature is 98.5, pulse 79, blood pressure 173/74, O2 saturation 98%. Intake and output had a negative fluid balance of 1353. HEENT: Unremarkable. NECK: No adenopathy. No JVD. LUNGS: Coarse breath sounds bilaterally. CARDIAC: S1, S2. Regular. ABDOMEN: Soft. EXTREMITIES: Edematous. LABORATORY DATA: Sodium 140, potassium 3.1, chloride 104, CO2 of 24, BUN 48, creatinine 2.0, glucose 131. ASSESSMENT: 1. Congestive heart failure with profound pulmonary edema. 2. Status post respiratory failure, requiring mechanical ventilation. PLAN: 1. Wean high-flow oxygen. 2. Continue diuresis. 3. Replace potassium. 4. Monitor electrolytes and renal function. 5. Keep in ICU until we are able to wean his oxygen down further. Job ID: [id number]
[2019-04-25] MEDS: Furosemide 40 MG/4 ML VIAL SLOW IVP SCH ×2 (11:51→18:18)
[2019-04-25] MEDS: Metolazone 5 MG TAB PO SCH (11:51)
[2019-04-25] MEDS: HumaLOG 300 UNITS/3 ML VIAL SC PRN ×2 (11:52→16:55)
--- NOTE | 2019-04-25 12:33 | PRG ---
DATE OF SERVICE: 04/25/2019 SUBJECTIVE: Patient was seen and examined at bedside and overnight events noted. Patient denies any shortness of breath or chest pain or palpitation. No history of nausea or vomiting or diarrhea or fever or chills or cramps. OBJECTIVE: GENERAL: This is a well-built male, in no apparent distress. VITAL SIGNS: Temperature 98.6. Heart rate 79. Respiratory rate 14. Blood pressure 173/74. HEENT: Atraumatic, normocephalic. Oral mucosa is moist. NECK: Supple. CARDIOVASCULAR: S1, S2 heard. Rate and rhythm regular. RESPIRATORY: Clear to auscultation. GASTROINTESTINAL: Abdomen is soft. MUSCULOSKELETAL: No tenderness. No edema. DERMATOLOGIC: No skin rash. NEUROLOGIC: Alert and awake and oriented x3. No focal neurologic deficits. Moving all the extremities. PSYCHIATRIC: Mood and affect normal. LABORATORY DATA: Potassium is 3.9, BUN is 40, and creatinine is 2.04. ASSESSMENT AND PLAN: 1. Acute kidney injury on chronic kidney disease, stage 4. Stable renal function. Continue on diuresis as tolerated. 2. Cardiorenal syndrome, on diuretics. 3. Hypokalemia. 4. Acidosis. 5. Hypertension. 6. Edema with fluid overload. Okay with diuretics. We will hold lisinopril while diuresing. Monitor labs including magnesium and potassium. We will follow. Job ID: [id number]
--- NOTE | 2019-04-25 14:20 | PDOC.HOSPP ---
- Subjective Subjective: Seen and examined. Patient impulsive and tries to get out of bed without help, he is profoundly weak and is constantly being reminded CALL DONT FALL. Remains on high flow NC. No acute overnight events or complaints. - Objective Vital Signs & Weight: Vital Signs (12 hours) Temp Pulse Ox 04/25/19 11:45 98.6 F 04/25/19 07:50 98.5 F 04/25/19 06:59 96 04/25/19 04:00 98.5 F 04/25/19 03:24 95 Weight Admit Weight 212 lb Weight 202 lb 13.204 oz Most Recent Monitor Data Heart Rate from ECG 73 NIBP 141/62 NIBP BP-Mean 88 Respiration from ECG 17 SpO2 99 I&O: 04/24/19 04/25/19 04/26/19 06:59 06:59 06:59 Intake Total 1670 1987 1077 Output Total 1805 3340 680 Balance -135 -1353 397 Result Diagrams: 04/24/19 06:10 04/25/19 07:00 Additional Labs: Accuchecks 04/25/19 04/25/19 04/24/19 11:53 05:49 20:02 POC Glucose 298 H 136 H 200 H 04/24/19 18:00 POC Glucose 221 H Radiology Reviewed by me: Yes (Chest xray) Hospitalist ROS - Medication Medications: Active Medications Generic Name Dose Route Start Last Admin Trade Name Freq PRN Reason Stop Dose Admin Acetaminophen 650 mg 04/20/19 18:19 04/22/19 20:22 Tylenol PO 650 mg Q4H PRN Administration Headache/Fever/Mild Pain (1-3) Amlodipine Besylate 10 mg 04/22/19 09:00 04/25/19 07:56 Norvasc PO 10 mg DAILY AIDAN Administration Ascorbic Acid 500 mg 04/24/19 21:00 04/25/19 07:55 Vitamin C PO 500 mg BID AIDAN Administration Aspirin 81 mg 04/22/19 09:00 04/25/19 07:56 Ecotrin PO 81 mg DAILY AIDAN Administration Carvedilol 3.125 mg 04/23/19 17:00 04/25/19 07:56 Coreg PO 3.125 mg BID-WM AIDAN Administration Clopidogrel Bisulfate 75 mg 04/22/19 09:00 04/25/19 07:56 Plavix PO 75 mg DAILY AIDAN Administration Famotidine 20 mg 04/21/19 21:00 04/24/19 20:00 Pepcid PO 20 mg HS AIDAN Administration Ferrous Sulfate 325 mg 04/25/19 08:00 04/25/19 07:56 Feosol PO 325 mg QAM-WM AIDAN Administration Finasteride 5 mg 04/25/19 09:00 04/25/19 07:55 Proscar PO 5 mg DAILY AIDAN Administration Furosemide 60 mg 04/24/19 12:00 04/25/19 11:51 Lasix SLOW IVP 60 mg 1200,1800 AIDAN Administration Hydralazine HCl 50 mg 04/21/19 21:00 04/25/19 07:55 Apresoline PO 50 mg BID AIDAN Administration Piperacillin Sod/Tazobactam 100 mls @ 200 mls/hr 04/20/19 22:00 04/25/19 14: 17 Sod 2.25 gm/ Sodium Chloride IVPB 100 mls Q8HR AIDAN Administration Insulin Glargine 22 units/ 0.22 mls @ 0 mls/hr 04/24/19 21:00 04/25/19 07:57 Miscellaneous Medication SC 0.22 mls BID AIDAN Administration As Directed Insulin Human Lispro 0 units 04/20/19 18:15 04/25/19 11:52 Humalog SC 4 unit .MILD SLIDING SCALE PRN Administration Mild Correctional Scale Insulin Human Lispro 0 units 04/20/19 18:15 04/23/19 21:21 Humalog SC 2 unit .BEDTIME SLIDING SC PRN Administration Bedtime Correctional Scale Isosorbide Mononitrate 30 mg 04/22/19 09:00 04/25/19 07:56 Imdur Er PO 30 mg DAILY AIDAN Administration Ketorolac Tromethamine 15 mg 04/24/19 17:05 04/24/19 21:26 Toradol IVP 04/29/19 17:06 15 mg Q6H PRN Administration Pain Metolazone 5 mg 04/24/19 12:00 04/25/19 11:51 Zaroxolyn PO 5 mg 1200 AIDAN Administration Morphine Sulfate 2 mg 04/22/19 10:49 04/23/19 20:34 Morphine SLOW IVP 2 mg Q4H PRN Administration CHEST PAIN (1-4) Ondansetron HCl 4 mg 04/20/19 18:19 04/20/19 20:32 Zofran Odt PO 4 mg Q6H PRN Administration Nausea/Vomiting Pantoprazole Sodium 40 mg 04/25/19 07:30 04/25/19 07:56 Protonix PO 40 mg DAILY-AC AIDAN Administration Propofol 1,000 mg 04/21/19 06:47 04/22/19 00:54 Diprivan IV 05/21/19 06:47 1,000 mg INF PRN Administration TO ACHIEVE GOAL RASS Protocol Sertraline HCl 50 mg 04/25/19 09:00 04/25/19 07:55 Zoloft PO 50 mg DAILY AIDAN Administration Sodium Chloride 10 ml 04/24/19 09:00 04/25/19 07:56 Flush - Normal Saline IVF 10 ml Q12HR AIDAN Administration Tamsulosin HCl 0.4 mg 04/24/19 21:00 04/25/19 07:56 Flomax PO 0.4 mg BID AIDAN Administration - Exam General Appearance: NAD Eye: PERRL Eye - other findings: EOMI ENT: normocephalic atraumatic, moist mucosa Neck: supple, no lymphadenopathy Heart: no murmur, no gallops, no rubs Heart - other findings: S1 and S2 present Respiratory: no wheezes, no ronchi, rales (Faint, loud over high flow NC) Gastrointestinal: soft, non-tender, normal bowel sounds, no guarding, no rigidity Extremities: 1+ LE edema Skin: no lesions, no rashes Neurological: CN's grossly intact, no focal deficits Musculoskeletal: generalized weakness Psychiatric: normal affect, oriented to person, oriented to place Hosp A/P (1) Abscess of chest wall Code(s): L02.213 - CUTANEOUS ABSCESS OF CHEST WALL Status: Acute (2) Cardiac arrest Code(s): I46.9 - CARDIAC ARREST, CAUSE UNSPECIFIED Status: Acute (3) Acute kidney failure Status: Acute Qualifiers: Acute renal failure type: unspecified Qualified Code(s): N17.9 - Acute kidney failure, unspecified (4) Acute on chronic diastolic CHF (congestive heart failure) Code(s): I50.33 - ACUTE ON CHRONIC DIASTOLIC (CONGESTIVE) HEART FAILURE Status : Acute (5) Acute respiratory failure with hypoxia Code(s): J96.01 - ACUTE RESPIRATORY FAILURE WITH HYPOXIA Status: Acute (6) Systolic CHF, acute on chronic Code(s): I50.23 - ACUTE ON CHRONIC SYSTOLIC (CONGESTIVE) HEART FAILURE Status : Acute (7) CAD (coronary artery disease) Code(s): I25.10 - ATHSCL HEART DISEASE OF [place] CORONARY ARTERY W/O ANG PCTRS Status: Chronic Qualifiers: Coronary Disease-Associated Artery/Lesion type: [place] artery [place] vs. transplanted heart: [place] heart (8) CHF (congestive heart failure) Code(s): I50.9 - HEART FAILURE, UNSPECIFIED Status: Chronic (9) CKD (chronic kidney disease) Code(s): N18.9 - CHRONIC KIDNEY DISEASE, UNSPECIFIED Status: Chronic (10) Diabetes mellitus type 2, uncontrolled Code(s): E11.65 - TYPE 2 DIABETES MELLITUS WITH HYPERGLYCEMIA Status: Chronic - Plan Plan: ICU Pulm/ CC consult, recommendations appreciated Cardiology consult, recommendations appreciated Wound care Wound Cx with mixed saeid Urine with citrobacter - castillo sensitive Responding to broad spectrum ABX High flow NC to maintain O2 saturation Lasix and Metolazone needs more diuresis, central pulm edema cardiomyopathy regimen Continue long acting insulin, ISS for prandial Continue other home meds as able Replace electrolytes as needed GI PPX - restart Protonix DVT PPX
[2019-04-25] MEDS: Potassium Chloride 20 MEQ TAB PO SCH (16:55)
[2019-04-25] MEDS: Famotidine 20 MG TAB PO SCH (20:50)
--- NOTE | 2019-04-25 22:58 | EKG ---
Test Reason : Blood Pressure : / mmHG Vent. Rate : 100 BPM Atrial Rate : 100 BPM P-R Int : 224 ms QRS Dur : 112 ms QT Int : 350 ms P-R-T Axes : 068 -41 119 degrees QTc Int : 451 ms Sinus rhythm with 1st degree A-V block Left axis deviation Incomplete left bundle branch block Consider right ventricular involvement in acute inferior infarct No STEMI Abnormal ECG Confirmed by XENA Toure, CHRISSY ([id number]), non linear editor SERAFIN IHGGINS ([id number] on 04/25/2019 10:57:47 PM Referred By: Confirmed By:CHRISSY MCCALLUM M.D.
--- NOTE | 2019-04-25 23:04 | EKG ---
Test Reason : Blood Pressure : / mmHG Vent. Rate : 088 BPM Atrial Rate : 088 BPM P-R Int : 236 ms QRS Dur : 102 ms QT Int : 378 ms P-R-T Axes : 062 -25 106 degrees QTc Int : 457 ms Sinus rhythm with 1st degree A-V block Abnormal ECG Confirmed by CHRISSY MCCALLUM M.D. ([id number]), general expeditor SERAFIN HIGGINS ([id number] on 04/25/2019 11:04:00 PM Referred By: Confirmed By:CHRISSY MCCALLUM M.D.
--- NOTE | 2019-04-25 23:04 | EKG ---
Test Reason : Blood Pressure : / mmHG Vent. Rate : 084 BPM Atrial Rate : 084 BPM P-R Int : 230 ms QRS Dur : 102 ms QT Int : 386 ms P-R-T Axes : 047 -39 116 degrees QTc Int : 456 ms Sinus rhythm with 1st degree A-V block with occasional Premature ventricular complexes Left axis deviation Abnormal ECG Confirmed by CHRISSY MCCALLUM M.D. ([id number]), editorial clerk SERAFIN HIGGINS ([id number]) on 04/25/2019 11:03:58 PM Referred By: Confirmed By:CHRISSY MCCALLUM M.D.
[2019-04-26] MEDS: Vancomycin HCl 1 GM in Premix Bag 1 BAG IVPB SCH (00:38)
[2019-04-26] MEDS: Piperacillin/Tazobactam 2.25 GM in Sodium Chloride 0.9% 100 ML IVPB SCH ×3 (05:53→21:04)
[2019-04-26] MEDS: Carvedilol 3.125 MG TAB PO SCH ×2 (07:40→17:50)
[2019-04-26] MEDS: Potassium Chloride 20 MEQ TAB PO SCH ×2 (07:40→17:49)
[2019-04-26] MEDS: Amlodipine 10 MG TAB PO SCH (07:41)
[2019-04-26] MEDS: Isosorbide Mononitrate (ER) 30 MG TAB PO SCH (07:41)
[2019-04-26] MEDS: Clopidogrel Bisulfate 75 MG TAB PO SCH (07:41)
[2019-04-26] MEDS: Ascorbic Acid 500 mg Chewable Tablet PO SCH ×2 (07:41→20:59)
[2019-04-26] MEDS: hydrALAZINE 25 MG TAB PO SCH ×2 (07:41→20:59)
[2019-04-26] MEDS: Tamsulosin HCl 0.4 MG CAP PO SCH ×2 (07:41→21:00)
--- NOTE | 2019-04-26 07:41 | RAD ---
EXAM: Portable chest PROVIDED CLINICAL HISTORY: Pneumonia COMPARISON: 04/25/2019 FINDINGS: Given differences in technique, significant interval change with respect to the prior examination is not apparent. IMPRESSION: As above.
[2019-04-26] MEDS: Finasteride 5 MG TAB PO SCH (07:42)
[2019-04-26] MEDS: Ferrous Sulfate 325 MG TAB PO SCH (07:42)
[2019-04-26] MEDS: Aspirin 81 mg Enteric Coated Tablet PO SCH (07:42)
[2019-04-26] MEDS: Insulin Glargine 22 UNITS in Pre-Filled Syringe 1 EACH SC SCH ×2 (07:44→21:00)
[2019-04-26 08:57] LABS: Anion Gap 19 mmol/L (10-20); BUN (Urea Nitrogen) 51 mg/dL (8.4-25.7); Calc. Creatinine Clearance 39 mL/min (70-130); Carbon Dioxide 21 mmol/L (23-31); Chloride 104 mmol/L (98-107); Estimated GFR-MDRD 29; Glucose 139 mg/dL (83-110); Magnesium 2.1 mg/dL (1.6-2.6); Potassium 3.7 mmol/L (3.5-5.1); Sodium 140 mmol/L (136-145)
--- NOTE | 2019-04-26 09:51 | PRG ---
DATE OF SERVICE: 04/26/2019 SUBJECTIVE: He is sitting up. He remains on a high-flow nasal cannula about 55%. There have been no acute changes overnight. OBJECTIVE: VITAL SIGNS: His temperature is 99.0 with a T-max of 100.6, pulse 79, blood pressure 156/88, and O2 saturation 96%. A 24-hour intake was 2006 and output 2815. HEENT: Unremarkable. NECK: No JVD. LUNGS: Inspiratory crackles bilaterally. CARDIAC: S1 and S2, regular. ABDOMEN: Soft and nontender. EXTREMITIES: Edematous throughout. LABORATORY DATA: Sodium 140, potassium 3.7, chloride 104, CO2 of 21, BUN 51, creatinine 2.3, glucose 139. White blood cell count 12.1, hematocrit 26.1, and platelet count 278. ASSESSMENT: 1. Anasarca. 2. Systolic heart failure. 3. Probably some component of pneumonitis. PLAN: 1. Continue antibiotics. 2. Decrease his diuretic dose because his renal function is beginning to get compromised. 3. Remain in ICU while we are trying to wean the high-flow oxygen down. Job ID: [id number]
--- NOTE | 2019-04-26 11:31 | PDOC.HOSPP ---
- Subjective Subjective: Seen and examined. Patient on high flow NC to maintain O2 sats. Impulsive. No new complaints. No acute overnight events. - Objective Vital Signs & Weight: Vital Signs (12 hours) Temp 04/26/19 07:00 99.0 F 04/26/19 04:00 100.6 F H 04/26/19 00:00 99.2 F Weight Admit Weight 212 lb Weight 199 lb 15.348 oz Most Recent Monitor Data Heart Rate from ECG 72 NIBP 141/74 NIBP BP-Mean 96 Respiration from ECG 22 SpO2 94 I&O: 04/25/19 04/26/19 04/27/19 06:59 06:59 06:59 Intake Total 1986 Output Total 4075 1259 335 Balance -3563 -344 142 Result Diagrams: 04/24/19 06:10 04/26/19 08:30 Additional Labs: Accuchecks 04/26/19 04/25/19 04/25/19 06:38 20:58 16:56 POC Glucose 114 H 181 H 196 H 04/25/19 11:53 POC Glucose 298 H Hospitalist ROS - Review of Systems All other systems reviewed; all pertinent +/- noted in HPI/Subj - Medication Medications: Active Medications Generic Name Dose Route Start Last Admin Trade Name Freq PRN Reason Stop Dose Admin Acetaminophen 650 mg 04/20/19 18:19 04/22/19 20:22 Tylenol PO 650 mg Q4H PRN Administration Headache/Fever/Mild Pain (1-3) Amlodipine Besylate 10 mg 04/22/19 09:00 04/26/19 07:41 Norvasc PO 10 mg DAILY AIDAN Administration Ascorbic Acid 500 mg 04/24/19 21:00 04/26/19 07:41 Vitamin C PO 500 mg BID AIDAN Administration Aspirin 81 mg 04/22/19 09:00 04/26/19 07:42 Ecotrin PO 81 mg DAILY AIDAN Administration Carvedilol 3.125 mg 04/23/19 17:00 04/26/19 07:40 Coreg PO 3.125 mg BID-WM AIDAN Administration Clopidogrel Bisulfate 75 mg 04/22/19 09:00 04/26/19 07:41 Plavix PO 75 mg DAILY AIDAN Administration Famotidine 20 mg 04/21/19 21:00 04/25/19 20:50 Pepcid PO 20 mg HS AIDAN Administration Ferrous Sulfate 325 mg 04/25/19 08:00 04/26/19 07:42 Feosol PO 325 mg QAM-WM AIDAN Administration Finasteride 5 mg 04/25/19 09:00 04/26/19 07:42 Proscar PO 5 mg DAILY AIDAN Administration Hydralazine HCl 50 mg 04/21/19 21:00 04/26/19 07:41 Apresoline PO 50 mg BID AIDAN Administration Piperacillin Sod/Tazobactam 100 mls @ 200 mls/hr 04/20/19 22:00 04/26/19 05: 53 Sod 2.25 gm/ Sodium Chloride IVPB 100 mls Q8HR AIDAN Administration Insulin Glargine 22 units/ 0.22 mls @ 0 mls/hr 04/24/19 21:00 04/26/19 07:44 Miscellaneous Medication SC 0.22 mls BID AIDAN Administration As Directed Vancomycin HCl 1 gm/ Device 200 mls @ 200 mls/hr 04/25/19 23:59 04/26/19 00: 38 IVPB 200 mls 2359 AIDAN Administration Insulin Human Lispro 0 units 04/20/19 18:15 04/25/19 16:55 Humalog SC 2 unit .MILD SLIDING SCALE PRN Administration Mild Correctional Scale Insulin Human Lispro 0 units 04/20/19 18:15 04/23/19 21:21 Humalog SC 2 unit .BEDTIME SLIDING SC PRN Administration Bedtime Correctional Scale Isosorbide Mononitrate 30 mg 04/22/19 09:00 04/26/19 07:41 Imdur Er PO 30 mg DAILY AIDAN Administration Ketorolac Tromethamine 15 mg 04/24/19 17:05 04/24/19 21:26 Toradol IVP 04/29/19 17:06 15 mg Q6H PRN Administration Pain Metolazone 5 mg 04/24/19 12:00 04/25/19 11:51 Zaroxolyn PO 5 mg 1200 AIDAN Administration Morphine Sulfate 2 mg 04/22/19 10:49 04/23/19 20:34 Morphine SLOW IVP 2 mg Q4H PRN Administration CHEST PAIN (1-4) Ondansetron HCl 4 mg 04/20/19 18:19 04/20/19 20:32 Zofran Odt PO 4 mg Q6H PRN Administration Nausea/Vomiting Pantoprazole Sodium 40 mg 04/25/19 07:30 04/26/19 07:41 Protonix PO 40 mg DAILY-AC AIDAN Administration Potassium Chloride 40 meq 04/25/19 17:00 04/26/19 07:40 K-Dur PO 04/26/19 17:01 40 meq BID-WM AIDAN Administration Propofol 1,000 mg 04/21/19 06:47 04/22/19 00:54 Diprivan IV 05/21/19 06:47 1,000 mg INF PRN Administration TO ACHIEVE GOAL RASS Protocol Senna/Docusate Sodium 2 tab 04/20/19 18:19 04/26/19 07:42 Senokot S PO 2 tab BID PRN Administration Constipation Sertraline HCl 50 mg 04/25/19 09:00 04/26/19 07:41 Zoloft PO 50 mg DAILY AIDAN Administration Sodium Chloride 10 ml 04/24/19 09:00 04/26/19 07:42 Flush - Normal Saline IVF Not Given Q12HR AIDAN Tamsulosin HCl 0.4 mg 04/24/19 21:00 04/26/19 07:41 Flomax PO 0.4 mg BID AIDAN Administration - Exam General Appearance: NAD Eye: anicteric sclera Eye - other findings: EOMI ENT: no oropharyngeal lesions, moist mucosa Neck: supple, no lymphadenopathy Heart: no murmur, no gallops, no rubs Heart - other findings: S1 and S2 present Respiratory: no wheezes, no ronchi, rales Respiratory - other findings: Poor air movement, decreased respiratory excusion secondary to body habitus Gastrointestinal: soft, non-tender, no palpable masses, no guarding, no rigidity Gastrointestinal - other findings: Obese Extremities: 1+ LE edema Skin: no lesions, no rashes Skin - other findings: Left upper chest dressing clean and intact. Decub dressing clean and intact Neurological: CN's grossly intact, normal sensation to touch, no focal deficits Musculoskeletal: generalized weakness Psychiatric: normal affect, oriented to person, oriented to place Hosp A/P (1) Abscess of chest wall Code(s): L02.213 - CUTANEOUS ABSCESS OF CHEST WALL Status: Acute (2) Cardiac arrest Code(s): I46.9 - CARDIAC ARREST, CAUSE UNSPECIFIED Status: Acute (3) Acute kidney failure Status: Acute Qualifiers: Acute renal failure type: unspecified Qualified Code(s): N17.9 - Acute kidney failure, unspecified (4) Acute on chronic diastolic CHF (congestive heart failure) Code(s): I50.33 - ACUTE ON CHRONIC DIASTOLIC (CONGESTIVE) HEART FAILURE Status : Acute (5) Acute respiratory failure with hypoxia Code(s): J96.01 - ACUTE RESPIRATORY FAILURE WITH HYPOXIA Status: Acute (6) Systolic CHF, acute on chronic Code(s): I50.23 - ACUTE ON CHRONIC SYSTOLIC (CONGESTIVE) HEART FAILURE Status : Acute (7) CAD (coronary artery disease) Code(s): I25.10 - ATHSCL HEART DISEASE OF [place] CORONARY ARTERY W/O ANG PCTRS Status: Chronic Qualifiers: Coronary Disease-Associated Artery/Lesion type: [place] artery [place] vs. transplanted heart: [place] heart (8) CHF (congestive heart failure) Code(s): I50.9 - HEART FAILURE, UNSPECIFIED Status: Chronic (9) CKD (chronic kidney disease) Code(s): N18.9 - CHRONIC KIDNEY DISEASE, UNSPECIFIED Status: Chronic (10) Diabetes mellitus type 2, uncontrolled Code(s): E11.65 - TYPE 2 DIABETES MELLITUS WITH HYPERGLYCEMIA Status: Chronic - Plan Plan: ICU Pulm/ CC consult, recommendations appreciated Cardiology consult, recommendations appreciated Wound care Wound Cx with mixed saeid Urine with citrobacter - castillo sensitive Responding to broad spectrum ABX High flow NC to maintain O2 saturation Lasix and Metolazone needs more diuresis, central pulm edema cardiomyopathy regimen as able Continue long acting insulin, ISS for prandial Continue other home meds as able Replace electrolytes as needed GI PPX - restart Protonix DVT PPX
[2019-04-26] MEDS: HumaLOG 300 UNITS/3 ML VIAL SC PRN ×2 (12:10→17:54)
[2019-04-26] MEDS: Furosemide 40 MG/4 ML VIAL SLOW IVP SCH ×2 (12:23→17:49)
[2019-04-26] MEDS: Metolazone 5 MG TAB PO SCH (12:23)
[2019-04-26] MEDS: Ketorolac Tromethamine 30 MG/ML VIAL IVP PRN (12:31)
--- NOTE | 2019-04-26 14:43 | PRG ---
DATE OF SERVICE: 04/26/2019 SUBJECTIVE: Patient was seen and examined at bedside and overnight events noted. Patient denies any shortness of breath or chest pain or palpitation. No history of nausea or vomiting or diarrhea or fever or chills or cramps. OBJECTIVE: GENERAL: This is a well-built male, in no apparent distress. VITAL SIGNS: Temperature 98.6. Heart rate 79. Respiratory rate 18. Blood pressure 147/76. HEENT: Atraumatic, normocephalic. Oral mucosa is moist NECK: Supple. CARDIOVASCULAR: S1, S2 heard. Rate and rhythm regular. RESPIRATORY: Clear to auscultation. GASTROINTESTINAL: Abdomen is soft. MUSCULOSKELETAL: No tenderness. No edema. DERMATOLOGIC: No skin rash. NEUROLOGIC: Alert and awake and oriented X3. No focal neurologic deficits. Moving all the extremities. PSYCHIATRIC: Mood and affect normal. LABORATORY DATA: Potassium 3.7, BUN is 51, and creatinine is 2.2. ASSESSMENT AND PLAN: 1. Acute kidney injury on chronic kidney disease, stage 4, stable. Agree with reducing the diuretic dose. 2. Cardiorenal syndrome. 3. Hypokalemia, replaced. 4. Acidosis. 5. Hypertension. 6. Edema, on diuretics. We will continue close monitor of renal function. Job ID: [id number]
[2019-04-26] MEDS: Famotidine 20 MG TAB PO SCH (21:00)
[2019-04-27] MEDS: Vancomycin HCl 1 GM in Premix Bag 1 BAG IVPB SCH (00:22)
[2019-04-27] MEDS: Piperacillin/Tazobactam 2.25 GM in Sodium Chloride 0.9% 100 ML IVPB SCH ×3 (05:12→21:35)
[2019-04-27 06:24] LABS: Anion Gap 15 mmol/L (10-20); BUN (Urea Nitrogen) 57 mg/dL (8.4-25.7); Calc. Creatinine Clearance 35 mL/min (70-130); Calcium 8.8 mg/dL (7.8-10.44); Carbon Dioxide 26 mmol/L (23-31); Chloride 104 mmol/L (98-107); Estimated GFR-MDRD 26; Glucose 92 mg/dL (83-110); Magnesium 2.2 mg/dL (1.6-2.6); Potassium 3.7 mmol/L (3.5-5.1); Sodium 141 mmol/L (136-145)
[2019-04-27] MEDS ORDERED: DOBUTamine 500 mg/250 ml 250 ML IVPB SCH (07:45)
--- NOTE | 2019-04-27 07:53 | PRG ---
DATE OF SERVICE: 04/27/2019 SUBJECTIVE: He remains in the CCU on high-flow oxygen approximately 67%. He had been weaned down in the 40s, but had a coughing fit this morning and had to be turned back up because of desaturation. He says he feels okay. He is eating. OBJECTIVE: VITAL SIGNS: Temperature is 98.8, pulse 75, blood pressure 160/64, and O2 saturation 93%. 24-hour intake was 1865, output 1970. HEENT: Unremarkable. NECK: No JVD. LUNGS: Coarse breath sounds. CARDIAC: S1 and S2. Regular. ABDOMEN: Soft. EXTREMITIES: No overt edema. LABORATORY DATA: Sodium 140, potassium 3.7, chloride 104, CO2 of 26, BUN 57, creatinine 2.5, and glucose 92. ASSESSMENT: 1. Congestive heart failure with poor ejection fraction. 2. Renal dysfunction with worsening BUN and creatinine with diuretics. 3. Possible component of pneumonia. PLAN: I will try low-dose dobutamine to see if that will improve his cardiac output. I am concerned about going up on the diuretics because of slowly increasing BUN and creatinine. He will remain in the CCU while on high-flow oxygen and the dobutamine. Job ID: [id number]
--- NOTE | 2019-04-27 09:11 | PDOC.PALPN ---
Palliative Progress Note - Subjective Sitting at bedside, sipping on coffee. States "I'm getting better". States cough has improved, and chest wall pain diminished. Continues with mild confusion. Dressing to left chest clean dry and intact. ROS: 10 point review otherwise negative - Objective Vital Signs: Vital Signs - Most Recent Temp Pulse Resp BP Pulse Ox 98.8 F 71 11 L 142/66 H 94 L 04/27/19 04:00 04/26/19 20:59 04/22/19 08:00 04/26/19 20:59 04/27/19 04:14 - Physical Exam Constitutional: confusion HEENT: moist MMs, EOMI Deviation from normal: mild adventicous lung sounds Cardiovascular: RRR Gastrointestinal: non-tender, positive bowel sounds Musculoskeletal: edema present Neurological: moves all 4 limbs Psychiatric: A&O x 3 Deviation from normal: Although oriented x 3 delay in memory recall Skin: cap refill <2 seconds - Assessment (1) Palliative care encounter Code(s): Z51.5 - ENCOUNTER FOR PALLIATIVE CARE Current Visit: Yes Status: Acute (2) Abscess of chest wall Code(s): L02.213 - CUTANEOUS ABSCESS OF CHEST WALL Current Visit: Yes Status : Acute (3) Cardiac arrest Code(s): I46.9 - CARDIAC ARREST, CAUSE UNSPECIFIED Current Visit: Yes Status : Acute (4) Acute on chronic diastolic CHF (congestive heart failure) Code(s): I50.33 - ACUTE ON CHRONIC DIASTOLIC (CONGESTIVE) HEART FAILURE Current Visit: No Status: Acute (5) Hyperglycemia due to type 2 diabetes mellitus Code(s): E11.65 - TYPE 2 DIABETES MELLITUS WITH HYPERGLYCEMIA Current Visit: No Status: Chronic - Plan Plan: *CM placed consult with Rehab for discharge. *Encouraged deep breathing/use of incentive spirometer Cesar Miller RNradial arm saw operator will continue to support/follow as appropriate. [30] minutes spent on this encounter with >50% of the time in counseling and coordination of care.
[2019-04-27] MEDS: Isosorbide Mononitrate (ER) 30 MG TAB PO SCH (10:13)
[2019-04-27] MEDS: Aspirin 81 mg Enteric Coated Tablet PO SCH (10:14)
[2019-04-27] MEDS: Ferrous Sulfate 325 MG TAB PO SCH (10:14)
[2019-04-27] MEDS: hydrALAZINE 25 MG TAB PO SCH ×2 (10:15→20:10)
[2019-04-27] MEDS: Amlodipine 10 MG TAB PO SCH (10:15)
[2019-04-27] MEDS: Ascorbic Acid 500 mg Chewable Tablet PO SCH ×2 (10:16→20:10)
[2019-04-27] MEDS: Clopidogrel Bisulfate 75 MG TAB PO SCH (10:16)
[2019-04-27] MEDS: Tamsulosin HCl 0.4 MG CAP PO SCH ×2 (10:16→20:10)
[2019-04-27] MEDS: Finasteride 5 MG TAB PO SCH (10:16)
[2019-04-27] MEDS: Carvedilol 3.125 MG TAB PO SCH ×2 (10:16→17:14)
[2019-04-27] MEDS: Insulin Glargine 22 UNITS in Pre-Filled Syringe 1 EACH SC SCH ×2 (10:18→20:09)
--- NOTE | 2019-04-27 11:00 | PRG ---
DATE OF SERVICE: 04/27/2019 SUBJECTIVE: Patient was seen and examined at bedside and overnight events noted. Patient denies any shortness of breath or chest pain or palpitation. No history of nausea or vomiting or diarrhea or fever or chills or cramps. OBJECTIVE: GENERAL: This is a well-built in no apparent distress. VITAL SIGNS: Temperature 98.8. Heart rate 75. Respiratory rate 20. Blood pressure 160/64. HEENT: Atraumatic, normocephalic. Oral mucosa is moist NECK: Supple. CARDIOVASCULAR: S1, S2 heard. Rate and rhythm regular. RESPIRATORY: Clear to auscultation. GASTROINTESTINAL: Abdomen is soft. MUSCULOSKELETAL: No tenderness. No edema. DERMATOLOGIC: No skin rash. NEUROLOGIC: Alert and awake and oriented X3. No focal neurologic deficits. Moving all the extremities. PSYCHIATRIC: Mood and affect normal. LABORATORY DATA: Potassium 3.7, BUN is 57, and creatinine is 2.5. ASSESSMENT AND PLAN: 1. Acute kidney injury on chronic kidney disease stage 4. Creatinine with worsening most likely secondary to diuretics, but the patient remains fluid overloaded and diuretic being adjusted and dobutamine being added as an inotrope. 2. Cardiorenal syndrome. Dobutamine to be added today. 3. Hypokalemia. Monitor. 4. Acidosis. 5. Hypertension. 6. Edema. Would recommend to hold metolazone if creatinine continues to get worse and adjust the Lasix. Agree with dobutamine. Continue close monitoring. No acute indication for dialysis unless fluid overload not getting better with medical management. We will follow. Job ID: [id number]
--- NOTE | 2019-04-27 11:34 | PDOC.HOSPP ---
- Subjective Subjective: Seen and examined in ICU. On high flow NC. Still with trouble breathing, coughing, and maintaining O2 sats. No new complaints. No acute overnight events. - Objective Vital Signs & Weight: Vital Signs (12 hours) Temp Pulse BP Pulse Ox 04/27/19 10:15 70 163/76 H 04/27/19 04:14 94 L 04/27/19 04:00 98.8 F 04/27/19 00:00 98 F Weight Admit Weight 212 lb Weight 199 lb 4.766 oz Most Recent Monitor Data Heart Rate from ECG 75 NIBP 160/64 NIBP BP-Mean 96 Respiration from ECG 20 SpO2 93 I&O: 04/26/19 04/27/19 04/28/19 06:59 06:59 06:59 Intake Total 2005 1864 Output Total 2850 1970 Balance -844 -105 Result Diagrams: 04/24/19 06:10 04/27/19 05:44 Additional Labs: Accuchecks 04/27/19 04/26/19 04/26/19 05:46 21:01 16:19 POC Glucose 90 142 H 200 H 04/26/19 12:07 POC Glucose 244 H Radiology Reviewed by me: Yes (CXR 04/26) Hospitalist ROS - Review of Systems All other systems reviewed; all pertinent +/- noted in HPI/Subj - Medication Medications: Active Medications Generic Name Dose Route Start Last Admin Trade Name Freq PRN Reason Stop Dose Admin Acetaminophen 650 mg 04/20/19 18:19 04/22/19 20:22 Tylenol PO 650 mg Q4H PRN Administration Headache/Fever/Mild Pain (1-3) Amlodipine Besylate 10 mg 04/22/19 09:00 04/27/19 10:15 Norvasc PO 10 mg DAILY AIDAN Administration Ascorbic Acid 500 mg 04/24/19 21:00 04/27/19 10:16 Vitamin C PO 500 mg BID AIDAN Administration Aspirin 81 mg 04/22/19 09:00 04/27/19 10:14 Ecotrin PO 81 mg DAILY AIDAN Administration Carvedilol 3.125 mg 04/23/19 17:00 04/27/19 10:16 Coreg PO 3.125 mg BID-WM AIDAN Administration Clopidogrel Bisulfate 75 mg 04/22/19 09:00 04/27/19 10:16 Plavix PO 75 mg DAILY AIDAN Administration Famotidine 20 mg 04/21/19 21:00 04/26/19 21:00 Pepcid PO Not Given HS AIDAN Ferrous Sulfate 325 mg 04/25/19 08:00 04/27/19 10:14 Feosol PO 325 mg QAM-WM AIDAN Administration Finasteride 5 mg 04/25/19 09:00 04/27/19 10:16 Proscar PO 5 mg DAILY AIDAN Administration Furosemide 40 mg 04/26/19 12:00 04/26/19 17:49 Lasix SLOW IVP 40 mg 1200,1800 AIDAN Administration Hydralazine HCl 50 mg 04/21/19 21:00 04/27/19 10:15 Apresoline PO 50 mg BID AIDAN Administration Piperacillin Sod/Tazobactam 100 mls @ 200 mls/hr 04/20/19 22:00 04/27/19 05: 12 Sod 2.25 gm/ Sodium Chloride IVPB 100 mls Q8HR AIDAN Administration Insulin Glargine 22 units/ 0.22 mls @ 0 mls/hr 04/24/19 21:00 04/27/19 10:18 Miscellaneous Medication SC 0.22 mls BID AIDAN Administration As Directed Dobutamine HCl/Dextrose 250 mls @ 6.803 mls/hr 04/27/19 07:45 04/27/19 10:18 Dobutamine 500 Mg/250 Ml IVPB 250 mls INF AIDAN Administration Protocol 2.5 MCG/KG/MIN Insulin Human Lispro 0 units 04/20/19 18:15 04/26/19 17:54 Humalog SC 2 unit .MILD SLIDING SCALE PRN Administration Mild Correctional Scale Insulin Human Lispro 0 units 04/20/19 18:15 04/23/19 21:21 Humalog SC 2 unit .BEDTIME SLIDING SC PRN Administration Bedtime Correctional Scale Isosorbide Mononitrate 30 mg 04/22/19 09:00 04/27/19 10:13 Imdur Er PO 30 mg DAILY AIDAN Administration Metolazone 5 mg 04/24/19 12:00 04/26/19 12:23 Zaroxolyn PO 5 mg 1200 AIDAN Administration Morphine Sulfate 2 mg 04/22/19 10:49 04/23/19 20:34 Morphine SLOW IVP 2 mg Q4H PRN Administration CHEST PAIN (1-4) Ondansetron HCl 4 mg 04/20/19 18:19 04/20/19 20:32 Zofran Odt PO 4 mg Q6H PRN Administration Nausea/Vomiting Pantoprazole Sodium 40 mg 04/25/19 07:30 04/27/19 10:16 Protonix PO 40 mg DAILY-AC AIDAN Administration Propofol 1,000 mg 04/21/19 06:47 04/22/19 00:54 Diprivan IV 05/21/19 06:47 1,000 mg INF PRN Administration TO ACHIEVE GOAL RASS Protocol Senna/Docusate Sodium 2 tab 04/20/19 18:19 04/26/19 07:42 Senokot S PO 2 tab BID PRN Administration Constipation Sertraline HCl 50 mg 04/25/19 09:00 04/27/19 10:14 Zoloft PO 50 mg DAILY AIDAN Administration Sodium Chloride 10 ml 04/24/19 09:00 04/27/19 10:17 Flush - Normal Saline IVF 10 ml Q12HR AIDAN Administration Tamsulosin HCl 0.4 mg 04/24/19 21:00 04/27/19 10:16 Flomax PO 0.4 mg BID AIDAN Administration - Exam General Appearance: awake alert, ill appearing Eye: PERRL, anicteric sclera ENT: no oropharyngeal lesions, moist mucosa Neck: supple, symmetric, no lymphadenopathy Heart: no murmur, no gallops, no rubs Heart - other findings: S1 and S2 present Respiratory: no wheezes, no ronchi. negative: normal chest expansion Respiratory - other findings: Poor air movement. Patient takes short shallow breaths. No rales heard onNC Gastrointestinal: soft, non-tender, non-distended, no guarding, no rigidity Gastrointestinal - other findings: Obese Extremities: 1+ LE edema Skin: no lesions, no rashes Neurological: CN's grossly intact, normal sensation to touch, no focal deficits Musculoskeletal: generalized weakness Psychiatric: normal affect, A&O x 3 Hosp A/P (1) Abscess of chest wall Code(s): L02.213 - CUTANEOUS ABSCESS OF CHEST WALL Status: Acute (2) Cardiac arrest Code(s): I46.9 - CARDIAC ARREST, CAUSE UNSPECIFIED Status: Acute (3) Acute kidney failure Status: Acute Qualifiers: Acute renal failure type: unspecified Qualified Code(s): N17.9 - Acute kidney failure, unspecified (4) Acute on chronic diastolic CHF (congestive heart failure) Code(s): I50.33 - ACUTE ON CHRONIC DIASTOLIC (CONGESTIVE) HEART FAILURE Status : Acute (5) Acute respiratory failure with hypoxia Code(s): J96.01 - ACUTE RESPIRATORY FAILURE WITH HYPOXIA Status: Acute (6) Systolic CHF, acute on chronic Code(s): I50.23 - ACUTE ON CHRONIC SYSTOLIC (CONGESTIVE) HEART FAILURE Status : Acute (7) CAD (coronary artery disease) Code(s): I25.10 - ATHSCL HEART DISEASE OF [place] CORONARY ARTERY W/O ANG PCTRS Status: Chronic Qualifiers: Coronary Disease-Associated Artery/Lesion type: [place] artery [place] vs. transplanted heart: [place] heart (8) CHF (congestive heart failure) Code(s): I50.9 - HEART FAILURE, UNSPECIFIED Status: Chronic (9) CKD (chronic kidney disease) Code(s): N18.9 - CHRONIC KIDNEY DISEASE, UNSPECIFIED Status: Chronic (10) Diabetes mellitus type 2, uncontrolled Code(s): E11.65 - TYPE 2 DIABETES MELLITUS WITH HYPERGLYCEMIA Status: Chronic - Plan Plan: ICU Pulm/ CC consult, recommendations appreciated Cardiology consult, recommendations appreciated High flow NC to maintain O2 saturation Lasix and Metolazone needs more diuresis, central pulm edema cardiomyopathy regimen as able Dobutamine starting Wound care Wound Cx with mixed saeid Urine with citrobacter - castillo sensitive Responding to broad spectrum ABX Uptrending renal function Continue long acting insulin, ISS for prandial Continue other home meds as able Replace electrolytes as needed GI PPX- Protonix DVT PPX
[2019-04-27] MEDS: Furosemide 40 MG/4 ML VIAL SLOW IVP SCH ×2 (12:23→17:13)
[2019-04-27] MEDS: Metolazone 5 MG TAB PO SCH (12:23)
[2019-04-27] MEDS: Famotidine 20 MG TAB PO SCH (20:10)
[2019-04-28] MEDS: Piperacillin/Tazobactam 2.25 GM in Sodium Chloride 0.9% 100 ML IVPB SCH ×3 (05:12→21:00)
[2019-04-28 05:20] LABS: Anion Gap 13 mmol/L (10-20); BUN (Urea Nitrogen) 55 mg/dL (8.4-25.7); Calc. Creatinine Clearance 36 mL/min (70-130); Calcium 8.3 mg/dL (7.8-10.44); Carbon Dioxide 28 mmol/L (23-31); Chloride 101 mmol/L (98-107); Estimated GFR-MDRD 27; Glucose 107 mg/dL (83-110); Magnesium 2.2 mg/dL (1.6-2.6); Potassium 3.5 mmol/L (3.5-5.1); Sodium 138 mmol/L (136-145)
[2019-04-28] MEDS ORDERED: DOBUTamine 500 mg/250 ml 250 ML IVPB SCH (07:30)
[2019-04-28] MEDS: Isosorbide Mononitrate (ER) 30 MG TAB PO SCH (08:42)
[2019-04-28] MEDS: hydrALAZINE 25 MG TAB PO SCH ×2 (08:42→20:56)
[2019-04-28] MEDS: Finasteride 5 MG TAB PO SCH (08:42)
[2019-04-28] MEDS: Amlodipine 10 MG TAB PO SCH (08:43)
[2019-04-28] MEDS: Clopidogrel Bisulfate 75 MG TAB PO SCH (08:43)
[2019-04-28] MEDS: Ferrous Sulfate 325 MG TAB PO SCH (08:43)
[2019-04-28] MEDS: Carvedilol 3.125 MG TAB PO SCH ×2 (08:43→17:18)
[2019-04-28] MEDS: Tamsulosin HCl 0.4 MG CAP PO SCH ×2 (08:43→20:56)
[2019-04-28] MEDS: Ascorbic Acid 500 mg Chewable Tablet PO SCH ×2 (08:43→20:56)
[2019-04-28] MEDS: Aspirin 81 mg Enteric Coated Tablet PO SCH (08:43)
--- NOTE | 2019-04-28 08:51 | PRG ---
DATE OF SERVICE: 04/28/2019 SUBJECTIVE: This is a 73-year-old gentleman being seen for acute kidney injury. The patient denied nausea, vomiting, or chest pain. OBJECTIVE: See above. The patient is awake and alert, in no acute distress. VITAL SIGNS: Afebrile, pulse 70, breathing 16, blood pressure 155/82. GENERAL APPEARANCE AND MENTAL STATUS: Fair. HEAD/NECK: Normocephalic. Atraumatic. EYES: EOMI. No deformity. EARS: Clear. No ulcers. NOSE: Intact. No lesions. MOUTH: Clear. No discharge. THROAT: Clear. No exudate. LUNGS: Clear. No crackles. CARDIAC: S1, S2. No rub. ABDOMEN: Benign. Bowel sounds positive. GENITALIA/RECTUM: Grubbs absent. BACK/EXTREMITIES: Edema 0+. NEUROLOGICAL: Alert and motor intact. SKIN: LYMPHATICS: LABORATORY DATA: Hemoglobin is 8.9. Creatinine is 2.3. ASSESSMENT AND PLAN: 1. Acute kidney injury with chronic kidney disease, improved. 2. Hypertension, stable. 3. Anemia, stable. No indication for dialysis. 4. Acute tubular necrosis, stable. Job ID: [id number]
--- NOTE | 2019-04-28 09:32 | PRG ---
DATE OF SERVICE: 04/28/2019 SUBJECTIVE: Mr. Blum awakens easily, had a good day yesterday. OBJECTIVE: VITAL SIGNS: Temperature 98.5, pulse 70, blood pressure ranging while with systolic blood pressure 115 to the current systolic of 191, O2 saturation in the high 90s on about 48% oxygen by high-flow nasal cannula. Total intake for 24 hours was 2251, output 2869. Weight 196 pounds. HEENT: Unremarkable. NECK: No JVD. LUNGS: He has few inspiratory crackles. CARDIAC: S1, S2. Regular. ABDOMEN: Soft. EXTREMITIES: No edema. LABORATORY DATA: Sodium 138, potassium 3.5, chloride 101, CO2 of 28, BUN 55, creatinine 2.3, and glucose 107. ASSESSMENT: 1. Congestive heart failure with poor ejection fraction. 2. Renal dysfunction. 3. Possible component of pneumonia. PLAN: I will go ahead and try to increase his dobutamine since there appears to have been a response to that yesterday in terms of increased urine output and improved renal parameters. I will discontinue the metolazone. We will recheck his x-ray tomorrow. We will try to wean his high-flow oxygen as tolerated. Job ID: [id number]
[2019-04-28] MEDS: HumaLOG 300 UNITS/3 ML VIAL SC PRN ×3 (11:17→20:55)
[2019-04-28] MEDS: Furosemide 40 MG/4 ML VIAL SLOW IVP SCH ×2 (11:19→17:18)
[2019-04-28] MEDS: Insulin Glargine 22 UNITS in Pre-Filled Syringe 1 EACH SC SCH ×2 (12:15→20:56)
--- NOTE | 2019-04-28 15:28 | PDOC.HOSPP ---
- Subjective Subjective: Seen and examined. Seems to be breathing more easily today on high flow NC. Less LE edema. Responding to Dobutamine drip. No new complaints. - Objective Vital Signs & Weight: Vital Signs (12 hours) Temp Pulse Pulse Pulse BP BP BP 04/28/19 13:18 04/28/19 12:25 94 93 151/75 H 129/76 04/28/19 12:00 98.4 F 04/28/19 10:20 04/28/19 08:43 91 163/76 H 04/28/19 08:42 70 163/76 H 04/28/19 08:30 04/28/19 08:01 04/28/19 07:00 98.3 F 04/28/19 04:00 98.5 F Pulse Ox Pulse Ox Pulse Ox 04/28/19 13:18 93 L 04/28/19 12:25 94 L 93 L 04/28/19 12:00 04/28/19 10:20 99 04/28/19 08:43 04/28/19 08:42 04/28/19 08:30 96 04/28/19 08:01 94 L 04/28/19 07:00 04/28/19 04:00 Weight Admit Weight 212 lb Weight 196 lb 3.382 oz Most Recent Monitor Data Heart Rate from ECG 96 NIBP 166/81 NIBP BP-Mean 109 Respiration from ECG 15 SpO2 93 I&O: 04/27/19 04/28/19 04/29/19 06:59 06:59 06:59 Intake Total 1865 2251.8 460 Output Total 3102 2369 985 Balance -105 -617.2 -525 Result Diagrams: 04/24/19 06:10 04/28/19 04:30 Additional Labs: Accuchecks 04/28/19 04/28/19 04/27/19 11:13 05:27 20:11 POC Glucose 184 H 110 166 H 04/27/19 17:05 POC Glucose 123 H Hospitalist ROS - Review of Systems All other systems reviewed; all pertinent +/- noted in HPI/Subj - Medication Medications: Active Medications Generic Name Dose Route Start Last Admin Trade Name Freq PRN Reason Stop Dose Admin Acetaminophen 650 mg 04/20/19 18:19 04/22/19 20:22 Tylenol PO 650 mg Q4H PRN Administration Headache/Fever/Mild Pain (1-3) Amlodipine Besylate 10 mg 04/22/19 09:00 04/28/19 08:43 Norvasc PO 10 mg DAILY AIDAN Administration Ascorbic Acid 500 mg 04/24/19 21:00 04/28/19 08:43 Vitamin C PO 500 mg BID AIDAN Administration Aspirin 81 mg 04/22/19 09:00 04/28/19 08:43 Ecotrin PO 81 mg DAILY AIDAN Administration Carvedilol 3.125 mg 04/23/19 17:00 04/28/19 08:43 Coreg PO 3.125 mg BID-WM AIDAN Administration Clopidogrel Bisulfate 75 mg 04/22/19 09:00 04/28/19 08:43 Plavix PO 75 mg DAILY AIDAN Administration Famotidine 20 mg 04/21/19 21:00 04/27/19 20:10 Pepcid PO 20 mg HS AIDAN Administration Ferrous Sulfate 325 mg 04/25/19 08:00 04/28/19 08:43 Feosol PO 325 mg QAM-WM AIDAN Administration Finasteride 5 mg 04/25/19 09:00 04/28/19 08:42 Proscar PO 5 mg DAILY AIDAN Administration Furosemide 40 mg 04/26/19 12:00 04/28/19 11:19 Lasix SLOW IVP 40 mg 1200,1800 AIDAN Administration Hydralazine HCl 50 mg 04/21/19 21:00 04/28/19 08:42 Apresoline PO 50 mg BID AIDAN Administration Piperacillin Sod/Tazobactam 100 mls @ 200 mls/hr 04/20/19 22:00 04/28/19 14: 26 Sod 2.25 gm/ Sodium Chloride IVPB 100 mls Q8HR AIDAN Administration Insulin Glargine 22 units/ 0.22 mls @ 0 mls/hr 04/24/19 21:00 04/27/19 20:09 Miscellaneous Medication SC 0.22 mls BID AIDAN Administration As Directed Insulin Human Lispro 0 units 04/20/19 18:15 04/28/19 11:17 Humalog SC 2 unit .MILD SLIDING SCALE PRN Administration Mild Correctional Scale Insulin Human Lispro 0 units 04/20/19 18:15 04/23/19 21:21 Humalog SC 2 unit .BEDTIME SLIDING SC PRN Administration Bedtime Correctional Scale Isosorbide Mononitrate 30 mg 04/22/19 09:00 04/28/19 08:42 Imdur Er PO 30 mg DAILY AIDAN Administration Morphine Sulfate 2 mg 04/22/19 10:49 04/23/19 20:34 Morphine SLOW IVP 2 mg Q4H PRN Administration CHEST PAIN (1-4) Ondansetron HCl 4 mg 04/20/19 18:19 04/20/19 20:32 Zofran Odt PO 4 mg Q6H PRN Administration Nausea/Vomiting Pantoprazole Sodium 40 mg 04/25/19 07:30 04/28/19 08:43 Protonix PO 40 mg DAILY-AC AIDAN Administration Propofol 1,000 mg 04/21/19 06:47 04/22/19 00:54 Diprivan IV 05/21/19 06:47 1,000 mg INF PRN Administration TO ACHIEVE GOAL RASS Protocol Senna/Docusate Sodium 2 tab 04/20/19 18:19 04/26/19 07:42 Senokot S PO 2 tab BID PRN Administration Constipation Sertraline HCl 50 mg 04/25/19 09:00 04/28/19 08:43 Zoloft PO 50 mg DAILY AIDAN Administration Sodium Chloride 10 ml 04/24/19 09:00 04/28/19 08:44 Flush - Normal Saline IVF Not Given Q12HR [facility] Tamsulosin HCl 0.4 mg 04/24/19 21:00 04/28/19 08:43 Flomax PO 0.4 mg BID AIDAN Administration - Exam General Appearance: NAD, awake alert Eye: anicteric sclera ENT: no oropharyngeal lesions, moist mucosa Neck: supple, symmetric Heart: no murmur, no gallops, no rubs Respiratory: no wheezes, no rales, no ronchi Gastrointestinal: soft, non-tender, non-distended, no guarding, no rigidity Extremities: 1+ LE edema (improving) Skin: no rashes Skin - other findings: Left upper chest lesion healing Neurological: CN's grossly intact, normal sensation to touch Musculoskeletal: generalized weakness Psychiatric: normal affect, A&O x 3 Hosp A/P (1) Abscess of chest wall Code(s): L02.213 - CUTANEOUS ABSCESS OF CHEST WALL Status: Acute (2) Cardiac arrest Code(s): I46.9 - CARDIAC ARREST, CAUSE UNSPECIFIED Status: Acute (3) Acute kidney failure Status: Acute Qualifiers: Acute renal failure type: unspecified Qualified Code(s): N17.9 - Acute kidney failure, unspecified (4) Acute on chronic diastolic CHF (congestive heart failure) Code(s): I50.33 - ACUTE ON CHRONIC DIASTOLIC (CONGESTIVE) HEART FAILURE Status : Acute (5) Acute respiratory failure with hypoxia Code(s): J96.01 - ACUTE RESPIRATORY FAILURE WITH HYPOXIA Status: Acute (6) Systolic CHF, acute on chronic Code(s): I50.23 - ACUTE ON CHRONIC SYSTOLIC (CONGESTIVE) HEART FAILURE Status : Acute (7) CAD (coronary artery disease) Code(s): I25.10 - ATHSCL HEART DISEASE OF [place] CORONARY ARTERY W/O ANG PCTRS Status: Chronic Qualifiers: Coronary Disease-Associated Artery/Lesion type: [place] artery [place] vs. transplanted heart: redd[place] heart (8) CHF (congestive heart failure) Code(s): I50.9 - HEART FAILURE, UNSPECIFIED Status: Chronic (9) CKD (chronic kidney disease) Code(s): N18.9 - CHRONIC KIDNEY DISEASE, UNSPECIFIED Status: Chronic (10) Diabetes mellitus type 2, uncontrolled Code(s): E11.65 - TYPE 2 DIABETES MELLITUS WITH HYPERGLYCEMIA Status: Chronic - Plan Plan: ICU Pulm/ CC consult, recommendations appreciated Cardiology consult, recommendations appreciated High flow NC to maintain O2 saturation Lasix and Metolazone needs more diuresis, central pulm edema cardiomyopathy regimen as able Dobutamine drip, with improving renal function Wound care Wound Cx with mixed saeid Urine with citrobacter - castillo sensitive Responding to broad spectrum ABX Uptrending renal function Continue long acting insulin, ISS for prandial Continue other home meds as able Replace electrolytes as needed GI PPX- Protonix DVT PPX
[2019-04-28] MEDS: Famotidine 20 MG TAB PO SCH (20:56)
[2019-04-29 04:56] LABS: Anion Gap 15 mmol/L (10-20); BUN (Urea Nitrogen) 49 mg/dL (8.4-25.7); Calc. Creatinine Clearance 39 mL/min (70-130); Calcium 8.5 mg/dL (7.8-10.44); Carbon Dioxide 26 mmol/L (23-31); Chloride 99 mmol/L (98-107); Estimated GFR-MDRD 30; Glucose 188 mg/dL (83-110); Potassium 3.2 mmol/L (3.5-5.1); Sodium 137 mmol/L (136-145)
[2019-04-29] MEDS: Piperacillin/Tazobactam 2.25 GM in Sodium Chloride 0.9% 100 ML IVPB SCH (06:04)
[2019-04-29] MEDS ORDERED: DOBUTamine 500 mg/250 ml 250 ML IVPB SCH (07:42)
--- NOTE | 2019-04-29 07:52 | RAD ---
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 The cardiac silhouette is magnified by projecti on but does appear enlarged. The alveolar opacities in the midlung zones bilaterally have almost completely resolved with only minimal persistent interstitial densities now present. There is subopti mal evaluation of the left lung base due to the enlarged cardiac silhouette. Pleural fluid, infiltrate, or atelectasis at the left lung base cannot be entirely excluded. Vascular calcifications are seen in the thoracic aorta. No other interval change. IMPRESSION: 1. Almost complete resolution of the alveolar opacities within the lung zones bilaterally. Only minim al linear and minimal patchy densities persist. Findings may be related to either improvement in pulmonary edema or pneumonia. 2. Suboptimal evaluation of the left lung base as described above. 3. Cardiomegaly.
[2019-04-29] MEDS: Finasteride 5 MG TAB PO SCH (08:26)
[2019-04-29] MEDS: Tamsulosin HCl 0.4 MG CAP PO SCH ×2 (08:26→20:14)
[2019-04-29] MEDS: Potassium Chloride 20 MEQ TAB PO SCH ×2 (08:26→17:55)
[2019-04-29] MEDS: Ascorbic Acid 500 mg Chewable Tablet PO SCH ×2 (08:26→20:14)
[2019-04-29] MEDS: Aspirin 81 mg Enteric Coated Tablet PO SCH (08:27)
[2019-04-29] MEDS: Amlodipine 10 MG TAB PO SCH (08:27)
--- NOTE | 2019-04-29 08:29 | PRG ---
DATE OF SERVICE: 04/29/2019 SUBJECTIVE: The patient did well yesterday. He says he feels better. OBJECTIVE: VITAL SIGNS: Temperature 98.5, pulse 93, blood pressure 146/65. A 24-hour intake 1719 mL, output 3030 mL. Weight today 196 pounds. HEENT: Unremarkable. NECK: No JVD. LUNGS: He has fairly clear breath sounds anteriorly bilaterally. CARDIAC: S1 and S2. Regular. ABDOMEN: Soft and nontender. EXTREMITIES: Decreased edema. LABORATORY DATA: Sodium 137, potassium 3.2, chloride 99, CO2 of 26, BUN 49, creatinine 2.2, glucose 188. IMAGING STUDIES: His chest x-ray shows improvement in the bilateral infiltrates compared to 04/26. ASSESSMENT: 1. Systolic congestive heart failure. 2. Renal insufficiency, which has improved. 3. Possible component of pneumonia. PLAN: I will go ahead and decrease his Lasix dose. We will continue dobutamine at 5 mcg/kg/minute today, and hopefully, begin to wean that tomorrow. I have stopped his antibiotics. His potassium will be replaced. Continue attempts to wean oxygen. Job ID: [id number]
[2019-04-29] MEDS: Ferrous Sulfate 325 MG TAB PO SCH (08:36)
[2019-04-29] MEDS: Isosorbide Mononitrate (ER) 30 MG TAB PO SCH (08:36)
[2019-04-29] MEDS: Clopidogrel Bisulfate 75 MG TAB PO SCH (08:37)
[2019-04-29] MEDS: Carvedilol 3.125 MG TAB PO SCH ×2 (08:37→17:55)
[2019-04-29] MEDS: hydrALAZINE 25 MG TAB PO SCH ×2 (08:37→20:14)
[2019-04-29] MEDS: Insulin Glargine 22 UNITS in Pre-Filled Syringe 1 EACH SC SCH ×2 (08:38→20:12)
[2019-04-29] MEDS: HumaLOG 300 UNITS/3 ML VIAL SC PRN ×3 (11:54→20:13)
[2019-04-29] MEDS ORDERED: Furosemide 40 MG/4 ML VIAL SLOW IVP SCH (12:00)
[2019-04-29 12:36] VITALS: BMI 29.9
--- NOTE | 2019-04-29 12:48 | PRG ---
DATE OF SERVICE: 04/29/2019 SUBJECTIVE: A 73-year-old gentleman, being seen for acute kidney injury. The patient denied nausea, vomiting, or chest pain. OBJECTIVE: CONSTITUTIONAL: The patient is awake and alert. VITAL SIGNS: Pulse 79, breathing 16, and blood pressure 132/68. GENERAL APPEARANCE AND MENTAL STATUS: Fair. HEAD/NECK: Normocephalic. Atraumatic. EYES: EOMI. No deformity. EARS: Clear. No ulcers. NOSE: Intact. No lesions. MOUTH: Clear. No discharge. THROAT: Clear. No exudate. LUNGS: Clear. No crackles. CARDIAC: S1, S2. No rub. ABDOMEN: Benign. Bowel sounds positive. GENITALIA/RECTUM: Grubbs absent. BACK/EXTREMITIES: Edema 0+. NEUROLOGICAL: Alert and motor intact. SKIN: LYMPHATICS: LABORATORY DATA: Reviewed. ASSESSMENT AND PLAN: 1. Chronic kidney disease, stage 3, stable. 2. Acute kidney injury, stable. 3. Hypertension, stable. 4. Hypokalemia, recommended high-potassium diet, on 20 mEq of potassium. 5. Medication based on GFR appropriate. 6. No indication for dialysis. Job ID: [id number]
--- NOTE | 2019-04-29 15:25 | PDOC.HOSPP ---
- Subjective Subjective: Seen and examined. Clinically improving. On low-flow oxygen. Breathing more comfortably. Less lower extremity edema. Having a very good day today. - Objective Vital Signs & Weight: Vital Signs (12 hours) Temp Pulse Pulse Pulse Pulse BP BP 04/29/19 12:00 97.9 F 04/29/19 10:15 88 88 85 132/64 04/29/19 08:37 99 143/109 H 04/29/19 08:27 98 143/109 H 04/29/19 08:00 04/29/19 07:00 97.9 F 04/29/19 04:00 98.5 F BP Pulse Ox Pulse Ox Pulse Ox Pulse Ox 04/29/19 12:00 04/29/19 10:15 133/67 94 L 98 99 04/29/19 08:37 04/29/19 08:27 04/29/19 08:00 96 04/29/19 07:00 04/29/19 04:00 Weight Admit Weight 212 lb Weight 196 lb 10.437 oz Most Recent Monitor Data Heart Rate from ECG 84 NIBP 169/80 NIBP BP-Mean 109 Respiration from ECG 16 SpO2 97 I&O: 04/28/19 04/29/19 04/30/19 06:59 06:59 06:59 Intake Total 2251.8 1719 240 Output Total 2869 3030 1135 [facility]617.2 -1311 -895 Result Diagrams: 04/24/19 06:10 04/29/19 04:21 Additional Labs: Accuchecks 04/29/19 04/29/19 04/28/19 11:23 06:09 20:56 POC Glucose 158 H 134 H 250 H 04/28/19 16:36 POC Glucose 239 H Radiology Reviewed by me: Yes (CXR - resolving CHF) Hospitalist ROS - Review of Systems All other systems reviewed; all pertinent +/- noted in HPI/Subj - Medication Medications: Active Medications Generic Name Dose Route Start Last Admin Trade Name Freq PRN Reason Stop Dose Admin Acetaminophen 650 mg 04/20/19 18:19 04/22/19 20:22 Tylenol PO 650 mg Q4H PRN Administration Headache/Fever/Mild Pain (1-3) Amlodipine Besylate 10 mg 04/22/19 09:00 04/29/19 08:27 Norvasc PO 10 mg DAILY AIDAN Administration Ascorbic Acid 500 mg 04/24/19 21:00 04/29/19 08:26 Vitamin C PO 500 mg BID AIDAN Administration Aspirin 81 mg 04/22/19 09:00 04/29/19 08:27 Ecotrin PO 81 mg DAILY AIDAN Administration Carvedilol 3.125 mg 04/23/19 17:00 04/29/19 08:37 Coreg PO 3.125 mg BID-WM AIDAN Administration Clopidogrel Bisulfate 75 mg 04/22/19 09:00 04/29/19 08:37 Plavix PO 75 mg DAILY AIDAN Administration Ferrous Sulfate 325 mg 04/25/19 08:00 04/29/19 08:36 Feosol PO 325 mg QAM-WM AIDAN Administration Finasteride 5 mg 04/25/19 09:00 04/29/19 08:26 Proscar PO 5 mg DAILY AIDAN Administration Furosemide 40 mg 04/29/19 12:00 04/29/19 11:54 Lasix SLOW IVP 40 mg 1200 AIDAN Administration Hydralazine HCl 50 mg 04/21/19 21:00 04/29/19 08:37 Apresoline PO 50 mg BID AIDAN Administration Insulin Glargine 22 units/ 0.22 mls @ 0 mls/hr 04/24/19 21:00 04/29/19 08:38 Miscellaneous Medication SC 0.22 mls BID [facility] Administration As Directed Insulin Human Lispro 0 units 04/20/19 18:15 04/29/19 11:54 Humalog SC 2 unit .MILD SLIDING SCALE PRN Administration Mild Correctional Scale Insulin Human Lispro 0 units 04/20/19 18:15 04/28/19 20:55 Humalog SC 2 unit .BEDTIME SLIDING SC PRN Administration Bedtime Correctional Scale Isosorbide Mononitrate 30 mg 04/22/19 09:00 04/29/19 08:36 Imdur Er PO 30 mg DAILY [facility] Administration Morphine Sulfate 2 mg 04/22/19 10:49 04/23/19 20:34 Morphine SLOW IVP 2 mg Q4H PRN Administration CHEST PAIN (1-4) Ondansetron HCl 4 mg 04/20/19 18:19 04/20/19 20:32 Zofran Odt PO 4 mg Q6H PRN Administration Nausea/Vomiting Pantoprazole Sodium 40 mg 04/25/19 07:30 04/29/19 08:26 Protonix PO 40 mg DAILY-AC AIDAN Administration Potassium Chloride 40 meq 04/29/19 08:00 04/29/19 08:26 K-Dur PO 04/29/19 17:01 40 meq BID-WM AIDAN Administration Propofol 1,000 mg 04/21/19 06:47 04/22/19 00:54 Diprivan IV 05/21/19 06:47 1,000 mg INF PRN Administration TO ACHIEVE GOAL RASS Protocol Senna/Docusate Sodium 2 tab 04/20/19 18:19 04/26/19 07:42 Senokot S PO 2 tab BID PRN Administration Constipation Sertraline HCl 50 mg 04/25/19 09:00 04/29/19 08:27 Zoloft PO 50 mg DAILY AIDAN Administration Sodium Chloride 10 ml 04/24/19 09:00 04/29/19 08:38 Flush - Normal Saline IVF Not Given Q12HR AIDAN Tamsulosin HCl 0.4 mg 04/24/19 21:00 04/29/19 08:26 Flomax PO 0.4 mg BID AIDAN Administration - Exam General Appearance: NAD Eye: anicteric sclera ENT: no oropharyngeal lesions, moist mucosa Neck: supple, symmetric Heart: no murmur, no gallops, no rubs Respiratory: CTAB, no wheezes, no rales, no ronchi, normal chest expansion Gastrointestinal: soft, non-tender, non-distended, no guarding, no rigidity Extremities: 1+ LE edema (Improved significantly) Skin: no lesions, no rashes Neurological: CN's grossly intact, normal sensation to touch, no weakness Musculoskeletal: no muscle wasting Psychiatric: normal affect, A&O x 3 Hosp A/P (1) Abscess of chest wall Code(s): L02.213 - CUTANEOUS ABSCESS OF CHEST WALL Status: Acute (2) Cardiac arrest Code(s): I46.9 - CARDIAC ARREST, CAUSE UNSPECIFIED Status: Acute (3) Acute kidney failure Status: Acute Qualifiers: Acute renal failure type: unspecified Qualified Code(s): N17.9 - Acute kidney failure, unspecified (4) Acute on chronic diastolic CHF (congestive heart failure) Code(s): I50.33 - ACUTE ON CHRONIC DIASTOLIC (CONGESTIVE) HEART FAILURE Status : Acute (5) Acute respiratory failure with hypoxia Code(s): J96.01 - ACUTE RESPIRATORY FAILURE WITH HYPOXIA Status: Acute (6) Systolic CHF, acute on chronic Code(s): I50.23 - ACUTE ON CHRONIC SYSTOLIC (CONGESTIVE) HEART FAILURE Status : Acute (7) CAD (coronary artery disease) Code(s): I25.10 - ATHSCL HEART DISEASE OF [place] CORONARY ARTERY W/O ANG PCTRS Status: Chronic Qualifiers: Coronary Disease-Associated Artery/Lesion type: [place] artery [place] vs. transplanted heart: [place] heart (8) CHF (congestive heart failure) Code(s): I50.9 - HEART FAILURE, UNSPECIFIED Status: Chronic (9) CKD (chronic kidney disease) Code(s): N18.9 - CHRONIC KIDNEY DISEASE, UNSPECIFIED Status: Chronic (10) Diabetes mellitus type 2, uncontrolled Code(s): E11.65 - TYPE 2 DIABETES MELLITUS WITH HYPERGLYCEMIA Status: Chronic - Plan Plan: ICU Pulm/ CC consult, recommendations appreciated Cardiology consult, recommendations appreciated High flow NC to maintain O2 saturation Lasix and Metolazone responding well cardiomyopathy regimen as able Dobutamine drip, responding well Wound care Wound Cx with mixed saeid Finished ABX Urine with citrobacter - castillo sensitive Responding to broad spectrum ABX Uptrending renal function Continue long acting insulin, ISS for prandial Continue other home meds as able Replace electrolytes as needed GI PPX- Protonix DVT PPX
[2019-04-30 05:38] LABS: Anion Gap 16 mmol/L (10-20); BUN (Urea Nitrogen) 37 mg/dL (8.4-25.7); Calc. Creatinine Clearance 46 mL/min (70-130); Calcium 8.2 mg/dL (7.8-10.44); Carbon Dioxide 21 mmol/L (23-31); Chloride 103 mmol/L (98-107); Estimated GFR-MDRD 37; Glucose 79 mg/dL (83-110); Potassium 4.5 mmol/L (3.5-5.1); Sodium 135 mmol/L (136-145)
--- NOTE | 2019-04-30 08:53 | RAD ---
PORTABLE CHEST: HISTORY: Respiratory distress. COMPARISON: Prior day's exam. FINDINGS: Heart size is enlarged. There are postop sternotomy changes. Parenchymal changes in the left lung a nd right lung base all appear stable. IMPRESSION: Stable examination. POS: MUNDO
[2019-04-30] MEDS: Carvedilol 3.125 MG TAB PO SCH (09:30)
[2019-04-30] MEDS: Amlodipine 10 MG TAB PO SCH (09:30)
[2019-04-30] MEDS: Ferrous Sulfate 325 MG TAB PO SCH (09:30)
[2019-04-30] MEDS: Finasteride 5 MG TAB PO SCH (09:31)
[2019-04-30] MEDS: hydrALAZINE 25 MG TAB PO SCH ×2 (09:31→20:09)
[2019-04-30] MEDS: Aspirin 81 mg Enteric Coated Tablet PO SCH (09:31)
[2019-04-30] MEDS: Ascorbic Acid 500 mg Chewable Tablet PO SCH ×2 (09:31→20:09)
[2019-04-30] MEDS: Clopidogrel Bisulfate 75 MG TAB PO SCH (09:31)
[2019-04-30] MEDS: Isosorbide Mononitrate (ER) 30 MG TAB PO SCH (09:32)
[2019-04-30] MEDS: Insulin Glargine 22 UNITS in Pre-Filled Syringe 1 EACH SC SCH ×2 (09:32→20:15)
[2019-04-30] MEDS: Tamsulosin HCl 0.4 MG CAP PO SCH ×2 (09:33→20:08)
--- NOTE | 2019-04-30 09:48 | PRG ---
DATE OF SERVICE: 04/30/2019 SUBJECTIVE: The patient is doing extremely well. He is up in a chair. He has no acute complaints. Continues on dobutamine drip at 2.5 mcg/minute. OBJECTIVE: VITAL SIGNS: His temperature is 97.7, pulse 86, blood pressure 171/91, and O2 saturation 98%. Intake for 24 hours 1228, output 3130. Weight 191 pounds. HEENT: Unremarkable. NECK: No adenopathy or JVD. LUNGS: Fairly clear anteriorly. CARDIAC: S1 and S2. Regular. ABDOMEN: Soft. EXTREMITIES: No edema. LABORATORY DATA: Sodium 135, potassium 4.5, chloride 103, CO2 of 21, BUN 37, creatinine 1.8, and glucose 79. ASSESSMENT: 1. Acute systolic heart failure, better after diuresis and dobutamine. 2. Acute hypoxic respiratory failure, improved. 3. Renal insufficiency, improved. PLAN: The patient will be transferred out to the telemetry floor. I will stop his Grubbs. Stop his Dobutrex. We will convert most of his medicines to oral. He should be ready for rehab soon. Job ID: [id number]
[2019-04-30] MEDS: Furosemide 40 MG TAB PO SCH (12:08)
[2019-04-30] MEDS: HumaLOG 300 UNITS/3 ML VIAL SC PRN (12:16)
--- NOTE | 2019-04-30 13:01 | PRG ---
DATE OF SERVICE: 04/30/2019 SUBJECTIVE: A 73-year-old gentleman, being seen for acute kidney injury. The patient denied nausea, vomiting, or chest pain. OBJECTIVE: See above. Awake, alert, in no acute distress. VITAL SIGNS: Afebrile, pulse 75, breathing 16, blood pressure 141/70. GENERAL APPEARANCE AND MENTAL STATUS: Fair. HEAD/NECK: Normocephalic. Atraumatic. EYES: EOMI. No deformity. EARS: Clear. No ulcers. NOSE: Intact. No lesions. MOUTH: Clear. No discharge. THROAT: Clear. No exudate. LUNGS: Clear. No crackles. CARDIAC: S1, S2. No rub. ABDOMEN: Benign. Bowel sounds positive. GENITALIA/RECTUM: Grubbs absent. BACK/EXTREMITIES: Edema 0+. NEUROLOGICAL: Alert and motor intact. SKIN: LYMPHATICS: LABORATORY DATA: Reviewed. ASSESSMENT AND PLAN: 1. Stage 3 chronic kidney disease, stable. 2. Acute kidney injury due to acute tubular necrosis, stable. 3. Hypertensive, stable. 4. Anemia, stable. I will sign off on this patient. Please reconsult as needed. The patient will follow up as an outpatient in 1 to 2 weeks. Job ID: [id number]
[2019-04-30] MEDS ORDERED: Carvedilol 3.125 MG TAB PO SCH (13:19)
--- NOTE | 2019-04-30 13:21 | PDOC.HOSPP ---
- Subjective Subjective: Seen and examined. Breathing well on low flow NC. Transitioned off Dobutamine drip. Pulmonary edema and LE edema dramatically improved. Being transitioned out of ICU, plan for rehab in the next 24-48 hours pending bed availability. - Objective Vital Signs & Weight: Vital Signs (12 hours) Temp Pulse Pulse Pulse Resp BP BP 04/30/19 12:05 98.5 F 75 16 04/30/19 09:31 79 174/76 H 04/30/19 09:30 79 174/76 H 04/30/19 08:44 108 H 98 174/76 H 04/30/19 08:00 98.5 F 04/30/19 04:00 97.7 F BP BP Pulse Ox Pulse Ox Pulse Ox 04/30/19 12:05 141/70 H 97 04/30/19 09:31 04/30/19 09:30 04/30/19 08:44 149/73 H 98 98 04/30/19 08:00 99 04/30/19 04:00 Weight Admit Weight 212 lb Weight 191 lb 9.307 oz Most Recent Monitor Data Heart Rate from ECG 76 NIBP 166/90 NIBP BP-Mean 115 Respiration from ECG 12 SpO2 95 I&O: 04/29/19 04/30/19 05/01/19 06:59 06:59 06:59 Intake Total 1719 1228.0 219.6 Output Total 3030 3130 160 Balance -1311 -1902.0 59.6 Result Diagrams: 04/24/19 06:10 04/30/19 05:18 Additional Labs: Accuchecks 04/30/19 04/30/19 04/29/19 12:10 05:20 20:13 POC Glucose 180 H 91 258 H 04/29/19 16:15 POC Glucose 198 H Hospitalist ROS - Review of Systems All other systems reviewed; all pertinent +/- noted in HPI/Subj - Medication Medications: Active Medications Generic Name Dose Route Start Last Admin Trade Name Freq PRN Reason Stop Dose Admin Acetaminophen 650 mg 04/20/19 18:19 04/22/19 20:22 Tylenol PO 650 mg Q4H PRN Administration Headache/Fever/Mild Pain (1-3) Amlodipine Besylate 10 mg 04/22/19 09:00 04/30/19 09:30 Norvasc PO 10 mg DAILY AIDAN Administration Ascorbic Acid 500 mg 04/24/19 21:00 04/30/19 09:31 Vitamin C PO 500 mg BID AIDAN Administration Aspirin 81 mg 04/22/19 09:00 04/30/19 09:31 Ecotrin PO 81 mg DAILY AIDAN Administration Clopidogrel Bisulfate 75 mg 04/22/19 09:00 04/30/19 09:31 Plavix PO 75 mg DAILY AIDAN Administration Ferrous Sulfate 325 mg 04/25/19 08:00 04/30/19 09:30 Feosol PO 325 mg QAM-WM AIDAN Administration Finasteride 5 mg 04/25/19 09:00 04/30/19 09:31 Proscar PO 5 mg DAILY AIDAN Administration Furosemide 40 mg 04/30/19 12:00 04/30/19 12:08 Lasix PO 40 mg 1200 AIDAN Administration Hydralazine HCl 50 mg 04/21/19 21:00 04/30/19 09:31 Apresoline PO 50 mg BID AIDAN Administration Insulin Glargine 22 units/ 0.22 mls @ 0 mls/hr 04/24/19 21:00 04/30/19 09:32 Miscellaneous Medication SC 0.22 mls BID AIDAN Administration As Directed Insulin Human Lispro 0 units 04/20/19 18:15 04/30/19 12:16 Humalog SC 2 unit .MILD SLIDING SCALE PRN Administration Mild Correctional Scale Insulin Human Lispro 0 units 04/20/19 18:15 04/29/19 20:13 Humalog SC 3 unit .BEDTIME SLIDING SC PRN Administration Bedtime Correctional Scale Isosorbide Mononitrate 30 mg 04/22/19 09:00 04/30/19 09:32 Imdur Er PO 30 mg DAILY AIDAN Administration Ondansetron HCl 4 mg 04/20/19 18:19 04/20/19 20:32 Zofran Odt PO 4 mg Q6H PRN Administration Nausea/Vomiting Pantoprazole Sodium 40 mg 04/25/19 07:30 04/30/19 09:30 Protonix PO 40 mg DAILY-AC AIDAN Administration Senna/Docusate Sodium 2 tab 04/20/19 18:19 04/26/19 07:42 Senokot S PO 2 tab BID PRN Administration Constipation Sertraline HCl 50 mg 04/25/19 09:00 09/12/19 09:32 Zoloft PO 50 mg DAILY AIDAN Administration Tamsulosin HCl 0.4 mg 04/24/19 21:00 04/30/19 09:33 Flomax PO 0.4 mg BID AIDAN Administration - Exam General Appearance: NAD, awake alert Eye: anicteric sclera ENT: no oropharyngeal lesions, moist mucosa Neck: supple, symmetric, no lymphadenopathy Heart: no murmur, no gallops, no rubs Respiratory: CTAB, no wheezes, no rales Gastrointestinal: soft, non-tender, non-distended, normal bowel sounds, no guarding, no rigidity Extremities: no cyanosis, 1+ LE edema (Significantly improved) Skin: no lesions, no rashes Neurological: cranial nerve grossly intact, no focal deficits, no new deficit Musculoskeletal: generalized weakness Psychiatric: oriented to person, oriented to place, flat affect Hosp A/P (1) Abscess of chest wall Code(s): L02.213 - CUTANEOUS ABSCESS OF CHEST WALL Status: Acute (2) Cardiac arrest Code(s): I46.9 - CARDIAC ARREST, CAUSE UNSPECIFIED Status: Acute (3) Acute kidney failure Status: Acute Qualifiers: Acute renal failure type: unspecified Qualified Code(s): N17.9 - Acute kidney failure, unspecified (4) Acute on chronic diastolic CHF (congestive heart failure) Code(s): I50.33 - ACUTE ON CHRONIC DIASTOLIC (CONGESTIVE) HEART FAILURE Status : Acute (5) Acute respiratory failure with hypoxia Code(s): J96.01 - ACUTE RESPIRATORY FAILURE WITH HYPOXIA Status: Acute (6) Systolic CHF, acute on chronic Code(s): I50.23 - ACUTE ON CHRONIC SYSTOLIC (CONGESTIVE) HEART FAILURE Status : Acute (7) CAD (coronary artery disease) Code(s): I25.10 - ATHSCL HEART DISEASE OF [place] CORONARY ARTERY W/O ANG PCTRS Status: Chronic Qualifiers: Coronary Disease-Associated Artery/Lesion type: [place] artery [place] vs. transplanted heart: [place] heart (8) CHF (congestive heart failure) Code(s): I50.9 - HEART FAILURE, UNSPECIFIED Status: Chronic (9) CKD (chronic kidney disease) Code(s): N18.9 - CHRONIC KIDNEY DISEASE, UNSPECIFIED Status: Chronic (10) Diabetes mellitus type 2, uncontrolled Code(s): E11.65 - TYPE 2 DIABETES MELLITUS WITH HYPERGLYCEMIA Status: Chronic - Plan Plan: ICU, Pending d/g to med/ tel Pulm/ CC consult, recommendations appreciated Cardiology consult, recommendations appreciated Profoundly weak and debilitated from critical illness - will need continuation of PT/OT services in inpatient setting plan for rehab in the next 24-48 hours pending bed availability Now on low flow NC, with adequate O2 sats cardiomyopathy regimen as able Off Dobutamine drip Wound care Wound Cx with mixed saeid Finished ABX Urine with citrobacter - castillo sensitive Continue long acting insulin, ISS for prandial Continue other home meds as able Replace electrolytes as needed GI PPX- Protonix DVT PPX
[2019-04-30] MEDS: Carvedilol 6.25 MG TAB PO SCH (17:45)
[2019-05-01 04:58] LABS: Anion Gap 13 mmol/L (10-20); BUN (Urea Nitrogen) 42 mg/dL (8.4-25.7); Calc. Creatinine Clearance 44 mL/min (70-130); Calcium 8.8 mg/dL (7.8-10.44); Carbon Dioxide 29 mmol/L (23-31); Chloride 100 mmol/L (98-107); Estimated GFR-MDRD 33; Glucose 80 mg/dL (83-110); Potassium 3.6 mmol/L (3.5-5.1); Sodium 138 mmol/L (136-145)
[2019-05-01] MEDS: Insulin Glargine 22 UNITS in Pre-Filled Syringe 1 EACH SC SCH (08:56)
[2019-05-01] MEDS: Aspirin 81 mg Enteric Coated Tablet PO SCH (08:57)
[2019-05-01] MEDS: Amlodipine 10 MG TAB PO SCH (08:57)
[2019-05-01] MEDS: Isosorbide Mononitrate (ER) 30 MG TAB PO SCH (08:57)
[2019-05-01] MEDS: Tamsulosin HCl 0.4 MG CAP PO SCH ×2 (08:58→20:26)
[2019-05-01] MEDS: Carvedilol 6.25 MG TAB PO SCH ×2 (08:58→19:34)
[2019-05-01] MEDS: Finasteride 5 MG TAB PO SCH (08:58)
[2019-05-01] MEDS: hydrALAZINE 25 MG TAB PO SCH ×2 (08:58→20:26)
[2019-05-01] MEDS: Clopidogrel Bisulfate 75 MG TAB PO SCH (08:58)
[2019-05-01] MEDS: Ferrous Sulfate 325 MG TAB PO SCH (08:59)
[2019-05-01] MEDS: Ascorbic Acid 500 mg Chewable Tablet PO SCH ×2 (08:59→20:27)
--- NOTE | 2019-05-01 10:21 | PRG ---
DATE OF SERVICE: 05/01/2019 SUBJECTIVE: The patient is doing well. No complaints. OBJECTIVE: VITAL SIGNS: Temperature 98.2, pulse 75, respirations 18, O2 saturation 94% on 2 L. HEENT: Unremarkable. Neck: No JVD. CHEST: Clear anteriorly. CARDIAC: S1 and S2, regular. ABDOMEN: Soft. EXTREMITIES: No edema. ASSESSMENT: 1. Systolic heart failure, better after diuresis. 2. Renal insufficiency, which has improved with dobutamine. PLAN: Continue management of heart failure. There are no active pulmonary issues. We will sign off the case. Please recall if further assistance needed over the weekend. Job ID: [id number]
[2019-05-01] MEDS: Furosemide 40 MG TAB PO SCH (12:23)
--- NOTE | 2019-05-01 15:22 | PDOC.HOSPP ---
- Subjective Subjective: Seen and examined. Breathing well on low-flow oxygen. Confused in the night. Now alert and oriented to his baseline. Being evaluated for rehab placement. Bed availability tomorrow per case management assistant. - Objective Vital Signs & Weight: Vital Signs (12 hours) Temp Pulse Resp BP BP Pulse Ox 05/01/19 12:06 97.6 F 71 18 116/55 L 90 L 05/01/19 08:58 65 171/75 H 05/01/19 08:57 65 171/75 H 05/01/19 08:00 98.0 F 65 16 171/75 H 94 L 05/01/19 03:23 98.2 F 75 18 162/70 H 94 L Weight Admit Weight 212 lb Weight 200 lb 3.2 oz Most Recent Monitor Data Heart Rate from ECG 76 NIBP 166/90 NIBP BP-Mean 115 Respiration from ECG 12 SpO2 95 I&O: 04/30/19 05/01/19 05/02/19 06:59 06:59 06:59 Intake Total 1228.0 1479.6 Output Total 3130 160 Balance -1902.0 1319.6 Result Diagrams: 04/24/19 06:10 05/01/19 04:15 Additional Labs: Accuchecks 05/01/19 05/01/19 04/30/19 10:52 06:01 20:17 POC Glucose 136 H 82 166 H 04/30/19 17:03 POC Glucose 134 H Hospitalist ROS - Review of Systems All other systems reviewed; all pertinent +/- noted in HPI/Subj - Medication Medications: Active Medications Generic Name Dose Route Start Last Admin Trade Name Ilana PRN Reason Stop Dose Admin Acetaminophen 650 mg 04/20/19 18:19 04/22/19 20:22 Tylenol PO 650 mg Q4H PRN Administration Headache/Fever/Mild Pain (1-3) Amlodipine Besylate 10 mg 04/22/19 09:00 05/01/19 08:57 Norvasc PO 10 mg DAILY AIDAN Administration Ascorbic Acid 500 mg 04/24/19 21:00 05/01/19 08:59 Vitamin C PO 500 mg BID AIDAN Administration Aspirin 81 mg 04/22/19 09:00 05/01/19 08:57 Ecotrin PO 81 mg DAILY AIDAN Administration Carvedilol 6.25 mg 04/30/19 17:00 05/01/19 08:58 Coreg PO 6.25 mg BID-WM AIDAN Administration Clopidogrel Bisulfate 75 mg 04/22/19 09:00 05/01/19 08:58 Plavix PO 75 mg DAILY AIDAN Administration Ferrous Sulfate 325 mg 04/25/19 08:00 05/01/19 08:59 Feosol PO 325 mg QAM-WM AIDAN Administration Finasteride 5 mg 04/25/19 09:00 05/01/19 08:58 Proscar PO 5 mg DAILY AIDAN Administration Furosemide 40 mg 04/30/19 12:00 05/01/19 12:23 Lasix PO 40 mg 1200 AIDAN Administration Hydralazine HCl 50 mg 04/21/19 21:00 05/01/19 08:58 Apresoline PO 50 mg BID AIDAN Administration Insulin Glargine 22 units/ 0.22 mls @ 0 mls/hr 04/24/19 21:00 05/01/19 08:56 Miscellaneous Medication SC 0.22 mls BID AIDAN Administration As Directed Insulin Human Lispro 0 units 04/20/19 18:15 04/30/19 12:16 Humalog SC 2 unit .MILD SLIDING SCALE PRN Administration Mild Correctional Scale Insulin Human Lispro 0 units 04/20/19 18:15 04/29/19 20:13 Humalog SC 3 unit .BEDTIME SLIDING SC PRN Administration Bedtime Correctional Scale Isosorbide Mononitrate 30 mg 04/22/19 09:00 05/01/19 08:57 Imdur Er PO 30 mg DAILY AIDAN Administration Ondansetron HCl 4 mg 04/20/19 18:19 04/20/19 20:32 Zofran Odt PO 4 mg Q6H PRN Administration Nausea/Vomiting Pantoprazole Sodium 40 mg 04/25/19 07:30 05/01/19 08:59 Protonix PO 40 mg DAILY-AC AIDAN Administration Senna/Docusate Sodium 2 tab 04/20/19 18:19 04/26/19 07:42 Senokot S PO 2 tab BID PRN Administration Constipation Sertraline HCl 50 mg 04/25/19 09:00 05/01/19 08:59 Zoloft PO 50 mg DAILY AIDAN Administration Sodium Chloride 10 ml 04/30/19 21:00 05/01/19 09:00 Flush - Normal Saline IVF 10 ml Q12HR AIDAN Administration Tamsulosin HCl 0.4 mg 04/24/19 21:00 05/01/19 08:58 Flomax PO 0.4 mg BID AIDAN Administration - Exam General Appearance: NAD, awake alert Eye: anicteric sclera ENT: no oropharyngeal lesions, moist mucosa Neck: supple, symmetric, no lymphadenopathy Heart: no murmur, no gallops, no rubs Respiratory: CTAB, no wheezes, no rales, no ronchi Gastrointestinal: soft, non-tender, non-distended, normal bowel sounds, no palpable masses, no guarding, no rigidity Extremities: 1+ LE edema Skin: no lesions, no rashes Neurological: cranial nerve grossly intact, no focal deficits Musculoskeletal: generalized weakness Psychiatric: oriented to person, oriented to place, flat affect Hosp A/P (1) Abscess of chest wall Code(s): L02.213 - CUTANEOUS ABSCESS OF CHEST WALL Status: Acute (2) Cardiac arrest Code(s): I46.9 - CARDIAC ARREST, CAUSE UNSPECIFIED Status: Acute (3) Acute kidney failure Status: Acute Qualifiers: Acute renal failure type: unspecified Qualified Code(s): N17.9 - Acute kidney failure, unspecified (4) Acute on chronic diastolic CHF (congestive heart failure) Code(s): I50.33 - ACUTE ON CHRONIC DIASTOLIC (CONGESTIVE) HEART FAILURE Status : Acute (5) Acute respiratory failure with hypoxia Code(s): J96.01 - ACUTE RESPIRATORY FAILURE WITH HYPOXIA Status: Acute (6) Systolic CHF, acute on chronic Code(s): I50.23 - ACUTE ON CHRONIC SYSTOLIC (CONGESTIVE) HEART FAILURE Status : Acute (7) CAD (coronary artery disease) Code(s): I25.10 - ATHSCL HEART DISEASE OF [place] CORONARY ARTERY W/O ANG PCTRS Status: Chronic Qualifiers: Coronary Disease-Associated Artery/Lesion type: [place] artery [place] vs. transplanted heart: [place] heart (8) CHF (congestive heart failure) Code(s): I50.9 - HEART FAILURE, UNSPECIFIED Status: Chronic (9) CKD (chronic kidney disease) Code(s): N18.9 - CHRONIC KIDNEY DISEASE, UNSPECIFIED Status: Chronic (10) Diabetes mellitus type 2, uncontrolled Code(s): E11.65 - TYPE 2 DIABETES MELLITUS WITH HYPERGLYCEMIA Status: Chronic - Plan Plan: med/ tel Cardiology consult, recommendations appreciated Profoundly weak and debilitated from critical illness - will need continuation of PT/OT services in inpatient setting - Rehab bed available tomorrow plan for rehab in the next 24-48 hours pending bed availability Now on low flow NC, with adequate O2 sats cardiomyopathy regimen as able Off Dobutamine drip Wound care Wound Cx with mixed saeid Finished ABX Urine with citrobacter - castillo sensitive Continue long acting insulin, ISS for prandial Continue other home meds as able Replace electrolytes as needed GI PPX- Protonix DVT PPX
[2019-05-01] MEDS: HumaLOG 300 UNITS/3 ML VIAL SC PRN (19:22)
[2019-05-02 06:02] LABS: Anion Gap 13 mmol/L (10-20); BUN (Urea Nitrogen) 43 mg/dL (8.4-25.7); Calc. Creatinine Clearance 44 mL/min (70-130); Calcium 8.6 mg/dL (7.8-10.44); Carbon Dioxide 27 mmol/L (23-31); Chloride 104 mmol/L (98-107); Estimated GFR-MDRD 34; Glucose 70 mg/dL (83-110); Potassium 3.3 mmol/L (3.5-5.1); Sodium 141 mmol/L (136-145)
[2019-05-02] MEDS: Insulin Glargine 22 UNITS in Pre-Filled Syringe 1 EACH SC SCH ×2 (06:32→09:26)
[2019-05-02] MEDS: Carvedilol 6.25 MG TAB PO SCH ×2 (09:27→17:30)
[2019-05-02] MEDS: hydrALAZINE 25 MG TAB PO SCH (09:27)
[2019-05-02] MEDS: Amlodipine 10 MG TAB PO SCH (09:27)
[2019-05-02] MEDS: Ferrous Sulfate 325 MG TAB PO SCH (09:27)
[2019-05-02] MEDS: Tamsulosin HCl 0.4 MG CAP PO SCH (09:27)
[2019-05-02] MEDS: Ascorbic Acid 500 mg Chewable Tablet PO SCH (09:27)
[2019-05-02] MEDS: Isosorbide Mononitrate (ER) 30 MG TAB PO SCH (09:28)
[2019-05-02] MEDS: Aspirin 81 mg Enteric Coated Tablet PO SCH (09:28)
[2019-05-02] MEDS: Clopidogrel Bisulfate 75 MG TAB PO SCH (09:28)
[2019-05-02] MEDS: Finasteride 5 MG TAB PO SCH (09:28)
[2019-05-02] MEDS ORDERED: Potassium Chloride 20 MEQ TAB PO SCH (10:15)
--- NOTE | 2019-05-02 10:31 | PDOC.HOSPP ---
- Subjective Encounter Date: 05/02/19 Encounter Time: 10:22 Subjective: 73 y/o male withmultiple medical issues including chronic systolic heart failure , CAD s/p CABG, DM, CKD stage 4, amongst others who was admitted due to acute chest pain that started after I&D of left upper chest abscess. Patient on same days of admission went into PEA arrest with prompt ROSC with CPR. Was intubated and mechanically ventilated subsequently. Echo showed moderate systolic dysfunctioin. Treated with dobutamine and lasix with improvement. Feeling better. discharge to inpatient rehab is planned. - Objective Vital Signs & Weight: Vital Signs (12 hours) Temp Pulse Pulse Resp BP BP BP 05/02/19 09:27 71 151/67 H 05/02/19 08:50 69 151/67 H 161/74 H 05/02/19 08:00 98.2 F 77 17 05/02/19 05:01 05/02/19 04:00 98.1 F 77 16 05/02/19 00:00 98.3 F 76 18 BP Pulse Ox 05/02/19 09:27 05/02/19 08:50 05/02/19 08:00 164/70 H 94 L 05/02/19 05:01 95 05/02/19 04:00 170/74 H 95 05/02/19 00:00 185/77 H 95 Weight Admit Weight 212 lb Weight 196 lb 11.2 oz Most Recent Monitor Data Heart Rate from ECG 76 NIBP 166/90 NIBP BP-Mean 115 Respiration from ECG 12 SpO2 95 I&O: 05/01/19 05/02/19 05/03/19 06:59 06:59 06:59 Intake Total 1479.6 158 Output Total 160 Balance 1319.6 158 Result Diagrams: 04/24/19 06:10 05/02/19 05:14 Additional Labs: Accuchecks 05/02/19 05/01/19 05/01/19 05:40 20:17 16:43 POC Glucose 92 166 H 227 H 05/01/19 10:52 POC Glucose 136 H Hospitalist ROS - Medication Medications: Active Medications Generic Name Dose Route Start Last Admin Trade Name Freq PRN Reason Stop Dose Admin Acetaminophen 650 mg 04/20/19 18:19 04/22/19 20:22 Tylenol PO 650 mg Q4H PRN Administration Headache/Fever/Mild Pain (1-3) Amlodipine Besylate 10 mg 04/22/19 09:00 05/02/19 09:27 Norvasc PO 10 mg DAILY AIDAN Administration Ascorbic Acid 500 mg 04/24/19 21:00 05/02/19 09:27 Vitamin C PO 500 mg BID AIDAN Administration Aspirin 81 mg 04/22/19 09:00 05/02/19 09:28 Ecotrin PO 81 mg DAILY AIDAN Administration Carvedilol 6.25 mg 04/30/19 17:00 05/02/19 09:27 Coreg PO 6.25 mg BID-WM AIDAN Administration Clopidogrel Bisulfate 75 mg 04/22/19 09:00 05/02/19 09:28 Plavix PO 75 mg DAILY AIDAN Administration Ferrous Sulfate 325 mg 04/25/19 08:00 05/02/19 09:27 Feosol PO 325 mg QAM-WM AIDAN Administration Finasteride 5 mg 04/25/19 09:00 05/02/19 09:28 Proscar PO 5 mg DAILY AIDAN Administration Furosemide 40 mg 04/30/19 12:00 05/01/19 12:23 Lasix PO 40 mg 1200 AIDAN Administration Hydralazine HCl 50 mg 04/21/19 21:00 05/02/19 09:27 Apresoline PO 50 mg BID AIDAN Administration Insulin Glargine 22 units/ 0.22 mls @ 0 mls/hr 04/24/19 21:00 05/02/19 09:26 Miscellaneous Medication SC 0.22 mls BID AIDAN Administration As Directed Insulin Human Lispro 0 units 04/20/19 18:15 05/01/19 19:22 Humalog SC 3 unit .MILD SLIDING SCALE PRN Administration Mild Correctional Scale Insulin Human Lispro 0 units 04/20/19 18:15 04/29/19 20:13 Humalog SC 3 unit .BEDTIME SLIDING SC PRN Administration Bedtime Correctional Scale Ondansetron HCl 4 mg 04/20/19 18:19 04/20/19 20:32 Zofran Odt PO 4 mg Q6H PRN Administration Nausea/Vomiting Pantoprazole Sodium 40 mg 04/25/19 07:30 05/02/19 09:28 Protonix PO Not Given DAILY-AC [facility] Senna/Docusate Sodium 2 tab 04/20/19 18:19 04/26/19 07:42 Senokot S PO 2 tab BID PRN Administration Constipation Sertraline HCl 50 mg 04/25/19 09:00 05/02/19 09:26 Zoloft PO 50 mg DAILY AIDAN Administration Sodium Chloride 10 ml 04/30/19 21:00 05/02/19 09:28 Flush - Normal Saline IVF Not Given Q12HR AIDAN Tamsulosin HCl 0.4 mg 04/24/19 21:00 05/02/19 09:27 Flomax PO 0.4 mg BID AIDAN Administration - Exam General Appearance: awake alert Eye: anicteric sclera ENT: normocephalic atraumatic, moist mucosa Neck: supple, no JVD Heart: RRR, murmur present Respiratory: CTAB, no ronchi, normal chest expansion Respiratory - other findings: decreased air entry both bases Gastrointestinal: soft, non-tender, non-distended, normal bowel sounds Extremities: no cyanosis, no edema Neurological: cranial nerve grossly intact, no focal deficits Musculoskeletal: normal tone, generalized weakness Psychiatric: normal affect, A&O x 3 Hosp A/P (1) Cardiac arrest Code(s): I46.9 - CARDIAC ARREST, CAUSE UNSPECIFIED Status: Acute (2) Acute on chronic combined systolic (congestive) and diastolic (congestive) heart failure Code(s): I50.43 - ACUTE ON CHRONIC COMBINED SYSTOLIC AND DIASTOLIC HRT FAIL Status: Acute (3) Abscess of chest wall Code(s): L02.213 - CUTANEOUS ABSCESS OF CHEST WALL Status: Acute (4) Acute kidney failure Status: Acute Qualifiers: Acute renal failure type: unspecified Qualified Code(s): N17.9 - Acute kidney failure, unspecified (5) Acute respiratory failure with hypoxia Code(s): J96.01 - ACUTE RESPIRATORY FAILURE WITH HYPOXIA Status: Acute (6) Elevated troponin I level Code(s): R74.8 - ABNORMAL LEVELS OF OTHER SERUM ENZYMES Status: Acute (7) Weakness generalized Code(s): R53.1 - WEAKNESS Status: Acute (8) CKD (chronic kidney disease) Code(s): N18.9 - CHRONIC KIDNEY DISEASE, UNSPECIFIED Status: Chronic (9) DM2 (diabetes mellitus, type 2) Status: Chronic (10) Hypertension Code(s): I10 - ESSENTIAL (PRIMARY) HYPERTENSION Status: Chronic Qualifiers: Hypertension type: essential hypertension Qualified Code(s): I10 - Essential (primary) hypertension (11) Hypokalemia Code(s): E87.6 - HYPOKALEMIA Status: Acute - Plan increase imdur to 30 bid to get better BP control. Give 40 meq of KCL and get serum magnesium. Continue other treatments. PT/OT to continue. Wean oxygen as tolerated. For discharge to inpatient rehab once arrangement is concluded Follow renal function and electrolytes
[2019-05-02] MEDS ORDERED: Lorazepam 2 MG/ML VIAL SLOW IVP SCH (10:45)
[2019-05-02 11:53] VITALS: TEMP 98.3
[2019-05-02] MEDS: Furosemide 40 MG TAB PO SCH (11:57)
[2019-05-02] MEDS: HumaLOG 300 UNITS/3 ML VIAL SC PRN ×2 (11:57→17:29)
--- NOTE | 2019-05-02 15:48 | PDOC.EVN ---
Event Note - Event Note Event Note: Discharged to inpatient rehab. Discharge dictated. #[id number]
[2019-05-02 15:58] VITALS: BP 141/65
[2019-05-02] MEDS ORDERED: Isosorbide Mononitrate (ER) 30 MG TAB PO SCH (21:00)
--- NOTE | 2019-05-04 09:25 | DIS ---
DATE OF ADMISSION: 04/21/2019 DATE OF DISCHARGE: 05/02/2019 PRIMARY CARE PHYSICIAN: Michael Arguelles MD. DISCHARGE DIAGNOSES: 1. Cardiopulmonary arrest (PEA arrest). 2. Acute on chronic combined systolic and diastolic heart failure. 3. Acute kidney injury. 4. Chronic kidney disease stage 3/4. 5. Acute respiratory failure with hypoxia. 6. Elevated troponin. 7. Hypertension. 8. Hypokalemia. 9. Diabetes mellitus. 10. Physical deconditioning. 11. Abscess of left chest wall. 12. Chest pain. CONSULTS: 1. Cardiology. 2. Pulmonary and Critical Care. 3. Nephrology. HOSPITAL COURSE: A 73-year-old male with multiple comorbidities including chronic systolic heart failure, coronary artery disease status post CABG, diabetes mellitus, CKD stage 4 amongst others, who was admitted due to acute chest pain that started after the patient had incision and drainage by the ED physician in the emergency room for left upper chest abscess. Same day of admission, the patient was noticed to be having bradycardia and was found to be unresponsive with no pulse, hence cardiopulmonary resuscitation was started with prompt return of spontaneous circulation with CPR. The patient was intubated and mechanically ventilated in the ICU. Further evaluation with echocardiogram showed moderate systolic dysfunction. Cardiology consult was obtained and the patient was treated with dobutamine and diuretics with improvement. Acute kidney injury which was felt to be cardiorenal improved with improved hemodynamics. The patient was discharged to the telemetry floor and continued to get physical therapy. He was, however, felt to be deconditioned in need of acute rehabilitation and was subsequently discharged to inpatient rehabilitation for further restorative therapy. DISCHARGE CONDITION: Improved and stable. TIME SPENT: This discharge took more than 38 minutes. Job ID: [id number]
--- NOTE | 2019-05-05 08:54 | PQF ---
BRENT CORRIGAN JR RADHA SHOOK DO [id number] CLINICAL DOCUMENTATION CLARIFICATION FORM: POST DISCHARGE Addendum to original discharge summary date: ____ Late entry note date: __ Please submit query to Dr. Yao Spain who rounded for 8 straight days on patient. Thank you, Dr. Shook DATE: 05/05/2019 ATTN: Radha Shook Please exercise your independent, professional judgment in responding to the clarification form. Clinical indicators are provided on the bottom of this form for your review Kindly clarify regarding ruled in/ruled out sepsis Please check appropriate box(s) to clarify if the following diagnosis has been ruled in or ruled out: Sepsis [ ] Ruled in diagnosis [ ] Continue to treat [ ] Resolved [ ] Ruled out diagnosis [ ] Cannot rule out diagnosis [ ] Other diagnosis [ ] Unable to determine In addition, please specify: Present on Admission (POA): [ ] Yes [ ] No [ ] Unable to determine For continuity of documentation, please document condition throughout progress notes and discharge summary. Thank You. CLINICAL INDICATORS - SIGNS / SYMPTOMS / LABS Severe sepsis secondary to anterior chest wall abscess, status I and D Left subcutaneous chest abscess, status I and D. Continue antibiotics - H and P WBC 15.5 on 04/21 - Laboratory RISK FACTORS Abcess of left chest wall - Discharge summary CLAUDIO - discharge summary Acute respiratory failure with hypoxia - discharge summary TREATMENTS I and D of left chest wall done in ED - ED report IV vancomycin from 04/20 - Medications IV Zosyn from 04/20 Medications (This form is maintained as a part of the permanent medical record) 2014 [email or web address]. All Rights Reserved Jammie [email or web address] [phone] MTDOma
--- NOTE | 2019-05-12 00:18 | PQF ---
[employer] Reports Winform ViewerGIBRENT CARRASCO JR ELVIS SPAIN [id number] [address] [place] [address] [id number] CLINICAL DOCUMENTATION CLARIFICATION FORM: POST DISCHARGE Addendum to original discharge summary date: ____ Late entry note date: __ DATE: 05/11/2019 ATTN: Elvis Spain Please exercise your independent, professional judgment in responding to the clarification form. Clinical indicators are provided on the bottom of this form for your review Please check appropriate box(s) to clarify if the following diagnosis has been ruled in or ruled out: Kindly clarify regarding ruled in/ruled out sepsis Sepsis [ XX ] Ruled in diagnosis [ ] Continue to treat [ ] Resolved [ ] Ruled out diagnosis [ ] Cannot rule out diagnosis [ ] Other diagnosis [ ] Unable to determine In addition, please specify: Present on Admission (POA): [ XX ] Yes [ ] No [ ] Unable to determine For continuity of documentation, please document condition throughout progress notes and discharge summary. Thank You. CLINICAL INDICATORS - SIGNS / SYMPTOMS / LABS Severe sepsis secondary to anterior chest wall abscess, status post I and D - Progress note dated 04/[address] Hudson Sepsis syndrome - Consult dated 04/[address] Martinez Left subcutaneous chest abscess, status post I and D, continue antbiotics - H and P WBC 15.5 on 04/21 - Laboratory RISK FACTORS Abscess of left chest wall - discharge summary CLAUDIO - discharge summary Acute respiratory failure with hypoxia - discharge summary TREATMENTS I and D of left chest wall done in ED - ED report [employer] Crystal Reports Winform ViewerIV vancomycin from 04/20 - Medications IV Zosyn from 04/20 - Medications (This form is maintained as a part of the permanent medical record) 2014 [employer]. All Rights Reserved Jammie [email or web address] [phone] MTDD
== END 2019-05-02 19:34 | DRG 208 ==
LOC: ERS 14:23 → 2SW 17:38 → CCU 04-21 06:42 → OBSVTOIN 04-21 06:44 → CCU 04-28 19:51 → 2SE 04-30 11:24
PROVIDERS: ADMIT Family Medicine; ATTEND Family Medicine
PROC: 5A1935Z Respiratory Ventilation, Less than 24 Consecutive Hours (ICD-10-PCS; principal; 2019-04-21)
PROC: 0W983ZZ Drainage of Chest Wall, Percutaneous Approach (ICD-10-PCS; 2019-04-21)
PROC: 0BH18EZ Insertion of Endotracheal Airway into Trachea, Via Natural or Artificial Opening Endoscopic (ICD-10-PCS; 2019-04-21)
PROC: 5A12012 Performance of Cardiac Output, Single, Manual (ICD-10-PCS; 2019-04-21)
DX: J96.01 Acute respiratory failure with hypoxia (principal); A41.9 Sepsis, unspecified organism; I46.9 Cardiac arrest, cause unspecified; I21.A1 Myocardial infarction type 2; I50.43 Acute on chronic combined systolic (congestive) and diastolic (congestive) heart failure; N17.0 Acute kidney failure with tubular necrosis; L02.213 Cutaneous abscess of chest wall; I13.0 Hypertensive heart and chronic kidney disease with heart failure and stage 1 through stage 4 chronic kidney disease, or unspecified chronic kidney disease; N18.4 Chronic kidney disease, stage 4 (severe); E87.2 Acidosis; N39.0 Urinary tract infection, site not specified; Z51.5 Encounter for palliative care; I25.10 Atherosclerotic heart disease of native coronary artery without angina pectoris; E87.6 Hypokalemia; E11.22 Type 2 diabetes mellitus with diabetic chronic kidney disease; R53.81 Other malaise; E87.5 Hyperkalemia; E78.5 Hyperlipidemia, unspecified; D64.9 Anemia, unspecified; R74.8 Abnormal levels of other serum enzymes; E11.65 Type 2 diabetes mellitus with hyperglycemia; Z95.1 Presence of aortocoronary bypass graft; Z90.89 Acquired absence of other organs; Z91.041 Radiographic dye allergy status
CPT/HCPCS: 10060; 36415; 36416; 71045; 80048; 80053; 80202; 81001; 82553; 82805; 83605; 83735; 83880; 84484; 85007; 85025; 85027; 85610; 85730; 87040; 87070; 87076; 87077; 87086; 87186; 87205; 90471; 90715; 93005; 93010; 93306; 94002; 94003; 96365; 96375; J0171; J1250; J1815; J1885; J1940; J2001; J2270; J2543; J2704; J3370; J3490; J7050; Q0162; S0028

== ENCOUNTER 2019-08-04 08:30 | Emergency (ER) | payer MEDICARE | END 2019-08-04 09:45 | disposition home or self-care (01) | LOC: ERS 08:30 | DX: S91.202A Unspecified open wound of left great toe with damage to nail, initial encounter (principal); I11.0 Hypertensive heart disease with heart failure; I50.9 Heart failure, unspecified; E11.9 Type 2 diabetes mellitus without complications; E78.00 Pure hypercholesterolemia, unspecified; Z79.82 Long term (current) use of aspirin; Z79.01 Long term (current) use of anticoagulants; Z79.899 Other long term (current) drug therapy; Z79.4 Long term (current) use of insulin; X58.XXXA Exposure to other specified factors, initial encounter | CPT/HCPCS: 99283 ==

== ENCOUNTER 2020-09-24 09:37 | Inpatient (IN) | payer MEDICARE, OTHER ==
[2020-09-24] MEDS ORDERED: HYDROcodone/Acetaminophen 10/325 mg Tablet ONE (10:13)
[2020-09-24 10:22] LABS: #Eosinphils 0.1 thou/uL (0.0-0.7); #Lymphocytes 0.6 thou/uL (1.20-3.40); #Neutrophils 6.7 thou/uL (1.40-6.50); %Eosinophils 0.7 % (0.0-10.0); %Lymphocytes 7.4 % (21.0-51.0); Hemoglobin 10.9 g/dL (14.0-18.0); Mean Corpuscular HGB CONC 34.6 g/dL (32.0-36.0); Mean Corpuscular Hemoglobin 33.3 pg (27.0-31.0); Mean Corpuscular Volume 96.2 fL (78.0-98.0); Mean Platelet Volume 7.7 fL (7.4-10.4); Platelet Count 212 thou/uL (130-400); RBC Distribution Width 11.6 % (11.5-14.5); Red Blood Cell (RBC) Count 3.26 mill/uL (4.70-6.10); White Blood Cell (WBC) Count 8.4 thou/uL (4.8-10.8)
[2020-09-24 10:41] LABS: Bacteria/HPF 4+ HPF (None Seen); Bilirubin Negative (Negative); Blood, Urine Negative (Negative); Clarity Turbid (Clear); Glucose, Urine (Dipstick) Normal (Negative); Ketone, Urine Negative (Negative); Leukocyte 500 Leu/uL (Negative); Nitrite Negative (Negative); Protein, Urine (Dipstick) 20 mg/dL (Neg-Trace); RBC/HPF 0-3 HPF (0-3); Squamous Epithelial None Seen HPF (0-3); Urobilinogen Normal mg/dL (Less than 2); WBC/HPF Greater than 50 HPF (0-3)
[2020-09-24 10:59] LABS: ALT (SGPT) 10 U/L (8-55); AST (SGOT) 21 U/L (5-34); Albumin 3.9 g/dL (3.4-4.8); Alkaline Phosphatase 76 U/L (40-110); Anion Gap 19 mmol/L (10-20); BUN (Urea Nitrogen) 58 mg/dL (8.4-25.7); Bilirubin, Total 0.4 mg/dL (0.2-1.2); CK (CPK) 540 U/L (30-200); Calc. Creatinine Clearance 0 mL/min (70-130); Calcium 8.8 mg/dL (7.8-10.44); Carbon Dioxide 20 mmol/L (23-31); Chloride 107 mmol/L (98-107); Globulin 2.9 g/dL (2.4-3.5); Glucose 258 mg/dL (83-110); Lipase 13 U/L (8-78); Potassium 4.8 mmol/L (3.5-5.1); Protein, Total 6.8 g/dL (5.8-8.1); Sodium 141 mmol/L (136-145)
[2020-09-24 11:59] LABS: CKMB 11.9 ng/mL (0-6.6)
--- NOTE | 2020-09-24 12:22 | CT ---
CT CHEST WITHOUT IV CONTRAST CT ABDOMEN WITHOUT IV CONTRAST CT PELVIS WITHOUT IV CONTRAST CORONAL AND SAGITTAL REFORMATIONS OF THE THORACOLUMBAR SPINE: Date: 09/24/2020 HISTORY: Fall. Bilateral chest pain, back pain, and abdominal pain. FINDINGS: Exam limited due to the absence of oral and IV contrast. The possibility of vascular or solid organ i njury cannot be completely excluded on this exam. No mediastinal hematoma seen. No pleural or pericardial effusions are noted. There are mild dependent changes at the lung bases. There is subsegmental atelectatic change versus scarring in the lingula. No pneumothoraces or pulmonary contusions are identified. No free air or free fluid is noted in the abdomen or pelvis. The urinary bladder is well distended an d intact. The patient is post cholecystectomy. The small bowel loops are not abnormally dilated. There are vascular calcifications without evidence of aneurysmal dilatation of the abdominal aorta. T here are degenerative changes in the thoracolumbar spine. There is an old compression fracture of the L2 vertebral body which was also seen on the CT scan of 05/03/2018. There are postop changes of left hip arthroplasty. No acute fracture or subluxation is seen in the thoracolumbar spine. No acute osse ous abnormalities are seen. IMPRESSION: No definite evidence of acute process within the limitations of the exam. Discussed over the phone with ER physician, Dr. Jordon Finney, at 1149 hours. CODE CR. POS: [id number]
--- NOTE | 2020-09-24 13:40 | PDOC.HHP ---
Hospitalist HPI Found [facility] History of Present Illness: Mr. Blum is a 75-year-old male with past medical history of CVA with residual left-sided deficits (uses cane at baseline), coronary artery disease status post 5 vessel CABG in 2015, congestive heart failure, type 2 diabetes mellitus, hypertension, hyperlipidemia, diabetic retinopathy, CKD stage III who presents from independent living facility found down. Patient reports that he fell sometime yesterday afternoon. He is unsure why he fell and believes he trips but is not sure. He fell over a lazy boy recliner and denies head strike or any injury. He reports he was not able to get up from the ground and his life alert bracelet battery had . Patient was on the ground until early the next morning when his housekeeper and laundry assistant found him and called 911. Patient initially refused transport, however due to rib pain he did decide to come to the emergency room. Patient denies any lightheadedness dizziness or shortness of breath. He endorses bilateral rib/flank pain. He endorses a mild chest discomfort on deep inspiration. He reports he is not on blood thinners, but does take aspirin and Plavix. He reports no changes in vision, numbness weakness or paresthesias. He denies any melena, hematochezia or hematemesis. No abdominal pain. In emergency room initial vital signs 160/76, 109, 27, 99.4, 95% on room air. EKG showed sinus tachycardia with a first-degree AV block and partial left bundle branch block, with no ST changes. Troponin elevated at 2.240. CK-MB 11.9. BUN/CR 58/2.76, which appears patient's baseline. Sodium 141, potassium 4.8, glucose 258. BNP 510.3, UA grossly positive. H/H 10.9/31.4, WBC 8.4. CT chest abdomen pelvis was performed which showed no acute findings or evidence of bleed, however study was limited by lack of contrast. Patient received aspirin, and Levaquin in the emergency room. Allergies/Adverse Reactions: Allergy/AdvReac Type Severity Reaction Status Date / Time Iodinated Contrast Media AdvReac Mild n/v Verified 09/24/20 13:41 [Iodinated Contrast Media - IV Dye] Home Medications: Medication Instructions Recorded Confirmed Type Potassium Chloride [K-Dur] 40 meq PO DAILY 11/26/14 09/24/20 History Tamsulosin HCl [Flomax] 0.4 mg PO HS 11/26/14 09/24/20 History Atorvastatin Calcium 40 mg PO QPM 12/09/16 09/24/20 History Ferrous Sulfate [Feosol] 325 mg PO QAM-WM tab 12/12/16 09/24/20 Rx Ascorbic Acid [Vitamin C] 500 mg PO BID 12/01/18 09/24/20 History Cholecalciferol (Vitamin D3) 2,000 mg PO BID 12/01/18 09/24/20 History [Vitamin D3] Pantoprazole [Protonix] 40 mg PO DAILY-AC 12/01/18 09/24/20 History Amlodipine [Norvasc] 10 mg PO DAILY tab 05/01/19 09/24/20 Rx Aspirin [Ecotrin Low Strength] 81 mg PO DAILY tab 05/01/19 09/24/20 Rx Carvedilol [Coreg] 6.25 mg PO BID- tab 05/01/19 09/24/20 Rx Clopidogrel Bisulfate [Plavix] 75 mg PO DAILY tab 05/01/19 09/24/20 Rx Insulin Glargine [Lantus Vial] 22 units SC BID vial 05/01/19 09/24/20 Rx Ondansetron [Zofran ODT] 4 mg PO Q6H PRN tab 05/01/19 09/24/20 Rx Sennosides/Docusate Sodium 2 tab PO BID PRN tab 05/01/19 09/24/20 Rx [Senokot S] Sertraline HCl [Zoloft] 50 mg PO DAILY tab 05/01/19 09/24/20 Rx hydrALAZINE [Apresoline] 50 mg PO BID tab 05/01/19 09/24/20 Rx Finasteride [Proscar] 5 mg PO HS 09/24/20 09/24/20 History Gabapentin [Neurontin] 100 mg PO DAILY 09/24/20 09/24/20 History Isosorbide Mononitrate [Imdur ER] 30 mg PO DAILY 09/24/20 09/24/20 History Lisinopril [Zestril] 20 mg PO DAILY 09/24/20 09/24/20 History Oxybutynin [Ditropan] 5 mg PO DAILY 09/24/20 09/24/20 History Torsemide [Demadex] 100 mg PO BID 09/24/20 09/24/20 History Past History: PMHx: Hypertension Hyperlipidemia Coronary artery disease status post CABG CKD stage III Congestive heart failure Left chest wall abscess CVA with residual left-sided deficits PSHx: CABG with 5 vessel bypass Cardiac stents Diabetic retinopathy surgery Tonsillectomy Left hip surgery FHx: Patient denies family history of cardiac disease or cancers Social: Patient lives at an independent living facility. He denies alcohol, tobacco, drug use. Hospitalist HPI ROS Constitutional: reports: weakness. denies: fever, chills, sweats, malaise, other Eyes: denies: pain, vision change, conjunctivae inflammation, eyelid inflammation, redness, other ENT: denies: ear pain, ear discharge, nose pain, nose discharge, nose congestion, mouth pain, mouth swelling, throat pain, throat swelling, other Respiratory: denies: cough, dry, shortness of breath, hemoptysis, SOB with excertion, pleuritic pain, sputum, wheezing, other Cardiovascular: reports: chest pain. denies: palpitations, orthopnea, paroxysmal noc. dyspnea, edema, light headedness, other Gastrointestinal: denies: nausea, vomiting, abdominal pain, diarrhea, constipation, melena, hematochezia, other Genitourinary: denies: dysuria, frequency, incontinence, hematuria, retention, other Musculoskeletal: denies: neck pain, shoulder pain, arm pain, back pain, hand pain, leg pain, foot pain, other Skin: denies: rash, lesions, la, bruising, other Neurological: denies: weakness, numbness, incoordination, change in speech, confusion, seizures, other Hospitalist Exam General Appearance: NAD, awake alert Eye: PERRL, anicteric sclera ENT: normocephalic atraumatic, no oropharyngeal lesions, moist mucosa Neck: supple, symmetric, no JVD, no thyromegaly, no lymphadenopathy, no carotid bruit Heart: RRR, no murmur, no gallops, no rubs, normal peripheral pulses Respiratory: CTAB, no wheezes, no rales, no ronchi, normal chest expansion, no tachypnea, normal percussion Gastrointestinal: soft, non-tender, non-distended, normal bowel sounds, no palpable masses, no hepatomegaly, no splenomegaly, no bruit Extremities: no cyanosis, no clubbing, no edema Skin: normal turgor, no lesions, no rashes Neurological: cranial nerve grossly intact, normal sensation to touch, no weakness, no focal deficits, no new deficit Musculoskeletal: normal tone, normal strength, no muscle wasting Psychiatric: normal affect, normal behavior, A&O x 3 Hospitalist Results Result Diagrams: 10/01/20 04:12 10/01/20 04:12 Lab results: Laboratory Last Values WBC 8.4 thou/uL (4.8-10.8) 09/24/20 10:13 RBC 3.26 mill/uL (4.70-6.10) L 09/24/20 10:13 Hgb 10.9 g/dL (14.0-18.0) L 09/24/20 10:13 Hct 31.4 % (42.0-52.0) L 09/24/20 10:13 MCV 96.2 fL (78.0-98.0) 09/24/20 10:13 MCH 33.3 pg (27.0-31.0) H 09/24/20 10:13 MCHC 34.6 g/dL (32.0-36.0) 09/24/20 10:13 RDW 11.6 % (11.5-14.5) 09/24/20 10:13 Plt Count 212 thou/uL (130-400) 09/24/20 10:13 MPV 7.7 fL (7.4-10.4) 09/24/20 10:13 Neutrophils % 80.0 % (42.0-75.0) H 09/24/20 10:13 Lymphocytes % 7.4 % (21.0-51.0) L 09/24/20 10:13 Monocytes % 12.0 % (0.0-10.0) H 09/24/20 10:13 Eosinophils % 0.7 % (0.0-10.0) 09/24/20 10:13 Basophils % 0.0 % (0.0-1.0) 09/24/20 10:13 Neutrophils # 6.7 thou/uL (1.40-6.50) H 09/24/20 10:13 Lymphocytes # 0.6 thou/uL (1.20-3.40) L 09/24/20 10:13 Monocytes # 1.0 thou/uL (0.11-0.59) H 09/24/20 10:13 Eosinophils # 0.1 thou/uL (0.0-0.7) 09/24/20 10:13 Basophils # 0.0 thou/uL (0.0-0.2) 09/24/20 10:13 Sodium 141 mmol/L (136-145) 09/24/20 10:13 Potassium 4.8 mmol/L (3.5-5.1) 09/24/20 10:13 Chloride 107 mmol/L (98-107) 09/24/20 10:13 Carbon Dioxide 20 mmol/L (23-31) L 09/24/20 10:13 Anion Gap 19 mmol/L (10-20) 09/24/20 10:13 BUN 58 mg/dL (8.4-25.7) H 09/24/20 10:13 Creatinine 2.76 mg/dL (0.7-1.3) H 09/24/20 10:13 Estimated GFR (MDRD) 23 09/24/20 10:13 Glucose 258 mg/dL (83-110) H 09/24/20 10:13 Calcium 8.8 mg/dL (7.8-10.44) 09/24/20 10:13 Total Bilirubin 0.4 mg/dL (0.2-1.2) 09/24/20 10:13 AST 21 U/L (5-34) 09/24/20 10:13 ALT 10 U/L (8-55) 09/24/20 10:13 Alkaline Phosphatase 76 U/L (40-110) 09/24/20 10:13 Creatine Kinase 540 U/L (30-200) H 09/24/20 10:13 CK-MB (CK-2) 11.9 ng/mL (0-6.6) H* 09/24/20 10:13 Troponin I 2.240 ng/mL (< 0.028) H* 09/24/20 10:13 B-Natriuretic Peptide 510.3 pg/mL (0-100) H 09/24/20 10:13 Serum Total Protein 6.8 g/dL (5.8-8.1) 09/24/20 10:13 Albumin 3.9 g/dL (3.4-4.8) 09/24/20 10:13 Globulin 2.9 g/dL (2.4-3.5) 09/24/20 10:13 Albumin/Globulin Ratio 1.3 g/dL (1.2-2.2) 09/24/20 10:13 Lipase 13 U/L (8-78) 09/24/20 10:13 Urine Color Light-Yellow (Yellow) 09/24/20 10:23 Urine Clarity Turbid (Clear) A 09/24/20 10:23 Urine pH 5.0 (5.0-9.0) 09/24/20 10:23 Ur Specific [place] 1.010 (1.002-1.036) 09/24/20 10:23 Urine Protein 20 mg/dL (Neg-Trace) 09/24/20 10:23 Urine Glucose (UA) Normal mg/dL (Negative) 09/24/20 10:23 Urine Ketones Negative mg/dL (Negative) 09/24/20 10:23 Urine Blood Negative (Negative) 09/24/20 10:23 Urine Nitrite Negative (Negative) 09/24/20 10:23 Urine Bilirubin Negative (Negative) 09/24/20 10:23 Urine Urobilinogen Normal mg/dL (Less than 2) 09/24/20 10:23 Ur Leukocyte Esterase 500 Michaela/uL (Negative) A 09/24/20 10:23 Urine RBC 0-3 HPF (0-3) 09/24/20 10:23 Urine WBC Greater than 50 HPF (0-3) A 09/24/20 10:23 Ur Squamous Epith Cells None Seen HPF (0-3) 09/24/20 10:23 Urine Bacteria 4+ HPF (None Seen) A 09/24/20 10:23 Hyaline Casts 4-6 LPF (0-3) A 09/24/20 10:23 Hospitalist H&P A/P Plan: 75-year-old male with past medical history of CKD stage III, hypertension, hyperlipidemia, coronary artery disease status post CABG x5 in 2015, type 2 diabetes mellitus, BPH presents after a mechanical fall at home found down after 24 hours found to be in mild rhabdo with an NSTEMI. Mechanical Fall Patient with fall evening prior to admission which patient reports is mechanical, although he is unsure. Denies chest pain shortness of breath dizziness or lightheadedness. Denies head strike. Is on aspirin Plavix but no blood thinners. Does endorse rib pain and musculoskeletal pain. CT abdomen chest and pelvis negative for acute findings. Patient nontoxic-appearing. Will obtain CT brain as patient is unsure why he fell. CK 510.3, troponin II 0.240, CK-MB 11.9. Patient also noted to have a UTI which may have precipitated the fall. Currently A&O x4. Will obtain head CT to rule out brain bleed and start anticoagulation for NSTEMI. Patient reports he has had a few falls in the past week. Will also obtain PT OT consult. Plan Stat brain CT -Telemetry monitoring -Echocardiogram PT OT consult Treat UTI, NSTEMI as below NSTEMI Patient with troponin elevated to 2.240. Patient endorses mild chest discomfort, but mostly rib pain. CT chest abdomen pelvis negative for any rib fractures. Patient with significant cardiac history with 5 vessel CABG done in 2014. Patient does take aspirin and Plavix. EKG showed normal sinus rhythm with first-degree AV block, left bundle branch block with negative sclerosis criteria. Did discuss with Dr. Ward of cardiology who did not feel that this was a STEMI equivalent, and will see the patient. Pending head CT will start patient on anticoagulation as long as head CT negative for any bleeding. Plan Stat head CT to rule out bleed, will start AC Aspirin, statin Echocardiogram Trend troponin, telemetry monitoring Cardiology consult, recommendations appreciated Rhabdomyolysis Patient found down for approximately 24 hours. In mild rhabdomyolysis CK 5-10. BUN/CR 58/2.76. Patient has CKD at baseline and appears baseline creatinine is approximately 2.5. Will administer gentle IV fluids and continue to trend. Plan Gentle IV fluids Trend CK, kidney function Urinary tract infection UA grossly positive on presentation. Patient denies any urinary symptoms. May have precipitated patient's generalized weakness and recent falls for the past few days. Patient started on Levaquin in emergency room. Will continue with IV antibiotics and obtain stat lactic acid. Plan IV antibiotics Gentle IV fluids Coronary artery disease History of coronary artery disease status post multivessel CABG in 2014. Follows with Dr. Martinez. Patient with elevated troponin and NSTEMI see above. We will continue home beta-carole, statin, aspirin, Imdur. Plan Continue home medications Stage III chronic kidney disease History of stage III chronic kidney disease baseline creatinine approximately 2.5. BUN/CR on admission 58/2.76. Likely very mild rhabdomyolysis. Will administer gentle IV fluids and continue to monitor. Plan Trend kidney function Avoid nephrotoxic agents were possible Gentle IV fluids Type 2 diabetes mellitus History of type 2 diabetes mellitus on Levemir. Patient unsure as to dosage. Will place on insulin sliding scale and ACH S glucose checks for now. Will restart home medications once dosages are confirmed. Hypertension Continue home medications once dosages are confirmed Hyperlipidemia Continue home statin BPH Continue home tamsulosin DVT prophylaxiswe will decide pending results of CT brain Full codeMDM is patient's ex- Case discussed with attending physician, Dr. Marie. Addendum: CT brain negative for bleed, will start Heparin drip for NSTEMI.
--- NOTE | 2020-09-24 13:46 | CT ---
CT Brain WO Con: 09/24/2020 1:30 PM CLINICAL HISTORY: Fall. IMAGING TECHNIQUE: Multiple CT images were obtained of the brain without IV contrast. COMPARISON: Prior CT the brain dated November 28, 2018 FINDINGS: BRAIN: Evidence of acute infarct: None. Evidence of chronic ischemic change:The severe chronic small vessel white matter ischemic changes sta ble. The large area of encephalomalacia involving the right parietal and temporal lobes are stable. Small lacunar infarct involving the right cerebellum is stable. Small lacunar infarction involving th e left cerebellum is stable. Evidence of intracranial hemorrhage: None. Evidence of brain volume loss:Prominent atrophy of the frontal lobes and left parietal region is stab le. Evidence of midline shift: Third ventricle and septum pellucidum are midline. Ventricles: Normal. No hydrocephalus. SKULL: Intact. VISUALIZED PARANASAL SINUSES: There is a small mucous retention cyst within the right maxillary sinu s. MASTOID AIR CELLS: Clear. EXTRACRANIAL SOFT TISSUES: Normal. IMPRESSION: No acute intracranial abnormality.
[2020-09-24] MEDS ORDERED: Nitroglycerin 0.4 MG TAB (25 Tab Bottle) SL PRN (14:08)
[2020-09-24] MEDS ORDERED: HumaLOG 300 UNITS/3 ML VIAL SC PRN ×2 (14:12)
[2020-09-24] MEDS ORDERED: Dextrose 5% in Water 1,000 ML IV PRN (14:12)
[2020-09-24] MEDS ORDERED: Dextrose 50% Abboject 50 ML SYRINGE SLOW IVP PRN (14:12)
[2020-09-24 15:24] LABS: Troponin I 4.804 ng/mL (< 0.028)
[2020-09-24] MEDS ORDERED: Enoxaparin Sodium 100 MG/ML SYRINGE ONE (15:37)
[2020-09-24] MEDS ORDERED: Aspirin 325 MG TAB ONE (15:37)
[2020-09-24] MEDS ORDERED: Heparin 25,000 units/D5W 500 ML IVPB SCH (15:45)
[2020-09-24] MEDS ORDERED: Heparin 10,000 UNITS/ 10 ML VIAL SLOW IVP SCH (15:45)
[2020-09-24 16:20] LABS: Hemoglobin 10.4 g/dL (14.0-18.0); Platelet Count 218 thou/uL (130-400)
[2020-09-24] MEDS ORDERED: cefTRIAXone\\ROCEPHIN 1 GM VIAL ONE (18:13)
[2020-09-24 18:20] LABS: Troponin I 6.521 ng/mL (< 0.028)
[2020-09-24] MEDS: cefTRIAXone\\ROCEPHIN 1 GM in Sodium Chloride 0.9% 100 ML IVPB SCH (18:59)
[2020-09-24] MEDS: Sodium Chloride 0.9% 1,000 ML IV SCH (18:59)
[2020-09-24] MEDS: Carvedilol 6.25 MG TAB PO SCH (19:56)
[2020-09-24] MEDS ORDERED: Ondansetron PF 4 MG/2 ML Vial IVP PRN (21:00)
[2020-09-24] MEDS ORDERED: Ondansetron ODT 4 MG TAB SL PRN (21:00)
[2020-09-24] MEDS: Acetaminophen 325 MG TAB PO PRN (22:22)
[2020-09-24] MEDS: Tamsulosin HCl 0.4 MG CAP PO SCH (22:22)
[2020-09-24] MEDS: Atorvastatin Calcium 40 MG TAB PO SCH (22:22)
[2020-09-24 23:46] LABS: SARS-CoV-2 PCR by NAA DETECTED (NotDetected)
[2020-09-25 04:34] LABS: #Lymphocytes 0.7 thou/uL (1.20-3.40); #Monocytes 0.8 thou/uL (0.11-0.59); #Neutrophils 4.4 thou/uL (1.40-6.50); %Basophils 0.3 % (0.0-1.0); %Eosinophils 0.3 % (0.0-10.0); %Monocytes 12.6 % (0.0-10.0); %Neutrophils 74.7 % (42.0-75.0); Mean Corpuscular HGB CONC 33.4 g/dL (32.0-36.0); Mean Corpuscular Volume 96.1 fL (78.0-98.0); Mean Platelet Volume 7.7 fL (7.4-10.4); Platelet Count 191 thou/uL (130-400); RBC Distribution Width 11.6 % (11.5-14.5); Red Blood Cell (RBC) Count 3.14 mill/uL (4.70-6.10); White Blood Cell (WBC) Count 5.9 thou/uL (4.8-10.8)
[2020-09-25 04:54] LABS: Anion Gap 15 mmol/L (10-20); BUN (Urea Nitrogen) 54 mg/dL (8.4-25.7); Calc. Creatinine Clearance 35 mL/min (70-130); Calcium 8.2 mg/dL (7.8-10.44); Carbon Dioxide 19 mmol/L (23-31); Cardiac Risk 5.1 (Less than 4.5); Chloride 111 mmol/L (98-107); Cholesterol 107 mg/dl (< 200 Desired); Glucose 330 mg/dL (83-110); HDL Cholesterol 21 mg/dL (>60 Neg Risk); LDL Cholesterol, Calculated 59 mg/dL; Potassium 4.4 mmol/L (3.5-5.1); Sodium 141 mmol/L (136-145); Triglycerides 137 mg/dL (Less than 150)
[2020-09-25] MEDS: Sodium Chloride 0.9% 1,000 ML IV SCH ×2 (07:20→17:31)
--- NOTE | 2020-09-25 08:19 | ULT ---
EXAM: Bilateral lower extremity venous Doppler US HISTORY: bilateral lower extremity edema and pain FINDINGS: Grayscale, color-flow, Doppler evaluation, spectral analysis of the bilateral lower extremities venou s structures is performed with 2-D imaging. The bilateral common femoral, superficial femoral, popliteal, posterior tibial, proximal greater saphenous and profunda femoral veins are imaged. There is normal luminal compressibility, flow, and augmentation in the visualized deep venous structu res of the bilateral lower extremities. IMPRESSION: No evidence of a deep vein thrombosis in either lower extremity.
[2020-09-25] MEDS ORDERED: Aspirin Chewable 81 MG TAB PO SCH (09:00)
[2020-09-25] MEDS ORDERED: Ascorbic Acid 500 mg Chewable Tablet PO SCH (09:00)
[2020-09-25] MEDS ORDERED: Dextrose 5% in Water 1,000 ML IV PRN (10:13)
[2020-09-25] MEDS: Tamsulosin HCl 0.4 MG CAP PO SCH ×2 (11:25→22:58)
[2020-09-25] MEDS: Carvedilol 6.25 MG TAB PO SCH ×2 (11:25→18:24)
[2020-09-25] MEDS: Zinc Sulfate 220 MG CAP PO SCH (11:26)
[2020-09-25] MEDS ORDERED: Ondansetron ODT 4 MG TAB PO PRN (14:08)
[2020-09-25] MEDS ORDERED: Senokot S 8.6-50 MG TAB PO PRN (14:08)
--- NOTE | 2020-09-25 14:10 | PDOC.HOSPP ---
- Subjective Encounter Date: 09/25/20 Encounter Time: 09:45 Subjective: Patient feels better. He is on 3 L oxygen satting around 95%. Nursing at bedside. He wants to get up walk around with the can. Some muscle cramps. - Objective Vital Signs & Weight: Vital Signs (12 hours) Temp Pulse Resp BP BP Pulse Ox 09/25/20 11:25 184/92 H 09/25/20 04:00 99.8 F H 81 16 153/65 H 95 Weight Weight 204 lb 2.369 oz I&O: 09/24/20 09/25/20 09/26/20 06:59 06:59 06:59 Intake Total 795 Balance 795 Result Diagrams: 09/25/20 04:29 09/25/20 04:29 Additional Labs: Accuchecks 09/25/20 09/25/20 09/24/20 13:08 05:40 20:43 POC Glucose 191 H 277 H 238 H Hospitalist ROS - Medication Medications: Active Medications Generic Name Dose Route Start Last Admin Trade Name Freq PRN Reason Stop Dose Admin Acetaminophen 650 mg 09/24/20 21:11 09/24/20 22:22 Acetaminophen 325 Mg Tab PO 650 mg Q4H PRN Administration Headache/Fever or Pain Aspirin 81 mg 09/25/20 09:00 09/25/20 11:26 Aspirin Chewable 81 Mg Tab PO 81 mg DAILY AIDAN Administration Atorvastatin Calcium 40 mg 09/24/20 21:00 09/24/20 22:22 Atorvastatin Calcium 40 Mg Tab PO 40 mg QPM AIDAN Administration Carvedilol 6.25 mg 09/24/20 17:00 09/25/20 11:25 Carvedilol 6.25 Mg Tab PO 6.25 mg BID-WM AIDAN Administration Heparin Sodium (Porcine) 0 units 09/24/20 15:45 09/24/20 19:44 Heparin 10,000 Units/ 10 Ml Vial SLOW IVP 4,000 unit ASDIR AIDAN Administration Protocol Sodium Chloride 1,000 mls @ 75 mls/hr 09/24/20 14:15 09/25/20 07:20 Normal Saline 0.9% IV Not Given .[id number] [facility] Ceftriaxone Sodium 1 gm/ 100 mls @ 200 mls/hr 09/24/20 15:00 09/24/20 18:59 Sodium Chloride IVPB 100 mls Q24HR AIDAN Administration Heparin Sodium/Dextrose 500 mls @ 0 mls/hr 09/24/20 15:45 09/24/20 19:45 Heparin 25,000 Units/D5w IVPB 500 mls INF AIDAN Administration Protocol Per Protocol Pantoprazole Sodium 40 mg 09/25/20 07:30 09/25/20 11:21 Pantoprazole 40 Mg Tab PO 40 mg DAILY-AC AIDAN Administration Sertraline HCl 50 mg 09/25/20 09:00 09/25/20 11:25 Sertraline Hcl 25 Mg Tab PO 50 mg DAILY AIDAN Administration Sodium Chloride 10 ml 09/24/20 21:00 09/25/20 11:26 Flush - Normal Saline 10 Ml Syringe IVF 10 ml Q12HR AIDAN Administration Tamsulosin HCl 0.4 mg 09/24/20 21:00 09/25/20 11:25 Tamsulosin Hcl 0.4 Mg Cap PO 0.4 mg BID AIDAN Administration Zinc Sulfate 220 mg 09/25/20 09:00 09/25/20 11:26 Zinc Sulfate 220 Mg Cap PO 220 mg DAILY AIDAN Administration Hospitalist Exam Vitals: Vital Signs (12 hours) Temp Pulse Resp BP BP Pulse Ox 09/25/20 11:25 184/92 H 09/25/20 04:00 99.8 F H 81 16 153/65 H 95 Weight Weight 204 lb 2.369 oz General Appearance: NAD, awake alert Eye: PERRL ENT: normocephalic atraumatic Neck: supple Heart: RRR Respiratory: CTAB, normal chest expansion Gastrointestinal: soft, normal bowel sounds Neurological: cranial nerve grossly intact, no focal deficits Psychiatric: A&O x 3 Hosp A/P - Plan 75-year-old male with past medical history of CKD stage III, hypertension, hyperlipidemia, coronary artery disease status post CABG x5 in 2014, type 2 diabetes mellitus, BPH presents after a mechanical fall at home found down after 24 hours found to be in mild rhabdo with an NSTEMI. fall Rhabdomyolysis - CT abdomen chest and pelvis negative for acute findings. -CT head no acute intracranial abnormality. pT OT consult. NSTEMI History of coronary artery disease status post multivessel CABG in 2014. Follows with Dr. Martinez. Patient with troponin elevated to 2.240. Patient endorses mild chest discomfort, but mostly rib pain. Dr. Ward of cardiology following and does not appear to be a STEMI equivalent. Aspirin, statin Echocardiogram Trend troponin, telemetry monitoring Cardiology following with us. Urinary tract infection -On ceftriaxone and urine culture growing gram-negative traci with 50-75,000 colonies await sensitivity Stage III chronic kidney disease Type 2 diabetes mellitus - Jenir. Patient unsure as to dosage. -nsulin sliding scale and ACH S rmed. Hypertension -restarted home meds -He is on several high doses of blood pressure medications including isosorbide mononitrate 30 mg lisinopril 20 mg and torsemide 100 mg twice a day due to his normotensive blood pressure readings I will reduce his home regimen and titrate accordingly. Hyperlipidemia Continue home statin BPH Continue home tamsulosin
[2020-09-25] MEDS: cefTRIAXone\\ROCEPHIN 1 GM in Sodium Chloride 0.9% 100 ML IVPB SCH (15:00)
--- NOTE | 2020-09-25 16:06 | NM ---
NM Lung Perfusion Paticulate HISTORY: Bilateral chest pain COMPARISON: None. Correlation: Chest radiograph of same date. Radiopharmaceutical: 5.8 mCi technetium 99m-MAA injected intravenously FINDINGS: There is homogeneous tracer distribution to the lungs bilaterally without pleural-based wed ge-shaped segmental or subsegmental perfusion defects. IMPRESSION: No evidence of pulmonary embolism.
--- NOTE | 2020-09-25 16:10 | RAD ---
RADIOGRAPH CHEST 1 VIEW: DATE: 09/25/2020 TIME: 3:43 PM HISTORY: 75-year-old male with dyspnea. COMPARISON: endoscope technician image for CT of 09/24/2020 FINDINGS: There is a new patchy airspace opacity at the right midlung field. New small focus of subsegmental atelectasis at lateral aspect of left midlung field. No pulmonary edema or pneumothorax. Sternotomy wires. IMPRESSION: New right-sided infiltrate
--- NOTE | 2020-09-25 19:44 | CON ---
DATE OF CONSULTATION: HISTORY: Ion Blum is a 75-year-old white male who has been seen and evaluated by Dr. Martinez in the past. He underwent stent placement in the distal right coronary artery in September 2013. He then apparently underwent CABG x5 in 2014. In April 2019, he underwent I and D of a chest abscess. When the nurse went to check him later, he was apparently unresponsive and with significant bradycardia. He went into pulseless electrical activity, CPR was performed and he had return of spontaneous circulation. He was admitted yesterday with history of a fall the day before. He thinks he was on the floor for approximately 12 hours. He denies any chest pain or shortness of breath. He also remembers falling and landed on the floor. It is uncertain why he fell. He was brought to the hospital for further evaluation. PAST MEDICAL HISTORY: Diabetes, hypertension, hyperlipidemia, coronary artery disease. PAST SURGICAL HISTORY: CABG and coronary artery stents. MEDICATIONS: 1. Amlodipine 10 mg daily. 2. Aspirin 81 daily. 3. Atorvastatin 40 q.p.m. 4. Carvedilol 6.25 b.i.d. 5. Plavix 75 daily. 6. Ferrous sulfate 325 q.a.m. 7. Proscar 5 mg at bedtime. 8. Neurontin 100 mg daily. 9. Apresoline 50 b.i.d. 10. Lantus. 11. Isosorbide mononitrate 30 daily. 12. Lisinopril 20 daily. 13. Zofran p.r.n. 14. Ditropan 5 mg daily. 15. Protonix 40 q.a.m. 16. KCl 40 mEq daily. 17. Sertraline 50 daily. 18. Flomax 0.4 mg at bedtime. 19. Torsemide 100 mg b.i.d. ALLERGIES: IODINE. PHYSICAL EXAMINATION: VITAL SIGNS: 184/92, pulse 81. HEENT: PERRL. NECK: Supple. CHEST: Clear. CARDIAC: S1 and S2 normal without any S3, S4, or murmurs. ABDOMEN: Normal bowel sounds without tenderness or organomegaly. EXTREMITIES: Revealed no clubbing, cyanosis, or edema. NEUROLOGICAL: Grossly intact. LABORATORY DATA: EKG reveals normal sinus rhythm with first-degree AV block, left axis deviation, lateral ST and T wave changes. Sodium 141, potassium 4.4, chloride 111, carbon dioxide 19, BUN 54, creatinine 2.49. Troponin I is up to 6.521. Cholesterol 107, triglycerides 137, HDL 21, LDL 59. Hemoglobin 10.0, hematocrit 31.1, white count 5900, platelets 191,000. COVID positive. IMPRESSION: 1. Mild rhabdomyolysis-Total CK was 510.3. 2. [id number] myocardial infarction. The patient was asymptomatic from a cardiac standpoint and in the past he has had elevated troponin I's. 3. Chronic kidney disease. 4. Hypertension. 5. Hyperlipidemia. PLAN: The patient currently is under COVID protocol. He has had fairly significant elevation in troponin I, although no significant symptoms. Continue to treat him medically at this time. Certainly, any invasive testing could be very detrimental to his kidney function, especially if he has had 5 bypass grafts placed, which is what I can find from the old records. We will continue to follow this patient with you. Job ID: [id number] MTDD
[2020-09-25] MEDS ORDERED: FLU VACC QS2020-21(65YR UP)/PF 240 MCG/0.7 ML SYRINGE IM ONE (21:00)
[2020-09-25] MEDS: hydrALAZINE 25 MG TAB PO SCH (22:56)
[2020-09-25] MEDS: Insulin Glargine 22 UNITS in Pre-Filled Syringe 1 EACH SC SCH (22:58)
[2020-09-25] MEDS: Finasteride 5 MG TAB PO SCH (22:58)
[2020-09-25] MEDS: Atorvastatin Calcium 40 MG TAB PO SCH (22:58)
[2020-09-25] MEDS: Cholecalciferol 1,000 UNITS (25 MCG) TAB PO SCH (22:58)
[2020-09-25] MEDS: Acetaminophen 325 MG TAB PO PRN (22:59)
[2020-09-26] MEDS: Sodium Chloride 0.9% 1,000 ML IV SCH ×2 (05:41→15:01)
[2020-09-26] MEDS: HumaLOG 300 UNITS/3 ML VIAL SC SCH ×2 (05:54→17:19)
[2020-09-26 07:14] LABS: Anion Gap 12 mmol/L (10-20); BUN (Urea Nitrogen) 21 mg/dL (8.4-25.7); Calc. Creatinine Clearance 73 mL/min (70-130); Calcium 8.3 mg/dL (7.8-10.44); Carbon Dioxide 24 mmol/L (23-31); Chloride 104 mmol/L (98-107); Glucose 166 mg/dL (83-110); Potassium 4.4 mmol/L (3.5-5.1); Sodium 136 mmol/L (136-145)
[2020-09-26] MEDS ORDERED: Heparin 5,000 UNITS/ML VIAL SC SCH (09:00)
[2020-09-26] MEDS ORDERED: Lisinopril 20 MG TAB PO SCH ×2 (09:00)
[2020-09-26] MEDS ORDERED: Dexamethasone 4 mg/ml Vial SLOW IVP SCH (09:00)
[2020-09-26] MEDS ORDERED: Cholecalciferol (Vitamin D3) 400 UNITS TAB PO SCH (09:00)
[2020-09-26] MEDS ORDERED: Cholecalciferol 1,000 UNITS (25 MCG) TAB PO SCH ×2 (09:00)
[2020-09-26] MEDS: Amlodipine 10 MG TAB PO SCH (09:13)
[2020-09-26] MEDS: Aspirin 81 mg Enteric Coated Tablet PO SCH (09:13)
[2020-09-26] MEDS: Carvedilol 6.25 MG TAB PO SCH ×2 (09:13→17:19)
[2020-09-26] MEDS: Tamsulosin HCl 0.4 MG CAP PO SCH ×2 (09:14→21:00)
[2020-09-26] MEDS: Cholecalciferol 1,000 UNITS (25 MCG) TAB PO SCH ×2 (09:14→20:59)
[2020-09-26] MEDS: Ascorbic Acid 500 mg Chewable Tablet PO SCH (09:14)
[2020-09-26] MEDS: Clopidogrel Bisulfate 75 MG TAB PO SCH (09:14)
[2020-09-26] MEDS: Zinc Sulfate 220 MG CAP PO SCH (09:15)
[2020-09-26] MEDS: Oxybutynin 5 MG TAB PO SCH (09:15)
[2020-09-26] MEDS: Ferrous Sulfate 325 MG TAB PO SCH (09:15)
[2020-09-26] MEDS: hydrALAZINE 25 MG TAB PO SCH ×4 (09:16→20:59)
[2020-09-26] MEDS: Insulin Glargine 22 UNITS in Pre-Filled Syringe 1 EACH SC SCH ×2 (09:19→21:04)
--- NOTE | 2020-09-26 12:26 | RAD ---
XR Chest 1 View Portable History: Covid possibility. Aspiration Comparison: Radiograph prior day Findings: Markedly worsening of airspace opacities throughout the lungs, greatest in the right upper lobe. No pneumothorax. Heart size mildly enlarged. Trace effusions. Multiple midline sternotomy wires. Impression: Marked worsening of lung consolidation.
--- NOTE | 2020-09-26 12:57 | PRG ---
DATE OF SERVICE: 09/26/2020 SUBJECTIVE: Chart was reviewed. The patient is currently COVID positive and on high-flow oxygen. As discussed with the nurse, no current cardiac issues. The patient is requiring a higher oxygen needs and has now required high-flow oxygen. OBJECTIVE: VITAL SIGNS: Blood pressure 130/60, pulse 80, temperature 98.6. Physical exam deferred due to COVID positive pneumonia. PERTINENT LABORATORY DATA: Hemoglobin 10.0. Creatinine 1.1, down from 2.24. IMPRESSION: 1. Elevated troponin with peak of 6.5. 2. COVID positive pneumonia. 3. Hypoxia. 4. Coronary artery disease status post bypass surgery. RECOMMENDATIONS: At this point, we will continue with supportive care. His main issue currently is being COVID positive pneumonia. Elevated troponin likely is secondary to demand ischemia. He did have a recent fall with a negative CT scan. Chest x-ray dated 09/25/2020 did suggest right-sided infiltrate. Lung consolidation appears to have worsened after repeat chest x-ray this a.m. From a CV standpoint, continue to monitor blood pressure and heart rate in addition to rhythm disturbances. Patient is currently on heparin and we will continue. Job ID: [id number]
--- NOTE | 2020-09-26 13:20 | PDOC.HOSPP ---
- Subjective Encounter Date: 09/26/20 Encounter Time: 10:20 Subjective: Patient is on high flow oxygen still have some respiratory distress. But alert oriented x3. This a.m. he had a significant emesis. Chest x-ray showed marked worsening of lung consolidation with greatest in the right upper lobe. No pneumothorax - Objective Vital Signs & Weight: Vital Signs (12 hours) Temp Pulse Resp BP Pulse Ox 09/26/20 11:34 94 L 09/26/20 10:55 98.6 F 80 23 H 130/63 93 L 09/26/20 08:01 96 09/26/20 07:50 99.5 F 83 18 188/87 H 96 09/26/20 04:03 95 09/26/20 03:50 98.9 F 85 20 177/80 H 92 L Weight Weight 204 lb 2.369 oz I&O: 09/25/20 09/26/20 09/27/20 06:59 06:59 06:59 Intake Total 795 2455 Balance 795 2455 Result Diagrams: 09/25/20 04:29 09/26/20 06:36 Additional Labs: Accuchecks 09/26/20 09/26/20 09/25/20 10:12 05:41 23:08 POC Glucose 235 H 246 H 254 H 09/25/20 18:13 POC Glucose 191 H Hospitalist ROS - Medication Medications: Active Medications Generic Name Dose Route Start Last Admin Trade Name Freq PRN Reason Stop Dose Admin Acetaminophen 650 mg 09/24/20 21:11 09/25/20 22:59 Acetaminophen 325 Mg Tab PO 650 mg Q4H PRN Administration Headache/Fever or Pain Amlodipine Besylate 10 mg 09/26/20 09:00 09/26/20 09:13 Amlodipine 10 Mg Tab PO 10 mg DAILY AIDAN Administration Ascorbic Acid 1,000 mg 09/26/20 09:00 09/26/20 09:14 Ascorbic Acid 500 Mg Chewable Tablet PO 1,000 mg DAILY AIDAN Administration Aspirin 81 mg 09/26/20 09:00 09/26/20 09:13 Aspirin 81 Mg Enteric Coated Tablet PO 81 mg DAILY AIDAN Administration Atorvastatin Calcium 40 mg 09/24/20 21:00 09/25/20 22:58 Atorvastatin Calcium 40 Mg Tab PO 40 mg QPM AIDAN Administration Carvedilol 6.25 mg 09/24/20 17:00 09/26/20 09:13 Carvedilol 6.25 Mg Tab PO 6.25 mg BID-WM AIDAN Administration Cholecalciferol 2,000 units 09/25/20 21:00 09/26/20 09:14 Cholecalciferol 1,000 Units (25 Mcg) Tab PO 2,000 units BID AIDAN Administration Clopidogrel Bisulfate 75 mg 09/26/20 09:00 09/26/20 09:14 Clopidogrel Bisulfate 75 Mg Tab PO 75 mg DAILY AIDAN Administration Ferrous Sulfate 325 mg 09/26/20 08:00 09/26/20 09:15 Ferrous Sulfate 325 Mg Tab PO 325 mg QAM-WM AIDAN Administration Finasteride 5 mg 09/25/20 21:00 09/25/20 22:58 Finasteride 5 Mg Tab PO 5 mg HS AIDAN Administration Hydralazine HCl 50 mg 09/26/20 15:00 09/26/20 09:16 Hydralazine 25 Mg Tab PO 50 mg TID AIDAN Administration Dextrose/Water 1,000 mls @ 0 mls/hr 09/25/20 10:13 09/26/20 05:36 D5w IV 1,000 mls .Q0M PRN Administration Hypoglycemia As Directed Insulin Glargine 22 units/ 0.22 mls @ 0 mls/hr 09/25/20 21:00 09/26/20 09:19 Miscellaneous Medication SC 0.22 mls BID AIDAN Administration Insulin Human Lispro 0 units 09/25/20 10:15 09/26/20 05:54 Humalog 300 Units/3 Ml Vial SC 6 unit .AGGRESSIVE SLIDING AIDAN Administration Isosorbide Mononitrate 30 mg 09/26/20 09:00 09/26/20 09:19 Isosorbide Mononitrate Er 30 Mg Tab PO 30 mg DAILY AIDAN Administration Oxybutynin Chloride 5 mg 09/26/20 09:00 09/26/20 09:15 Oxybutynin 5 Mg Tab PO 5 mg DAILY AIDAN Administration Pantoprazole Sodium 40 mg 09/25/20 07:30 09/26/20 05:54 Pantoprazole 40 Mg Tab PO 40 mg DAILY-AC AIDAN Administration Sertraline HCl 50 mg 09/25/20 09:00 09/26/20 09:14 Sertraline Hcl 25 Mg Tab PO 50 mg DAILY AIDAN Administration Sodium Chloride 10 ml 09/24/20 21:00 09/26/20 09:17 Flush - Normal Saline 10 Ml Syringe IVF 10 ml Q12HR AIDAN Administration Tamsulosin HCl 0.4 mg 09/24/20 21:00 09/26/20 09:14 Tamsulosin Hcl 0.4 Mg Cap PO 0.4 mg BID AIDAN Administration Zinc Sulfate 220 mg 09/25/20 09:00 09/26/20 09:15 Zinc Sulfate 220 Mg Cap PO 220 mg DAILY AIDAN Administration Hospitalist Exam Vitals: Vital Signs (12 hours) Temp Pulse Resp BP Pulse Ox 09/26/20 11:34 94 L 09/26/20 10:55 98.6 F 80 23 H 130/63 93 L 09/26/20 08:01 96 09/26/20 07:50 99.5 F 83 18 188/87 H 96 09/26/20 04:03 95 09/26/20 03:50 98.9 F 85 20 177/80 H 92 L Weight Weight 204 lb 2.369 oz General Appearance: NAD, awake alert, ill appearing Eye: PERRL ENT: normocephalic atraumatic Neck: supple Heart: RRR, normal peripheral pulses Respiratory: tachypneic Gastrointestinal: soft, normal bowel sounds Neurological: no focal deficits Musculoskeletal: generalized weakness Psychiatric: A&O x 3 Hosp A/P - Plan 75-year-old male with past medical history of CKD stage III, hypertension, hyperlipidemia, coronary artery disease status post CABG x5 in 2015, type 2 diabetes mellitus, BPH presents after a mechanical fall at home found down after 24 hours found to be in mild rhabdo with an NSTEMI. fall Rhabdomyolysis - CT abdomen chest and pelvis negative for acute findings. -CT head no acute intracranial abnormality. pT OT consult. NSTEMI History of coronary artery disease status post multivessel CABG in 2015. Follows with Dr. Martinez. Patient with troponin elevated to 2.240. Patient endorses mild chest discomfort, but mostly rib pain. Dr. Ward of cardiology following and does not appear to be a STEMI equivalent. Aspirin, statin Echocardiogram Trend troponin, telemetry monitoring Cardiology following with us. Urinary tract infection -On ceftriaxone and urine culture growing gram-negative traci with 50-75,000 colonies await sensitivity Stage III chronic kidney disease Type 2 diabetes mellitus - Levemir. Patient unsure as to dosage. -nsulin sliding scale and ACH S rmed. Hypertension -restarted home meds -He is on several high doses of blood pressure medications including isosorbide mononitrate 30 mg lisinopril 20 mg and torsemide 100 mg twice a day due to his normotensive blood pressure readings I will reduce his home regimen and titrate accordingly. Hyperlipidemia Continue home statin BPH Continue home tamsulosin 8th Worsening Covid pneumonia Right upper lobe pneumonia without pneumothorax -Increased the Decadron dose to twice a day -Escalated the antibiotics to Zosyn -Talk to Dr. Hudson. NSTEMI with a troponin at 6.5--type II mismatch/demand ischemia possibly due to worsening Covid pneumonia -He is on aspirin Plavix and heparin 3 times daily for DVT prophylaxis Full code
--- NOTE | 2020-09-26 14:54 | CON ---
DATE OF CONSULTATION: 09/26/2020 CONSULTING PHYSICIAN: Dr. Sims. REASON FOR CONSULTATION: COVID-19 infection. HISTORY OF PRESENT ILLNESS: Mr. Blum is a 75-year-old male, who presented to the hospital on 09/24 after being found down at his nursing facility. He was down for at least half a day before he was found by his clinical massage therapist. He was diagnosed with rhabdomyolysis and had elevated cardiac enzymes and elevated CK level. He was also diagnosed with urinary tract infection. He was found to be COVID positive. He has had worsening oxygenation over the last 12 hours. On admission, he had a CT abdomen, chest and pelvis, which did not show any pulmonary infiltrates. He had a chest x-ray done yesterday, which was fairly clear. He had a ventilation perfusion scan, which did not show any evidence of clots. He has been moved over and has been put on high-flow oxygen. He is currently wearing 70% oxygen. His O2 saturations are in the mid 90s. PAST MEDICAL HISTORY: 1. Chronic diastolic cardiac dysfunction. 2. Hypertension. 3. Hyperlipidemia. 4. Coronary artery disease. 5. Hypertension. PAST SURGICAL HISTORY: Coronary artery bypass grafting surgery, coronary artery stents. MEDICATIONS: Prior to admission, 1. Amlodipine. 2. Aspirin. 3. Atorvastatin. 4. Carvedilol. 5. Plavix. 6. Iron sulfate. 7. Proscar. 8. Neurontin. 9. Apresoline. 10. Lantus insulin. 11. Isosorbide mononitrate. 12. Lisinopril. 13. Zofran. 14. Ditropan. 15. Protonix. 16. Potassium chloride. 17. Sertraline. 18. Flomax. 19. Torsemide. ALLERGIES: NONE. REVIEW OF SYSTEMS: Remarkable for fall and generalized pain throughout his body. Denies any shortness of breath, fever, chills. PHYSICAL EXAMINATION: VITAL SIGNS: Temperature 98.6 with a T-max of 99.8, pulse 80, blood pressure 130/63. GENERAL: He is awake, alert, and in no acute distress. HEENT: Unremarkable. NECK: No adenopathy or JVD. CHEST: Fairly clear anteriorly and posteriorly. CARDIOVASCULAR: S1 and S2. Regular. ABDOMEN: Soft and nontender to palpation. EXTREMITIES: No clubbing, cyanosis, or edema. He has bruises over his hands and shins. LABORATORY DATA: Sodium 136, potassium 4.4, chloride 104, CO2 of 24, BUN 21, creatinine 1.2, glucose 166. White blood cell count 5.9, hematocrit 30, and platelet count 191. Repeat x-ray is pending. ASSESSMENT: 1. COVID infection with worsening oxygenation. 2. Multiple comorbid factors listed above. In addition to the steroids, I would like to use colchicine as long as his kidney function would handle it. He is anticoagulated with heparin. I will review his chest x-ray. Continue the oxygen high-flow as needed. Hopefully, he can avoid intubation. We will follow with you peripherally. Job ID: [id number]
--- NOTE | 2020-09-26 14:57 | PQF ---
CLINICAL DOCUMENTATION CLARIFICATION FORM: Dear Dr. Travis Sims Date: [id number] Please exercise your independent, professional judgment in responding to the clarification form. Clinical indicators are provided on the bottom of this form for your review. Please check appropriate box(es): [ ] Acute Respiratory Failure [ x ] Acute on chronic respiratory failure [ ] Chronic Respiratory failure only [ ] Other diagnosis [ ] Unable to determine Present on Admission [ x ] Yes [ ] No [ ] Unable to determine For continuity of documentation, please document condition throughout progress notes and discharge summary. Thank You. To be completed by CDI/Coding staff for physician review: CLINICAL INDICATORS - SIGNS / SYMPTOMS / LABS/ RESULTS AND LOCATION IN MR Resp 27, pulse 109, pt found down by caregiver, fell at night found next morning (ED report) 09/24) CXR new right side infiltrates 09/25 CXR marked worsening of lung consolidation 09/26 Pt is currently COVID positive and on high flow oxygen, Impression: Hypoxia (Martinez/PN) 09/26 RISKS FACTORS / RESULTS AND LOCATION IN MR I Covid Pneumonia, NSTEMI ( PN/Levi) 09/26 TREATMENT / RESULTS AND LOCATION IN MR Supplemental oxygen (09/25 present) Thank you! CDS Signature: Steffanie Paz RN Phone #: [phone] Date: 09/26/2020 This is a permanent part of the Medical Record [facility]
[2020-09-26] MEDS: Piperacillin/Tazobactam 3.375 GM in Sodium Chloride 0.9% 100 ML IVPB SCH ×2 (14:59→21:32)
[2020-09-26] MEDS: Heparin 5,000 UNITS/ML VIAL SC SCH ×2 (15:00→21:00)
[2020-09-26 17:48] LABS: #Lymphocytes 0.6 thou/uL (1.20-3.40); #Monocytes 0.3 thou/uL (0.11-0.59); #Neutrophils 11.3 thou/uL (1.40-6.50); %Basophils 0.1 % (0.0-1.0); %Eosinophils 0.1 % (0.0-10.0); %Lymphocytes 5.2 % (21.0-51.0); %Monocytes 2.5 % (0.0-10.0); %Neutrophils 92.1 % (42.0-75.0); Hemoglobin 11.9 g/dL (14.0-18.0); Mean Corpuscular HGB CONC 34.1 g/dL (32.0-36.0); Mean Corpuscular Hemoglobin 32.2 pg (27.0-31.0); Mean Corpuscular Volume 94.3 fL (78.0-98.0); Mean Platelet Volume 7.9 fL (7.4-10.4); Platelet Count 196 thou/uL (130-400); RBC Distribution Width 11.5 % (11.5-14.5); Red Blood Cell (RBC) Count 3.69 mill/uL (4.70-6.10); White Blood Cell (WBC) Count 12.3 thou/uL (4.8-10.8)
[2020-09-26] MEDS: Atorvastatin Calcium 40 MG TAB PO SCH (20:59)
[2020-09-26] MEDS: Dexamethasone 4 mg/ml Vial SLOW IVP SCH (21:02)
[2020-09-26] MEDS: Colchicine 0.6 MG TAB PO SCH (21:22)
[2020-09-26] MEDS: Finasteride 5 MG TAB PO SCH (21:31)
[2020-09-26] MEDS: HumaLOG 300 UNITS/3 ML VIAL SC PRN (21:41)
[2020-09-27 05:19] LABS: #Lymphocytes 0.8 thou/uL (1.20-3.40); #Monocytes 0.3 thou/uL (0.11-0.59); #Neutrophils 9.5 thou/uL (1.40-6.50); %Eosinophils 0.1 % (0.0-10.0); %Lymphocytes 7.7 % (21.0-51.0); %Neutrophils 89.2 % (42.0-75.0); Hemoglobin 10.4 g/dL (14.0-18.0); Mean Corpuscular HGB CONC 32.6 g/dL (32.0-36.0); Mean Platelet Volume 8.1 fL (7.4-10.4); Platelet Count 186 thou/uL (130-400); RBC Distribution Width 11.5 % (11.5-14.5); Red Blood Cell (RBC) Count 3.34 mill/uL (4.70-6.10); White Blood Cell (WBC) Count 10.7 thou/uL (4.8-10.8)
[2020-09-27 05:50] LABS: Anion Gap 14 mmol/L (10-20); BUN (Urea Nitrogen) 49 mg/dL (8.4-25.7); Calc. Creatinine Clearance 38 mL/min (70-130); Calcium 8.2 mg/dL (7.8-10.44); Carbon Dioxide 22 mmol/L (23-31); Chloride 107 mmol/L (98-107); Glucose 256 mg/dL (83-110); Potassium 3.7 mmol/L (3.5-5.1); Sodium 139 mmol/L (136-145)
[2020-09-27] MEDS: HumaLOG 300 UNITS/3 ML VIAL SC SCH ×3 (06:06→17:19)
[2020-09-27] MEDS: Sodium Chloride 0.9% 1,000 ML IV SCH ×2 (06:13→06:21)
[2020-09-27] MEDS: Piperacillin/Tazobactam 3.375 GM in Sodium Chloride 0.9% 100 ML IVPB SCH ×3 (06:20→21:50)
[2020-09-27] MEDS: Dexamethasone 4 mg/ml Vial SLOW IVP SCH ×2 (08:10→21:10)
[2020-09-27] MEDS: Heparin 5,000 UNITS/ML VIAL SC SCH ×3 (08:10→21:12)
[2020-09-27] MEDS: hydrALAZINE 25 MG TAB PO SCH ×3 (08:11→21:08)
[2020-09-27] MEDS: Amlodipine 10 MG TAB PO SCH (08:42)
[2020-09-27] MEDS: Zinc Sulfate 220 MG CAP PO SCH (08:42)
[2020-09-27] MEDS: Ferrous Sulfate 325 MG TAB PO SCH (08:42)
[2020-09-27] MEDS: Colchicine 0.6 MG TAB PO SCH (08:42)
[2020-09-27] MEDS: Tamsulosin HCl 0.4 MG CAP PO SCH ×2 (08:43→21:49)
[2020-09-27] MEDS: Cholecalciferol 1,000 UNITS (25 MCG) TAB PO SCH ×2 (08:44→21:10)
[2020-09-27] MEDS: Clopidogrel Bisulfate 75 MG TAB PO SCH (08:44)
[2020-09-27] MEDS: Ascorbic Acid 500 mg Chewable Tablet PO SCH (08:44)
[2020-09-27] MEDS: Carvedilol 6.25 MG TAB PO SCH ×2 (08:45→18:06)
[2020-09-27] MEDS: Aspirin 81 mg Enteric Coated Tablet PO SCH (08:45)
[2020-09-27] MEDS: Oxybutynin 5 MG TAB PO SCH (08:45)
[2020-09-27] MEDS: Insulin Glargine 22 UNITS in Pre-Filled Syringe 1 EACH SC SCH ×2 (09:25→21:16)
[2020-09-27] MEDS ORDERED: Albuterol 200 PUFF (6.7GM INHALER) INH PRN (09:30)
[2020-09-27] MEDS: Acetaminophen 325 MG TAB PO PRN (12:03)
--- NOTE | 2020-09-27 12:39 | PDOC.HOSPP ---
- Subjective Encounter Date: 09/27/20 Encounter Time: 09:40 Subjective: Patient appears much more comfortable than yesterday he is not in any respiratory distress is still on high flow oxygen. Blood pressure is slightly elevated. - Objective Vital Signs & Weight: Vital Signs (12 hours) Temp Pulse Resp BP BP Pulse Ox 09/27/20 08:45 165/75 H 09/27/20 08:42 67 165/75 H 09/27/20 08:11 67 165/75 H 09/27/20 03:30 100 09/27/20 03:24 98.6 F 64 18 167/77 H 100 Weight Weight 204 lb 2.369 oz I&O: 09/26/20 09/27/20 09/28/20 06:59 06:59 06:59 Intake Total 2455 1405 Balance 2455 1405 Result Diagrams: 09/27/20 04:47 09/27/20 04:47 Additional Labs: Accuchecks 09/27/20 09/26/20 09/26/20 05:20 20:03 16:43 POC Glucose 224 H 283 H 342 H Hospitalist ROS - Medication Medications: Active Medications Generic Name Dose Route Start Last Admin Trade Name Freq PRN Reason Stop Dose Admin Acetaminophen 650 mg 09/24/20 21:11 09/27/20 12:03 Acetaminophen 325 Mg Tab PO 650 mg Q4H PRN Administration Headache/Fever or Pain Amlodipine Besylate 10 mg 09/26/20 09:00 09/27/20 08:42 Amlodipine 10 Mg Tab PO 10 mg DAILY AIDAN Administration Ascorbic Acid 1,000 mg 09/26/20 09:00 09/27/20 08:44 Ascorbic Acid 500 Mg Chewable Tablet PO 1,000 mg DAILY AIDAN Administration Aspirin 81 mg 09/26/20 09:00 09/27/20 08:45 Aspirin 81 Mg Enteric Coated Tablet PO 81 mg DAILY AIDAN Administration Atorvastatin Calcium 40 mg 09/24/20 21:00 09/26/20 20:59 Atorvastatin Calcium 40 Mg Tab PO 40 mg QPM AIDAN Administration Carvedilol 6.25 mg 09/24/20 17:00 09/27/20 08:45 Carvedilol 6.25 Mg Tab PO 6.25 mg BID- AIDAN Administration Cholecalciferol 2,000 units 09/25/20 21:00 09/27/20 08:44 Cholecalciferol 1,000 Units (25 Mcg) Tab PO 2,000 units BID AIDAN Administration Clopidogrel Bisulfate 75 mg 09/26/20 09:00 09/27/20 08:44 Clopidogrel Bisulfate 75 Mg Tab PO 75 mg DAILY AIDAN Administration Dexamethasone 6 mg 09/26/20 21:00 09/27/20 08:10 Dexamethasone 4 Mg/Ml Vial SLOW IVP 6 mg BID AIDAN Administration Ferrous Sulfate 325 mg 09/26/20 08:00 09/27/20 08:42 Ferrous Sulfate 325 Mg Tab PO 325 mg QAM-WM AIDAN Administration Finasteride 5 mg 09/25/20 21:00 09/26/20 21:31 Finasteride 5 Mg Tab PO 5 mg HS AIDAN Administration Heparin Sodium (Porcine) 5,000 units 09/26/20 15:00 09/27/20 08:10 Heparin 5,000 Units/Ml Vial SC 5,000 units TID AIDAN Administration Hydralazine HCl 50 mg 09/26/20 15:00 09/27/20 08:11 Hydralazine 25 Mg Tab PO 50 mg TID AIDAN Administration Dextrose/Water 1,000 mls @ 0 mls/hr 09/25/20 10:13 09/26/20 05:36 D5w IV 1,000 mls .Q0M PRN Administration Hypoglycemia As Directed Insulin Glargine 22 units/ 0.22 mls @ 0 mls/hr 09/25/20 21:00 09/27/20 09:25 Miscellaneous Medication SC 0.22 mls BID AIDAN Administration Sodium Chloride 1,000 mls @ 60 mls/hr 09/26/20 12:13 09/27/20 06:21 Normal Saline 0.9% IV 1,000 mls .[id number] AIDAN Administration Piperacillin Sod/Tazobactam 100 mls @ 200 mls/hr 09/26/20 14:00 09/27/20 06:20 Sod 3.375 gm/ Sodium Chloride IVPB 100 mls Q8HR AIDAN Administration Insulin Human Lispro 0 units 09/25/20 10:15 09/27/20 12:18 Humalog 300 Units/3 Ml Vial SC 9 unit .AGGRESSIVE SLIDING AIDAN Administration Insulin Human Lispro 0 units 09/26/20 21:18 09/26/20 21:41 Humalog 300 Units/3 Ml Vial SC 3 unit .BEDTIME SLIDING SC PRN Administration Bedtime Correctional Scale Isosorbide Mononitrate 30 mg 09/26/20 09:00 09/27/20 08:45 Isosorbide Mononitrate Er 30 Mg Tab PO 30 mg DAILY AIDAN Administration Oxybutynin Chloride 5 mg 09/26/20 09:00 09/27/20 08:45 Oxybutynin 5 Mg Tab PO 5 mg DAILY AIDAN Administration Pantoprazole Sodium 40 mg 09/25/20 07:30 09/27/20 08:45 Pantoprazole 40 Mg Tab PO 40 mg DAILY-AC AIDAN Administration Sertraline HCl 50 mg 09/25/20 09:00 09/27/20 08:44 Sertraline Hcl 25 Mg Tab PO 50 mg DAILY AIDAN Administration Sodium Chloride 10 ml 09/24/20 21:00 09/27/20 08:46 Flush - Normal Saline 10 Ml Syringe IVF 10 ml Q12HR AIDAN Administration Tamsulosin HCl 0.4 mg 09/24/20 21:00 09/27/20 08:43 Tamsulosin Hcl 0.4 Mg Cap PO 0.4 mg BID AIDAN Administration Zinc Sulfate 220 mg 09/25/20 09:00 09/27/20 08:42 Zinc Sulfate 220 Mg Cap PO 220 mg DAILY AIDAN Administration Hospitalist Exam Vitals: Vital Signs (12 hours) Temp Pulse Resp BP BP Pulse Ox 09/27/20 08:45 165/75 H 09/27/20 08:42 67 165/75 H 09/27/20 08:11 67 165/75 H 09/27/20 03:30 100 09/27/20 03:24 98.6 F 64 18 167/77 H 100 Weight Weight 204 lb 2.369 oz General Appearance: awake alert, ill appearing Eye: PERRL, anicteric sclera ENT: normocephalic atraumatic Neck: supple Heart: RRR, normal peripheral pulses Respiratory: CTAB, normal chest expansion Gastrointestinal: soft, normal bowel sounds Neurological: no focal deficits Musculoskeletal: generalized weakness Psychiatric: A&O x 3 Hosp A/P - Plan 75-year-old male with past medical history of CKD stage III, hypertension, hyperlipidemia, coronary artery disease status post CABG x5 in 2015, type 2 diabetes mellitus, BPH presents after a mechanical fall at home found down after 24 hours found to be in mild rhabdo with an NSTEMI. fall Rhabdomyolysis - CT abdomen chest and pelvis negative for acute findings. -CT head no acute intracranial abnormality. pT OT consult. NSTEMI History of coronary artery disease status post multivessel CABG in 2014. Follows with Dr. Martinez. Patient with troponin elevated to 2.240. Patient endorses mild chest discomfort, but mostly rib pain. Dr. Ward of cardiology following and does not appear to be a STEMI equivalent. Aspirin, statin Echocardiogram Trend troponin, telemetry monitoring Cardiology following with us. Urinary tract infection -On ceftriaxone and urine culture growing gram-negative traci with 50-75,000 colonies await sensitivity Stage III chronic kidney disease Type 2 diabetes mellitus - Levemir. Patient unsure as to dosage. -nsulin sliding scale and ACH S rmed. Hypertension -restarted home meds -He is on several high doses of blood pressure medications including isosorbide mononitrate 30 mg lisinopril 20 mg and torsemide 100 mg twice a day due to his normotensive blood pressure readings I will reduce his home regimen and titrate accordingly. Hyperlipidemia Continue home statin BPH Continue home tamsulosin 8th Worsening Covid pneumonia Right upper lobe pneumonia without pneumothorax -Increased the Decadron dose to twice a day -Escalated the antibiotics to Zosyn -Talk to Dr. Hudson. NSTEMI with a troponin at 6.5--type II mismatch/demand ischemia possibly due to worsening Covid pneumonia -He is on aspirin Plavix and heparin 3 times daily for DVT prophylaxis Full code -Colchicine added to the judgment of Covid -he still requires high flow oxygen with FiO2 currently at 74 and sats are 100%
[2020-09-27] MEDS: Finasteride 5 MG TAB PO SCH (21:09)
[2020-09-27] MEDS: Atorvastatin Calcium 40 MG TAB PO SCH (21:09)
[2020-09-27] MEDS: HumaLOG 300 UNITS/3 ML VIAL SC PRN (21:16)
[2020-09-28] MEDS: Sodium Chloride 0.9% 1,000 ML IV SCH ×2 (02:37→21:00)
[2020-09-28 04:59] LABS: #Lymphocytes 0.9 thou/uL (1.20-3.40); #Monocytes 0.5 thou/uL (0.11-0.59); #Neutrophils 10.9 thou/uL (1.40-6.50); %Basophils 0.1 % (0.0-1.0); %Eosinophils 0.1 % (0.0-10.0); %Lymphocytes 7.3 % (21.0-51.0); %Monocytes 4.2 % (0.0-10.0); %Neutrophils 88.3 % (42.0-75.0); Hemoglobin 10.3 g/dL (14.0-18.0); Mean Corpuscular HGB CONC 32.9 g/dL (32.0-36.0); Mean Corpuscular Hemoglobin 31.2 pg (27.0-31.0); Mean Corpuscular Volume 94.8 fL (78.0-98.0); Mean Platelet Volume 8.1 fL (7.4-10.4); Platelet Count 215 thou/uL (130-400); RBC Distribution Width 11.7 % (11.5-14.5); Red Blood Cell (RBC) Count 3.31 mill/uL (4.70-6.10); White Blood Cell (WBC) Count 12.3 thou/uL (4.8-10.8)
[2020-09-28] MEDS: Piperacillin/Tazobactam 3.375 GM in Sodium Chloride 0.9% 100 ML IVPB SCH ×3 (05:17→20:58)
[2020-09-28 05:20] LABS: Anion Gap 13 mmol/L (10-20); BUN (Urea Nitrogen) 56 mg/dL (8.4-25.7); Calc. Creatinine Clearance 37 mL/min (70-130); Calcium 8.1 mg/dL (7.8-10.44); Carbon Dioxide 21 mmol/L (23-31); Chloride 110 mmol/L (98-107); Glucose 225 mg/dL (83-110); Potassium 3.8 mmol/L (3.5-5.1); Sodium 140 mmol/L (136-145)
[2020-09-28] MEDS: HumaLOG 300 UNITS/3 ML VIAL SC SCH ×3 (05:49→17:27)
[2020-09-28] MEDS: Ascorbic Acid 500 mg Chewable Tablet PO SCH (07:33)
[2020-09-28] MEDS: Zinc Sulfate 220 MG CAP PO SCH (07:33)
[2020-09-28] MEDS: Amlodipine 10 MG TAB PO SCH (07:34)
[2020-09-28] MEDS: Colchicine 0.6 MG TAB PO SCH (07:34)
[2020-09-28] MEDS: Aspirin 81 mg Enteric Coated Tablet PO SCH (07:35)
[2020-09-28] MEDS: Dexamethasone 4 mg/ml Vial SLOW IVP SCH ×2 (07:36→20:50)
[2020-09-28] MEDS: Cholecalciferol 1,000 UNITS (25 MCG) TAB PO SCH ×2 (07:40→20:48)
[2020-09-28] MEDS: Tamsulosin HCl 0.4 MG CAP PO SCH ×2 (07:40→20:49)
[2020-09-28] MEDS: hydrALAZINE 25 MG TAB PO SCH ×3 (07:41→20:48)
[2020-09-28] MEDS: Oxybutynin 5 MG TAB PO SCH (07:42)
[2020-09-28] MEDS: Clopidogrel Bisulfate 75 MG TAB PO SCH (07:42)
[2020-09-28] MEDS: Ferrous Sulfate 325 MG TAB PO SCH (07:42)
[2020-09-28] MEDS: Carvedilol 6.25 MG TAB PO SCH ×2 (07:43→17:23)
[2020-09-28] MEDS: Heparin 5,000 UNITS/ML VIAL SC SCH ×3 (07:44→20:49)
[2020-09-28] MEDS: Insulin Glargine 22 UNITS in Pre-Filled Syringe 1 EACH SC SCH ×2 (08:42→20:47)
--- NOTE | 2020-09-28 13:02 | PDOC.HOSPP ---
- Subjective Encounter Date: 09/28/20 Encounter Time: 10:25 Subjective: Patient's blood pressure is slightly higher earlier in the morning he was tachypneic and now he is much better he is still on high flow oxygen at 55 of FiO2 and flow rate of 50 and his sats around 97%. He is alert oriented x3 does not appear to be in any respiratory distress at rest. He is talking in his usual mood; mild elevation in the leukocytosis around 12.3 probably due to the steroid. Slight bump in his creatinine 2.35 - Objective Vital Signs & Weight: Vital Signs (12 hours) Temp Pulse Resp BP Pulse Ox 09/28/20 11:28 97.9 F 70 15 145/64 H 97 09/28/20 08:15 98.8 F 71 18 161/72 H 98 09/28/20 07:24 96 09/28/20 04:00 79 28 H 126/72 99 Weight Weight 204 lb 2.369 oz I&O: 09/27/20 09/28/20 09/29/20 06:59 06:59 06:59 Intake Total 1405 1549 Balance 1405 1549 Result Diagrams: 09/28/20 04:36 09/28/20 04:36 Additional Labs: Accuchecks 09/28/20 09/28/20 09/27/20 10:48 05:19 20:46 POC Glucose 202 H 199 H 246 H 09/27/20 09/27/20 16:44 10:48 POC Glucose 192 H 253 H Hospitalist ROS - Medication Medications: Active Medications Generic Name Dose Route Start Last Admin Trade Name Freq PRN Reason Stop Dose Admin Acetaminophen 650 mg 09/24/20 21:11 09/27/20 12:03 Acetaminophen 325 Mg Tab PO 650 mg Q4H PRN Administration Headache/Fever or Pain Amlodipine Besylate 10 mg 09/26/20 09:00 09/28/20 07:34 Amlodipine 10 Mg Tab PO 10 mg DAILY AIDAN Administration Ascorbic Acid 1,000 mg 09/26/20 09:00 09/28/20 07:33 Ascorbic Acid 500 Mg Chewable Tablet PO 1,000 mg DAILY AIDAN Administration Aspirin 81 mg 09/26/20 09:00 09/28/20 07:35 Aspirin 81 Mg Enteric Coated Tablet PO 81 mg DAILY AIDAN Administration Atorvastatin Calcium 40 mg 09/24/20 21:00 09/27/20 21:09 Atorvastatin Calcium 40 Mg Tab PO 40 mg QPM AIDAN Administration Carvedilol 6.25 mg 09/24/20 17:00 09/28/20 07:43 Carvedilol 6.25 Mg Tab PO 6.25 mg BID-WM AIDAN Administration Cholecalciferol 2,000 units 09/25/20 21:00 09/28/20 07:40 Cholecalciferol 1,000 Units (25 Mcg) Tab PO 2,000 units BID AIDAN Administration Clopidogrel Bisulfate 75 mg 09/26/20 09:00 09/28/20 07:42 Clopidogrel Bisulfate 75 Mg Tab PO 75 mg DAILY AIDAN Administration Colchicine 0.6 mg 09/28/20 09:00 09/28/20 07:34 Colchicine 0.6 Mg Tab PO 0.6 mg DAILY AIDAN Administration Dexamethasone 6 mg 09/26/20 21:00 09/28/20 07:36 Dexamethasone 4 Mg/Ml Vial SLOW IVP 6 mg BID AIDAN Administration Ferrous Sulfate 325 mg 09/26/20 08:00 09/28/20 07:42 Ferrous Sulfate 325 Mg Tab PO 325 mg QAM-WM IADAN Administration Finasteride 5 mg 09/25/20 21:00 09/27/20 21:09 Finasteride 5 Mg Tab PO 5 mg HS AIDAN Administration Heparin Sodium (Porcine) 5,000 units 09/26/20 15:00 09/28/20 07:44 Heparin 5,000 Units/Ml Vial SC 5,000 units TID AIDAN Administration Hydralazine HCl 50 mg 09/26/20 15:00 09/28/20 07:41 Hydralazine 25 Mg Tab PO 50 mg TID AIDAN Administration Dextrose/Water 1,000 mls @ 0 mls/hr 09/25/20 10:13 09/26/20 05:36 D5w IV 1,000 mls .Q0M PRN Administration Hypoglycemia As Directed Insulin Glargine 22 units/ 0.22 mls @ 0 mls/hr 09/25/20 21:00 09/28/20 08:42 Miscellaneous Medication SC 0.22 mls BID AIDAN Administration Sodium Chloride 1,000 mls @ 60 mls/hr 09/26/20 12:13 09/28/20 02:37 Normal Saline 0.9% IV 1,000 mls .[id number] AIDAN Administration Piperacillin Sod/Tazobactam 100 mls @ 200 mls/hr 09/26/20 14:00 09/28/20 05:17 Sod 3.375 gm/ Sodium Chloride IVPB 100 mls Q8HR AIDAN Administration Insulin Human Lispro 0 units 09/25/20 10:15 09/28/20 05:49 Humalog 300 Units/3 Ml Vial SC 3 unit .AGGRESSIVE SLIDING AIDAN Administration Insulin Human Lispro 0 units 09/26/20 21:18 09/27/20 21:16 Humalog 300 Units/3 Ml Vial SC 2 unit .BEDTIME SLIDING SC PRN Administration Bedtime Correctional Scale Isosorbide Mononitrate 30 mg 09/26/20 09:00 09/28/20 07:35 Isosorbide Mononitrate Er 30 Mg Tab PO 30 mg DAILY AIDAN Administration Oxybutynin Chloride 5 mg 09/26/20 09:00 09/28/20 07:42 Oxybutynin 5 Mg Tab PO 5 mg DAILY AIDAN Administration Pantoprazole Sodium 40 mg 09/25/20 07:30 09/28/20 07:43 Pantoprazole 40 Mg Tab PO 40 mg DAILY-AC AIDAN Administration Sertraline HCl 50 mg 09/25/20 09:00 09/28/20 07:35 Sertraline Hcl 25 Mg Tab PO 50 mg DAILY AIDAN Administration Sodium Chloride 10 ml 09/24/20 21:00 09/28/20 07:49 Flush - Normal Saline 10 Ml Syringe IVF 10 ml Q12HR AIDAN Administration Tamsulosin HCl 0.4 mg 09/24/20 21:00 09/28/20 07:40 Tamsulosin Hcl 0.4 Mg Cap PO 0.4 mg BID AIDAN Administration Zinc Sulfate 220 mg 09/25/20 09:00 09/28/20 07:33 Zinc Sulfate 220 Mg Cap PO 220 mg DAILY AIDAN Administration Hospitalist Exam Vitals: Vital Signs (12 hours) Temp Pulse Resp BP Pulse Ox 09/28/20 11:28 97.9 F 70 15 145/64 H 97 09/28/20 08:15 98.8 F 71 18 161/72 H 98 09/28/20 07:24 96 09/28/20 04:00 79 28 H 126/72 99 Weight Weight 204 lb 2.369 oz General Appearance: NAD, awake alert Eye: PERRL ENT: normocephalic atraumatic Neck: supple Heart: RRR, normal peripheral pulses Respiratory: CTAB, normal chest expansion Gastrointestinal: soft, normal bowel sounds Neurological: cranial nerve grossly intact, no focal deficits Psychiatric: normal affect, normal behavior, A&O x 3 Hosp A/P - Plan 75-year-old male with past medical history of CKD stage III, hypertension, hyperlipidemia, coronary artery disease status post CABG x5 in 2014, type 2 diabetes mellitus, BPH presents after a mechanical fall at home found down after 24 hours found to be in mild rhabdo with an NSTEMI. fall Rhabdomyolysis - CT abdomen chest and pelvis negative for acute findings. -CT head no acute intracranial abnormality. pT OT consult. NSTEMI History of coronary artery disease status post multivessel CABG in 2014. Follows with Dr. Martinez. Patient with troponin elevated to 2.240. Patient endorses mild chest discomfort, but mostly rib pain. Dr. Ward of cardiology following and does not appear to be a STEMI equivalent. Aspirin, statin Echocardiogram Trend troponin, telemetry monitoring Cardiology following with us. Urinary tract infection -On ceftriaxone and urine culture growing gram-negative traci with 50-75,000 colonies await sensitivity Stage III chronic kidney disease Type 2 diabetes mellitus - Levemir. Patient unsure as to dosage. -nsulin sliding scale and ACH S rmed. Hypertension -restarted home meds -He is on several high doses of blood pressure medications including isosorbide mononitrate 30 mg lisinopril 20 mg and torsemide 100 mg twice a day due to his normotensive blood pressure readings I will reduce his home regimen and titrate accordingly. Hyperlipidemia Continue home statin BPH Continue home tamsulosin 8th Worsening Covid pneumonia Right upper lobe pneumonia without pneumothorax -Increased the Decadron dose to twice a day -Escalated the antibiotics to Zosyn -Talk to Dr. Hudson. NSTEMI with a troponin at 6.5--type II mismatch/demand ischemia possibly due to worsening Covid pneumonia -He is on aspirin Plavix and heparin 3 times daily for DVT prophylaxis Full code 9th -Colchicine added to the management of Covid -he still requires high flow oxygen with FiO2 currently at 74 and sats are 100% 10th mild elevation in the leukocytosis around 12.3 probably due to the steroid. Slight bump in his creatinine 2.35 Chronic kidney disease 3. -He does have a chronic kidney disease and her creatinine ranged anywhere from 3.37-2.79 since 2017. -He is on colchicine 0.6 mg daily dose will monitor his creatinine level closely. If it still going up, then we may need to stop the colchicine.
[2020-09-28 16:06] LABS: Hemoglobin 10.9 g/dL (14.0-18.0); Platelet Count 219 thou/uL (130-400)
[2020-09-28] MEDS: Finasteride 5 MG TAB PO SCH (20:48)
[2020-09-28] MEDS: Atorvastatin Calcium 40 MG TAB PO SCH (20:51)
[2020-09-28] MEDS: HumaLOG 300 UNITS/3 ML VIAL SC PRN (20:52)
[2020-09-29 04:54] LABS: #Lymphocytes 0.8 thou/uL (1.20-3.40); #Monocytes 0.6 thou/uL (0.11-0.59); #Neutrophils 13.3 thou/uL (1.40-6.50); %Eosinophils 0.1 % (0.0-10.0); %Lymphocytes 5.2 % (21.0-51.0); %Monocytes 4.2 % (0.0-10.0); %Neutrophils 90.5 % (42.0-75.0); Hemoglobin 10.7 g/dL (14.0-18.0); Mean Corpuscular HGB CONC 34.3 g/dL (32.0-36.0); Mean Corpuscular Hemoglobin 32.4 pg (27.0-31.0); Mean Corpuscular Volume 94.6 fL (78.0-98.0); Mean Platelet Volume 7.7 fL (7.4-10.4); Platelet Count 225 thou/uL (130-400); RBC Distribution Width 11.7 % (11.5-14.5); Red Blood Cell (RBC) Count 3.29 mill/uL (4.70-6.10); White Blood Cell (WBC) Count 14.7 thou/uL (4.8-10.8)
[2020-09-29 05:11] LABS: Anion Gap 14 mmol/L (10-20); BUN (Urea Nitrogen) 55 mg/dL (8.4-25.7); Calc. Creatinine Clearance 40 mL/min (70-130); Calcium 8.1 mg/dL (7.8-10.44); Carbon Dioxide 20 mmol/L (23-31); Chloride 111 mmol/L (98-107); Glucose 132 mg/dL (83-110); Potassium 3.3 mmol/L (3.5-5.1); Sodium 142 mmol/L (136-145)
[2020-09-29] MEDS: Piperacillin/Tazobactam 3.375 GM in Sodium Chloride 0.9% 100 ML IVPB SCH ×3 (05:32→21:21)
[2020-09-29] MEDS: Insulin Glargine 22 UNITS in Pre-Filled Syringe 1 EACH SC SCH ×2 (08:28→21:16)
[2020-09-29] MEDS: Heparin 5,000 UNITS/ML VIAL SC SCH ×3 (08:31→20:09)
[2020-09-29] MEDS: Ferrous Sulfate 325 MG TAB PO SCH (08:32)
[2020-09-29] MEDS: Carvedilol 6.25 MG TAB PO SCH ×2 (08:32→16:14)
[2020-09-29] MEDS: Ascorbic Acid 500 mg Chewable Tablet PO SCH (08:33)
[2020-09-29] MEDS: Aspirin 81 mg Enteric Coated Tablet PO SCH (08:33)
[2020-09-29] MEDS: Cholecalciferol 1,000 UNITS (25 MCG) TAB PO SCH ×2 (08:33→20:08)
[2020-09-29] MEDS: Amlodipine 10 MG TAB PO SCH (08:33)
[2020-09-29] MEDS: Clopidogrel Bisulfate 75 MG TAB PO SCH (08:34)
[2020-09-29] MEDS: Dexamethasone 4 mg/ml Vial SLOW IVP SCH ×2 (08:34→20:08)
[2020-09-29] MEDS: Colchicine 0.6 MG TAB PO SCH (08:34)
[2020-09-29] MEDS: hydrALAZINE 25 MG TAB PO SCH ×3 (08:35→20:08)
[2020-09-29] MEDS: Oxybutynin 5 MG TAB PO SCH (08:36)
[2020-09-29] MEDS: Tamsulosin HCl 0.4 MG CAP PO SCH ×2 (08:37→20:08)
[2020-09-29] MEDS: Zinc Sulfate 220 MG CAP PO SCH (08:37)
[2020-09-29] MEDS ORDERED: hydrALAZINE 25 MG TAB PO SCH (09:30)
[2020-09-29] MEDS: HumaLOG 300 UNITS/3 ML VIAL SC SCH ×2 (11:00→16:14)
--- NOTE | 2020-09-29 12:18 | PDOC.HOSPP ---
- Subjective Encounter Date: 09/29/20 Encounter Time: 09:10 Subjective: He is little sleepy but he said he rested well last night. Currently he is on nasal cannula oxygen his sats are 95%. His blood pressure is quite elevated. - Objective Vital Signs & Weight: Vital Signs (12 hours) Temp Pulse Resp BP Pulse Ox 09/29/20 10:40 98.2 F 68 20 170/79 H 100 09/29/20 08:00 97.2 F L 67 22 H 197/87 H 95 09/29/20 05:00 97.9 F 70 18 163/77 H 94 L Weight Weight 204 lb 2.369 oz I&O: 09/28/20 09/29/20 09/30/20 06:59 06:59 06:59 Intake Total 1549 1360 Balance 1549 1360 Result Diagrams: 09/29/20 04:31 09/29/20 04:31 Additional Labs: Accuchecks 09/29/20 09/29/20 09/28/20 10:36 05:36 20:44 POC Glucose 162 H 117 H 227 H 09/28/20 16:34 POC Glucose 228 H Hospitalist ROS - Medication Medications: Active Medications Generic Name Dose Route Start Last Admin Trade Name Freq PRN Reason Stop Dose Admin Acetaminophen 650 mg 09/24/20 21:11 09/27/20 12:03 Acetaminophen 325 Mg Tab PO 650 mg Q4H PRN Administration Headache/Fever or Pain Amlodipine Besylate 10 mg 09/26/20 09:00 09/29/20 08:33 Amlodipine 10 Mg Tab PO 10 mg DAILY AIDAN Administration Ascorbic Acid 1,000 mg 09/26/20 09:00 09/29/20 08:33 Ascorbic Acid 500 Mg Chewable Tablet PO 1,000 mg DAILY AIDAN Administration Aspirin 81 mg 09/26/20 09:00 09/29/20 08:33 Aspirin 81 Mg Enteric Coated Tablet PO 81 mg DAILY AIDAN Administration Atorvastatin Calcium 40 mg 09/24/20 21:00 09/28/20 20:51 Atorvastatin Calcium 40 Mg Tab PO 40 mg QPM AIDAN Administration Cholecalciferol 2,000 units 09/25/20 21:00 09/29/20 08:33 Cholecalciferol 1,000 Units (25 Mcg) Tab PO 2,000 units BID AIDAN Administration Clopidogrel Bisulfate 75 mg 09/26/20 09:00 09/29/20 08:34 Clopidogrel Bisulfate 75 Mg Tab PO 75 mg DAILY AIDAN Administration Colchicine 0.6 mg 09/28/20 09:00 09/29/20 08:34 Colchicine 0.6 Mg Tab PO 0.6 mg DAILY AIDAN Administration Dexamethasone 6 mg 09/26/20 21:00 09/29/20 08:34 Dexamethasone 4 Mg/Ml Vial SLOW IVP 6 mg BID AIDAN Administration Ferrous Sulfate 325 mg 09/26/20 08:00 09/29/20 08:32 Ferrous Sulfate 325 Mg Tab PO 325 mg QAM-WM AIDAN Administration Finasteride 5 mg 09/25/20 21:00 09/28/20 20:48 Finasteride 5 Mg Tab PO 5 mg HS AIDAN Administration Heparin Sodium (Porcine) 5,000 units 09/26/20 15:00 09/29/20 08:31 Heparin 5,000 Units/Ml Vial SC 5,000 units TID AIDAN Administration Dextrose/Water 1,000 mls @ 0 mls/hr 09/25/20 10:13 09/26/20 05:36 D5w IV 1,000 mls .Q0M PRN Administration Hypoglycemia As Directed Insulin Glargine 22 units/ 0.22 mls @ 0 mls/hr 09/25/20 21:00 09/29/20 08:28 Miscellaneous Medication SC 0.22 mls BID AIDAN Administration Sodium Chloride 1,000 mls @ 60 mls/hr 09/26/20 12:13 09/28/20 21:00 Normal Saline 0.9% IV 1,000 mls .[id number] AIDAN Administration Piperacillin Sod/Tazobactam 100 mls @ 200 mls/hr 09/26/20 14:00 09/29/20 05:32 Sod 3.375 gm/ Sodium Chloride IVPB 100 mls Q8HR AIDAN Administration Insulin Human Lispro 0 units 09/25/20 10:15 09/29/20 11:00 Humalog 300 Units/3 Ml Vial SC 3 unit .AGGRESSIVE SLIDING AIDAN Administration Insulin Human Lispro 0 units 09/26/20 21:18 09/28/20 20:52 Humalog 300 Units/3 Ml Vial SC 2 unit .BEDTIME SLIDING SC PRN Administration Bedtime Correctional Scale Isosorbide Mononitrate 30 mg 09/26/20 09:00 09/29/20 08:36 Isosorbide Mononitrate Er 30 Mg Tab PO 30 mg DAILY AIDAN Administration Oxybutynin Chloride 5 mg 09/26/20 09:00 09/29/20 08:36 Oxybutynin 5 Mg Tab PO 5 mg DAILY AIDAN Administration Pantoprazole Sodium 40 mg 09/25/20 07:30 09/29/20 08:32 Pantoprazole 40 Mg Tab PO 40 mg DAILY-AC AIDAN Administration Sertraline HCl 50 mg 09/25/20 09:00 09/29/20 08:36 Sertraline Hcl 25 Mg Tab PO 50 mg DAILY AIDAN Administration Sodium Chloride 10 ml 09/24/20 21:00 09/29/20 08:37 Flush - Normal Saline 10 Ml Syringe IVF 10 ml Q12HR AIDAN Administration Tamsulosin HCl 0.4 mg 09/24/20 21:00 09/29/20 08:37 Tamsulosin Hcl 0.4 Mg Cap PO 0.4 mg BID AIDAN Administration Zinc Sulfate 220 mg 09/25/20 09:00 09/29/20 08:37 Zinc Sulfate 220 Mg Cap PO 220 mg DAILY AIDAN Administration Hospitalist Exam Vitals: Vital Signs (12 hours) Temp Pulse Resp BP Pulse Ox 09/29/20 10:40 98.2 F 68 20 170/79 H 100 09/29/20 08:00 97.2 F L 67 22 H 197/87 H 95 09/29/20 05:00 97.9 F 70 18 163/77 H 94 L Weight Weight 204 lb 2.369 oz General Appearance: NAD, awake alert Eye: PERRL ENT: normocephalic atraumatic Neck: supple Heart: RRR Respiratory: CTAB, normal chest expansion Gastrointestinal: soft, normal bowel sounds Psychiatric: A&O x 3 Hosp A/P - Plan 75-year-old male with past medical history of CKD stage III, hypertension, hyperlipidemia, coronary artery disease status post CABG x5 in 2015, type 2 diabetes mellitus, BPH presents after a mechanical fall at home found down after 24 hours found to be in mild rhabdo with an NSTEMI. fall Rhabdomyolysis - CT abdomen chest and pelvis negative for acute findings. -CT head no acute intracranial abnormality. pT OT consult. NSTEMI History of coronary artery disease status post multivessel CABG in 2014. Follows with Dr. Martinez. Patient with troponin elevated to 2.240. Patient endorses mild chest discomfort, but mostly rib pain. Dr. Ward of cardiology following and does not appear to be a STEMI equivalent. Aspirin, statin Echocardiogram Trend troponin, telemetry monitoring Cardiology following with us. Urinary tract infection -On ceftriaxone and urine culture growing gram-negative traci with 50-75,000 colonies await sensitivity Stage III chronic kidney disease Type 2 diabetes mellitus - Levemir. Patient unsure as to dosage. -nsulin sliding scale and ACH S rmed. Hypertension -restarted home meds -He is on several high doses of blood pressure medications including isosorbide mononitrate 30 mg lisinopril 20 mg and torsemide 100 mg twice a day due to his normotensive blood pressure readings I will reduce his home regimen and titrate accordingly. Hyperlipidemia Continue home statin BPH Continue home tamsulosin 8th Worsening Covid pneumonia Right upper lobe pneumonia without pneumothorax -Increased the Decadron dose to twice a day -Escalated the antibiotics to Zosyn -Talk to Dr. Hudson. NSTEMI with a troponin at 6.5--type II mismatch/demand ischemia possibly due to worsening Covid pneumonia -He is on aspirin Plavix and heparin 3 times daily for DVT prophylaxis Full code 9th -Colchicine added to the management of Covid -he still requires high flow oxygen with FiO2 currently at 74 and sats are 100% 10th mild elevation in the leukocytosis around 12.3 probably due to the steroid. Slight bump in his creatinine 2.35 Chronic kidney disease 3. -He does have a chronic kidney disease and her creatinine ranged anywhere from 3.37-2.79 since 2017. -He is on colchicine 0.6 mg daily dose will monitor his creatinine level closely. If it still going up, then we may need to stop the colchicine. 10th Accelerated hypertension -Increased Coreg and hydralazine doses of home regimen. He weaned off from high flow oxygen and currently is on nasal cannula. physical therapy consult placed. Creatinine remained stable given the chronic kidney disease. Generalized weakness secondary to Covid pneumonia He would benefit with inpatient rehab --disposition probably early next week.
[2020-09-29] MEDS: Finasteride 5 MG TAB PO SCH (20:08)
[2020-09-29] MEDS: Atorvastatin Calcium 40 MG TAB PO SCH (20:08)
[2020-09-30] MEDS: hydrALAZINE 20 MG/ML VIAL SLOW IVP PRN (00:41)
[2020-09-30 04:53] LABS: Anion Gap 12 mmol/L (10-20); BUN (Urea Nitrogen) 55 mg/dL (8.4-25.7); Calc. Creatinine Clearance 39 mL/min (70-130); Carbon Dioxide 20 mmol/L (23-31); Chloride 110 mmol/L (98-107); Glucose 101 mg/dL (83-110); Potassium 3.2 mmol/L (3.5-5.1); Sodium 139 mmol/L (136-145)
[2020-09-30 05:29] LABS: Band 10 % (5-11); Hemoglobin 10.3 g/dL (14.0-18.0); Lymphocytes 4 % (21-51); MDiff Complete? YES; Mean Corpuscular HGB CONC 32.9 g/dL (32.0-36.0); Mean Corpuscular Hemoglobin 30.7 pg (27.0-31.0); Mean Corpuscular Volume 93.4 fL (78.0-98.0); Mean Platelet Volume 7.9 fL (7.4-10.4); Monocytes 4 % (0-10); Neutrophil 82 % (42-75); Platelet Count 239 thou/uL (130-400); RBC Distribution Width 11.7 % (11.5-14.5); Red Blood Cell (RBC) Count 3.37 mill/uL (4.70-6.10); White Blood Cell (WBC) Count 13.1 thou/uL (4.8-10.8)
[2020-09-30] MEDS: Piperacillin/Tazobactam 3.375 GM in Sodium Chloride 0.9% 100 ML IVPB SCH ×3 (05:45→21:43)
[2020-09-30] MEDS: Insulin Glargine 22 UNITS in Pre-Filled Syringe 1 EACH SC SCH ×3 (08:03→21:00)
[2020-09-30] MEDS: Heparin 5,000 UNITS/ML VIAL SC SCH ×3 (08:04→20:43)
[2020-09-30] MEDS: Carvedilol 6.25 MG TAB PO SCH (08:06)
[2020-09-30] MEDS: Ferrous Sulfate 325 MG TAB PO SCH (08:07)
[2020-09-30] MEDS: Amlodipine 10 MG TAB PO SCH (08:08)
[2020-09-30] MEDS: Aspirin 81 mg Enteric Coated Tablet PO SCH (08:08)
[2020-09-30] MEDS: Cholecalciferol 1,000 UNITS (25 MCG) TAB PO SCH ×2 (08:08→20:41)
[2020-09-30] MEDS: Dexamethasone 4 mg/ml Vial SLOW IVP SCH (08:09)
[2020-09-30] MEDS: Colchicine 0.6 MG TAB PO SCH (08:09)
[2020-09-30] MEDS: Clopidogrel Bisulfate 75 MG TAB PO SCH (08:09)
[2020-09-30] MEDS: Tamsulosin HCl 0.4 MG CAP PO SCH ×2 (08:10→20:46)
[2020-09-30] MEDS: hydrALAZINE 25 MG TAB PO SCH ×3 (08:10→20:43)
[2020-09-30] MEDS: Oxybutynin 5 MG TAB PO SCH (08:10)
[2020-09-30] MEDS: Zinc Sulfate 220 MG CAP PO SCH (08:11)
[2020-09-30] MEDS: Ascorbic Acid 500 mg Chewable Tablet PO SCH (08:17)
[2020-09-30] MEDS ORDERED: Potassium Chloride 20 MEQ TAB PO SCH (09:15)
[2020-09-30] MEDS ORDERED: Furosemide 20 MG/2 ML VIAL SLOW IVP SCH (09:15)
--- NOTE | 2020-09-30 09:24 | RAD ---
Portable frontal chest radiograph: 09/30/2020 COMPARISON: 09/26/2020 HISTORY: Covid positive patient, aspiration, worsening hypoxia FINDINGS: There has been interval improvement in the right lung aeration with residual perihilar and infrahilar airspace disease. There has been worsening aeration within the left lung with interval development of left perihilar/left upper lobe airspace disease and worsening patchy opacity within th e left base medially. Midline sternotomy wires are present. There is atherosclerotic calcification of the aortic arch. IMPRESSION: Nonspecific bilateral airspace disease, improved on the right and worsened on the left.
--- NOTE | 2020-09-30 13:28 | PDOC.HOSPP ---
- Subjective Encounter Date: 09/30/20 Encounter Time: 09:45 Subjective: Patient has significant crackles if he is quite somnolent this morning. Chest x-ray showed nonspecific bilateral airspace disease improved on the right and worse on the left. His BNP is almost 2000 and he is inflammatory markers are quite high. Creatinine remains stable. - Objective Vital Signs & Weight: Vital Signs (12 hours) Temp Pulse Resp BP Pulse Ox 09/30/20 11:04 99.9 F H 73 24 H 179/84 H 98 09/30/20 08:56 100.5 F H 87 28 H 172/79 H 95 09/30/20 08:08 79 09/30/20 08:00 100.5 F H 87 26 H 172/79 H 95 09/30/20 02:50 148/72 H Weight Weight 204 lb 2.369 oz I&O: 09/29/20 09/30/20 10/01/20 06:59 06:59 06:59 Intake Total 1360 2710 240 Balance 1360 2710 240 Result Diagrams: 09/30/20 04:18 09/30/20 04:18 Additional Labs: Accuchecks 09/30/20 09/30/20 09/29/20 10:55 05:01 20:31 POC Glucose 109 H 101 H 136 H 09/29/20 15:33 POC Glucose 186 H Hospitalist ROS - Medication Medications: Active Medications Generic Name Dose Route Start Last Admin Trade Name Freq PRN Reason Stop Dose Admin Acetaminophen 650 mg 09/24/20 21:11 09/27/20 12:03 Acetaminophen 325 Mg Tab PO 650 mg Q4H PRN Administration Headache/Fever or Pain Amlodipine Besylate 10 mg 09/26/20 09:00 09/30/20 08:08 Amlodipine 10 Mg Tab PO 10 mg DAILY AIDAN Administration Ascorbic Acid 1,000 mg 09/26/20 09:00 09/30/20 08:17 Ascorbic Acid 500 Mg Chewable Tablet PO 1,000 mg DAILY AIDAN Administration Aspirin 81 mg 09/26/20 09:00 09/30/20 08:08 Aspirin 81 Mg Enteric Coated Tablet PO 81 mg DAILY AIDAN Administration Atorvastatin Calcium 40 mg 09/24/20 21:00 09/29/20 20:08 Atorvastatin Calcium 40 Mg Tab PO 40 mg QPM AIDAN Administration Cholecalciferol 2,000 units 09/25/20 21:00 09/30/20 08:08 Cholecalciferol 1,000 Units (25 Mcg) Tab PO 2,000 units BID AIDAN Administration Clopidogrel Bisulfate 75 mg 09/26/20 09:00 09/30/20 08:09 Clopidogrel Bisulfate 75 Mg Tab PO 75 mg DAILY AIDAN Administration Colchicine 0.6 mg 09/28/20 09:00 09/30/20 08:09 Colchicine 0.6 Mg Tab PO 0.6 mg DAILY AIDAN Administration Dexamethasone 6 mg 09/26/20 21:00 09/30/20 08:09 Dexamethasone 4 Mg/Ml Vial SLOW IVP 6 mg BID AIDAN Administration Ferrous Sulfate 325 mg 09/26/20 08:00 09/30/20 08:07 Ferrous Sulfate 325 Mg Tab PO 325 mg QAM-WM AIDAN Administration Finasteride 5 mg 09/25/20 21:00 09/29/20 20:08 Finasteride 5 Mg Tab PO 5 mg HS AIDAN Administration Heparin Sodium (Porcine) 5,000 units 09/26/20 15:00 09/30/20 08:04 Heparin 5,000 Units/Ml Vial SC 5,000 units TID AIDAN Administration Hydralazine HCl 10 mg 09/26/20 09:02 09/30/20 00:41 Hydralazine 20 Mg/Ml Vial SLOW IVP 10 mg Q4H PRN Administration Blood Pressure Hydralazine HCl 75 mg 09/29/20 15:00 09/30/20 08:10 Hydralazine 25 Mg Tab PO 75 mg TID AIDAN Administration Dextrose/Water 1,000 mls @ 0 mls/hr 09/25/20 10:13 09/26/20 05:36 D5w IV 1,000 mls .Q0M PRN Administration Hypoglycemia As Directed Insulin Glargine 22 units/ 0.22 mls @ 0 mls/hr 09/25/20 21:00 09/30/20 11:07 Miscellaneous Medication SC Not Given BID AIDAN Piperacillin Sod/Tazobactam 100 mls @ 200 mls/hr 09/26/20 14:00 09/30/20 05:4 5 Sod 3.375 gm/ Sodium Chloride IVPB 100 mls Q8HR AIDAN Administration Insulin Human Lispro 0 units 09/25/20 10:15 09/29/20 16:14 Humalog 300 Units/3 Ml Vial SC 3 unit .AGGRESSIVE SLIDING AIDAN Administration Insulin Human Lispro 0 units 09/26/20 21:18 09/28/20 20:52 Humalog 300 Units/3 Ml Vial SC 2 unit .BEDTIME SLIDING SC PRN Administration Bedtime Correctional Scale Isosorbide Mononitrate 30 mg 09/26/20 09:00 09/30/20 08:10 Isosorbide Mononitrate Er 30 Mg Tab PO 30 mg DAILY AIDAN Administration Oxybutynin Chloride 5 mg 09/26/20 09:00 09/30/20 08:10 Oxybutynin 5 Mg Tab PO 5 mg DAILY AIDAN Administration Pantoprazole Sodium 40 mg 09/25/20 07:30 09/30/20 08:06 Pantoprazole 40 Mg Tab PO 40 mg DAILY-AC AIDAN Administration Sertraline HCl 50 mg 09/25/20 09:00 09/30/20 11:08 Sertraline Hcl 25 Mg Tab PO Not Given DAILY AIDAN Sodium Chloride 10 ml 09/24/20 21:00 09/30/20 08:10 Flush - Normal Saline 10 Ml Syringe IVF 10 ml Q12HR AIDAN Administration Sodium Chloride 10 ml 09/24/20 19:15 09/30/20 09:18 Flush - Normal Saline 10 Ml Syringe IVF 10 ml PRN PRN Administration Saline Flush Tamsulosin HCl 0.4 mg 09/24/20 21:00 09/30/20 08:10 Tamsulosin Hcl 0.4 Mg Cap PO 0.4 mg BID AIDAN Administration Zinc Sulfate 220 mg 09/25/20 09:00 09/30/20 08:11 Zinc Sulfate 220 Mg Cap PO 220 mg DAILY AIDAN Administration Hospitalist Exam Vitals: Vital Signs (12 hours) Temp Pulse Resp BP Pulse Ox 09/30/20 11:04 99.9 F H 73 24 H 179/84 H 98 09/30/20 08:56 100.5 F H 87 28 H 172/79 H 95 09/30/20 08:08 79 09/30/20 08:00 100.5 F H 87 26 H 172/79 H 95 09/30/20 02:50 148/72 H Weight Weight 204 lb 2.369 oz General Appearance: ill appearing Eye: PERRL ENT: normocephalic atraumatic Neck: supple Heart: RRR Respiratory: rales, rhonchi, tachypneic Gastrointestinal: soft, distended Extremities: 1+ LE edema Neurological: cranial nerve grossly intact, no new deficit Musculoskeletal: generalized weakness Psychiatric: oriented to person, somnolent, lethargic Hosp A/P - Plan 75-year-old male with past medical history of CKD stage III, hypertension, hyperlipidemia, coronary artery disease status post CABG x5 in 2015, type 2 diabetes mellitus, BPH presents after a mechanical fall at home found down after 24 hours found to be in mild rhabdo with an NSTEMI. fall Rhabdomyolysis - CT abdomen chest and pelvis negative for acute findings. -CT head no acute intracranial abnormality. pT OT consult. NSTEMI History of coronary artery disease status post multivessel CABG in 2015. Follows with Dr. Martinez. Patient with troponin elevated to 2.240. Patient endorses mild chest discomfort, but mostly rib pain. Dr. Ward of cardiology following and does not appear to be a STEMI equivalent. Aspirin, statin Cardiology following with us. Urinary tract infection -urine culture growing gram-negative traci with 50-75,000 colonies await -Proteus and sensitive to Zosyn we will continue the Zosyn until he is clinically much more improved Stage III chronic kidney disease Type 2 diabetes mellitus - Levemir. Patient unsure as to dosage. -nsulin sliding scale and ACH S rmed. Hyperlipidemia Continue home statin BPH Continue home tamsulosin Worsening Covid pneumonia Right upper lobe pneumonia without pneumothorax -Increased the Decadron dose to twice a day -Escalated the antibiotics to Zosyn -Talk to Dr. Hudson. NSTEMI with a troponin at 6.5--type II mismatch/demand ischemia possibly due to worsening Covid pneumonia -He is on aspirin Plavix and heparin 3 times daily for DVT prophylaxis Accelerated hypertension -Increased Coreg and hydralazine doses of home regimen. He weaned off from high flow oxygen and currently is on nasal cannula. physical therapy consult placed. Creatinine remained stable given the chronic kidney disease. 12th Worsening pneumonia more on the left side and febrile episode -He is on appropriate steroid as well as broad-spectrum antibiotic. -Follow-up on the blood cultures -ID consult placed and appreciate their input. -Inflammatory markers are persistently elevated -Echo is not done though it is started on seventh perhaps due to being isolated condition. -Though his creatinine is around 2.2, I will go ahead and start him on aggressive diuresis as far as blood pressure allows. [BNP over 1999] -Due to his chronic kidney disease his DVT prophylaxis is heparin 3 times daily. Full code
[2020-09-30] MEDS: Furosemide 40 MG/4 ML VIAL SLOW IVP SCH (13:51)
--- NOTE | 2020-09-30 16:44 | PDOC.PULPN ---
Progress Note: Subj/Obj - Subjective Date: 09/30/20 Time: 15:30 Narrative: called urgently to see patient with increased respiratory difficulty - ROS All systems: reviewed and no additional remarkable complaints except as stated (thirsty does not want to participate w/ PT poor appetite for lunch denies PND/Orthopnea) - Objective Allergies/Adverse Reactions: Allergies Allergy/AdvReac Type Severity Reaction Status Date / Time Iodinated Contrast Media AdvReac Mild n/v Verified 09/24/20 13:41 [Iodinated Contrast Media - IV Dye] MAR Reviewed: Yes Vital Signs: Vital Signs Temp 98.1 F 09/30/20 15:43 Pulse 75 09/30/20 15:43 Resp 24 H 09/30/20 15:43 BP 162/76 H 09/30/20 15:43 Pulse Ox 94 L 09/30/20 15:43 Intake & Output 09/29/20 09/30/20 09/30/20 18:59 06:59 18:59 Intake Total 1760 950 360 Balance 1760 950 360 Intake: Intake, IV Amount 540 Oral 1220 950 360 Other: Voiding Method Diaper Diaper Diaper # Urine Diapers 1 1 # Bowel Movements 1 # Bowel Movement Diapers 1 Progress Note: Exam - Physical Exam HEENT: oral pharynx no lesions (dry) Neck: no nodes, no JVD (sitting upright, very weak, does not have trunk strengt h), supple Respiratory: prolonged expiratory phase, rales, rhonchi Focused Respiratory Location: decreased breath sounds: Upper, Lower, rales: Right, Left, rhonchi: Right, wheezes: Right Gastrointestinal: positive bowel sounds (hypoactive, firm, subcut edema) Musculoskeletal: edema present (4Plus in thighs, hips, flanks, abd wall) Deviation from normal: contractures left shoulder, elbow, wrist, no truncal strength full assist Progress Note: Data - Labs Result Diagrams: 09/30/20 04:18 09/30/20 04:18 Progress Note: A/P - Problems (1) Pulmonary edema cardiac cause Status: Acute Code(s): I50.1 - LEFT VENTRICULAR FAILURE, UNSPECIFIED (2) COVID-19 Current Visit: Yes Status: Acute Code(s): U07.1 - COVID-19 (3) Anasarca associated with disorder of kidney Current Visit: Yes Status: Acute Code(s): N04.9 - NEPHROTIC SYNDROME WITH UNSPECIFIED MORPHOLOGIC CHANGES - Plan Plan: Increase lasix dosing to 40mg iv bid and add additional dose at [address] to better manage anasarca, chf as he is virtually bedridden Replace potassium as needed Monitor bmp, likely to have more advanced CKD than is evident on current labs, his BUN and Cr are lower than admission CXR today is very c/w cardiogenic pulm edema, his prior CXR looked like pneumonia, he is on Zosyn follow chest xray in am discussed with ID, we agree to reduce steroids to 2 mg po daily and maybe to off pending COVID antibody studies COVID infection, doubt COVID pneumonia, inflammatory markers are elevated. D dimer elevated, he is on heparin, aspirin, plavix, remains high risk of DVT and of bleeding, will check venous dopper
[2020-09-30] MEDS ORDERED: Carvedilol 6.25 MG TAB PO SCH (17:00)
[2020-09-30] MEDS: Carvedilol 25 MG TAB PO SCH (17:46)
[2020-09-30] MEDS ORDERED: Furosemide 40 MG/4 ML VIAL SLOW IVP SCH ×2 (18:00→21:00)
[2020-09-30 18:57] LABS: Hemoglobin 10.7 g/dL (14.0-18.0); Platelet Count 228 thou/uL (130-400)
[2020-09-30] MEDS: Atorvastatin Calcium 40 MG TAB PO SCH (20:44)
[2020-09-30] MEDS: Finasteride 5 MG TAB PO SCH (20:44)
--- NOTE | 2020-09-30 20:44 | CON ---
DATE OF CONSULTATION: HISTORY OF PRESENT ILLNESS: A 75-year-old with history of prior CVA with left hemiparesis, ischemic cardiomyopathy, type 2 diabetes and hypertension, and CKD stage 3, who lives in an independent living apartment next to the hospital, was found by a sales support specialist on the ground after accidental fall. EMS was activated. Did not lose consciousness. Did not have seizure activity. He felt some dizziness. Had some left-sided rib pain mostly on the rib cage. Did not have any cough or shortness of breath. No fever documented. No changes in neuro examination overall. Initial vitals, BP 150/72, pulse 105, temperature 98.9, O2 saturation 97% on room air. Lungs were described as clear. S1, S2, regular rate. Abdomen is soft, not distended. He has had the initial chest x-ray on the , which demonstrated right-sided infiltrate, which was patchy airspace opacity. He also had a CT of chest, abdomen, and pelvis the day of admission, which showed no acute process. There was mild subsegmental atelectases changes in the lingula, but nothing else really. Initial impression was non-STEMI by troponin, some rhabdomyolysis, UTI, coronary disease, type 2 diabetes. He had a positive SARS-CoV-2 on the , which resulted later on. He had nuclear scan to rule out the pulmonary embolism, which was negative, and on the , he was requiring 3 L of oxygen supplementation, some muscle cramps were noted. He was on Rocephin, pantoprazole, tamsulosin, zinc. Dr. Ward was consulted. Dr. Hudson was consulted on the , and his assessment was COVID-19 with worsening oxygenation, comorbid factors, so colchicine was started. Steroids were started. He is not eligible for remdesivir due to renal function issues. His BNP was noted to be 510 on admission and it went up to 2000 two days later. He was given diuresis, and his O2 requirements went up to high- flow requirements up to 60 and then after diuresis went rapidly down back to nasal cannula 2 L. Repeat chest x-ray today shows improvement in right lung aeration, residual perihilar infrahilar airspace disease. He is awake. He is not tachypneic. He denies any headaches. No visual symptoms. No cough. The dyspnea has improved. No abdominal pain. He is voiding in the diaper. He is weaker on the left side. Still able to move the extremities, though. PAST MEDICAL HISTORY: Prior CVA with left hemiparesis, ischemic cardiomyopathy, CHF, hypertension, type 2 diabetes, hyperlipidemia, CKD, 3. PAST SURGICAL HISTORY: Bypass graft surgery x5, tonsillectomy, left hip surgery. SOCIAL HISTORY: Lives at independent facility by himself. Drinks twice a month. Never smoker. FAMILY HISTORY: Noncontributory. ALLERGIES: IODINATED CONTRAST. CURRENT MEDICATIONS: 1. Inhalers. 2. Norvasc. 3. Vitamin C. 4. Ecotrin. 5. Lipitor. 6. Coreg. 7. Plavix. 8. Colcrys. 9. Decadron has been decreased to 2 mg daily. 10. Feosol. 11. Proscar. 12. Lasix. 13. Insulin. 14. Zofran. 15. Ditropan. 16. Senokot. 17. Zinc. PHYSICAL EXAMINATION: VITAL SIGNS: Temperature went up to low-grade at 100.5 and nasal cannula O2 at 2 L, 94-98% saturation, is breathing anywhere from 24-28 times a minute. SKIN: No areas of skin breakdown. Peripheral IV access. Voiding in the diaper. HEENT: Ocular movements conjugate. Somewhat pale conjunctivae. Nasal passages patent. Oral cavity with no abnormalities noted. No jugular vein distention. LUNGS: With bilateral scattered inspiratory crackles, particularly in the dependent areas. No wheezing. HEART: S1 and S2. Regular rate. No S3 or S4. ABDOMEN: Soft, not distended or tender. No ascites. GENITOURINARY: No bladder distention. EXTREMITIES: No joint inflammatory activity. No edema. Pulses 1+ in dorsalis pedis. Left hemiparesis. NEUROLOGIC: Awake, good recollection of events. Speech is a little sluggish, but no speech errors. No delusional thinking process. LABORATORY STUDIES: Creatinine started 2.76, now is 2.20. Sodium 139, ferritin 662, and CRP 7.55 on September 26, albumin 3.9. Urinalysis with greater than 50 wbcs. Cultures with Citrobacter koseri. ASSESSMENT: 1. Ischemic cardiomyopathy. 2. Chronic kidney disease, 3. 3. Type 2 diabetes. 4. Hypertension. 5. COVID-19 of uncertain duration. 6. Congestive heart failure. DISCUSSION: The current status is still uncertain as to the prognosis in the ensuing days, and we will go ahead and submit a COVID antibody test to kind of try to determine more or less the duration of illness thus far. In part, his recent decompensation is secondary to his cardiomyopathy rather than COVID in view of the rapid improvement with diuresis. He did have this infiltrate, not clear if this was from bacterial infection or from COVID or his CHF. The patient has all the risk factors that would predict deterioration in the ensuing days. In terms of management, he is not eligible for remdesivir if he decompensates and ends up in the unit on high-flow or BiPAP or even intubated, and he would be a candidate for tocilizumab if it is approved by [facility]. Repeat CRP, ferritin. If those are still elevated, then I would increase his Decadron back to 6 mg once a day but not higher than that. Job ID: [id number] MTDD
[2020-09-30] MEDS: Colchicine 0.3 MG TAB PO SCH (21:52)
[2020-10-01 04:51] LABS: #Lymphocytes 0.6 thou/uL (1.20-3.40); #Monocytes 0.9 thou/uL (0.11-0.59); #Neutrophils 9.9 thou/uL (1.40-6.50); %Basophils 0.3 % (0.0-1.0); %Eosinophils 0.3 % (0.0-10.0); %Lymphocytes 4.8 % (21.0-51.0); %Neutrophils 86.6 % (42.0-75.0); Hemoglobin 10.8 g/dL (14.0-18.0); Mean Corpuscular Hemoglobin 31.9 pg (27.0-31.0); Mean Corpuscular Volume 93.8 fL (78.0-98.0); Mean Platelet Volume 8.2 fL (7.4-10.4); Platelet Count 220 thou/uL (130-400); RBC Distribution Width 11.6 % (11.5-14.5); Red Blood Cell (RBC) Count 3.38 mill/uL (4.70-6.10); White Blood Cell (WBC) Count 11.4 thou/uL (4.8-10.8)
[2020-10-01 05:13] LABS: Anion Gap 17 mmol/L (10-20); BUN (Urea Nitrogen) 59 mg/dL (8.4-25.7); Calc. Creatinine Clearance 37 mL/min (70-130); Calcium 8.1 mg/dL (7.8-10.44); Carbon Dioxide 19 mmol/L (23-31); Chloride 107 mmol/L (98-107); Glucose 106 mg/dL (83-110); Sodium 140 mmol/L (136-145)
[2020-10-01 05:22] LABS: Potassium 2.8 mmol/L (3.5-5.1)
[2020-10-01] MEDS: Furosemide 40 MG/4 ML VIAL SLOW IVP SCH ×2 (06:00→15:11)
[2020-10-01] MEDS: Piperacillin/Tazobactam 3.375 GM in Sodium Chloride 0.9% 100 ML IVPB SCH ×3 (06:00→22:09)
[2020-10-01] MEDS ORDERED: Loratadine 10 MG TAB PO PRN (08:52)
[2020-10-01] MEDS ORDERED: Nitroglycerin 0.4 MG TAB (25 Tab Bottle) SL PRN (08:52)
[2020-10-01] MEDS ORDERED: Ondansetron PF 4 MG/2 ML Vial IVP PRN (08:52)
[2020-10-01] MEDS ORDERED: Bisacodyl 5 MG TAB PO PRN (08:52)
[2020-10-01] MEDS ORDERED: Benzonatate 100 MG CAP PO PRN (08:52)
[2020-10-01] MEDS ORDERED: Calcium Carbonate 500 MG ChewTAB PO PRN (08:52)
[2020-10-01] MEDS ORDERED: Cepastat Lozenges 1 LOZ PO PRN (08:52)
[2020-10-01] MEDS ORDERED: Loperamide HCl 2 MG CAP PO PRN (08:52)
[2020-10-01] MEDS ORDERED: Sodium Chloride 0.65% Nasal 44 ML BOT EA NARE PRN (08:52)
[2020-10-01] MEDS ORDERED: GUAIFENESIN SF SOLN 200 MG/10 ML UDCUP PO PRN (08:52)
[2020-10-01] MEDS ORDERED: Albuterol Sulfate 2.5 mg/3 ml Neb NEB PRN (08:54)
[2020-10-01] MEDS ORDERED: Potassium Chloride 20 MEQ TAB PO SCH ×2 (09:00→17:00)
[2020-10-01] MEDS: Tamsulosin HCl 0.4 MG CAP PO SCH ×2 (09:31→20:49)
[2020-10-01] MEDS: Dexamethasone 4 MG TAB PO SCH (09:32)
[2020-10-01] MEDS: Insulin Glargine 22 UNITS in Pre-Filled Syringe 1 EACH SC SCH ×2 (09:33→20:49)
[2020-10-01] MEDS: hydrALAZINE 25 MG TAB PO SCH ×3 (09:35→20:48)
[2020-10-01] MEDS: Clopidogrel Bisulfate 75 MG TAB PO SCH (09:37)
[2020-10-01] MEDS: Ascorbic Acid 500 mg Chewable Tablet PO SCH (09:37)
[2020-10-01] MEDS: Ferrous Sulfate 325 MG TAB PO SCH (09:37)
[2020-10-01] MEDS: Aspirin 81 mg Enteric Coated Tablet PO SCH (09:37)
[2020-10-01] MEDS: Zinc Sulfate 220 MG CAP PO SCH (09:38)
[2020-10-01] MEDS: Oxybutynin 5 MG TAB PO SCH (09:38)
[2020-10-01] MEDS: Amlodipine 10 MG TAB PO SCH (09:39)
[2020-10-01] MEDS: Carvedilol 25 MG TAB PO SCH ×2 (09:39→18:04)
[2020-10-01] MEDS: Heparin 5,000 UNITS/ML VIAL SC SCH ×3 (09:41→20:45)
[2020-10-01] MEDS: Cholecalciferol 1,000 UNITS (25 MCG) TAB PO SCH ×2 (09:45→20:47)
[2020-10-01] MEDS: Colchicine 0.3 MG TAB PO SCH ×2 (09:46→21:00)
--- NOTE | 2020-10-01 11:36 | PDOC.HOSPP ---
- Subjective Encounter Date: 10/01/20 Encounter Time: 09:40 Subjective: Patient seen and examined bedside today, patient is on oxygen, patient is physically very weak, he denies any new complaint, no fever, - Objective Vital Signs & Weight: Vital Signs (12 hours) Temp Pulse Resp BP Pulse Ox 10/01/20 08:07 99.0 F 68 18 170/74 H 95 10/01/20 04:02 99 F 74 19 154/73 H 93 L 09/30/20 23:59 99.5 F 86 22 H 179/74 H 93 L Weight Weight 204 lb 2.369 oz I&O: 09/30/20 10/01/20 10/02/20 06:59 06:59 06:59 Intake Total 2710 700 Output Total 1750 Balance 2710 -1050 Result Diagrams: 10/01/20 04:12 10/01/20 04:12 Additional Labs: Accuchecks 10/01/20 09/30/20 09/30/20 10:39 20:42 15:33 POC Glucose 129 H 118 H 107 H Radiology Reviewed by me: Yes EKG Reviewed by me: Yes Hospitalist ROS - Review of Systems Constitutional: reports: weakness, malaise Respiratory: reports: shortness of breath, SOB with excertion. denies: cough, dry, hemoptysis, pleuritic pain, sputum, wheezing, other Cardiovascular: denies: chest pain, palpitations, orthopnea, paroxysmal noc. dyspnea, edema, light headedness, other Gastrointestinal: denies: nausea, vomiting, abdominal pain, diarrhea, constipation, melena, hematochezia, other Genitourinary: denies: dysuria, frequency, incontinence, hematuria, retention, other Musculoskeletal: denies: neck pain, shoulder pain, arm pain, back pain, hand pain, leg pain, foot pain, other - Medication Medications: Active Medications Generic Name Dose Route Start Last Admin Trade Name Freq PRN Reason Stop Dose Admin Acetaminophen 650 mg 09/24/20 21:11 09/27/20 12:03 Acetaminophen 325 Mg Tab PO 650 mg Q4H PRN Administration Headache/Fever or Pain Amlodipine Besylate 10 mg 09/26/20 09:00 10/01/20 09:39 Amlodipine 10 Mg Tab PO 10 mg DAILY AIDAN Administration Ascorbic Acid 1,000 mg 09/26/20 09:00 10/01/20 09:37 Ascorbic Acid 500 Mg Chewable Tablet PO 1,000 mg DAILY AIDAN Administration Aspirin 81 mg 09/26/20 09:00 10/01/20 09:37 Aspirin 81 Mg Enteric Coated Tablet PO 81 mg DAILY IADAN Administration Atorvastatin Calcium 40 mg 09/24/20 21:00 09/30/20 20:44 Atorvastatin Calcium 40 Mg Tab PO 40 mg QPM AIDAN Administration Carvedilol 25 mg 09/30/20 17:00 10/01/20 09:39 Carvedilol 25 Mg Tab PO 25 mg BID-WM AIDAN Administration Cholecalciferol 2,000 units 09/25/20 21:00 10/01/20 09:45 Cholecalciferol 1,000 Units (25 Mcg) Tab PO 2,000 units BID AIDAN Administration Clopidogrel Bisulfate 75 mg 09/26/20 09:00 10/01/20 09:37 Clopidogrel Bisulfate 75 Mg Tab PO 75 mg DAILY AIDAN Administration Colchicine 0.3 mg 09/30/20 21:00 10/01/20 09:46 Colchicine 0.3 Mg Tab PO 0.3 mg BID AIDAN Administration Dexamethasone 2 mg 10/01/20 08:00 10/01/20 09:32 Dexamethasone 4 Mg Tab PO 2 mg QAM-WM AIDAN Administration Ferrous Sulfate 325 mg 09/26/20 08:00 10/01/20 09:37 Ferrous Sulfate 325 Mg Tab PO 325 mg QAM-WM AIDAN Administration Finasteride 5 mg 09/25/20 21:00 09/30/20 20:44 Finasteride 5 Mg Tab PO 5 mg HS AIDAN Administration Furosemide 40 mg 09/30/20 14:00 10/01/20 06:00 Furosemide 40 Mg/4 Ml Vial SLOW IVP 40 mg 0600,1400 AIDAN Administration Heparin Sodium (Porcine) 5,000 units 09/26/20 15:00 10/01/20 09:41 Heparin 5,000 Units/Ml Vial SC 5,000 units TID AIDAN Administration Hydralazine HCl 10 mg 09/26/20 09:02 09/30/20 00:41 Hydralazine 20 Mg/Ml Vial SLOW IVP 10 mg Q4H PRN Administration Blood Pressure Hydralazine HCl 75 mg 09/29/20 15:00 10/01/20 09:35 Hydralazine 25 Mg Tab PO 75 mg TID AIDAN Administration Dextrose/Water 1,000 mls @ 0 mls/hr 09/25/20 10:13 09/26/20 05:36 D5w IV 1,000 mls .Q0M PRN Administration Hypoglycemia As Directed Insulin Glargine 22 units/ 0.22 mls @ 0 mls/hr 09/25/20 21:00 10/01/20 09:33 Miscellaneous Medication SC 0.22 mls BID AIDAN Administration Piperacillin Sod/Tazobactam 100 mls @ 200 mls/hr 09/26/20 14:00 10/01/20 06:00 Sod 3.375 gm/ Sodium Chloride IVPB 100 mls Q8HR AIDAN Administration Insulin Human Lispro 0 units 09/25/20 10:15 09/29/20 16:14 Humalog 300 Units/3 Ml Vial SC 3 unit .AGGRESSIVE SLIDING AIDAN Administration Insulin Human Lispro 0 units 09/26/20 21:18 09/28/20 20:52 Humalog 300 Units/3 Ml Vial SC 2 unit .BEDTIME SLIDING SC PRN Administration Bedtime Correctional Scale Isosorbide Mononitrate 30 mg 09/26/20 09:00 10/01/20 09:38 Isosorbide Mononitrate Er 30 Mg Tab PO 30 mg DAILY AIDAN Administration Oxybutynin Chloride 5 mg 09/26/20 09:00 10/01/20 09:38 Oxybutynin 5 Mg Tab PO 5 mg DAILY AIDAN Administration Pantoprazole Sodium 40 mg 09/25/20 07:30 10/01/20 09:38 Pantoprazole 40 Mg Tab PO 40 mg DAILY-AC AIDAN Administration Sertraline HCl 50 mg 09/25/20 09:00 10/01/20 09:41 Sertraline Hcl 25 Mg Tab PO 50 mg DAILY AIDAN Administration Sodium Chloride 10 ml 09/24/20 21:00 10/01/20 09:31 Flush - Normal Saline 10 Ml Syringe IVF 10 ml Q12HR AIDAN Administration Sodium Chloride 10 ml 09/24/20 19:15 09/30/20 09:18 Flush - Normal Saline 10 Ml Syringe IVF 10 ml PRN PRN Administration Saline Flush Tamsulosin HCl 0.4 mg 09/24/20 21:00 10/01/20 09:31 Tamsulosin Hcl 0.4 Mg Cap PO 0.4 mg BID AIDAN Administration Zinc Sulfate 220 mg 09/25/20 09:00 10/01/20 09:38 Zinc Sulfate 220 Mg Cap PO 220 mg DAILY AIDAN Administration Hospitalist Exam Vitals: Vital Signs (12 hours) Temp Pulse Resp BP Pulse Ox 10/01/20 08:07 99.0 F 68 18 170/74 H 95 10/01/20 04:02 99 F 74 19 154/73 H 93 L 09/30/20 23:59 99.5 F 86 22 H 179/74 H 93 L Weight Weight 204 lb 2.369 oz General Appearance: NAD, awake alert Eye: PERRL, anicteric sclera ENT: normocephalic atraumatic, no oropharyngeal lesions Neck: supple, symmetric, no JVD Heart: RRR, no murmur, no gallops, no rubs Respiratory: no wheezes, no ronchi Respiratory - other findings: Bibasilar rales noted Gastrointestinal: soft, non-tender, non-distended, normal bowel sounds Gastrointestinal - other findings: Obesity Extremities: no clubbing, no edema Skin: normal turgor, no lesions Neurological: no focal deficits Musculoskeletal: normal tone, normal strength Psychiatric: normal affect, normal behavior Hosp A/P (1) Acute respiratory failure with hypoxia Code(s): J96.01 - ACUTE RESPIRATORY FAILURE WITH HYPOXIA Status: Acute (2) Pneumonia due to 2019 novel coronavirus Code(s): U07.1 - COVID-19; J12.82 - PNEUMONIA DUE TO CORONAVIRUS DISEASE 2019 Status: Acute (3) Acute on chronic combined systolic (congestive) and diastolic (congestive) heart failure Code(s): I50.43 - ACUTE ON CHRONIC COMBINED SYSTOLIC AND DIASTOLIC HRT FAIL Status: Acute (4) COVID-19 Code(s): U07.1 - COVID-19 Status: Acute (5) CAD (coronary artery disease) Code(s): I25.10 - ATHSCL HEART DISEASE OF [place] CORONARY ARTERY W/O ANG PCTRS Status: Chronic Qualifiers: Coronary Disease-Associated Artery/Lesion type: [place] artery [place] vs. transplanted heart: [place] heart (6) Chronic kidney disease, stage 3 Status: Chronic (7) DM2 (diabetes mellitus, type 2) Status: Chronic (8) H/O: CVA (cerebrovascular accident) Code(s): Z86.73 - PRSNL HX OF TIA (TIA), AND CEREB INFRC W/O RESID DEFICITS Status: Chronic (9) Hypokalemia Code(s): E87.6 - HYPOKALEMIA Status: Acute - Plan old records reviewed/req, continue antibiotics, PT/OT, DVT proph w/heparin Patient is on Zosyn Continue IV Lasix Replace potassium chloride 40 mill EQ p.o. twice daily Wean off oxygen as tolerated Continue PT OT as tolerated All consultants recommendation and hospital course reviewed We will repeat labs tomorrow including inflammatory marker Medication reviewed and continue provide symptomatic and supportive care Patient will need placement upon discharge
--- NOTE | 2020-10-01 15:04 | ULT ---
BILATERAL LOWER EXTREMITY VENOUS ULTRASOUND: DATE: 10/01/2020 COMPARISON: . HISTORY: Bilateral lower extremity edema and pain. Elevated D-Dimer. Chronic kidney disease. TECHNIQUE: Multiplanar [place] scale and color Doppler images were obtained in a bilateral lower extremity venous u ltrasound. Spectral analysis of the Doppler waveforms were performed. FINDINGS: Bilateral common femoral veins, profunda femoral veins, superficial femoral veins, and popliteal vein s are normal in appearance without visible thrombus. These vessels demonstrate normal compression, fl ow, and augmentation. The posterior tibial veins and greater saphenous veins are also patent. IMPRESSION: No evidence of deep venous thrombosis. POS: EAA
[2020-10-01 18:19] LABS: SARS-CoV-2 IgG Ab Non-Reactive (NonReactive); SARS-CoV-2 IgG Index 0.04 S/CO (< 1.40)
[2020-10-01] MEDS: Atorvastatin Calcium 40 MG TAB PO SCH (20:46)
[2020-10-01] MEDS: Finasteride 5 MG TAB PO SCH (20:48)
[2020-10-01] MEDS: HumaLOG 300 UNITS/3 ML VIAL SC SCH (21:00)
[2020-10-02 04:22] LABS: #Eosinphils 0.1 thou/uL (0.0-0.7); #Lymphocytes 0.5 thou/uL (1.20-3.40); #Monocytes 0.8 thou/uL (0.11-0.59); #Neutrophils 9.8 thou/uL (1.40-6.50); %Basophils 0.1 % (0.0-1.0); %Eosinophils 0.5 % (0.0-10.0); %Lymphocytes 4.8 % (21.0-51.0); %Neutrophils 87.6 % (42.0-75.0); Mean Corpuscular HGB CONC 33.8 g/dL (32.0-36.0); Mean Corpuscular Hemoglobin 31.6 pg (27.0-31.0); Mean Corpuscular Volume 93.6 fL (78.0-98.0); Mean Platelet Volume 8.2 fL (7.4-10.4); Platelet Count 215 thou/uL (130-400); RBC Distribution Width 11.6 % (11.5-14.5); Red Blood Cell (RBC) Count 3.16 mill/uL (4.70-6.10); White Blood Cell (WBC) Count 11.2 thou/uL (4.8-10.8)
[2020-10-02 04:47] LABS: ALT (SGPT) 10 U/L (8-55); AST (SGOT) 18 U/L (5-34); Alkaline Phosphatase 43 U/L (40-110); Anion Gap 16 mmol/L (10-20); BUN (Urea Nitrogen) 69 mg/dL (8.4-25.7); Bilirubin, Total 0.5 mg/dL (0.2-1.2); CRP (Inflammatory) 9.42 mg/dL (= or < 0.5); Calc. Creatinine Clearance 30 mL/min (70-130); Calcium 7.7 mg/dL (7.8-10.44); Carbon Dioxide 19 mmol/L (23-31); Chloride 105 mmol/L (98-107); Globulin 2.7 g/dL (2.4-3.5); Glucose 209 mg/dL (83-110); Magnesium 2.2 mg/dL (1.6-2.6); Phosphorus 4.6 mg/dL (2.3-4.7); Protein, Total 5.7 g/dL (5.8-8.1); Sodium 137 mmol/L (136-145)
[2020-10-02 04:57] LABS: Potassium 2.8 mmol/L (3.5-5.1)
[2020-10-02] MEDS ORDERED: Electrolyte Replacement Protocol 1 EACH FS PRN (05:23)
[2020-10-02] MEDS: Furosemide 40 MG/4 ML VIAL SLOW IVP SCH ×2 (05:47→13:55)
[2020-10-02] MEDS: Piperacillin/Tazobactam 3.375 GM in Sodium Chloride 0.9% 100 ML IVPB SCH (05:48)
[2020-10-02] MEDS: Potassium Chloride 20 MEQ in Premix Bag 1 BAG IVPB SCH (06:20)
[2020-10-02] MEDS: HumaLOG 300 UNITS/3 ML VIAL SC SCH (06:40)
[2020-10-02] MEDS: Ascorbic Acid 500 mg Chewable Tablet PO SCH (08:10)
[2020-10-02] MEDS: hydrALAZINE 25 MG TAB PO SCH ×3 (08:10→21:30)
[2020-10-02] MEDS: Oxybutynin 5 MG TAB PO SCH (08:10)
[2020-10-02] MEDS: Amlodipine 10 MG TAB PO SCH (08:10)
[2020-10-02] MEDS: Dexamethasone 4 MG TAB PO SCH (08:11)
[2020-10-02] MEDS: Cholecalciferol 1,000 UNITS (25 MCG) TAB PO SCH ×2 (08:11→21:00)
[2020-10-02] MEDS: Tamsulosin HCl 0.4 MG CAP PO SCH ×2 (08:11→21:29)
[2020-10-02] MEDS: Zinc Sulfate 220 MG CAP PO SCH (08:12)
[2020-10-02] MEDS: Ferrous Sulfate 325 MG TAB PO SCH (08:12)
[2020-10-02] MEDS: Clopidogrel Bisulfate 75 MG TAB PO SCH (08:12)
[2020-10-02] MEDS: Carvedilol 25 MG TAB PO SCH (08:12)
[2020-10-02] MEDS: Aspirin 81 mg Enteric Coated Tablet PO SCH (08:14)
[2020-10-02] MEDS: Heparin 5,000 UNITS/ML VIAL SC SCH ×3 (08:15→21:32)
--- NOTE | 2020-10-02 10:31 | PDOC.HOSPP ---
- Subjective Encounter Date: 10/02/20 Encounter Time: 09:10 Subjective: Patient seen and examined bedside today, he was sleepy but arousable, no overnight event, - Objective Vital Signs & Weight: Vital Signs (12 hours) Temp Pulse Resp BP Pulse Ox 10/02/20 08:10 73 10/02/20 07:55 99.4 F 68 24 H 167/72 H 91 L 10/02/20 03:47 98.4 F 73 19 133/91 H 91 L 10/01/20 23:10 75 17 143/69 H 92 L Weight Weight 222 lb 9.6 oz I&O: 10/01/20 10/02/20 10/03/20 06:59 06:59 06:59 Intake Total 700 2380 Output Total 1750 1800 Balance -1050 580 Result Diagrams: 10/02/20 04:02 10/02/20 04:02 Additional Labs: Accuchecks 10/01/20 10/01/20 10/01/20 20:58 17:00 10:39 POC Glucose 229 H 183 H 129 H EKG Reviewed by me: Yes Hospitalist ROS - Review of Systems Constitutional: reports: weakness, malaise ENT: denies: ear pain, ear discharge, nose pain, nose discharge, nose congestion, mouth pain, mouth swelling, throat pain, throat swelling, other Respiratory: reports: shortness of breath, SOB with excertion. denies: cough, dry, hemoptysis, pleuritic pain, sputum, wheezing, other Cardiovascular: denies: chest pain, palpitations, orthopnea, paroxysmal noc. dyspnea, edema, light headedness, other Gastrointestinal: denies: nausea, vomiting, abdominal pain, diarrhea, constipation, melena, hematochezia, other Genitourinary: denies: dysuria, frequency, incontinence, hematuria, retention, other - Medication Medications: Active Medications Generic Name Dose Route Start Last Admin Trade Name Freq PRN Reason Stop Dose Admin Acetaminophen 650 mg 09/24/20 21:11 09/27/20 12:03 Acetaminophen 325 Mg Tab PO 650 mg Q4H PRN Administration Headache/Fever or Pain Amlodipine Besylate 10 mg 09/26/20 09:00 10/02/20 08:10 Amlodipine 10 Mg Tab PO 10 mg DAILY AIDAN Administration Ascorbic Acid 1,000 mg 09/26/20 09:00 10/02/20 08:10 Ascorbic Acid 500 Mg Chewable Tablet PO 1,000 mg DAILY AIDAN Administration Aspirin 81 mg 09/26/20 09:00 10/02/20 08:14 Aspirin 81 Mg Enteric Coated Tablet PO 81 mg DAILY AIDAN Administration Atorvastatin Calcium 40 mg 09/24/20 21:00 10/01/20 20:46 Atorvastatin Calcium 40 Mg Tab PO 40 mg QPM AIDAN Administration Carvedilol 25 mg 09/30/20 17:00 10/02/20 08:12 Carvedilol 25 Mg Tab PO 25 mg BID-WM AIDAN Administration Cholecalciferol 2,000 units 09/25/20 21:00 10/02/20 08:11 Cholecalciferol 1,000 Units (25 Mcg) Tab PO 2,000 units BID AIDAN Administration Clopidogrel Bisulfate 75 mg 09/26/20 09:00 10/02/20 08:12 Clopidogrel Bisulfate 75 Mg Tab PO 75 mg DAILY AIDAN Administration Colchicine 0.3 mg 09/30/20 21:00 10/01/20 21:00 Colchicine 0.3 Mg Tab PO 0.3 mg BID AIDAN Administration Dexamethasone 2 mg 10/01/20 08:00 10/02/20 08:11 Dexamethasone 4 Mg Tab PO 2 mg QAM-WM AIDAN Administration Ferrous Sulfate 325 mg 09/26/20 08:00 10/02/20 08:12 Ferrous Sulfate 325 Mg Tab PO 325 mg QAM-WM AIDAN Administration Finasteride 5 mg 09/25/20 21:00 10/01/20 20:48 Finasteride 5 Mg Tab PO 5 mg HS AIDAN Administration Furosemide 40 mg 09/30/20 14:00 10/02/20 05:47 Furosemide 40 Mg/4 Ml Vial SLOW IVP 40 mg 0600,1400 AIDAN Administration Heparin Sodium (Porcine) 5,000 units 09/26/20 15:00 10/02/20 08:15 Heparin 5,000 Units/Ml Vial SC 5,000 units TID AIDAN Administration Hydralazine HCl 10 mg 09/26/20 09:02 09/30/20 00:41 Hydralazine 20 Mg/Ml Vial SLOW IVP 10 mg Q4H PRN Administration Blood Pressure Hydralazine HCl 75 mg 09/29/20 15:00 10/02/20 08:10 Hydralazine 25 Mg Tab PO 75 mg TID AIDAN Administration Dextrose/Water 1,000 mls @ 0 mls/hr 09/25/20 10:13 09/26/20 05:36 D5w IV 1,000 mls .Q0M PRN Administration Hypoglycemia As Directed Insulin Glargine 22 units/ 0.22 mls @ 0 mls/hr 09/25/20 21:00 10/01/20 20:49 Miscellaneous Medication SC 0.22 mls BID AIDAN Administration Piperacillin Sod/Tazobactam 100 mls @ 200 mls/hr 09/26/20 14:00 10/02/20 05:48 Sod 3.375 gm/ Sodium Chloride IVPB 100 mls Q8HR AIDAN Administration Insulin Human Lispro 0 units 09/25/20 10:15 10/02/20 06:40 Humalog 300 Units/3 Ml Vial SC 6 unit .AGGRESSIVE SLIDING AIDAN Administration Insulin Human Lispro 0 units 09/26/20 21:18 09/28/20 20:52 Humalog 300 Units/3 Ml Vial SC 2 unit .BEDTIME SLIDING SC PRN Administration Bedtime Correctional Scale Isosorbide Mononitrate 30 mg 09/26/20 09:00 10/02/20 08:12 Isosorbide Mononitrate Er 30 Mg Tab PO 30 mg DAILY AIDAN Administration Oxybutynin Chloride 5 mg 09/26/20 09:00 10/02/20 08:10 Oxybutynin 5 Mg Tab PO 5 mg DAILY AIDAN Administration Pantoprazole Sodium 40 mg 09/25/20 07:30 10/02/20 08:11 Pantoprazole 40 Mg Tab PO 40 mg DAILY-AC AIDAN Administration Sertraline HCl 50 mg 09/25/20 09:00 10/02/20 08:12 Sertraline Hcl 25 Mg Tab PO 50 mg DAILY AIDAN Administration Sodium Chloride 10 ml 09/24/20 21:00 10/01/20 21:00 Flush - Normal Saline 10 Ml Syringe IVF 10 ml Q12HR AIDAN Administration Sodium Chloride 10 ml 09/24/20 19:15 09/30/20 09:18 Flush - Normal Saline 10 Ml Syringe IVF 10 ml PRN PRN Administration Saline Flush Tamsulosin HCl 0.4 mg 09/24/20 21:00 10/02/20 08:11 Tamsulosin Hcl 0.4 Mg Cap PO 0.4 mg BID AIDAN Administration Zinc Sulfate 220 mg 09/25/20 09:00 02/14/21 08:12 Zinc Sulfate 220 Mg Cap PO 220 mg DAILY AIDAN Administration Hospitalist Exam Vitals: Vital Signs (12 hours) Temp Pulse Resp BP Pulse Ox 10/02/20 08:10 73 10/02/20 07:55 99.4 F 68 24 H 167/72 H 91 L 10/02/20 03:47 98.4 F 73 19 133/91 H 91 L 10/01/20 23:10 75 17 143/69 H 92 L Weight Weight 222 lb 9.6 oz General Appearance: NAD, ill appearing Eye: PERRL, anicteric sclera ENT: normocephalic atraumatic, no oropharyngeal lesions Neck: symmetric, no JVD, no thyromegaly Heart: RRR, no murmur, no gallops, no rubs Respiratory: no wheezes, no rales, no ronchi Respiratory - other findings: Reduced air entry at base, Gastrointestinal: soft, non-distended, normal bowel sounds Gastrointestinal - other findings: Obesity noted Extremities: 1+ LE edema Skin: normal turgor, no lesions Musculoskeletal: generalized weakness Psychiatric: normal affect, normal behavior Hosp A/P (1) Acute respiratory failure with hypoxia Code(s): J96.01 - ACUTE RESPIRATORY FAILURE WITH HYPOXIA Status: Acute (2) Pneumonia due to 2019 novel coronavirus Code(s): U07.1 - COVID-19; J12.82 - PNEUMONIA DUE TO CORONAVIRUS DISEASE 2019 Status: Acute (3) Acute on chronic combined systolic (congestive) and diastolic (congestive) heart failure Code(s): I50.43 - ACUTE ON CHRONIC COMBINED SYSTOLIC AND DIASTOLIC HRT FAIL Status: Acute (4) COVID-19 Code(s): U07.1 - COVID-19 Status: Acute (5) CAD (coronary artery disease) Code(s): I25.10 - ATHSCL HEART DISEASE OF [place] CORONARY ARTERY W/O ANG PCTRS Status: Chronic Qualifiers: Coronary Disease-Associated Artery/Lesion type: [place] artery [place] vs. transplanted heart: [place] heart (6) Chronic kidney disease, stage 3 Status: Chronic (7) DM2 (diabetes mellitus, type 2) Status: Chronic (8) H/O: CVA (cerebrovascular accident) Code(s): Z86.73 - PRSNL HX OF TIA (TIA), AND CEREB INFRC W/O RESID DEFICITS Status: Chronic (9) Hypokalemia Code(s): E87.6 - HYPOKALEMIA Status: Acute - Plan old records reviewed/req, continue antibiotics Today we will replace potassium chloride and repeat potassium level later on today, will monitor renal function, patient still has volume overload status so we will continue Lasix, if renal function continued to get worse then will discontinue Lasix tomorrow, will discontinue Zosyn today, instead will start Omnicef 300 mg daily, will repeat labs tomorrow
[2020-10-02] MEDS: Colchicine 0.3 MG TAB PO SCH ×2 (10:55→21:39)
[2020-10-02] MEDS: Insulin Glargine 22 UNITS in Pre-Filled Syringe 1 EACH SC SCH ×2 (10:56→21:00)
[2020-10-02] MEDS: Cefdinir 300 MG CAP PO SCH (12:15)
[2020-10-02 15:19] LABS: Potassium 3.1 mmol/L (3.5-5.1)
[2020-10-02] MEDS: Finasteride 5 MG TAB PO SCH (21:30)
[2020-10-02] MEDS: Atorvastatin Calcium 40 MG TAB PO SCH (21:31)
[2020-10-02 22:43] LABS: Potassium 2.8 mmol/L (3.5-5.1)
[2020-10-02] MEDS: Potassium Chloride 40 MEQ in Sodium Chloride 0.9% 250 ML 250 ML IVPB SCH (23:59)
[2020-10-03] MEDS: Potassium Chloride 40 MEQ in Sodium Chloride 0.9% 250 ML 250 ML IVPB SCH (00:06)
--- NOTE | 2020-10-03 12:53 | PDOC.HOSPP ---
- Subjective Encounter Date: 10/03/20 Encounter Time: 09:00 Subjective: Patient seen and examined. No overnight events - Objective Vital Signs & Weight: Vital Signs (12 hours) Temp Pulse Resp BP Pulse Ox 10/03/20 07:44 98.6 F 73 24 H 141/90 H 91 L Weight Weight 235 lb I&O: 10/02/20 10/03/20 10/04/20 06:59 06:59 06:59 Intake Total 2380 Output Total 1800 1400 Balance 580 -1400 Result Diagrams: 10/02/20 04:02 10/02/20 21:42 Additional Labs: Accuchecks 10/02/20 10/02/20 21:06 17:18 POC Glucose 183 H 145 H EKG Reviewed by me: Yes Hospitalist ROS - Review of Systems ROS unobtainable: due to mental status - Medication Medications: Active Medications Generic Name Dose Route Start Last Admin Trade Name Freq PRN Reason Stop Dose Admin Acetaminophen 650 mg 09/24/20 21:11 09/27/20 12:03 Acetaminophen 325 Mg Tab PO 650 mg Q4H PRN Administration Headache/Fever or Pain Amlodipine Besylate 10 mg 09/26/20 09:00 10/02/20 08:10 Amlodipine 10 Mg Tab PO 10 mg DAILY AIDAN Administration Ascorbic Acid 1,000 mg 09/26/20 09:00 10/02/20 08:10 Ascorbic Acid 500 Mg Chewable Tablet PO 1,000 mg DAILY AIDAN Administration Aspirin 81 mg 09/26/20 09:00 10/02/20 08:14 Aspirin 81 Mg Enteric Coated Tablet PO 81 mg DAILY AIDAN Administration Atorvastatin Calcium 40 mg 09/24/20 21:00 10/02/20 21:31 Atorvastatin Calcium 40 Mg Tab PO 40 mg QPM AIDAN Administration Carvedilol 25 mg 09/30/20 17:00 10/02/20 08:12 Carvedilol 25 Mg Tab PO 25 mg BID-WM AIDAN Administration Cefdinir 300 mg 10/02/20 11:00 10/02/20 12:15 Cefdinir 300 Mg Cap PO 300 mg 1100 AIDAN Administration Cholecalciferol 2,000 units 09/25/20 21:00 10/02/20 21:00 Cholecalciferol 1,000 Units (25 Mcg) Tab PO 2,000 units BID AIDAN Administration Clopidogrel Bisulfate 75 mg 09/26/20 09:00 10/02/20 08:12 Clopidogrel Bisulfate 75 Mg Tab PO 75 mg DAILY AIDAN Administration Colchicine 0.3 mg 09/30/20 21:00 10/02/20 21:39 Colchicine 0.3 Mg Tab PO 0.3 mg BID AIDAN Administration Dexamethasone 2 mg 10/01/20 08:00 10/02/20 08:11 Dexamethasone 4 Mg Tab PO 2 mg QAM-WM AIDAN Administration Ferrous Sulfate 325 mg 09/26/20 08:00 10/02/20 08:12 Ferrous Sulfate 325 Mg Tab PO 325 mg QAM-WM AIDAN Administration Finasteride 5 mg 09/25/20 21:00 10/02/20 21:30 Finasteride 5 Mg Tab PO 5 mg HS AIDAN Administration Furosemide 40 mg 09/30/20 14:00 10/02/20 13:55 Furosemide 40 Mg/4 Ml Vial SLOW IVP 40 mg 0600,1400 AIDAN Administration Heparin Sodium (Porcine) 5,000 units 09/26/20 15:00 10/02/20 21:32 Heparin 5,000 Units/Ml Vial SC 5,000 units TID AIDAN Administration Hydralazine HCl 10 mg 09/26/20 09:02 09/30/20 00:41 Hydralazine 20 Mg/Ml Vial SLOW IVP 10 mg Q4H PRN Administration Blood Pressure Hydralazine HCl 75 mg 09/29/20 15:00 10/02/20 21:30 Hydralazine 25 Mg Tab PO 75 mg TID AIDAN Administration Dextrose/Water 1,000 mls @ 0 mls/hr 09/25/20 10:13 09/26/20 05:36 D5w IV 1,000 mls .Q0M PRN Administration Hypoglycemia As Directed Insulin Glargine 22 units/ 0.22 mls @ 0 mls/hr 09/25/20 21:00 10/02/20 21:00 Miscellaneous Medication SC 0.22 mls BID AIDAN Administration Potassium Chloride 40 meq/ 270 mls @ 67.5 mls/hr 10/02/20 23:59 10/03/20 00:06 Sodium Chloride IVPB 10/03/20 07:59 270 mls 0400,2359 AIDAN Administration Insulin Human Lispro 0 units 09/25/20 10:15 10/02/20 06:40 Humalog 300 Units/3 Ml Vial SC 6 unit .AGGRESSIVE SLIDING AIDAN Administration Insulin Human Lispro 0 units 09/26/20 21:18 09/28/20 20:52 Humalog 300 Units/3 Ml Vial SC 2 unit .BEDTIME SLIDING SC PRN Administration Bedtime Correctional Scale Isosorbide Mononitrate 30 mg 09/26/20 09:00 10/02/20 08:12 Isosorbide Mononitrate Er 30 Mg Tab PO 30 mg DAILY AIDAN Administration Oxybutynin Chloride 5 mg 09/26/20 09:00 10/02/20 08:10 Oxybutynin 5 Mg Tab PO 5 mg DAILY AIDAN Administration Pantoprazole Sodium 40 mg 09/25/20 07:30 10/02/20 08:11 Pantoprazole 40 Mg Tab PO 40 mg DAILY-AC AIDAN Administration Sertraline HCl 50 mg 09/25/20 09:00 10/02/20 08:12 Sertraline Hcl 25 Mg Tab PO 50 mg DAILY AIDAN Administration Sodium Chloride 10 ml 09/24/20 21:00 10/02/20 22:03 Flush - Normal Saline 10 Ml Syringe IVF 10 ml Q12HR AIDAN Administration Sodium Chloride 10 ml 09/24/20 19:15 09/30/20 09:18 Flush - Normal Saline 10 Ml Syringe IVF 10 ml PRN PRN Administration Saline Flush Tamsulosin HCl 0.4 mg 09/24/20 21:00 10/02/20 21:29 Tamsulosin Hcl 0.4 Mg Cap PO 0.4 mg BID AIDAN Administration Zinc Sulfate 220 mg 09/25/20 09:00 10/02/20 08:12 Zinc Sulfate 220 Mg Cap PO 220 mg DAILY AIDAN Administration Hospitalist Exam Vitals: Vital Signs (12 hours) Temp Pulse Resp BP Pulse Ox 10/03/20 07:44 98.6 F 73 24 H 141/90 H 91 L Weight Weight 235 lb General Appearance: NAD, awake alert Eye: PERRL, anicteric sclera ENT: normocephalic atraumatic, no oropharyngeal lesions Neck: supple, symmetric, no JVD Heart: no murmur, no gallops, no rubs Respiratory: no wheezes, no rales, no ronchi Respiratory - other findings: reduced air entry at base Gastrointestinal: soft, non-tender, non-distended, normal bowel sounds Extremities: no clubbing, 1+ LE edema Skin: normal turgor, no lesions Neurological: no new deficit Musculoskeletal: normal tone, normal strength Psychiatric: normal affect, normal behavior Hosp A/P (1) Acute respiratory failure with hypoxia Code(s): J96.01 - ACUTE RESPIRATORY FAILURE WITH HYPOXIA Status: Acute (2) Pneumonia due to 2019 novel coronavirus Code(s): U07.1 - COVID-19; J12.82 - PNEUMONIA DUE TO CORONAVIRUS DISEASE 2019 Status: Acute (3) Acute on chronic combined systolic (congestive) and diastolic (congestive) heart failure Code(s): I50.43 - ACUTE ON CHRONIC COMBINED SYSTOLIC AND DIASTOLIC HRT FAIL Status: Acute (4) COVID-19 Code(s): U07.1 - COVID-19 Status: Acute (5) CAD (coronary artery disease) Code(s): I25.10 - ATHSCL HEART DISEASE OF [place] CORONARY ARTERY W/O ANG PCTRS Status: Chronic Qualifiers: Coronary Disease-Associated Artery/Lesion type: [place] artery [facility] vs. transplanted heart: [place] heart (6) Chronic kidney disease, stage 3 Status: Chronic (7) DM2 (diabetes mellitus, type 2) Status: Chronic (8) H/O: CVA (cerebrovascular accident) Code(s): Z86.73 - PRSNL HX OF TIA (TIA), AND CEREB INFRC W/O RESID DEFICITS Status: Chronic (9) Hypokalemia Code(s): E87.6 - HYPOKALEMIA Status: Acute - Plan old records reviewed/req will repeat labs tomorrow continue diuresis medication reviewed and continue to provide symptomatic care
[2020-10-03] MEDS: Colchicine 0.3 MG TAB PO SCH ×2 (12:55→21:13)
[2020-10-03] MEDS: Tamsulosin HCl 0.4 MG CAP PO SCH ×2 (12:55→21:11)
[2020-10-03] MEDS: Ferrous Sulfate 325 MG TAB PO SCH (12:55)
[2020-10-03] MEDS: Cholecalciferol 1,000 UNITS (25 MCG) TAB PO SCH ×2 (12:55→21:11)
[2020-10-03] MEDS: Carvedilol 25 MG TAB PO SCH ×2 (12:55→14:21)
[2020-10-03] MEDS: Cefdinir 300 MG CAP PO SCH (12:55)
[2020-10-03] MEDS: Zinc Sulfate 220 MG CAP PO SCH (12:56)
[2020-10-03] MEDS: Ascorbic Acid 500 mg Chewable Tablet PO SCH (12:56)
[2020-10-03] MEDS: Clopidogrel Bisulfate 75 MG TAB PO SCH (12:56)
[2020-10-03] MEDS: Amlodipine 10 MG TAB PO SCH (12:56)
[2020-10-03] MEDS: Aspirin 81 mg Enteric Coated Tablet PO SCH (12:57)
[2020-10-03] MEDS: hydrALAZINE 25 MG TAB PO SCH ×3 (12:57→21:11)
[2020-10-03] MEDS: Dexamethasone 4 MG TAB PO SCH (12:57)
[2020-10-03] MEDS: Oxybutynin 5 MG TAB PO SCH (12:58)
[2020-10-03] MEDS: Insulin Glargine 22 UNITS in Pre-Filled Syringe 1 EACH SC SCH (12:59)
[2020-10-03] MEDS: Heparin 5,000 UNITS/ML VIAL SC SCH ×3 (14:20→21:09)
[2020-10-03 16:21] LABS: Anion Gap 20 mmol/L (10-20); BUN (Urea Nitrogen) 77 mg/dL (8.4-25.7); Calc. Creatinine Clearance 33 mL/min (70-130); Calcium 7.8 mg/dL (7.8-10.44); Carbon Dioxide 14 mmol/L (23-31); Chloride 107 mmol/L (98-107); Glucose 66 mg/dL (83-110); Potassium 3.8 mmol/L (3.5-5.1); Sodium 137 mmol/L (136-145)
[2020-10-03 17:07] LABS: Magnesium 2.3 mg/dL (1.6-2.6)
[2020-10-03 17:25] LABS: Band 26 % (5-11); Burr Cells SLIGHT = 2-5 cells (100X) (0-1/hpf); Eosinophils 1 % (0-10); Hemoglobin 10.5 g/dL (14.0-18.0); Lymphocytes 9 % (21-51); MDiff Complete? YES; Mean Corpuscular HGB CONC 33.5 g/dL (32.0-36.0); Mean Corpuscular Hemoglobin 31.9 pg (27.0-31.0); Mean Corpuscular Volume 95.4 fL (78.0-98.0); Mean Platelet Volume 9.2 fL (7.4-10.4); Monocytes 13 % (0-10); Neutrophil 51 % (42-75); Ovalocytes SLIGHT = 2-5 cells (100X) (0-1/hpf); Platelet Count 240 thou/uL (130-400); Platelet Morphology Comment Appears Adequate; Polychromasia SLIGHT = 2-3 cells (100X) (0-2/hpf); RBC Distribution Width 11.9 % (11.5-14.5); Red Blood Cell (RBC) Count 3.28 mill/uL (4.70-6.10); White Blood Cell (WBC) Count 13.4 thou/uL (4.8-10.8)
[2020-10-03] MEDS ORDERED: Furosemide 40 MG/4 ML VIAL ONE (17:25)
[2020-10-03] MEDS: Furosemide 40 MG/4 ML VIAL SLOW IVP SCH (17:46)
[2020-10-03] MEDS: Atorvastatin Calcium 40 MG TAB PO SCH (21:11)
[2020-10-03] MEDS: Finasteride 5 MG TAB PO SCH (21:12)
[2020-10-04] MEDS: Melatonin 3 MG TAB PO PRN (01:13)
[2020-10-04] MEDS: Furosemide 40 MG/4 ML VIAL SLOW IVP SCH ×2 (01:44→06:22)
[2020-10-04] MEDS: Carvedilol 25 MG TAB PO SCH ×3 (01:44→16:03)
[2020-10-04] MEDS: Mometasone 100 MCG/Formoterol 5 MCG 120 PUFF INHALER INH SCH ×4 (01:47→18:17)
[2020-10-04] MEDS: HYDROcodone/Acetaminophen 5/325 mg Tablet PO PRN ×2 (04:16→21:44)
[2020-10-04 04:28] LABS: #Lymphocytes 0.6 thou/uL (1.20-3.40); #Monocytes 0.6 thou/uL (0.11-0.59); #Neutrophils 8.2 thou/uL (1.40-6.50); %Eosinophils 0.1 % (0.0-10.0); %Lymphocytes 6.2 % (21.0-51.0); %Monocytes 6.4 % (0.0-10.0); %Neutrophils 87.3 % (42.0-75.0); Mean Corpuscular HGB CONC 33.9 g/dL (32.0-36.0); Mean Corpuscular Hemoglobin 31.8 pg (27.0-31.0); Mean Corpuscular Volume 93.8 fL (78.0-98.0); Mean Platelet Volume 8.6 fL (7.4-10.4); Platelet Count 215 thou/uL (130-400); RBC Distribution Width 11.6 % (11.5-14.5); Red Blood Cell (RBC) Count 3.13 mill/uL (4.70-6.10); White Blood Cell (WBC) Count 9.4 thou/uL (4.8-10.8)
[2020-10-04] MEDS: Insulin Glargine 22 UNITS in Pre-Filled Syringe 1 EACH SC SCH (04:28)
[2020-10-04 04:56] LABS: ALT (SGPT) 11 U/L (8-55); AST (SGOT) 26 U/L (5-34); Albumin 2.9 g/dL (3.4-4.8); Alkaline Phosphatase 45 U/L (40-110); Anion Gap 16 mmol/L (10-20); BUN (Urea Nitrogen) 85 mg/dL (8.4-25.7); Bilirubin, Total 0.3 mg/dL (0.2-1.2); CRP (Inflammatory) 7.85 mg/dL (= or < 0.5); Calc. Creatinine Clearance 29 mL/min (70-130); Calcium 7.9 mg/dL (7.8-10.44); Carbon Dioxide 18 mmol/L (23-31); Chloride 106 mmol/L (98-107); Globulin 2.8 g/dL (2.4-3.5); Glucose 84 mg/dL (83-110); Magnesium 2.4 mg/dL (1.6-2.6); Phosphorus 5.7 mg/dL (2.3-4.7); Potassium 3.1 mmol/L (3.5-5.1); Protein, Total 5.7 g/dL (5.8-8.1); Sodium 137 mmol/L (136-145)
[2020-10-04] MEDS ORDERED: Potassium Chloride 20 MEQ TAB PO SCH (07:00)
[2020-10-04] MEDS: Cefdinir 300 MG CAP PO SCH (11:00)
[2020-10-04] MEDS: Zinc Sulfate 220 MG CAP PO SCH (11:00)
[2020-10-04] MEDS: hydrALAZINE 25 MG TAB PO SCH ×3 (11:01→21:33)
[2020-10-04] MEDS: Ascorbic Acid 500 mg Chewable Tablet PO SCH (11:01)
[2020-10-04] MEDS: Furosemide 40 MG TAB PO SCH ×2 (11:01→16:03)
[2020-10-04] MEDS: Cholecalciferol 1,000 UNITS (25 MCG) TAB PO SCH ×2 (11:02→21:34)
[2020-10-04] MEDS: Amlodipine 10 MG TAB PO SCH (11:02)
[2020-10-04] MEDS: Ferrous Sulfate 325 MG TAB PO SCH (11:02)
[2020-10-04] MEDS: Tamsulosin HCl 0.4 MG CAP PO SCH ×2 (11:02→21:34)
[2020-10-04] MEDS: Oxybutynin 5 MG TAB PO SCH (11:02)
[2020-10-04] MEDS: Dexamethasone 4 MG TAB PO SCH (11:03)
[2020-10-04] MEDS: Clopidogrel Bisulfate 75 MG TAB PO SCH (11:05)
[2020-10-04] MEDS: Colchicine 0.3 MG TAB PO SCH (11:06)
[2020-10-04] MEDS: Aspirin 81 mg Enteric Coated Tablet PO SCH (11:06)
[2020-10-04] MEDS: Heparin 5,000 UNITS/ML VIAL SC SCH ×3 (11:07→22:09)
--- NOTE | 2020-10-04 11:09 | PDOC.HOSPP ---
- Subjective Encounter Date: 10/04/20 Encounter Time: 08:30 Subjective: Patient seen and examined. Patient is wheezing this morning, patient is physically very weak, he is requiring 4 to 5 L nasal cannula oxygen, - Objective Vital Signs & Weight: Vital Signs (12 hours) Temp Pulse Resp BP Pulse Ox 10/04/20 08:00 97.9 F 58 L 16 121/52 L 93 L 10/04/20 04:00 98.5 F 64 22 H 139/66 88 L 10/04/20 00:00 98.0 F 80 19 149/86 H 92 L Weight Weight 216 lb 8 oz I&O: 10/03/20 10/04/20 10/05/20 06:59 06:59 06:59 Intake Total 1500 Output Total 2500 Balance -1000 Result Diagrams: 10/04/20 03:59 10/04/20 03:59 Additional Labs: Accuchecks 10/03/20 10/03/20 12:05 05:53 POC Glucose 69 L 84 EKG Reviewed by me: Yes Hospitalist ROS - Review of Systems Constitutional: reports: weakness, malaise. denies: fever, chills, sweats, other Respiratory: reports: cough, shortness of breath, SOB with excertion, wheezing. denies: dry, hemoptysis, pleuritic pain, sputum, other Cardiovascular: denies: chest pain, palpitations, orthopnea, paroxysmal noc. dyspnea, edema, light headedness, other Gastrointestinal: denies: nausea, vomiting, abdominal pain, diarrhea, constipation, melena, hematochezia, other Genitourinary: denies: dysuria, frequency, incontinence, hematuria, retention, other Musculoskeletal: denies: neck pain, shoulder pain, arm pain, back pain, hand pain, leg pain, foot pain, other - Medication Medications: Active Medications Generic Name Dose Route Start Last Admin Trade Name Freq PRN Reason Stop Dose Admin Acetaminophen 650 mg 09/24/20 21:11 09/27/20 12:03 Acetaminophen 325 Mg Tab PO 650 mg Q4H PRN Administration Headache/Fever or Pain Hydrocodone Bitart/Acetaminophen 1 tab 10/01/20 08:52 10/04/20 04:16 Hydrocodone/Acetaminophen 5/325 Mg Tablet PO 1 tab Q4H PRN Administration Moderate Pain (4-6) Amlodipine Besylate 10 mg 09/26/20 09:00 10/03/20 12:56 Amlodipine 10 Mg Tab PO 10 mg DAILY AIDAN Administration Ascorbic Acid 1,000 mg 09/26/20 09:00 10/03/20 12:56 Ascorbic Acid 500 Mg Chewable Tablet PO 1,000 mg DAILY AIDAN Administration Aspirin 81 mg 09/26/20 09:00 10/03/20 12:57 Aspirin 81 Mg Enteric Coated Tablet PO 81 mg DAILY AIDAN Administration Atorvastatin Calcium 40 mg 09/24/20 21:00 10/03/20 21:11 Atorvastatin Calcium 40 Mg Tab PO 40 mg QPM AIDAN Administration Carvedilol 25 mg 09/30/20 17:00 10/04/20 01:44 Carvedilol 25 Mg Tab PO Not Given BID-[facility] Cefdinir 300 mg 10/02/20 11:00 10/03/20 12:55 Cefdinir 300 Mg Cap PO 300 mg 1100 AIDAN Administration Cholecalciferol 2,000 units 09/25/20 21:00 10/03/20 21:11 Cholecalciferol 1,000 Units (25 Mcg) Tab PO 2,000 units BID [facility] Administration Clopidogrel Bisulfate 75 mg 09/26/20 09:00 10/03/20 12:56 Clopidogrel Bisulfate 75 Mg Tab PO 75 mg DAILY [facility] Administration Colchicine 0.3 mg 09/30/20 21:00 10/03/20 21:13 Colchicine 0.3 Mg Tab PO 0.3 mg BID AIDAN Administration Dexamethasone 2 mg 10/01/20 08:00 10/03/20 12:57 Dexamethasone 4 Mg Tab PO 2 mg QAM-[facility] Administration Ferrous Sulfate 325 mg 09/26/20 08:00 10/03/20 12:55 Ferrous Sulfate 325 Mg Tab PO 325 mg QAM-WM [facility] Administration Finasteride 5 mg 09/25/20 21:00 10/03/20 21:12 Finasteride 5 Mg Tab PO 5 mg HS AIDAN Administration Heparin Sodium (Porcine) 5,000 units 09/26/20 15:00 10/03/20 21:09 Heparin 5,000 Units/Ml Vial SC 5,000 units TID AIDAN Administration Hydralazine HCl 10 mg 09/26/20 09:02 09/30/20 00:41 Hydralazine 20 Mg/Ml Vial SLOW IVP 10 mg Q4H PRN Administration Blood Pressure Hydralazine HCl 75 mg 09/29/20 15:00 10/03/20 21:11 Hydralazine 25 Mg Tab PO 75 mg TID AIDAN Administration Dextrose/Water 1,000 mls @ 0 mls/hr 09/25/20 10:13 09/26/20 05:36 D5w IV 1,000 mls .Q0M PRN Administration Hypoglycemia As Directed Potassium Chloride 40 meq/ 270 mls @ 67.5 mls/hr 10/02/20 23:59 10/03/20 00:06 Sodium Chloride IVPB 10/03/20 07:59 270 mls 0400,2359 AIDAN Administration Insulin Human Lispro 0 units 09/25/20 10:15 10/02/20 06:40 Humalog 300 Units/3 Ml Vial SC 6 unit .AGGRESSIVE SLIDING AIDAN Administration Insulin Human Lispro 0 units 09/26/20 21:18 09/28/20 20:52 Humalog 300 Units/3 Ml Vial SC 2 unit .BEDTIME SLIDING SC PRN Administration Bedtime Correctional Scale Isosorbide Mononitrate 30 mg 09/26/20 09:00 10/03/20 12:55 Isosorbide Mononitrate Er 30 Mg Tab PO 30 mg DAILY AIDAN Administration Melatonin 3 mg 10/01/20 08:52 10/04/20 01:13 Melatonin 3 Mg Tab PO 3 mg HS PRN Administration Insomnia Mometasone Furoate/Formoterol Fumar 2 puff 10/03/20 18:30 10/04/20 01:47 Mometasone 100 Mcg/Formoterol 5 Mcg 120 Puff Inhaler INH Not Given BID-RT AIDAN Oxybutynin Chloride 5 mg 09/26/20 09:00 10/03/20 12:58 Oxybutynin 5 Mg Tab PO 5 mg DAILY AIDAN Administration Pantoprazole Sodium 40 mg 09/25/20 07:30 10/03/20 12:56 Pantoprazole 40 Mg Tab PO 40 mg DAILY-AC AIDAN Administration Sertraline HCl 50 mg 09/25/20 09:00 10/03/20 12:55 Sertraline Hcl 25 Mg Tab PO 50 mg DAILY AIDAN Administration Sodium Chloride 10 ml 09/24/20 21:00 10/03/20 21:00 Flush - Normal Saline 10 Ml Syringe IVF 10 ml Q12HR AIDAN Administration Sodium Chloride 10 ml 09/24/20 19:15 09/30/20 09:18 Flush - Normal Saline 10 Ml Syringe IVF 10 ml PRN PRN Administration Saline Flush Tamsulosin HCl 0.4 mg 09/24/20 21:00 10/03/20 21:11 Tamsulosin Hcl 0.4 Mg Cap PO 0.4 mg BID AIDAN Administration Zinc Sulfate 220 mg 09/25/20 09:00 10/03/20 12:56 Zinc Sulfate 220 Mg Cap PO 220 mg DAILY AIDAN Administration Hospitalist Exam Vitals: Vital Signs (12 hours) Temp Pulse Resp BP Pulse Ox 10/04/20 08:00 97.9 F 58 L 16 121/52 L 93 L 10/04/20 04:00 98.5 F 64 22 H 139/66 88 L 10/04/20 00:00 98.0 F 80 19 149/86 H 92 L Weight Weight 216 lb 8 oz General Appearance: NAD, awake alert Eye: PERRL, anicteric sclera ENT: normocephalic atraumatic, no oropharyngeal lesions Neck: symmetric, no JVD Heart: RRR, no murmur, no gallops, no rubs Respiratory: no rales, rhonchi, wheezes Gastrointestinal: soft, non-tender, non-distended, normal bowel sounds Gastrointestinal - other findings: Obesity noted Extremities: no clubbing, 1+ LE edema Skin: normal turgor, no lesions Neurological: no new deficit Musculoskeletal: normal tone, normal strength Psychiatric: normal affect, normal behavior Hosp A/P (1) Acute respiratory failure with hypoxia Code(s): J96.01 - ACUTE RESPIRATORY FAILURE WITH HYPOXIA Status: Acute (2) Pneumonia due to 2019 novel coronavirus Code(s): U07.1 - COVID-19; J12.82 - PNEUMONIA DUE TO CORONAVIRUS DISEASE 2019 Status: Acute (3) Acute on chronic combined systolic (congestive) and diastolic (congestive) heart failure Code(s): I50.43 - ACUTE ON CHRONIC COMBINED SYSTOLIC AND DIASTOLIC HRT FAIL Status: Acute (4) COVID-19 Code(s): U07.1 - COVID-19 Status: Acute (5) CAD (coronary artery disease) Code(s): I25.10 - ATHSCL HEART DISEASE OF [place] CORONARY ARTERY W/O ANG PCTRS Status: Chronic Qualifiers: Coronary Disease-Associated Artery/Lesion type: [place] artery [place] vs. 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 given creatinine is rising, We will consult speech therapy for evaluation and modification of his diet, based on speech therapy recommendation consider modification and diabetic diet We will repeat labs tomorrow Medication reviewed and continue provide symptomatic and supportive care Patient is at high risk for recurrent admission Replace potassium chloride Continue Omnicef
[2020-10-04] MEDS: Acetaminophen 325 MG TAB PO PRN (16:03)
[2020-10-04] MEDS: Potassium Chloride 20 MEQ in Premix Bag 1 BAG IVPB SCH (16:39)
[2020-10-04] MEDS: Finasteride 5 MG TAB PO SCH (21:34)
[2020-10-04] MEDS: Atorvastatin Calcium 40 MG TAB PO SCH (21:34)
[2020-10-05] MEDS: Colchicine 0.3 MG TAB PO SCH ×3 (00:37→21:01)
[2020-10-05 06:06] LABS: Anion Gap 19 mmol/L (10-20); BUN (Urea Nitrogen) 104 mg/dL (8.4-25.7); Calc. Creatinine Clearance 26 mL/min (70-130); Carbon Dioxide 17 mmol/L (23-31); Chloride 106 mmol/L (98-107); Glucose 72 mg/dL (83-110); Potassium 3.1 mmol/L (3.5-5.1); Sodium 139 mmol/L (136-145)
[2020-10-05] MEDS: Dexamethasone 4 MG TAB PO SCH (09:18)
[2020-10-05] MEDS: Tamsulosin HCl 0.4 MG CAP PO SCH ×2 (09:19→20:54)
[2020-10-05] MEDS: Cholecalciferol 1,000 UNITS (25 MCG) TAB PO SCH ×2 (09:19→20:54)
[2020-10-05] MEDS: Ascorbic Acid 500 mg Chewable Tablet PO SCH (09:19)
[2020-10-05] MEDS: Zinc Sulfate 220 MG CAP PO SCH (09:19)
[2020-10-05] MEDS: Aspirin 81 mg Enteric Coated Tablet PO SCH (09:19)
[2020-10-05] MEDS: Furosemide 40 MG TAB PO SCH ×2 (09:20→14:24)
[2020-10-05] MEDS: Oxybutynin 5 MG TAB PO SCH (09:20)
[2020-10-05] MEDS: Clopidogrel Bisulfate 75 MG TAB PO SCH (09:20)
[2020-10-05] MEDS: Ferrous Sulfate 325 MG TAB PO SCH (09:21)
[2020-10-05] MEDS: Carvedilol 25 MG TAB PO SCH ×2 (09:30→17:07)
[2020-10-05] MEDS: Amlodipine 10 MG TAB PO SCH (09:30)
[2020-10-05] MEDS: hydrALAZINE 25 MG TAB PO SCH ×3 (09:30→22:01)
[2020-10-05] MEDS: Heparin 5,000 UNITS/ML VIAL SC SCH ×3 (09:34→20:55)
[2020-10-05] MEDS: Cefdinir 300 MG CAP PO SCH (09:37)
[2020-10-05] MEDS: Mometasone 100 MCG/Formoterol 5 MCG 120 PUFF INHALER INH SCH (17:08)
[2020-10-05] MEDS: hydrALAZINE 20 MG/ML VIAL SLOW IVP PRN (17:10)
--- NOTE | 2020-10-05 19:17 | PDOC.HOSPP ---
- Subjective Encounter Date: 10/05/20 Subjective: Appears to still be short of breath, he does not convey clearly feels improved and not. - Objective Vital Signs & Weight: Vital Signs (12 hours) Temp Pulse Resp BP BP BP Pulse Ox 10/05/20 17:00 97.9 F 58 L 20 146/63 H 96 10/05/20 14:24 60 10/05/20 11:41 99.0 F 60 24 H 182/79 H 96 10/05/20 10:50 182/79 H 160/70 H 10/05/20 09:40 97.9 F 65 20 159/75 H 94 L 10/05/20 09:30 60 Pulse Ox Pulse Ox 10/05/20 17:00 10/05/20 14:24 10/05/20 11:41 10/05/20 10:50 95 92 L 10/05/20 09:40 10/05/20 09:30 Weight Admit Weight 214 lb Weight 216 lb 14.4 oz I&O: 10/04/20 10/05/20 10/06/20 06:59 06:59 06:59 Intake Total 1500 408 350 Output Total 2500 1000 650 Balance -1000 -592 -300 Result Diagrams: 10/04/20 03:59 10/05/20 05:13 Additional Labs: Accuchecks 10/05/20 10/05/20 10/05/20 16:12 11:39 05:26 POC Glucose 104 H 62 L 72 10/04/20 21:13 POC Glucose 80 Hospitalist ROS - Medication Medications: Active Medications Generic Name Dose Route Start Last Admin Trade Name Stephanq PRN Reason Stop Dose Admin Acetaminophen 650 mg 09/24/20 21:11 10/04/20 16:03 Acetaminophen 325 Mg Tab PO 650 mg Q4H PRN Administration Headache/Fever or Pain Hydrocodone Bitart/Acetaminophen 1 tab 10/01/20 08:52 10/04/20 21:44 Hydrocodone/Acetaminophen 5/325 Mg Tablet PO 1 tab Q4H PRN Administration Moderate Pain (4-6) Amlodipine Besylate 10 mg 09/26/20 09:00 10/05/20 09:30 Amlodipine 10 Mg Tab PO 10 mg DAILY AIDAN Administration Ascorbic Acid 1,000 mg 09/26/20 09:00 10/05/20 09:19 Ascorbic Acid 500 Mg Chewable Tablet PO 1,000 mg DAILY AIDAN Administration Aspirin 81 mg 09/26/20 09:00 10/05/20 09:19 Aspirin 81 Mg Enteric Coated Tablet PO 81 mg DAILY AIDAN Administration Atorvastatin Calcium 40 mg 09/24/20 21:00 10/04/20 21:34 Atorvastatin Calcium 40 Mg Tab PO 40 mg QPM AIDAN Administration Carvedilol 25 mg 09/30/20 17:00 10/05/20 17:07 Carvedilol 25 Mg Tab PO 25 mg BID-WM AIDAN Administration Cefdinir 300 mg 10/02/20 11:00 10/05/20 09:37 Cefdinir 300 Mg Cap PO 300 mg 1100 AIDAN Administration Cholecalciferol 2,000 units 09/25/20 21:00 10/05/20 09:19 Cholecalciferol 1,000 Units (25 Mcg) Tab PO 2,000 units BID AIDAN Administration Clopidogrel Bisulfate 75 mg 09/26/20 09:00 10/05/20 09:20 Clopidogrel Bisulfate 75 Mg Tab PO 75 mg DAILY AIDAN Administration Colchicine 0.3 mg 09/30/20 21:00 10/05/20 09:37 Colchicine 0.3 Mg Tab PO 0.3 mg BID AIDAN Administration Dexamethasone 2 mg 10/01/20 08:00 10/05/20 09:18 Dexamethasone 4 Mg Tab PO 2 mg QAM-WM AIDAN Administration Ferrous Sulfate 325 mg 09/26/20 08:00 10/05/20 09:21 Ferrous Sulfate 325 Mg Tab PO 325 mg QAM-WM AIDAN Administration Finasteride 5 mg 09/25/20 21:00 10/04/20 21:34 Finasteride 5 Mg Tab PO 5 mg HS AIDAN Administration Furosemide 40 mg 10/04/20 09:00 10/05/20 14:24 Furosemide 40 Mg Tab PO 40 mg 0900,1400 AIDAN Administration Heparin Sodium (Porcine) 5,000 units 09/26/20 15:00 10/05/20 14:25 Heparin 5,000 Units/Ml Vial SC 5,000 units TID AIDAN Administration Hydralazine HCl 10 mg 09/26/20 09:02 09/30/20 00:41 Hydralazine 20 Mg/Ml Vial SLOW IVP 10 mg Q4H PRN Administration Blood Pressure Hydralazine HCl 75 mg 09/29/20 15:00 10/05/20 14:24 Hydralazine 25 Mg Tab PO 75 mg TID AIDAN Administration Dextrose/Water 1,000 mls @ 0 mls/hr 09/25/20 10:13 09/26/20 05:36 D5w IV 1,000 mls .Q0M PRN Administration Hypoglycemia As Directed Potassium Chloride 40 meq/ 270 mls @ 67.5 mls/hr 10/02/20 23:59 10/03/20 00:06 Sodium Chloride IVPB 10/03/20 07:59 270 mls 0400,2359 AIDAN Administration Insulin Human Lispro 0 units 09/25/20 10:15 10/02/20 06:40 Humalog 300 Units/3 Ml Vial SC 6 unit .AGGRESSIVE SLIDING AIDAN Administration Insulin Human Lispro 0 units 09/26/20 21:18 09/28/20 20:52 Humalog 300 Units/3 Ml Vial SC 2 unit .BEDTIME SLIDING SC PRN Administration Bedtime Correctional Scale Isosorbide Mononitrate 30 mg 09/26/20 09:00 10/05/20 09:21 Isosorbide Mononitrate Er 30 Mg Tab PO 30 mg DAILY AIDAN Administration Melatonin 3 mg 10/01/20 08:52 10/04/20 01:13 Melatonin 3 Mg Tab PO 3 mg HS PRN Administration Insomnia Mometasone Furoate/Formoterol Fumar 2 puff 10/03/20 18:30 10/05/20 17:08 Mometasone 100 Mcg/Formoterol 5 Mcg 120 Puff Inhaler INH 2 puff BID-RT AIDAN Administration Oxybutynin Chloride 5 mg 09/26/20 09:00 10/05/20 09:20 Oxybutynin 5 Mg Tab PO 5 mg DAILY AIDAN Administration Pantoprazole Sodium 40 mg 09/25/20 07:30 10/05/20 09:19 Pantoprazole 40 Mg Tab PO 40 mg DAILY-AC AIDAN Administration Sertraline HCl 50 mg 09/25/20 09:00 10/05/20 09:20 Sertraline Hcl 25 Mg Tab PO 50 mg DAILY AIDAN Administration Sodium Chloride 10 ml 09/24/20 21:00 10/05/20 09:21 Flush - Normal Saline 10 Ml Syringe IVF 10 ml Q12HR AIDAN Administration Sodium Chloride 10 ml 09/24/20 19:15 09/30/20 09:18 Flush - Normal Saline 10 Ml Syringe IVF 10 ml PRN PRN Administration Saline Flush Tamsulosin HCl 0.4 mg 09/24/20 21:00 10/05/20 09:19 Tamsulosin Hcl 0.4 Mg Cap PO 0.4 mg BID AIDAN Administration Zinc Sulfate 220 mg 09/25/20 09:00 10/05/20 09:19 Zinc Sulfate 220 Mg Cap PO 220 mg DAILY AIDAN Administration Hospitalist Exam Vitals: Vital Signs (12 hours) Temp Pulse Resp BP BP BP Pulse Ox 10/05/20 17:00 97.9 F 58 L 20 146/63 H 96 10/05/20 14:24 60 10/05/20 11:41 99.0 F 60 24 H 182/79 H 96 10/05/20 10:50 182/79 H 160/70 H 10/05/20 09:40 97.9 F 65 20 159/75 H 94 L 10/05/20 09:30 60 Pulse Ox Pulse Ox 10/05/20 17:00 10/05/20 14:24 10/05/20 11:41 10/05/20 10:50 95 92 L 10/05/20 09:40 10/05/20 09:30 Weight Admit Weight 214 lb Weight 216 lb 14.4 oz General Appearance: NAD, awake alert Eye: PERRL ENT: normocephalic atraumatic Neck: supple, symmetric Heart: RRR, no murmur Respiratory: rales Gastrointestinal: soft, non-tender, non-distended Extremities: no cyanosis Hosp A/P (1) Anasarca associated with disorder of kidney Code(s): N04.9 - NEPHROTIC SYNDROME WITH UNSPECIFIED MORPHOLOGIC CHANGES Status: Acute (2) COVID-19 Code(s): U07.1 - COVID-19 Status: Acute (3) Pneumonia due to 2019 novel coronavirus Code(s): U07.1 - COVID-19; J12.82 - PNEUMONIA DUE TO CORONAVIRUS DISEASE 2019 Status: Acute (4) Acute on chronic diastolic CHF (congestive heart failure) Code(s): I50.33 - ACUTE ON CHRONIC DIASTOLIC (CONGESTIVE) HEART FAILURE Status: Acute (5) DM2 (diabetes mellitus, type 2) Status: Chronic (6) Hypokalemia Code(s): E87.6 - HYPOKALEMIA Status: Acute (7) Hypertension Code(s): I10 - ESSENTIAL (PRIMARY) HYPERTENSION Status: Chronic Qualifiers: Hypertension type: essential hypertension Qualified Code(s): I10 - Essential (primary) hypertension - Plan Plan for today 10/05 Cardiac--- for his high blood pressure we will continue with current regimen continue with Coreg amlodipine Plavix and his Lasix is currently p.o. Renal--- we will continue to monitor his creatinine on daily basis. Endocrinology--- he is diabetic we will continue with insulin sliding scale. Pulmonary--- he is on Decadron 3 mg we will reconsult pulmonary in the morning since I believe that his possibly getting worse. For DVT prophylaxis he is on heparin subcutaneously. His prognosis is guarded.
[2020-10-05] MEDS: Finasteride 5 MG TAB PO SCH (20:54)
[2020-10-05] MEDS: Atorvastatin Calcium 40 MG TAB PO SCH (21:03)
[2020-10-06 04:59] LABS: #Lymphocytes 0.9 thou/uL (1.20-3.40); #Monocytes 0.3 thou/uL (0.11-0.59); #Neutrophils 11.9 thou/uL (1.40-6.50); %Basophils 0.3 % (0.0-1.0); %Eosinophils 0.2 % (0.0-10.0); %Lymphocytes 6.6 % (21.0-51.0); %Monocytes 2.2 % (0.0-10.0); %Neutrophils 90.7 % (42.0-75.0); Hemoglobin 9.7 g/dL (14.0-18.0); Mean Corpuscular HGB CONC 33.8 g/dL (32.0-36.0); Mean Corpuscular Hemoglobin 31.4 pg (27.0-31.0); Mean Corpuscular Volume 93.1 fL (78.0-98.0); Mean Platelet Volume 8.7 fL (7.4-10.4); Platelet Count 226 thou/uL (130-400); RBC Distribution Width 11.8 % (11.5-14.5); Red Blood Cell (RBC) Count 3.09 mill/uL (4.70-6.10); White Blood Cell (WBC) Count 13.1 thou/uL (4.8-10.8)
[2020-10-06 05:22] LABS: Anion Gap 16 mmol/L (10-20); BUN (Urea Nitrogen) 100 mg/dL (8.4-25.7); Calc. Creatinine Clearance 27 mL/min (70-130); Calcium 7.9 mg/dL (7.8-10.44); Carbon Dioxide 21 mmol/L (23-31); Chloride 108 mmol/L (98-107); Glucose 135 mg/dL (83-110); Sodium 142 mmol/L (136-145)
[2020-10-06 05:27] LABS: Potassium 2.8 mmol/L (3.5-5.1)
[2020-10-06] MEDS: Mometasone 100 MCG/Formoterol 5 MCG 120 PUFF INHALER INH SCH ×2 (05:41→16:42)
[2020-10-06] MEDS ORDERED: Potassium Chloride 20 MEQ TAB PO SCH (06:45)
[2020-10-06] MEDS: Carvedilol 25 MG TAB PO SCH ×2 (07:40→16:41)
[2020-10-06] MEDS: Ferrous Sulfate 325 MG TAB PO SCH (07:40)
[2020-10-06] MEDS: Dexamethasone 4 MG TAB PO SCH (07:40)
[2020-10-06] MEDS: Heparin 5,000 UNITS/ML VIAL SC SCH ×3 (09:32→20:34)
[2020-10-06] MEDS: Clopidogrel Bisulfate 75 MG TAB PO SCH (09:37)
[2020-10-06] MEDS: Zinc Sulfate 220 MG CAP PO SCH (09:37)
[2020-10-06] MEDS: hydrALAZINE 25 MG TAB PO SCH ×3 (09:37→20:33)
[2020-10-06] MEDS: Cefdinir 300 MG CAP PO SCH (09:37)
[2020-10-06] MEDS: Furosemide 40 MG TAB PO SCH ×2 (09:37→14:52)
[2020-10-06] MEDS: Cholecalciferol 1,000 UNITS (25 MCG) TAB PO SCH ×2 (09:38→20:32)
[2020-10-06] MEDS: Amlodipine 10 MG TAB PO SCH (09:38)
[2020-10-06] MEDS: Colchicine 0.3 MG TAB PO SCH ×2 (09:38→20:35)
[2020-10-06] MEDS: Aspirin 81 mg Enteric Coated Tablet PO SCH (09:38)
[2020-10-06] MEDS: Ascorbic Acid 500 mg Chewable Tablet PO SCH (09:39)
[2020-10-06] MEDS: Tamsulosin HCl 0.4 MG CAP PO SCH ×2 (09:39→20:33)
[2020-10-06] MEDS: Oxybutynin 5 MG TAB PO SCH (09:39)
--- NOTE | 2020-10-06 11:43 | PDOC.HOSPP ---
- Subjective Encounter Date: 10/06/20 Subjective: Feeling little bit better today - Objective Vital Signs & Weight: Vital Signs (12 hours) Temp Pulse Resp BP Pulse Ox 10/06/20 09:38 63 10/06/20 09:37 63 10/06/20 08:05 98.8 F 63 20 142/99 H 94 L 10/06/20 05:41 67 16 92 L 10/06/20 04:00 97.9 F 66 16 174/70 H 92 L 10/06/20 03:20 97.5 F L 66 19 174/70 H 92 L 10/06/20 00:00 98.2 F 57 L 16 115/49 L 97 Weight Admit Weight 214 lb Weight 228 lb 12.379 oz I&O: 10/05/20 10/06/20 10/07/20 06:59 06:59 06:59 Intake Total 408 950 Output Total 1000 650 Balance -592 300 Result Diagrams: 10/06/20 04:42 10/06/20 04:42 Additional Labs: Accuchecks 10/06/20 10/06/20 10/05/20 10:30 03:44 20:54 POC Glucose 147 H 127 H 109 H 10/05/20 10/05/20 10/03/20 16:12 11:39 18:27 POC Glucose 104 H 62 L 73 10/03/20 17:30 POC Glucose 61 L Hospitalist ROS - Medication Medications: Active Medications Generic Name Dose Route Start Last Admin Trade Name Freq PRN Reason Stop Dose Admin Acetaminophen 650 mg 09/24/20 21:11 10/04/20 16:03 Acetaminophen 325 Mg Tab PO 650 mg Q4H PRN Administration Headache/Fever or Pain Hydrocodone Bitart/Acetaminophen 1 tab 10/01/20 08:52 10/04/20 21:44 Hydrocodone/Acetaminophen 5/325 Mg Tablet PO 1 tab Q4H PRN Administration Moderate Pain (4-6) Amlodipine Besylate 10 mg 09/26/20 09:00 10/06/20 09:38 Amlodipine 10 Mg Tab PO 10 mg DAILY AIDAN Administration Ascorbic Acid 1,000 mg 09/26/20 09:00 10/06/20 09:39 Ascorbic Acid 500 Mg Chewable Tablet PO 1,000 mg DAILY AIDAN Administration Aspirin 81 mg 09/26/20 09:00 02/18/21 09:38 Aspirin 81 Mg Enteric Coated Tablet PO 81 mg DAILY AIDAN Administration Atorvastatin Calcium 40 mg 09/24/20 21:00 10/05/20 21:03 Atorvastatin Calcium 40 Mg Tab PO 40 mg QPM AIDAN Administration Carvedilol 25 mg 09/30/20 17:00 10/06/20 07:40 Carvedilol 25 Mg Tab PO 25 mg BID-WM AIDAN Administration Cefdinir 300 mg 10/02/20 11:00 10/06/20 09:37 Cefdinir 300 Mg Cap PO 300 mg 1100 AIDAN Administration Cholecalciferol 2,000 units 09/25/20 21:00 10/06/20 09:38 Cholecalciferol 1,000 Units (25 Mcg) Tab PO 2,000 units BID AIDAN Administration Clopidogrel Bisulfate 75 mg 09/26/20 09:00 10/06/20 09:37 Clopidogrel Bisulfate 75 Mg Tab PO 75 mg DAILY AIDAN Administration Colchicine 0.3 mg 09/30/20 21:00 10/06/20 09:38 Colchicine 0.3 Mg Tab PO 0.3 mg BID AIDAN Administration Dexamethasone 2 mg 10/01/20 08:00 10/06/20 07:40 Dexamethasone 4 Mg Tab PO 2 mg QAM-WM AIDAN Administration Ferrous Sulfate 325 mg 09/26/20 08:00 10/06/20 07:40 Ferrous Sulfate 325 Mg Tab PO 325 mg QAM-WM AIDAN Administration Finasteride 5 mg 09/25/20 21:00 10/05/20 20:54 Finasteride 5 Mg Tab PO 5 mg HS AIDAN Administration Furosemide 40 mg 10/04/20 09:00 10/06/20 09:37 Furosemide 40 Mg Tab PO 40 mg 0900,1400 AIDAN Administration Heparin Sodium (Porcine) 5,000 units 09/26/20 15:00 10/06/20 09:32 Heparin 5,000 Units/Ml Vial SC 5,000 units TID AIDAN Administration Hydralazine HCl 10 mg 09/26/20 09:02 09/30/20 00:41 Hydralazine 20 Mg/Ml Vial SLOW IVP 10 mg Q4H PRN Administration Blood Pressure Hydralazine HCl 75 mg 09/29/20 15:00 10/06/20 09:37 Hydralazine 25 Mg Tab PO 75 mg TID AIDAN Administration Dextrose/Water 1,000 mls @ 0 mls/hr 09/25/20 10:13 09/26/20 05:36 D5w IV 1,000 mls .Q0M PRN Administration Hypoglycemia As Directed Potassium Chloride 40 meq/ 270 mls @ 67.5 mls/hr 10/02/20 23:59 10/03/20 00:06 Sodium Chloride IVPB 10/03/20 07:59 270 mls 0400,2359 AIDAN Administration Insulin Human Lispro 0 units 09/25/20 10:15 10/02/20 06:40 Humalog 300 Units/3 Ml Vial SC 6 unit .AGGRESSIVE SLIDING AIDAN Administration Insulin Human Lispro 0 units 09/26/20 21:18 09/28/20 20:52 Humalog 300 Units/3 Ml Vial SC 2 unit .BEDTIME SLIDING SC PRN Administration Bedtime Correctional Scale Isosorbide Mononitrate 30 mg 09/26/20 09:00 10/06/20 09:37 Isosorbide Mononitrate Er 30 Mg Tab PO 30 mg DAILY AIDAN Administration Melatonin 3 mg 10/01/20 08:52 10/04/20 01:13 Melatonin 3 Mg Tab PO 3 mg HS PRN Administration Insomnia Mometasone Furoate/Formoterol Fumar 2 puff 10/03/20 18:30 10/06/20 05:41 Mometasone 100 Mcg/Formoterol 5 Mcg 120 Puff Inhaler INH 2 puff BID-RT AIDAN Administration Oxybutynin Chloride 5 mg 09/26/20 09:00 10/06/20 09:39 Oxybutynin 5 Mg Tab PO 5 mg DAILY AIDAN Administration Pantoprazole Sodium 40 mg 09/25/20 07:30 10/06/20 07:40 Pantoprazole 40 Mg Tab PO 40 mg DAILY-AC AIDAN Administration Sertraline HCl 50 mg 09/25/20 09:00 10/06/20 09:38 Sertraline Hcl 25 Mg Tab PO 50 mg DAILY AIDAN Administration Sodium Chloride 10 ml 09/24/20 21:00 10/06/20 09:39 Flush - Normal Saline 10 Ml Syringe IVF 10 ml Q12HR AIDAN Administration Sodium Chloride 10 ml 09/24/20 19:15 09/30/20 09:18 Flush - Normal Saline 10 Ml Syringe IVF 10 ml PRN PRN Administration Saline Flush Tamsulosin HCl 0.4 mg 09/24/20 21:00 10/06/20 09:39 Tamsulosin Hcl 0.4 Mg Cap PO 0.4 mg BID AIDAN Administration Zinc Sulfate 220 mg 09/25/20 09:00 10/06/20 09:37 Zinc Sulfate 220 Mg Cap PO 220 mg DAILY AIDAN Administration Hospitalist Exam Vitals: Vital Signs (12 hours) Temp Pulse Resp BP Pulse Ox 10/06/20 09:38 63 10/06/20 09:37 63 10/06/20 08:05 98.8 F 63 20 142/99 H 94 L 10/06/20 05:41 67 16 92 L 10/06/20 04:00 97.9 F 66 16 174/70 H 92 L 10/06/20 03:20 97.5 F L 66 19 174/70 H 92 L 10/06/20 00:00 98.2 F 57 L 16 115/49 L 97 Weight Admit Weight 214 lb Weight 228 lb 12.379 oz General Appearance: NAD Eye: PERRL, anicteric sclera ENT: normocephalic atraumatic Neck: supple, symmetric, no JVD Heart: RRR, no murmur, no gallops Respiratory: rhonchi (Campbell over the left lower lobe, right lung sounds are clear.) Extremities: no edema Hosp A/P (1) Anasarca associated with disorder of kidney Code(s): N04.9 - NEPHROTIC SYNDROME WITH UNSPECIFIED MORPHOLOGIC CHANGES Status: Acute (2) COVID-19 Code(s): U07.1 - COVID-19 Status: Acute (3) Pneumonia due to 2019 novel coronavirus Code(s): U07.1 - COVID-19; J12.82 - PNEUMONIA DUE TO CORONAVIRUS DISEASE 2019 Status: Acute (4) Acute on chronic diastolic CHF (congestive heart failure) Code(s): I50.33 - ACUTE ON CHRONIC DIASTOLIC (CONGESTIVE) HEART FAILURE Status: Acute (5) DM2 (diabetes mellitus, type 2) Status: Chronic (6) Hypokalemia Code(s): E87.6 - HYPOKALEMIA Status: Acute (7) Hypertension Code(s): I10 - ESSENTIAL (PRIMARY) HYPERTENSION Status: Chronic Qualifiers: Hypertension type: essential hypertension Qualified Code(s): I10 - Essential (primary) hypertension - Plan Plan for today 10/05 Cardiac--- for his high blood pressure we will continue with current regimen continue with Coreg amlodipine Plavix and his Lasix is currently p.o. Renal--- we will continue to monitor his creatinine on daily basis. Endocrinology--- he is diabetic we will continue with insulin sliding scale. Pulmonary--- he is on Decadron 3 mg we will reconsult pulmonary in the morning since I believe that his possibly getting worse. For DVT prophylaxis he is on heparin subcutaneously. His prognosis is guarded. Plan for today 10/06 Cardiac--- blood pressure is better controlled today, will continue current regimen. Renal----we will continue to monitor his creatinine on daily basis. Endocrinology--- continue with insulin sliding scale Pulmonary----he seems to be doing a bit better today, will recheck his inflammatory markers in the morning, I encouraged him to use the inspiratory spirometry and to be more mobile, I showed him how to use the I-S, his pulse ox is 96% on the Ventimask, of the Ventimask drops down to 90%, he is improving but he is has ways to go. I reconfirmed with pulmonology and to them he appears to be stable and management as per his clinical progression. For DVT prophylaxis he is on heparin subcutaneously.
[2020-10-06 16:45] LABS: Potassium 3.2 mmol/L (3.5-5.1)
[2020-10-06] MEDS: HumaLOG 300 UNITS/3 ML VIAL SC SCH (17:43)
[2020-10-06] MEDS: Atorvastatin Calcium 40 MG TAB PO SCH (20:32)
[2020-10-06] MEDS: Finasteride 5 MG TAB PO SCH (20:33)
[2020-10-07 04:52] LABS: #Lymphocytes 0.7 thou/uL (1.20-3.40); #Monocytes 0.8 thou/uL (0.11-0.59); %Basophils 0.2 % (0.0-1.0); %Eosinophils 0.2 % (0.0-10.0); %Lymphocytes 4.4 % (21.0-51.0); %Monocytes 4.8 % (0.0-10.0); %Neutrophils 90.5 % (42.0-75.0); Hemoglobin 9.5 g/dL (14.0-18.0); Mean Corpuscular HGB CONC 35.4 g/dL (32.0-36.0); Mean Corpuscular Hemoglobin 33.7 pg (27.0-31.0); Mean Corpuscular Volume 95.2 fL (78.0-98.0); Mean Platelet Volume 8.6 fL (7.4-10.4); Platelet Count 237 thou/uL (130-400); RBC Distribution Width 11.8 % (11.5-14.5); Red Blood Cell (RBC) Count 2.82 mill/uL (4.70-6.10); White Blood Cell (WBC) Count 16.6 thou/uL (4.8-10.8)
[2020-10-07 05:07] LABS: Anion Gap 18 mmol/L (10-20); BUN (Urea Nitrogen) 107 mg/dL (8.4-25.7); Calc. Creatinine Clearance 28 mL/min (70-130); Calcium 7.7 mg/dL (7.8-10.44); Carbon Dioxide 19 mmol/L (23-31); Chloride 107 mmol/L (98-107); Glucose 229 mg/dL (83-110); Magnesium 2.7 mg/dL (1.6-2.6); Sodium 141 mmol/L (136-145)
[2020-10-07] MEDS: Mometasone 100 MCG/Formoterol 5 MCG 120 PUFF INHALER INH SCH (05:35)
[2020-10-07] MEDS: HumaLOG 300 UNITS/3 ML VIAL SC SCH ×3 (05:49→17:03)
--- NOTE | 2020-10-07 09:15 | RAD ---
EXAM: CHEST ONE VIEW HISTORY: Shortness of breath COMPARISON: 09/30/2020 FINDINGS: Median sternotomy wires are again seen. Cardiac silhouette is magnified by projection but does appear mildly enlarged. There has been interval increase in parenchymal airspace opacities in the lungs bilaterally located more peripherally on the left and in a perihilar location on the right suggesting worsening atypical pneumonia, and radiographic findings can be seen with Covid pneumonia. No other interval change. IMPRESSION: Worsening bilateral pneumonia.
[2020-10-07] MEDS: Heparin 5,000 UNITS/ML VIAL SC SCH ×3 (11:22→21:51)
[2020-10-07] MEDS: hydrALAZINE 25 MG TAB PO SCH ×3 (11:23→21:00)
[2020-10-07] MEDS: Aspirin 81 mg Enteric Coated Tablet PO SCH (11:27)
[2020-10-07] MEDS: Ascorbic Acid 500 mg Chewable Tablet PO SCH (11:27)
[2020-10-07] MEDS: Oxybutynin 5 MG TAB PO SCH (11:27)
[2020-10-07] MEDS: Furosemide 40 MG TAB PO SCH ×2 (11:27→15:55)
[2020-10-07] MEDS: Carvedilol 25 MG TAB PO SCH ×2 (11:28→21:59)
[2020-10-07] MEDS: Dexamethasone 4 MG TAB PO SCH (11:29)
[2020-10-07] MEDS: Cholecalciferol 1,000 UNITS (25 MCG) TAB PO SCH ×2 (11:34→21:54)
[2020-10-07] MEDS: Amlodipine 10 MG TAB PO SCH (11:35)
[2020-10-07] MEDS: Tamsulosin HCl 0.4 MG CAP PO SCH ×2 (11:36→21:54)
[2020-10-07] MEDS: Clopidogrel Bisulfate 75 MG TAB PO SCH (11:37)
[2020-10-07] MEDS: Colchicine 0.3 MG TAB PO SCH ×2 (11:41→21:40)
[2020-10-07] MEDS: Ferrous Sulfate 325 MG TAB PO SCH (11:41)
[2020-10-07] MEDS: Zinc Sulfate 220 MG CAP PO SCH (11:42)
[2020-10-07] MEDS: Cefdinir 300 MG CAP PO SCH (11:52)
--- NOTE | 2020-10-07 19:31 | PDOC.HOSPP ---
- Subjective Encounter Date: 10/07/20 Subjective: He appears to be the same he reports that he is bored, he does not report that he is more short of breath. - Objective Vital Signs & Weight: Vital Signs (12 hours) Temp Pulse Pulse Pulse Resp BP BP 10/07/20 16:00 97.6 F 58 L 20 10/07/20 15:53 58 L 162/70 H 10/07/20 12:00 98.1 F 58 L 20 10/07/20 11:35 58 L 162/70 H 10/07/20 11:23 58 L 163/70 H 10/07/20 09:15 60 61 153/68 H 10/07/20 08:34 98.9 F 58 L 18 BP BP Pulse Ox Pulse Ox Pulse Ox 10/07/20 16:00 158/73 H 97 10/07/20 15:53 10/07/20 12:00 163/70 H 98 10/07/20 11:35 10/07/20 11:23 10/07/20 09:15 163/70 H 98 97 10/07/20 08:34 137/60 96 Weight Admit Weight 214 lb Weight 220 lb 6.4 oz I&O: 10/06/20 10/07/20 10/08/20 06:59 06:59 06:59 Intake Total 950 1140 240 Output Total 650 1250 550 Balance 300 -110 -310 Result Diagrams: 10/07/20 04:32 10/07/20 04:32 Additional Labs: Accuchecks 10/07/20 10/07/20 10/07/20 16:40 10:42 05:37 POC Glucose 277 H 166 H 201 H 10/06/20 10/03/20 19:54 20:43 POC Glucose 190 H 65 L Hospitalist ROS - Medication Medications: Active Medications Generic Name Dose Route Start Last Admin Trade Name Freq PRN Reason Stop Dose Admin Acetaminophen 650 mg 09/24/20 21:11 10/04/20 16:03 Acetaminophen 325 Mg Tab PO 650 mg Q4H PRN Administration Headache/Fever or Pain Hydrocodone Bitart/Acetaminophen 1 tab 10/01/20 08:52 10/04/20 21:44 Hydrocodone/Acetaminophen 5/325 Mg Tablet PO 1 tab Q4H PRN Administration Moderate Pain (4-6) Amlodipine Besylate 10 mg 09/26/20 09:00 02/19/21 11:35 Amlodipine 10 Mg Tab PO 10 mg DAILY AIDAN Administration Ascorbic Acid 1,000 mg 09/26/20 09:00 10/07/20 11:27 Ascorbic Acid 500 Mg Chewable Tablet PO 1,000 mg DAILY AIDAN Administration Aspirin 81 mg 09/26/20 09:00 10/07/20 11:27 Aspirin 81 Mg Enteric Coated Tablet PO 81 mg DAILY AIDAN Administration Atorvastatin Calcium 40 mg 09/24/20 21:00 10/06/20 20:32 Atorvastatin Calcium 40 Mg Tab PO 40 mg QPM AIDAN Administration Carvedilol 25 mg 09/30/20 17:00 10/07/20 11:28 Carvedilol 25 Mg Tab PO Not Given BID-[facility] Cholecalciferol 2,000 units 09/25/20 21:00 10/07/20 11:34 Cholecalciferol 1,000 Units (25 Mcg) Tab PO 2,000 units BID AIDAN Administration Clopidogrel Bisulfate 75 mg 09/26/20 09:00 10/07/20 11:37 Clopidogrel Bisulfate 75 Mg Tab PO 75 mg DAILY [facility] Administration Colchicine 0.3 mg 09/30/20 21:00 10/07/20 11:41 Colchicine 0.3 Mg Tab PO 0.3 mg BID AIDAN Administration Dexamethasone 2 mg 10/01/20 08:00 10/07/20 11:29 Dexamethasone 4 Mg Tab PO 2 mg QAM-[facility] Administration Ferrous Sulfate 325 mg 09/26/20 08:00 10/07/20 11:41 Ferrous Sulfate 325 Mg Tab PO 325 mg QAM-WM AIDAN Administration Finasteride 5 mg 09/25/20 21:00 10/06/20 20:33 Finasteride 5 Mg Tab PO 5 mg HS AIDAN Administration Furosemide 40 mg 10/04/20 09:00 10/07/20 15:55 Furosemide 40 Mg Tab PO 40 mg 0900,1400 AIDAN Administration Heparin Sodium (Porcine) 5,000 units 09/26/20 15:00 10/07/20 15:53 Heparin 5,000 Units/Ml Vial SC 5,000 units TID AIDAN Administration Hydralazine HCl 10 mg 09/26/20 09:02 09/30/20 00:41 Hydralazine 20 Mg/Ml Vial SLOW IVP 10 mg Q4H PRN Administration Blood Pressure Hydralazine HCl 75 mg 09/29/20 15:00 10/07/20 15:53 Hydralazine 25 Mg Tab PO 75 mg TID AIDAN Administration Dextrose/Water 1,000 mls @ 0 mls/hr 09/25/20 10:13 09/26/20 05:36 D5w IV 1,000 mls .Q0M PRN Administration Hypoglycemia As Directed Potassium Chloride 40 meq/ 270 mls @ 67.5 mls/hr 10/02/20 23:59 10/03/20 00:06 Sodium Chloride IVPB 10/03/20 07:59 270 mls 0400,2359 AIDAN Administration Insulin Human Lispro 0 units 09/25/20 10:15 10/07/20 17:03 Humalog 300 Units/3 Ml Vial SC 9 unit .AGGRESSIVE SLIDING AIDAN Administration Insulin Human Lispro 0 units 09/26/20 21:18 09/28/20 20:52 Humalog 300 Units/3 Ml Vial SC 2 unit .BEDTIME SLIDING SC PRN Administration Bedtime Correctional Scale Isosorbide Mononitrate 30 mg 09/26/20 09:00 10/07/20 11:40 Isosorbide Mononitrate Er 30 Mg Tab PO 30 mg DAILY AIDAN Administration Melatonin 3 mg 10/01/20 08:52 10/04/20 01:13 Melatonin 3 Mg Tab PO 3 mg HS PRN Administration Insomnia Mometasone Furoate/Formoterol Fumar 2 puff 10/03/20 18:30 10/07/20 05:35 Mometasone 100 Mcg/Formoterol 5 Mcg 120 Puff Inhaler INH 2 puff BID-RT AIDAN Administration Oxybutynin Chloride 5 mg 09/26/20 09:00 10/07/20 11:27 Oxybutynin 5 Mg Tab PO 5 mg DAILY AIDAN Administration Pantoprazole Sodium 40 mg 09/25/20 07:30 10/07/20 11:37 Pantoprazole 40 Mg Tab PO 40 mg DAILY-AC AIDAN Administration Sertraline HCl 50 mg 09/25/20 09:00 10/07/20 11:28 Sertraline Hcl 25 Mg Tab PO 50 mg DAILY AIDAN Administration Sodium Chloride 10 ml 09/24/20 21:00 10/07/20 11:42 Flush - Normal Saline 10 Ml Syringe IVF 10 ml Q12HR AIDAN Administration Sodium Chloride 10 ml 09/24/20 19:15 09/30/20 09:18 Flush - Normal Saline 10 Ml Syringe IVF 10 ml PRN PRN Administration Saline Flush Tamsulosin HCl 0.4 mg 09/24/20 21:00 10/07/20 11:36 Tamsulosin Hcl 0.4 Mg Cap PO 0.4 mg BID AIDAN Administration Zinc Sulfate 220 mg 09/25/20 09:00 10/07/20 11:42 Zinc Sulfate 220 Mg Cap PO 220 mg DAILY AIDAN Administration Hospitalist Exam Vitals: Vital Signs (12 hours) Temp Pulse Pulse Pulse Resp BP BP 10/07/20 16:00 97.6 F 58 L 20 10/07/20 15:53 58 L 162/70 H 10/07/20 12:00 98.1 F 58 L 20 10/07/20 11:35 58 L 162/70 H 10/07/20 11:23 58 L 163/70 H 10/07/20 09:15 60 61 153/68 H 10/07/20 08:34 98.9 F 58 L 18 BP BP Pulse Ox Pulse Ox Pulse Ox 10/07/20 16:00 158/73 H 97 10/07/20 15:53 10/07/20 12:00 163/70 H 98 10/07/20 11:35 10/07/20 11:23 10/07/20 09:15 163/70 H 98 97 10/07/20 08:34 137/60 96 Weight Admit Weight 214 lb Weight 220 lb 6.4 oz General Appearance: NAD Eye: PERRL, anicteric sclera ENT: normocephalic atraumatic Neck: supple, symmetric, no JVD, no thyromegaly Heart: RRR, no murmur, no gallops Respiratory: CTAB, no wheezes, rales (He has poor air entry bilaterally) Hosp A/P (1) Anasarca associated with disorder of kidney Code(s): N04.9 - NEPHROTIC SYNDROME WITH UNSPECIFIED MORPHOLOGIC CHANGES Sta tus: Acute (2) COVID-19 Code(s): U07.1 - COVID-19 Status: Acute (3) Pneumonia due to 2019 novel coronavirus Code(s): U07.1 - COVID-19; J12.82 - PNEUMONIA DUE TO CORONAVIRUS DISEASE 2019 Status: Acute (4) Acute on chronic diastolic CHF (congestive heart failure) Code(s): I50.33 - ACUTE ON CHRONIC DIASTOLIC (CONGESTIVE) HEART FAILURE Status: Acute (5) DM2 (diabetes mellitus, type 2) Status: Chronic (6) Hypokalemia Code(s): E87.6 - HYPOKALEMIA Status: Acute (7) Hypertension Code(s): I10 - ESSENTIAL (PRIMARY) HYPERTENSION Status: Chronic Qualifiers: Hypertension type: essential hypertension Qualified Code(s): I10 - Essential (primary) hypertension - Plan Plan for today 10/05 Cardiac--- for his high blood pressure we will continue with current regimen continue with Coreg amlodipine Plavix and his Lasix is currently p.o. Renal--- we will continue to monitor his creatinine on daily basis. Endocrinology--- he is diabetic we will continue with insulin sliding scale. Pulmonary--- he is on Decadron 3 mg we will reconsult pulmonary in the morning since I believe that his possibly getting worse. For DVT prophylaxis he is on heparin subcutaneously. His prognosis is guarded. Plan for today 10/06 Cardiac--- blood pressure is better controlled today, will continue current regimen. Renal----we will continue to monitor his creatinine on daily basis. Endocrinology--- continue with insulin sliding scale Pulmonary----he seems to be doing a bit better today, will recheck his inflammatory markers in the morning, I encouraged him to use the inspiratory spirometry and to be more mobile, I showed him how to use the I-S, his pulse ox is 96% on the Ventimask, of the Ventimask drops down to 90%, he is improving but he is has ways to go. I reconfirmed with pulmonology and to them he appears to be stable and management as per his clinical progression. For DVT prophylaxis he is on heparin subcutaneously. Plan for today 10/07 Cardiac--- his blood pressure seems to be on the high side I will increase his hydralazine to 100 mg 3 times daily. Renal----we will continue to monitor his kidney function. Endocrinology--- we will start him on a low-dose Lantus at at bedtime and continue with insulin sliding scale. Pulmonary----his chest x-ray did show worsening of bilateral infiltrate compared to his x-ray done 7 days ago, his inflammatory markers are up, he does not seem to be using his I-S much, I recalled infectious disease to see him in a.m. For DVT prophylaxis he is on heparin subcutaneously. I had a long discussion with his medical power of ip attorney Marilu, she clearly told me that he never wanted to be full code (which he is currently since admission) she also told me that he never wanted to be on antibiotics because they prolong the suffering of his mother, he is currently on cefdinir I will stop that.
[2020-10-07] MEDS: Atorvastatin Calcium 40 MG TAB PO SCH (21:53)
[2020-10-07] MEDS: Finasteride 5 MG TAB PO SCH (21:54)
[2020-10-07] MEDS: HumaLOG 300 UNITS/3 ML VIAL SC PRN (21:55)
[2020-10-07] MEDS: Insulin Glargine 15 UNITS in Pre-Filled Syringe 1 EACH SC SCH (21:56)
[2020-10-08 05:51] LABS: Hemoglobin 9.2 g/dL (14.0-18.0); Mean Corpuscular HGB CONC 33.3 g/dL (32.0-36.0); Mean Corpuscular Hemoglobin 31.8 pg (27.0-31.0); Mean Corpuscular Volume 95.6 fL (78.0-98.0); Mean Platelet Volume 8.8 fL (7.4-10.4); Platelet Count 273 thou/uL (130-400); RBC Distribution Width 12.1 % (11.5-14.5); Red Blood Cell (RBC) Count 2.88 mill/uL (4.70-6.10); White Blood Cell (WBC) Count 16.4 thou/uL (4.8-10.8)
[2020-10-08 06:12] LABS: Lymphocytes 6 % (21-51); MDiff Complete? YES; Monocytes 3 % (0-10); Neutrophil 91 % (42-75); Platelet Morphology Comment Appears Adequate; RBC Morphology Normal
[2020-10-08 06:16] LABS: Anion Gap 15 mmol/L (10-20); BUN (Urea Nitrogen) 107 mg/dL (8.4-25.7); Calc. Creatinine Clearance 26 mL/min (70-130); Calcium 7.8 mg/dL (7.8-10.44); Carbon Dioxide 23 mmol/L (23-31); Chloride 109 mmol/L (98-107); Glucose 277 mg/dL (83-110); Sodium 144 mmol/L (136-145)
[2020-10-08] MEDS: HumaLOG 300 UNITS/3 ML VIAL SC SCH ×3 (06:43→17:52)
[2020-10-08] MEDS: Heparin 5,000 UNITS/ML VIAL SC SCH ×3 (10:06→20:00)
[2020-10-08] MEDS: Clopidogrel Bisulfate 75 MG TAB PO SCH (10:06)
[2020-10-08] MEDS: Cholecalciferol 1,000 UNITS (25 MCG) TAB PO SCH ×2 (10:07→20:00)
[2020-10-08] MEDS: hydrALAZINE 25 MG TAB PO SCH ×3 (10:07→20:00)
[2020-10-08] MEDS: Ascorbic Acid 500 mg Chewable Tablet PO SCH (10:08)
[2020-10-08] MEDS: Zinc Sulfate 220 MG CAP PO SCH (10:08)
[2020-10-08] MEDS: Oxybutynin 5 MG TAB PO SCH (10:10)
[2020-10-08] MEDS: Amlodipine 10 MG TAB PO SCH (10:10)
[2020-10-08] MEDS: Tamsulosin HCl 0.4 MG CAP PO SCH ×2 (10:10→20:02)
[2020-10-08] MEDS: Dexamethasone 4 MG TAB PO SCH (10:10)
[2020-10-08] MEDS: Carvedilol 25 MG TAB PO SCH ×2 (10:11→17:50)
[2020-10-08] MEDS: Ferrous Sulfate 325 MG TAB PO SCH (10:11)
[2020-10-08] MEDS: Aspirin 81 mg Enteric Coated Tablet PO SCH (10:12)
[2020-10-08] MEDS: Colchicine 0.3 MG TAB PO SCH (10:12)
[2020-10-08] MEDS: Furosemide 40 MG TAB PO SCH (10:13)
[2020-10-08] MEDS ORDERED: BIOTENE MOUTH SPRAY 44.3 ML PO PRN (13:28)
[2020-10-08] MEDS ORDERED: Sodium Chloride 0.9% 1,000 ML IV SCH (13:30)
--- NOTE | 2020-10-08 13:46 | PDOC.HOSPP ---
- Subjective Encounter Date: 10/08/20 (f/u covid pneumonia) Encounter Time: 13:45 Subjective: pt reports he is thirsty and wants to go home. He also states that he is bored. He denies any pain. - Objective Vital Signs & Weight: Vital Signs (12 hours) Temp Pulse Resp BP BP Pulse Ox 10/08/20 10:10 54 L 162/69 H 10/08/20 10:07 54 L 162/69 H 10/08/20 08:05 97.7 F 54 L 16 162/69 H 100 10/08/20 04:51 99 10/08/20 04:17 98.0 F 58 L 18 150/68 H 99 Weight Admit Weight 214 lb Weight 222 lb 14.197 oz I&O: 10/07/20 10/08/20 10/09/20 06:59 06:59 06:59 Intake Total 1140 415 Output Total 1250 1075 Balance -110 -660 Result Diagrams: 10/08/20 04:50 10/08/20 04:50 Additional Labs: Accuchecks 10/08/20 10/08/20 10/07/20 11:13 06:05 20:29 POC Glucose 179 H 234 H 329 H 10/07/20 16:40 POC Glucose 277 H EKG Reviewed by me: Yes (tele - sinus 50-60's) Hospitalist ROS - Medication Medications: Active Medications Generic Name Dose Route Start Last Admin Trade Name Freq PRN Reason Stop Dose Admin Acetaminophen 650 mg 09/24/20 21:11 10/04/20 16:03 Acetaminophen 325 Mg Tab PO 650 mg Q4H PRN Administration Headache/Fever or Pain Hydrocodone Bitart/Acetaminophen 1 tab 10/01/20 08:52 10/04/20 21:44 Hydrocodone/Acetaminophen 5/325 Mg Tablet PO 1 tab Q4H PRN Administration Moderate Pain (4-6) Amlodipine Besylate 10 mg 09/26/20 09:00 10/08/20 10:10 Amlodipine 10 Mg Tab PO 10 mg DAILY AIDAN Administration Ascorbic Acid 1,000 mg 09/26/20 09:00 10/08/20 10:08 Ascorbic Acid 500 Mg Chewable Tablet PO 1,000 mg DAILY AIDAN Administration Aspirin 81 mg 09/26/20 09:00 10/08/20 10:12 Aspirin 81 Mg Enteric Coated Tablet PO 81 mg DAILY AIDAN Administration Atorvastatin Calcium 40 mg 09/24/20 21:00 10/07/20 21:53 Atorvastatin Calcium 40 Mg Tab PO 40 mg QPM AIDAN Administration Carvedilol 25 mg 09/30/20 17:00 10/08/20 10:11 Carvedilol 25 Mg Tab PO Not Given BID-WM AIDAN Cholecalciferol 2,000 units 09/25/20 21:00 10/08/20 10:07 Cholecalciferol 1,000 Units (25 Mcg) Tab PO 2,000 units BID AIDAN Administration Clopidogrel Bisulfate 75 mg 09/26/20 09:00 10/08/20 10:06 Clopidogrel Bisulfate 75 Mg Tab PO 75 mg DAILY AIDAN Administration Ferrous Sulfate 325 mg 09/26/20 08:00 10/08/20 10:11 Ferrous Sulfate 325 Mg Tab PO 325 mg QAM-WM AIDAN Administration Finasteride 5 mg 09/25/20 21:00 10/07/20 21:54 Finasteride 5 Mg Tab PO 5 mg HS AIDAN Administration Heparin Sodium (Porcine) 5,000 units 09/26/20 15:00 10/08/20 10:06 Heparin 5,000 Units/Ml Vial SC 5,000 units TID AIDAN Administration Hydralazine HCl 10 mg 09/26/20 09:02 09/30/20 00:41 Hydralazine 20 Mg/Ml Vial SLOW IVP 10 mg Q4H PRN Administration Blood Pressure Hydralazine HCl 100 mg 10/07/20 21:00 10/08/20 10:07 Hydralazine 25 Mg Tab PO 100 mg TID AIDAN Administration Dextrose/Water 1,000 mls @ 0 mls/hr 09/25/20 10:13 09/26/20 05:36 D5w IV 1,000 mls .Q0M PRN Administration Hypoglycemia As Directed Potassium Chloride 40 meq/ 270 mls @ 67.5 mls/hr 10/02/20 23:59 10/03/20 00:06 Sodium Chloride IVPB 10/03/20 07:59 270 mls 0400,2359 AIDAN Administration Insulin Glargine 15 units/ 0.15 mls @ 0 mls/hr 10/07/20 21:00 10/07/20 21:56 Miscellaneous Medication SC 0.15 mls HS AIDAN Administration Insulin Human Lispro 0 units 09/25/20 10:15 10/08/20 11:45 Humalog 300 Units/3 Ml Vial SC 3 unit .AGGRESSIVE SLIDING AIDAN Administration Insulin Human Lispro 0 units 09/26/20 21:18 10/07/20 21:55 Humalog 300 Units/3 Ml Vial SC 4 unit .BEDTIME SLIDING SC PRN Administration Bedtime Correctional Scale Isosorbide Mononitrate 30 mg 09/26/20 09:00 10/08/20 10:08 Isosorbide Mononitrate Er 30 Mg Tab PO 30 mg DAILY AIDAN Administration Melatonin 3 mg 10/01/20 08:52 10/04/20 01:13 Melatonin 3 Mg Tab PO 3 mg HS PRN Administration Insomnia Mometasone Furoate/Formoterol Fumar 2 puff 10/03/20 18:30 10/07/20 05:35 Mometasone 100 Mcg/Formoterol 5 Mcg 120 Puff Inhaler INH 2 puff BID-RT AIDAN Administration Oxybutynin Chloride 5 mg 09/26/20 09:00 10/08/20 10:10 Oxybutynin 5 Mg Tab PO 5 mg DAILY AIDAN Administration Pantoprazole Sodium 40 mg 09/25/20 07:30 10/08/20 10:07 Pantoprazole 40 Mg Tab PO 40 mg DAILY-AC AIDAN Administration Sertraline HCl 50 mg 09/25/20 09:00 10/08/20 10:10 Sertraline Hcl 25 Mg Tab PO 50 mg DAILY AIDAN Administration Sodium Chloride 10 ml 09/24/20 21:00 10/08/20 11:47 Flush - Normal Saline 10 Ml Syringe IVF 10 ml Q12HR AIDAN Administration Sodium Chloride 10 ml 09/24/20 19:15 09/30/20 09:18 Flush - Normal Saline 10 Ml Syringe IVF 10 ml PRN PRN Administration Saline Flush Tamsulosin HCl 0.4 mg 09/24/20 21:00 10/08/20 10:10 Tamsulosin Hcl 0.4 Mg Cap PO 0.4 mg BID AIDAN Administration Zinc Sulfate 220 mg 09/25/20 09:00 10/08/20 10:08 Zinc Sulfate 220 Mg Cap PO 220 mg DAILY AIDAN Administration Hospitalist Exam Vitals: Vital Signs (12 hours) Temp Pulse Resp BP BP Pulse Ox 10/08/20 10:10 54 L 162/69 H 10/08/20 10:07 54 L 162/69 H 10/08/20 08:05 97.7 F 54 L 16 162/69 H 100 10/08/20 04:51 99 10/08/20 04:17 98.0 F 58 L 18 150/68 H 99 Weight Admit Weight 214 lb Weight 222 lb 14.197 oz General Appearance: NAD Heart: RRR, no murmur Respiratory: no wheezes, no rales, no ronchi Gastrointestinal: soft, non-tender, non-distended, normal bowel sounds Psychiatric - other findings: tired appearing and answering appropriately, oriented Hosp A/P (1) Acute kidney injury superimposed on chronic kidney disease Code(s): N17.9 - ACUTE KIDNEY FAILURE, UNSPECIFIED; N18.9 - CHRONIC KIDNEY DISEASE, UNSPECIFIED Status: Acute (2) Pneumonia due to 2019 novel coronavirus Code(s): U07.1 - COVID-19; J12.82 - PNEUMONIA DUE TO CORONAVIRUS DISEASE 2019 Status: Acute (3) Acute respiratory failure with hypoxia Code(s): J96.01 - ACUTE RESPIRATORY FAILURE WITH HYPOXIA Status: Acute (4) Hypokalemia Code(s): E87.6 - HYPOKALEMIA Status: Acute (5) DM2 (diabetes mellitus, type 2) Status: Chronic Qualifiers: Diabetes mellitus senior living insulin use: with senior living use (6) H/O: CVA (cerebrovascular accident) Code(s): Z86.73 - PRSNL HX OF TIA (TIA), AND CEREB INFRC W/O RESID DEFICITS Status: Chronic (7) Hypertension Code(s): I10 - ESSENTIAL (PRIMARY) HYPERTENSION Status: Chronic Qualifiers: Hypertension type: essential hypertension Qualified Code(s): I10 - Essential (primary) hypertension - Plan Acute resp failure secondary to covid with worsening pneumonia - I asked the patient his desires at this time - he desires and expresses capacity for decision making - full code, antibiotics, increasing steroids to help him rec over from this. All are initiated. DM - not optimally controlled - continue SSI and adjust lantus Acute on chronic renal failure - start IVF - UA - renal ultrasound - Nephrology consult - d/c colchicine Hypokalemia - replace orally acute on chronic diastolic heart failure - pt has been on lasix, will d/c due to renal function. Monitor. Bradycardia - hold parameters on coreg for pulse less than 60 Monitor anemia and leukocytosis - pt is being started on broad spectrum abx for worsening pneumonia I called and updated the patient's contact Marilu - who shared the same info with me as with Dr. Gillespie - pt requested DNR in the past and did not want antibiotics. She demonstrates understanding of the plan of care and did not have any questions. dvt prophy - heparin gi prophy - on home ppi code status - changed to full per the patient's request today reviewed the plan of care with patient and RN, no questions or further needs at end of eval.
[2020-10-08] MEDS ORDERED: Dexamethasone 4 mg/ml Vial SLOW IVP SCH (14:00)
--- NOTE | 2020-10-08 14:36 | ULT ---
US Renal Bilateral STANDARD History: Worsening renal function Comparison: None. Findings: Real-time grayscale and color evaluation of the kidneys and urinary bladder was performed. Right kidney measures 9.6 x 4.5 x 5 cm and the left kidney measures 10.4 x 5.5 x 5 cm. No renal mass or hydronephrosis. Small volume residual fluid within the urinary bladder. Grubbs catheter is in place. Impression: No evidence for obstructive uropathy.
[2020-10-08] MEDS ORDERED: Cefepime 2 GM in Sodium Chloride 0.9% 100 ML IVPB SCH (15:00)
[2020-10-08] MEDS ORDERED: EPOETIN ALFA-EPBX (ESRD) 10,000 UNIT/ML VIAL SC SCH (17:00)
[2020-10-08] MEDS ORDERED: Potassium Chloride 20 MEQ TAB PO SCH (17:00)
[2020-10-08] MEDS ORDERED: Epoetin (ESRD) 20,000 UNITS/ML SC SCH (17:00)
--- NOTE | 2020-10-08 17:29 | EKG ---
Test Reason : Blood Pressure : / mmHG Vent. Rate : 111 BPM Atrial Rate : 111 BPM P-R Int : 232 ms QRS Dur : 112 ms QT Int : 338 ms P-R-T Axes : 000 -42 110 degrees QTc Int : 459 ms Sinus tachycardia with 1st degree A-V block with Premature atrial complexes with Abberant conduction Left axis deviation Incomplete left bundle branch block Abnormal ECG Confirmed by ROEL VILLARREAL, SHEELA ([id number]), editor [employer]ISNEROS ([id number]) on 10/08/2020 5:28:44 PM Referred By: Confirmed By:SHEELA SEVILLA MD
[2020-10-08] MEDS: Sodium Chloride 0.9% 1,000 ML IV SCH (17:46)
--- NOTE | 2020-10-08 17:57 | CON ---
DATE OF CONSULTATION: 10/08/2020 CONSULTING PHYSICIAN: Janell Buitrago MD REASON FOR CONSULTATION: Acute kidney injury. REASON FOR ADMISSION: Fall. HISTORY OF PRESENT ILLNESS: This is a 75-year-old male with history of CVA, type 2 diabetes, coronary artery disease, congestive heart failure, who came to the hospital with after he was found down and he was found to be positive for COVID and is being treated. Last few days, his creatinine has been going up. He was also on Lasix and colchicine. No nausea or vomiting reported. The patient is still having shortness of breath and is on COVID isolation. No fever or chills. No nausea or vomiting. PAST MEDICAL HISTORY: Positive for hypertension, hyperlipidemia, coronary artery disease, CKD, congestive heart failure, left chest wall abscess, and CVA. PAST SURGICAL HISTORY: CABG, cardiac stents, diabetic retinopathy, tonsillectomy, and left hip surgery. HOME MEDICATIONS: Reviewed. ALLERGIES: IODINATED CONTRAST. SOCIAL HISTORY: No smoking, alcohol, or illicit drug abuse. FAMILY HISTORY: No history of kidney disease. REVIEW OF SYSTEMS: CONSTITUTIONAL: Negative for weight loss or gain, ability to conduct usual activities. SKIN: Negative for rash, itching. EYES: Negative for double vision, pain. ENT/MOUTH: Negative for nose bleeding, neck stiffness, pain, tenderness. CARDIOVASCULAR: Negative for palpitations, dyspnea on exertion, orthopnea. RESPIRATORY: Negative for shortness of breath, wheezing, cough, hemoptysis, fever or night sweats. GASTROINTESTINAL: Negative for poor appetite, abdominal pain, heartburn, nausea, vomiting, constipation, or diarrhea. GENITOURINARY: Negative for urgency, frequency, dysuria, nocturia. MUSCULOSKELETAL: Negative for pain, swelling. NEUROLOGIC/PSYCHIATRIC: Negative for anxiety, depression. ALLERGY/IMMUNOLOGIC: Negative for skin rash, bleeding tendency. PHYSICAL EXAMINATION: GENERAL: Reveals a well-built male, in no apparent distress. VITAL SIGNS: Temperature 97.0, pulse 54, respiratory rate 16, and blood pressure 162/60. HEENT: Atraumatic, normocephalic. Oral mucosa moist. NECK: Supple. CV: S1 and S2. Rate and rhythm are regular. RESPIRATORY: Clear. GASTROINTESTINAL: Abdomen is soft. MUSCULOSKELETAL: 1+ edema. DERMATOLOGIC: No skin rash. NEUROLOGIC: Alert and awake. PSYCHIATRIC: Mood and affect normal. LABORATORY DATA: Hemoglobin is 9.2. Potassium 3.0, BUN is 107, and creatinine is 3.5. ASSESSMENT AND PLAN: 1. Acute kidney injury on chronic kidney disease, stage 4 with worsening labs. Agree with holding diuretics and with gentle hydration. We will start NS at 50 mL/h. Stop colchicine and stop furosemide. 2. Hypokalemia. Replace and monitor. 3. Type 2 diabetes. 4. History of hypertension. 5. Cardiorenal syndrome. 6. Anemia, most likely chronic disease. We will check ferritin level is high. We will check iron saturation. Might give a dose of Epogen also. 7. COVID-19 infection. Plan is to have dialysis and colchicine. Start hydration as tolerated. We will give a dose of Epogen and check iron studies. Replace potassium. We will follow. Agree with increasing the dexamethasone dose. We will follow. Job ID: [id number]
--- NOTE | 2020-10-08 19:12 | PRG ---
DATE OF SERVICE: 10/08/2020 SUBJECTIVE: I was asked to re-evaluate Mr. Blum to see if he could be allowed or freed from the precautions to allow his to come to visit him. He is feeling somewhat hot. Denies any headaches. [id number] dyspnea. Not coughing anymore. The abdomen is distended and has mild pain in the lower quadrants. He has a Grubbs catheter, diffusely weak, but able to move extremities on command. OBJECTIVE: VITAL SIGNS: Normal temperature for the past many days. BP 140/60, heart rate 68, respiratory rate 16 to 24, saturating 100% on Venturi mask, had been on high-flow at 12 L not much high-flow. His saturations have been consistently above 95% for the past 2 days and he has a peripheral IV access. GENERAL: He is awake. HEENT: Ocular movements are conjugate. He follows commands. Oral cavity is somewhat dry and a little specks of dried blood in the lips. LUNGS: With coarse breath sounds with a few crackles on the left hemithorax. A little bit of rhonchi as well. HEART: S1 and S2 without murmurs. ABDOMEN: Distended, tympanitic, mildly tender in the lower segments. : No bladder distention. No genital swelling or edema. NEUROLOGIC: He is able to move the toes on command. He is diffusely weak, but no focal weakness. He is awake, knows his name. He knows where he is. A little bit of difficulty with speech because of his mask and weakness. EXTREMITIES: The patient has trace edema in lower extremities. LABORATORY DATA: Sodium 144, creatinine 3.55. Creatinine is trending up from admission when it was 2.76, now is 3.55 in part probably from diuresis. Potassium is 3.0, his last bilirubin is from October 04, which was normal and the transaminases have been within normal limits as well as alkaline phosphatase. The CRP starts at 7.55, is up to 9.9 at this time and D-dimer starts at 0.78, now is 2.28 as recently as October 04. SARS-CoV-2 antibody index of 0.04 on September 30. SARS-CoV RNA RT-PCR was positive on September 24. MEDICATIONS: He is currently on: 1. Inhalers. 2. Cefepime. 3. Decadron 6 mg. 4. Insulin. 5. Loperamide. 6. Pantoprazole. 7. Zinc. 8. Tamsulosin. ASSESSMENT AND DISCUSSION: Ischemic cardiomyopathy, chronic kidney disease stage 3, type 2 diabetes, hypertension, and COVID-19. By the time, he presented his COVID-19 probably in the first week of illness, so he is now at about 14 days or 2 weeks at the end of 2 weeks and other than waiting the regulation 21 days, we would not have any immediately available mechanism to allow an early discontinuation of isolation precautions, so today is probably the 16th day of his illness and he will need another 4 days to release the isolation precautions so would say that Saturday we could discontinue isolation precautions and allow visits from his . Job ID: [id number]
[2020-10-08] MEDS: Atorvastatin Calcium 40 MG TAB PO SCH (19:59)
[2020-10-08] MEDS: Finasteride 5 MG TAB PO SCH (20:00)
[2020-10-08] MEDS: HumaLOG 300 UNITS/3 ML VIAL SC PRN (22:26)
[2020-10-08] MEDS: Insulin Glargine 15 UNITS in Pre-Filled Syringe 1 EACH SC SCH (22:27)
[2020-10-09] MEDS: Melatonin 3 MG TAB PO PRN (00:16)
[2020-10-09 05:18] LABS: Hemoglobin 9.9 g/dL (14.0-18.0); Mean Corpuscular HGB CONC 33.7 g/dL (32.0-36.0); Mean Corpuscular Hemoglobin 32.4 pg (27.0-31.0); Mean Corpuscular Volume 96.1 fL (78.0-98.0); Mean Platelet Volume 8.3 fL (7.4-10.4); Platelet Count 278 thou/uL (130-400); Red Blood Cell (RBC) Count 3.04 mill/uL (4.70-6.10); White Blood Cell (WBC) Count 19.1 thou/uL (4.8-10.8)
[2020-10-09 05:19] LABS: Bilirubin Negative (Negative); Blood, Urine Negative (Negative); Clarity Clear (Clear); Glucose, Urine (Dipstick) Normal (Negative); Ketone, Urine Negative (Negative); Leukocyte Negative Leu/uL (Negative); Nitrite Negative (Negative); Protein, Urine (Dipstick) 20 mg/dL (Neg-Trace); Specific Gravity, Urine 1.015 (1.002-1.036); Urobilinogen Normal mg/dL (Less than 2)
[2020-10-09 05:36] LABS: Band 3 % (5-11); Hypochromia SLIGHT = 6-15 cells (100X) (0-5/hpf); Lymphocytes 3 % (21-51); MDiff Complete? YES; Metamyelocyte 1 % (0-0); Monocytes 5 % (0-10); Neutrophil 88 % (42-75); Platelet Morphology Comment Appears Adequate
[2020-10-09 05:39] LABS: Anion Gap 17 mmol/L (10-20); Calc. Creatinine Clearance 26 mL/min (70-130); Calcium 7.9 mg/dL (7.8-10.44); Carbon Dioxide 19 mmol/L (23-31); Chloride 109 mmol/L (98-107); Glucose 245 mg/dL (83-110); Iron 46 ug/dL (65-175); Iron Binding Capacity, Total 126 mcg/dL (261-462); Potassium 3.8 mmol/L (3.5-5.1); Sodium 141 mmol/L (136-145)
[2020-10-09 05:50] LABS: BUN (Urea Nitrogen) 122 mg/dL (8.4-25.7)
[2020-10-09] MEDS: HumaLOG 300 UNITS/3 ML VIAL SC SCH ×2 (06:41→11:11)
[2020-10-09] MEDS: Ferrous Sulfate 325 MG TAB PO SCH (10:25)
[2020-10-09] MEDS: hydrALAZINE 25 MG TAB PO SCH ×3 (10:26→22:37)
[2020-10-09] MEDS: Zinc Sulfate 220 MG CAP PO SCH (10:26)
[2020-10-09] MEDS: Sodium Chloride 0.9% 1,000 ML IV SCH (10:26)
[2020-10-09] MEDS: Carvedilol 25 MG TAB PO SCH ×2 (10:27→17:21)
[2020-10-09] MEDS: Amlodipine 10 MG TAB PO SCH (10:27)
[2020-10-09] MEDS: Tamsulosin HCl 0.4 MG CAP PO SCH ×2 (10:27→22:37)
[2020-10-09] MEDS: Oxybutynin 5 MG TAB PO SCH (10:28)
[2020-10-09] MEDS: Cholecalciferol 1,000 UNITS (25 MCG) TAB PO SCH ×2 (10:28→22:37)
[2020-10-09] MEDS: Aspirin 81 mg Enteric Coated Tablet PO SCH (10:29)
[2020-10-09] MEDS: Clopidogrel Bisulfate 75 MG TAB PO SCH (10:29)
[2020-10-09] MEDS: Mometasone 100 MCG/Formoterol 5 MCG 120 PUFF INHALER INH SCH ×4 (10:29→22:39)
[2020-10-09] MEDS: Ascorbic Acid 500 mg Chewable Tablet PO SCH (10:29)
[2020-10-09] MEDS: Dexamethasone 4 mg/ml Vial SLOW IVP SCH (10:30)
[2020-10-09] MEDS: Heparin 5,000 UNITS/ML VIAL SC SCH ×3 (10:31→22:37)
--- NOTE | 2020-10-09 12:34 | PDOC.HOSPP ---
- Subjective Encounter Date: 10/09/20 (f/u ilya with ckd) Encounter Time: 12:31 Subjective: No overnight events. Per RN, not much participation with care. On my interview - pt easily falling asleep, appears in general more drowsy than yesterday. His speech is clear. - Objective Vital Signs & Weight: Vital Signs (12 hours) Temp Pulse Resp BP BP Pulse Ox 10/09/20 10:27 65 162/67 H 10/09/20 10:26 65 162/67 H 10/09/20 07:42 98.0 F 65 18 162/67 H 98 10/09/20 04:20 97.7 F 67 20 152/68 H 96 10/09/20 04:00 98 Weight Admit Weight 214 lb Weight 222 lb 6.4 oz I&O: 10/08/20 10/09/20 10/10/20 06:59 06:59 06:59 Intake Total 415 1313 Output Total 1075 925 Balance -660 388 Result Diagrams: 10/09/20 05:05 10/09/20 05:05 Additional Labs: Accuchecks 10/09/20 10/08/20 10:52 21:38 POC Glucose 169 H 255 H EKG Reviewed by me: Yes (tele - sinus 60's, pac's, pvc's and pAT) Hospitalist ROS - Medication Medications: Active Medications Generic Name Dose Route Start Last Admin Trade Name Freq PRN Reason Stop Dose Admin Acetaminophen 650 mg 09/24/20 21:11 10/04/20 16:03 Acetaminophen 325 Mg Tab PO 650 mg Q4H PRN Administration Headache/Fever or Pain Hydrocodone Bitart/Acetaminophen 1 tab 10/01/20 08:52 10/04/20 21:44 Hydrocodone/Acetaminophen 5/325 Mg Tablet PO 1 tab Q4H PRN Administration Moderate Pain (4-6) Amlodipine Besylate 10 mg 09/26/20 09:00 10/09/20 10:27 Amlodipine 10 Mg Tab PO 10 mg DAILY AIDAN Administration Ascorbic Acid 1,000 mg 09/26/20 09:00 10/09/20 10:29 Ascorbic Acid 500 Mg Chewable Tablet PO 1,000 mg DAILY AIDAN Administration Aspirin 81 mg 09/26/20 09:00 10/09/20 10:29 Aspirin 81 Mg Enteric Coated Tablet PO 81 mg DAILY AIDAN Administration Atorvastatin Calcium 40 mg 09/24/20 21:00 10/08/20 19:59 Atorvastatin Calcium 40 Mg Tab PO 40 mg QPM AIDAN Administration Carvedilol 25 mg 10/09/20 08:00 10/09/20 10:27 Carvedilol 25 Mg Tab PO 25 mg BID-WM AIDAN Administration Cholecalciferol 2,000 units 09/25/20 21:00 10/09/20 10:28 Cholecalciferol 1,000 Units (25 Mcg) Tab PO 2,000 units BID AIDAN Administration Clopidogrel Bisulfate 75 mg 09/26/20 09:00 10/09/20 10:29 Clopidogrel Bisulfate 75 Mg Tab PO 75 mg DAILY AIDAN Administration Dexamethasone 6 mg 10/09/20 09:00 10/09/20 10:30 Dexamethasone 4 Mg/Ml Vial SLOW IVP 6 mg DAILY AIDAN Administration Epoetin Hubert-epbx 10,000 unit 10/08/20 17:00 10/08/20 19:58 Epoetin Hubert-Epbx (Esrd) 10,000 Unit/Ml Vial SC 10,000 unit Q7D AIDAN Administration Ferrous Sulfate 325 mg 09/26/20 08:00 10/09/20 10:25 Ferrous Sulfate 325 Mg Tab PO 325 mg QAM-WM AIDAN Administration Finasteride 5 mg 09/25/20 21:00 10/08/20 20:00 Finasteride 5 Mg Tab PO 5 mg HS AIDAN Administration Heparin Sodium (Porcine) 5,000 units 09/26/20 15:00 10/09/20 10:31 Heparin 5,000 Units/Ml Vial SC 5,000 units TID AIDAN Administration Hydralazine HCl 10 mg 09/26/20 09:02 09/30/20 00:41 Hydralazine 20 Mg/Ml Vial SLOW IVP 10 mg Q4H PRN Administration Blood Pressure Hydralazine HCl 100 mg 10/07/20 21:00 10/09/20 10:26 Hydralazine 25 Mg Tab PO 100 mg TID AIDAN Administration Dextrose/Water 1,000 mls @ 0 mls/hr 09/25/20 10:13 09/26/20 05:36 D5w IV 1,000 mls .Q0M PRN Administration Hypoglycemia As Directed Potassium Chloride 40 meq/ 270 mls @ 67.5 mls/hr 10/02/20 23:59 10/03/20 00:06 Sodium Chloride IVPB 10/03/20 07:59 270 mls 0400,2359 AIDAN Administration Insulin Glargine 15 units/ 0.15 mls @ 0 mls/hr 10/07/20 21:00 10/08/20 22:27 Miscellaneous Medication SC 0.15 mls HS AIDAN Administration Sodium Chloride 1,000 mls @ 50 mls/hr 10/08/20 16:47 10/09/20 10:26 Normal Saline 0.9% IV 1,000 mls .Q20H AIDAN Administration Insulin Human Lispro 0 units 09/25/20 10:15 10/09/20 11:11 Humalog 300 Units/3 Ml Vial SC 3 unit .AGGRESSIVE SLIDING AIDAN Administration Insulin Human Lispro 0 units 09/26/20 21:18 10/08/20 22:26 Humalog 300 Units/3 Ml Vial SC 3 unit .BEDTIME SLIDING SC PRN Administration Bedtime Correctional Scale Isosorbide Mononitrate 30 mg 09/26/20 09:00 10/09/20 10:28 Isosorbide Mononitrate Er 30 Mg Tab PO 30 mg DAILY AIDAN Administration Melatonin 3 mg 10/01/20 08:52 10/09/20 00:16 Melatonin 3 Mg Tab PO 3 mg HS PRN Administration Insomnia Mometasone Furoate/Formoterol Fumar 2 puff 10/03/20 18:30 10/09/20 10:37 Mometasone 100 Mcg/Formoterol 5 Mcg 120 Puff Inhaler INH Not Given BID-RT AIDAN Oxybutynin Chloride 5 mg 09/26/20 09:00 10/09/20 10:28 Oxybutynin 5 Mg Tab PO 5 mg DAILY AIDAN Administration Pantoprazole Sodium 40 mg 09/25/20 07:30 10/09/20 10:27 Pantoprazole 40 Mg Tab PO 40 mg DAILY-AC AIDAN Administration Sertraline HCl 50 mg 09/25/20 09:00 10/09/20 10:29 Sertraline Hcl 25 Mg Tab PO 50 mg DAILY AIDAN Administration Sodium Chloride 10 ml 09/24/20 21:00 10/09/20 10:31 Flush - Normal Saline 10 Ml Syringe IVF 10 ml Q12HR AIDAN Administration Sodium Chloride 10 ml 09/24/20 19:15 09/30/20 09:18 Flush - Normal Saline 10 Ml Syringe IVF 10 ml PRN PRN Administration Saline Flush Tamsulosin HCl 0.4 mg 09/24/20 21:00 10/09/20 10:27 Tamsulosin Hcl 0.4 Mg Cap PO 0.4 mg BID AIDAN Administration Zinc Sulfate 220 mg 09/25/20 09:00 10/09/20 10:26 Zinc Sulfate 220 Mg Cap PO 220 mg DAILY AIDAN Administration Hospitalist Exam Vitals: Vital Signs (12 hours) Temp Pulse Resp BP BP Pulse Ox 10/09/20 10:27 65 162/67 H 10/09/20 10:26 65 162/67 H 10/09/20 07:42 98.0 F 65 18 162/67 H 98 10/09/20 04:20 97.7 F 67 20 152/68 H 96 10/09/20 04:00 98 Weight Admit Weight 214 lb Weight 222 lb 6.4 oz ENT - other findings: lips are dry/cracked with old blood, tongue dry Heart: RRR, no murmur Respiratory: no wheezes, no rales, no ronchi Gastrointestinal: soft, non-tender Gastrointestinal - other findings: abdomen protuberant with distant bowel sounds Psychiatric - other findings: more drowsy today Hosp A/P (1) Acute kidney injury superimposed on chronic kidney disease Code(s): N17.9 - ACUTE KIDNEY FAILURE, UNSPECIFIED; N18.9 - CHRONIC KIDNEY DISEASE, UNSPECIFIED Status: Acute (2) Pneumonia due to 2019 novel coronavirus Code(s): U07.1 - COVID-19; J12.82 - PNEUMONIA DUE TO CORONAVIRUS DISEASE 2019 Status: Acute (3) Acute respiratory failure with hypoxia Code(s): J96.01 - ACUTE RESPIRATORY FAILURE WITH HYPOXIA Status: Acute (4) Hypokalemia Code(s): E87.6 - HYPOKALEMIA Status: Acute (5) DM2 (diabetes mellitus, type 2) Status: Chronic Qualifiers: Diabetes mellitus mcc insulin use: with mcc use (6) H/O: CVA (cerebrovascular accident) Code(s): Z86.73 - PRSNL HX OF TIA (TIA), AND CEREB INFRC W/O RESID DEFICITS Status: Chronic (7) Hypertension Code(s): I10 - ESSENTIAL (PRIMARY) HYPERTENSION Status: Chronic Qualifiers: Hypertension type: essential hypertension Qualified Code(s): I10 - Essential (primary) hypertension - Plan Acute resp failure secondary to covid with worsening pneumonia -pt desired yesterday to be a full code and receive any treatment - Cefepime started yesterday - will add VAnc with pharmacy to dose per renal function - Steroids increased yesterday - will continue - oxygen requirement today is less DM - not optimally controlled - less PO intake - will hold on current lantus as last blood sugar was 160's Acute on chronic renal failure - creatinine stable but BUN continues to rise - likely uremia contributing to drowsiness - IVF started yesterday - continue - UA yesterday normal - renal ultrasound without obstruction - appreciate Nephrology consult - care discussed today - meds d/c yesterday - furosemide and colchicine Hypokalemia - resolved acute on chronic diastolic heart failure - pt has been on lasix, d/c yesterday due to renal function. Monitor for change Bradycardia - hold parameters on coreg for pulse less than 60 Leukocytosis - may be secondary to infection/worsening pneumonia vs increase in steroids - continue cefepime and add Vanc dry mouth/cracked lips - oral fluids as desired - biotene spray - lubricant to lips dvt prophy - heparin gi prophy - on home ppi code status - changed to full yesterday per the patient's request reviewed the plan of care with patient and RN, no questions or further needs at end of eval. 17:30 - talked with Marilu/family member who is concerned and frustrated that she spoke with Dr. Gillespie on Saturday and pt status was changed to DNAR. Then on Saturday, he was returned to full code. I discussed that on Saturday that the pt shared with his RN that he wanted everything done, which prompted me to talk with him about it. He expressed capacity for decision making and I followed his wishes and changed to full code. She stated that she wished that conversation never took place. She is concerned about the medical care bills, that the pt won't be able to pay them and that he doesn't have insurance to cover the hospital care or follow up care. I discussed that we wouldn't alter his care based on ability to pay, we treat the patient. She expressed the same concern about costs of care. She states she talked iwth the patient on the phone today and he also told her that he wants everything done. I placed a new [facility] Care consult to help with this situation - clarify the goals of care, the advance directives. Marilu is in [place] and unable to be here. I shared that the pt's respiratory status is improved - he looks more comfortable breathing and is requiring less oxygen. I also shared that his kidney function in one way is the same (creatinine) and another way is worse (BUN) which may cause him to be sleepy. We talked about Dr. Vera managing the kidney function and that currently there is no indication for dialysis. If there is no improvement, or there is worsening, then the question of dialysis will need to be answered. Marilu states concern about patient's ability to handle dialysis, on top of being weak, and the other medical problems. I shared that dialysis is not a question for today, and there is hope that the kidney function will improve. Finally, I shared [facility]amilah's phone number as a resource for insurance and seeing what coverage the patient has, and for resources/needs when the patient is ready for discharge. There were no questions or further needs at the end of the call. Addendum - informed by the nurse at 17:39 that abdomen is becoming tighter/more distended. XR ordered and reviewed - distended loops of bowel. Will order NG tube now and STAT CT without contrast for obstruction.
--- NOTE | 2020-10-09 13:44 | PRG ---
DATE OF SERVICE: 10/09/2020 SUBJECTIVE: Patient was seen and examined at bedside and overnight events noted. Patient denies any shortness of breath or chest pain or palpitation. No history of nausea or vomiting or diarrhea or fever or chills or cramps. OBJECTIVE: GENERAL: This is a well built male, in no apparent distress. VITAL SIGNS: Temperature 99.0, pulse 65, , and blood pressure 162/69. HEENT: Atraumatic, normocephalic. Oral mucosa is moist. NECK: Supple. CARDIOVASCULAR: S1, S2 heard. Rate and rhythm regular. RESPIRATORY: Clear to auscultation. GASTROINTESTINAL: Abdomen is soft. MUSCULOSKELETAL: 1+ edema. DERMATOLOGIC: No skin rash. NEUROLOGIC: Somnolent. PSYCHIATRIC: Mood and affect normal. LABORATORY DATA: Potassium 3.8, BUN is 122, creatinine is 3.5. ASSESSMENT AND PLAN: 1. Acute kidney injury on chronic kidney disease, stage 4. His creatinine is stable, but BUN unfortunately is going up with concerns about his mental status, BUN rising causing azotemia most likely from the medications and possibly infection given the leukocytosis. Agree with broadening the coverage to gram-positive coverage also today. Continue to hold nephrotoxins and diuretics and we will monitor. No acute indication for dialysis. 2. Hypokalemia. 3. Type 2 diabetes. 4. Hypertension. 5. Cardiorenal syndrome. 6. Anemia. 7. COVID-19 infection. Monitor BUN closely. No acute indication for dialysis. We will follow. Avoid nephrotoxins. Plan discussed with Dr. Janell Buitrago. Job ID: [id number]
[2020-10-09] MEDS ORDERED: VANCOMYCIN 2 GRAM/400 ML BAG 2 GM in Premix Bag 1 BAG IVPB SCH (17:00)
--- NOTE | 2020-10-09 18:39 | RAD ---
KUB: History: Abdominal distention FINDINGS: There is moderate gaseous distention of the colon to the level of the sigmoid. No definite signs for obstruction. No volvulus identified. IMPRESSION: Gaseous distention which is related to fairly diffuse gaseous distention of the colon. POS: BHAVIK
--- NOTE | 2020-10-09 20:36 | PDOC.BPN ---
- Brief Progress Note 19:45 - with RN/Jamel - evaluated patient and performed a rectal exam to check for obstruction and attempt to relieve some of the colon distention. Pt with small amount of soft brown stool. No palpable rectal mass or abnormality. No air released with exam. Will proceed with NGT and CT scan. 20:00 - called and updated Marilu with the xray results, plan for CT scan and NGT tube to relieve distension. She again expressed concern as his medical power of ip technology transactions attorney and as his financial power of ip technology transactions attorney. She states the patient was committed to DNR status when he created his will. She is concerned about paying for medical treatment that the patient would not want and she expressed concern that the patient does not know what he is consenting to. I stated that the patient is the only one who can revoke a do not resuscitate status and at this time the patient does demonstrate capacity for decision making. Marilu stated that all she hears is "you wanting to do more and more to the patient and that he will be on life support with a vegetative quality of life". She also stated that "You want to put him on dialysis". 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 You don't understand what is going on." She stated that they would not be paying for procedures that she doesn't consent to. She stated she didn't understand why I would do a CT scan and place an NG tube. I discussed the tube is to suction out the air in his stomach to help relieve the distension. The CT scan is to look for an underlying problem such as a blockage. I discussed that I have no interest in putting the patient on dialysis. Dialysis is not needed today. If it is needed, it will be a conversation by the Manager Of Selection And Assessment, the patient, and her. I also discussed that there is no need for life support at this time. Marilu expressed concern that the patient is at end of life. Marilu said that she is willing to speak with the Ethics Instructor - to share her concerns with the current medical care, the code status, her financial and medical gutierres of ip technology transactions attorney. I discussed the conversations with Marilu yesterday and today with the Ethics Instructor, requested that Marilu be contacted, and to consider an ethics meeting. The goal is to ensure for all (the patient, Marilu and the hospital) that the medical care provided is in alignment with the patient's goals of care. Palliative care consult placed for assistance tomorrow to help clarify the situation and re-assess capacity for decision making which may change based on renal function. Placed an ethics consult for the above reasons. Discussed situation with Dr. Lucas/[employer] Hitch Driver - he agrees with the plan outlined above.
--- NOTE | 2020-10-09 21:42 | CT ---
CT abdomen and pelvis without contrast: 10/09/2020 COMPARISON: 05/03/2018 HISTORY: Distention TECHNIQUE: Axial CT imaging at 5 mm intervals from lung bases through pubic symphysis without contras t media. Coronal and sagittal reformatted imaging obtained. FINDINGS: There is new nonspecific diffuse interstitial and alveolar opacity within both lung bases. There is extensive coronary arterial calcification. Small bilateral pleural effusions are noted, left greater than right. Midline sternotomy wires are present. There is no free intraperitoneal air seen. The lack of contrast limits assessment of the viscera, bowel, vascular structures, and for lymphadeno adela. Clips in the right upper quadrant suggest prior cholecystectomy. Limited assessment of the liver, spl een, pancreas, adrenal glands, and kidneys demonstrates no acute findings. There is extensive multifocal atherosclerotic calcification of the abdominal aorta and its branches. There is no evidence for small bowel obstruction. The stomach is not distended. There is a Grubbs cath eter within the urinary bladder. The rectum is distended and filled with stool. There is minimal fat stranding involving the presacral fat. A mild degree of colitis in this region cannot be excluded. The colon is diffusely distended from the level of the cecum through the level of the rectum, a finding which is new when compared to the prior CT. The cecum is the most distended portion of the colon, which measures up to approximately 12 cm in transverse dimension. Review of the osseous structures demonstrates a hip arthroplasty on the left. There are degenerative changes noted within the lower lumbar spine. There is no worrisome lytic or blastic bone lesion. There is mild anterior wedging of the L1 vertebral body and there is mild superior endplate irregular ity involving the L3 vertebral body suggesting old fractures. IMPRESSION: Interval development of diffuse colonic distention, including the cecum measuring up to 1 2 cm in transverse dimension. There is no evidence for small bowel obstruction or free intraperitoneal air. There is prominent interstitial and alveolar opacity within the lung bases with associated pleural ef fusions, nonspecific. Findings discussed with Dr. Buitrago at 9:30 PM 10/09/2020
--- NOTE | 2020-10-09 21:56 | PDOC.BPN ---
- Brief Progress Note Encounter Date: 10/09/20 Encounter Time: 21:[address] scan with Dr. Antony - colon distention to 12 cm at the cecum and extends through the rectum. No evidence of small bowel obstruction, and the stomach is decompressed. Discussed with Dr. Ledbetter who recommends rectal tube and GI consult tomorrow to see if they can assist. Called Jamel/RN - no NGT (order cancelled), request for rectal tube - she is uncertain if this can be placed on the floor and she will find out. Consult for GI placed for tomorrow. Called and updated Marilu by speaker phone with Automotive Machinist/Crystal about the information above. Discussed that tomorrow Palliative care will re-evaluate capacity for decision making which will be essential for creating the plan ahead. She stated that pt is very intelligent and sounds like he knows what he is talking about but is concerned that he may not. Discussed - no NG tube needed, Placement of rectal tube if able by RN/hospital protocol, and GI consult tomorrow. There were no questions or further needs at end of call.
[2020-10-09] MEDS: Insulin Glargine 15 UNITS in Pre-Filled Syringe 1 EACH SC SCH (22:37)
[2020-10-09] MEDS: Finasteride 5 MG TAB PO SCH (22:38)
[2020-10-09] MEDS: Atorvastatin Calcium 40 MG TAB PO SCH (22:38)
[2020-10-10] MEDS: Cefepime 2 GM in Sodium Chloride 0.9% 100 ML IVPB SCH (00:59)
[2020-10-10] MEDS: Acetaminophen 325 MG TAB PO PRN (01:10)
[2020-10-10] MEDS: Mometasone 100 MCG/Formoterol 5 MCG 120 PUFF INHALER INH SCH ×3 (03:10→20:03)
[2020-10-10 05:07] LABS: Hemoglobin 9.1 g/dL (14.0-18.0); Mean Corpuscular HGB CONC 33.8 g/dL (32.0-36.0); Mean Corpuscular Hemoglobin 32.2 pg (27.0-31.0); Mean Corpuscular Volume 95.2 fL (78.0-98.0); Mean Platelet Volume 8.7 fL (7.4-10.4); Platelet Count 244 thou/uL (130-400); Red Blood Cell (RBC) Count 2.81 mill/uL (4.70-6.10); White Blood Cell (WBC) Count 14.9 thou/uL (4.8-10.8)
[2020-10-10 05:21] LABS: Anion Gap 17 mmol/L (10-20); Calc. Creatinine Clearance 28 mL/min (70-130); Calcium 7.5 mg/dL (7.8-10.44); Carbon Dioxide 18 mmol/L (23-31); Chloride 112 mmol/L (98-107); Glucose 153 mg/dL (83-110); Potassium 3.5 mmol/L (3.5-5.1); Sodium 143 mmol/L (136-145)
[2020-10-10 05:32] LABS: BUN (Urea Nitrogen) 121 mg/dL (8.4-25.7)
[2020-10-10 05:41] LABS: Band 9 % (5-11); Lymphocytes 3 % (21-51); MDiff Complete? YES; Monocytes 9 % (0-10); Neutrophil 79 % (42-75); Platelet Morphology Comment Appears Adequate
--- NOTE | 2020-10-10 11:23 | PDOC.HOSPP ---
- Subjective Encounter Date: 10/10/20 Encounter Time: 11:24 Subjective: alert, oriented. only complaint is thirsty - Objective Vital Signs & Weight: Vital Signs (12 hours) Temp Pulse Resp BP Pulse Ox 10/10/20 03:20 98.3 F 62 16 138/64 100 10/10/20 03:08 96 10/09/20 23:10 97.2 F L 62 20 162/71 H 96 Weight Admit Weight 214 lb Weight 229 lb 3.2 oz I&O: 10/09/20 10/10/20 10/11/20 06:59 06:59 06:59 Intake Total 1313 1211 Output Total 925 800 Balance 388 411 Result Diagrams: 10/10/20 04:45 10/10/20 04:45 Additional Labs: Accuchecks 10/10/20 10/09/20 10/09/20 09:57 21:41 16:57 POC Glucose 109 H 146 H 147 H 10/08/20 16:52 POC Glucose 300 H Hospitalist ROS - Medication Medications: Active Medications Generic Name Dose Route Start Last Admin Trade Name Freq PRN Reason Stop Dose Admin Acetaminophen 650 mg 09/24/20 21:11 10/10/20 01:10 Acetaminophen 325 Mg Tab PO 650 mg Q4H PRN Administration Headache/Fever or Pain Hydrocodone Bitart/Acetaminophen 1 tab 10/01/20 08:52 10/04/20 21:44 Hydrocodone/Acetaminophen 5/325 Mg Tablet PO 1 tab Q4H PRN Administration Moderate Pain (4-6) Amlodipine Besylate 10 mg 09/26/20 09:00 10/09/20 10:27 Amlodipine 10 Mg Tab PO 10 mg DAILY AIDAN Administration Ascorbic Acid 1,000 mg 09/26/20 09:00 10/09/20 10:29 Ascorbic Acid 500 Mg Chewable Tablet PO 1,000 mg DAILY AIDAN Administration Aspirin 81 mg 09/26/20 09:00 10/09/20 10:29 Aspirin 81 Mg Enteric Coated Tablet PO 81 mg DAILY AIDAN Administration Atorvastatin Calcium 40 mg 09/24/20 21:00 10/09/20 22:38 Atorvastatin Calcium 40 Mg Tab PO 40 mg QPM AIDAN Administration Carvedilol 25 mg 10/09/20 08:00 10/09/20 17:21 Carvedilol 25 Mg Tab PO 25 mg BID- AIDAN Administration Cholecalciferol 2,000 units 09/25/20 21:00 10/09/20 22:37 Cholecalciferol 1,000 Units (25 Mcg) Tab PO 2,000 units BID AIDAN Administration Clopidogrel Bisulfate 75 mg 09/26/20 09:00 10/09/20 10:29 Clopidogrel Bisulfate 75 Mg Tab PO 75 mg DAILY AIDAN Administration Dexamethasone 6 mg 10/09/20 09:00 10/09/20 10:30 Dexamethasone 4 Mg/Ml Vial SLOW IVP 6 mg DAILY AIDAN Administration Epoetin Hubert-epbx 10,000 unit 10/08/20 17:00 10/08/20 19:58 Epoetin Hubert-Epbx (Esrd) 10,000 Unit/Ml Vial SC 10,000 unit Q7D AIDAN Administration Ferrous Sulfate 325 mg 09/26/20 08:00 10/09/20 10:25 Ferrous Sulfate 325 Mg Tab PO 325 mg QAM-WM AIDAN Administration Finasteride 5 mg 09/25/20 21:00 10/09/20 22:38 Finasteride 5 Mg Tab PO 5 mg HS AIDAN Administration Heparin Sodium (Porcine) 5,000 units 09/26/20 15:00 10/09/20 22:37 Heparin 5,000 Units/Ml Vial SC 5,000 units TID AIDAN Administration Hydralazine HCl 10 mg 09/26/20 09:02 09/30/20 00:41 Hydralazine 20 Mg/Ml Vial SLOW IVP 10 mg Q4H PRN Administration Blood Pressure Hydralazine HCl 100 mg 10/07/20 21:00 10/09/20 22:37 Hydralazine 25 Mg Tab PO 100 mg TID AIDAN Administration Dextrose/Water 1,000 mls @ 0 mls/hr 09/25/20 10:13 09/26/20 05:36 D5w IV 1,000 mls .Q0M PRN Administration Hypoglycemia As Directed Potassium Chloride 40 meq/ 270 mls @ 67.5 mls/hr 10/02/20 23:59 10/03/20 00:06 Sodium Chloride IVPB 10/03/20 07:59 270 mls 0400,2359 AIDAN Administration Insulin Glargine 15 units/ 0.15 mls @ 0 mls/hr 10/07/20 21:00 10/09/20 22:37 Miscellaneous Medication SC 0.15 mls HS AIDAN Administration Sodium Chloride 1,000 mls @ 50 mls/hr 10/08/20 16:47 10/09/20 10:26 Normal Saline 0.9% IV 1,000 mls .Q20H AIDAN Administration Cefepime HCl 2 gm/ Sodium 100 mls @ 200 mls/hr 10/10/20 01:00 10/10/20 00:59 Chloride IVPB 100 mls 0100 AIDAN Administration Insulin Human Lispro 0 units 09/25/20 10:15 10/09/20 11:11 Humalog 300 Units/3 Ml Vial SC 3 unit .AGGRESSIVE SLIDING AIDAN Administration Insulin Human Lispro 0 units 09/26/20 21:18 10/08/20 22:26 Humalog 300 Units/3 Ml Vial SC 3 unit .BEDTIME SLIDING SC PRN Administration Bedtime Correctional Scale Isosorbide Mononitrate 30 mg 09/26/20 09:00 10/09/20 10:28 Isosorbide Mononitrate Er 30 Mg Tab PO 30 mg DAILY AIDAN Administration Melatonin 3 mg 10/01/20 08:52 10/09/20 00:16 Melatonin 3 Mg Tab PO 3 mg HS PRN Administration Insomnia Mometasone Furoate/Formoterol Fumar 2 puff 10/03/20 18:30 10/10/20 06:20 Mometasone 100 Mcg/Formoterol 5 Mcg 120 Puff Inhaler INH 2 puff BID-RT AIDAN Administration Oxybutynin Chloride 5 mg 09/26/20 09:00 10/09/20 10:28 Oxybutynin 5 Mg Tab PO 5 mg DAILY AIDAN Administration Pantoprazole Sodium 40 mg 09/25/20 07:30 10/09/20 10:27 Pantoprazole 40 Mg Tab PO 40 mg DAILY-AC AIDAN Administration Senna/Docusate Sodium 2 tab 09/25/20 14:08 10/09/20 17:51 Senokot S 8.6-50 Mg Tab PO 2 tab BIDPRN PRN Administration Constipation Sertraline HCl 50 mg 09/25/20 09:00 10/09/20 10:29 Sertraline Hcl 25 Mg Tab PO 50 mg DAILY AIDAN Administration Sodium Chloride 10 ml 09/24/20 21:00 10/09/20 22:37 Flush - Normal Saline 10 Ml Syringe IVF 10 ml Q12HR AIDAN Administration Sodium Chloride 10 ml 09/24/20 19:15 09/30/20 09:18 Flush - Normal Saline 10 Ml Syringe IVF 10 ml PRN PRN Administration Saline Flush Tamsulosin HCl 0.4 mg 09/24/20 21:00 10/09/20 22:37 Tamsulosin Hcl 0.4 Mg Cap PO 0.4 mg BID AIDAN Administration Zinc Sulfate 220 mg 09/25/20 09:00 10/09/20 10:26 Zinc Sulfate 220 Mg Cap PO 220 mg DAILY AIDAN Administration Hospitalist Exam Vitals: Vital Signs (12 hours) Temp Pulse Resp BP Pulse Ox 10/10/20 03:20 98.3 F 62 16 138/64 100 10/10/20 03:08 96 10/09/20 23:10 97.2 F L 62 20 162/71 H 96 Weight Admit Weight 214 lb Weight 229 lb 3.2 oz General Appearance: awake alert Neck: no JVD Heart: RRR, no murmur Respiratory - other findings: fine rales Gastrointestinal: soft, normal bowel sounds Extremities: no edema Hosp A/P (1) Myocardial infarction type 2 Code(s): I21.A1 - MYOCARDIAL INFARCTION TYPE 2 Status: Acute (2) Acute kidney injury superimposed on chronic kidney disease Code(s): N17.9 - ACUTE KIDNEY FAILURE, UNSPECIFIED; N18.9 - CHRONIC KIDNEY DISEASE, UNSPECIFIED Status: Acute (3) COVID-19 Code(s): U07.1 - COVID-19 Status: Acute (4) Pneumonia due to 2019 novel coronavirus Code(s): U07.1 - COVID-19; J12.82 - PNEUMONIA DUE TO CORONAVIRUS DISEASE 2019 Status: Acute (5) Acute on chronic combined systolic (congestive) and diastolic (congestive) heart failure Code(s): I50.43 - ACUTE ON CHRONIC COMBINED SYSTOLIC AND DIASTOLIC HRT FAIL Status: Acute (6) CAD (coronary artery disease) Code(s): I25.10 - ATHSCL HEART DISEASE OF [place] CORONARY ARTERY W/O ANG PCTRS Status: Chronic Qualifiers: Coronary Disease-Associated Artery/Lesion type: [place] artery [place] vs. transplanted heart: [place] heart (7) DM2 (diabetes mellitus, type 2) Status: Chronic Qualifiers: Diabetes mellitus [employer] insulin use: with prison use Diabetes mellitus complication status: with kidney complications Diabetes mellitus complication detail: with chronic kidney disease Chronic kidney disease stage: stage 3 (moderate) (8) Hypertension Code(s): I10 - ESSENTIAL (PRIMARY) HYPERTENSION Status: Chronic Qualifiers: Hypertension type: essential hypertension Qualified Code(s): I10 - Essential (primary) hypertension - Plan cont ASA,statin,plavix chf-cont b-carole, no CARMELITA/ARB due to renal failure cont broad spectrum antibx for secondary lung infection O2 supplementation
--- NOTE | 2020-10-10 12:02 | PRG ---
DATE OF SERVICE: 10/10/2020 SUBJECTIVE: A 75-year-old gentleman, being seen by telephone visit. The patient denies nausea, vomiting, or chest pain. PHYSICAL EXAMINATION: General: The patient is awake and alert. Vital Signs: Reviewed. HEENT: Head normocephalic and atraumatic. Eyes intact, no ulcers. Nose intact, no ulcers. Ears intact, no ulcers. Neck: Supple. No JVD. Chest: Symmetrical and clear. Cardiovascular: Shows S1 and S2, no rub, no murmur. Gastrointestinal: Abdomen is soft, bowel sounds positive. Extremities: Show no edema or ulcers. Skin: Shows no rash or petechiae. Musculoskeletal: Shows no joint swelling or stiffness. Genitourinary: Shows no Grubbs or CVA tenderness. Neurologic: Motor intact. Cranial nerves intact. LABORATORY DATA: Show creatinine 3.4. ASSESSMENT AND RECOMMENDATIONS: 1. Acute kidney injury, improved. 2. Chronic kidney disease, stage 4, stable. 3. Hypertension, stable. 4. Anemia, stable. 5. No indication for dialysis. 6. Metabolic acidosis. Job ID: [id number]
--- NOTE | 2020-10-10 12:09 | PDOC.PALCO ---
Palliative Care Consult - Consult Details Requesting Physician: Dr Buitrago Reason for Consult: goals of care, advance directives assistance, complex decision-making - Pertinent HPI 75 year old male who lives in assisted living and ambulates with a cane at baseline secondary to post CVA. Fell over a lazyboy recliner in his home and was unable to get himself up. On ground overnight as his life alert was non functioning. He was found by housekeeping who activated 911. Initially refused transport, however secondary to pain elected to seek evaluation at the emergency room. Emergency room evaluation noted tachycardia with first degree av-block partial left bundle branch block. Elevated BNP. Admitted for NSTEMI and identified to be Covid +. - Pertinent PMH History of CVA, CAD, CABG, CHF, DM II, HTN, HDL, CKD III, - Social History Smoking Status: Never smoker Smoking: no tobacco exposure Alcohol Use: none Drug Use History: none Living Situation: other (Assisted living) - Medications MAR Reviewed: Yes - Allergies Allergies/Adverse Reactions: Allergies Allergy/AdvReac Type Severity Reaction Status Date / Time Iodinated Contrast Media AdvReac Mild n/v Verified 09/24/20 13:41 [Iodinated Contrast Media - IV Dye] - Subjective Weakness but alert and oriented x3. O2 vial NC, fair appetite, rectal tube in place. - ROS Constitutional: alert, loss appetite, weakness ENT: dry mouth, other (Denies congetion or throat irritation) Respiratory: shortness of breath with extertion, other (Denies cough, congestion) Cardiology: other (Denies chest pain or palpitations) Gastrointestinal: bloating, other (Denies abdominal pain) Musculoskeletal: arthritis/arthralgias Neurological: other (Denies tremor, dizziness, headache) - Objective Vital Signs: Vital Signs - Most Recent Temp Pulse Resp BP Pulse Ox 98.3 F 62 16 138/64 100 10/10/20 03:20 10/10/20 03:20 10/10/20 03:20 10/10/20 03:20 10/10/20 03:20 Palliative Performance Scale: 40 - Physical Exam Constitutional: NAD, ill appearing HEENT: EOMI, moist MMs, sclera anicteric Respiratory: unlabored breathing Deviation from normal: mildly adventicious lung sounds Cardiovascular: RRR Gastrointestinal: soft, non-tender Musculoskeletal: no cyanosis, no clubbing, no edema Neurology: moves all 4 limbs, no focal deficits Skin: cap refill <2 seconds, no lesions, no rash Psychiatric: A&O x 3, flat affect - Problem List (1) COVID-19 Code(s): U07.1 - COVID-19 Current Visit: Yes Status: Acute (2) Myocardial infarction type 2 Code(s): I21.A1 - MYOCARDIAL INFARCTION TYPE 2 Current Visit: Yes Status: Resolved (3) Pneumonia due to 2019 novel coronavirus Code(s): U07.1 - COVID-19; J12.82 - PNEUMONIA DUE TO CORONAVIRUS DISEASE 2019 Current Visit: Yes Status: Acute (4) Palliative care encounter Code(s): Z51.5 - ENCOUNTER FOR PALLIATIVE CARE Current Visit: No Status: Acute - Plan/Recommendations Plan: Palliative care has been involved with patient. DUNG is the mother of his son Jon Parekh. Patient desires to remain with full resuscitation measures his MPOA disagrees. Communicated with Dr Buitrago to follow up, discuss with patient and assess medical capacity for decision making. Visited with Mr Blum, weak but engages easily. He has an understanding of his illness and for now wishes to remain with full resuscitation measures. He is clear in expressing a choice and has full appreciation of his medical condition and morbidities. He further is able to reason his choices and the consequence of choices. Demonstrates capacity ot make his own decisions at this time. He did verbalize to continue to communicate with Marilu Communicated with Dr David and Dr Lucas [60] minutes spent on this encounter with >50% of the time in counseling and coordination of care. Thank you for this very appropriate consult.
[2020-10-10] MEDS: hydrALAZINE 25 MG TAB PO SCH ×3 (16:05→21:41)
[2020-10-10] MEDS: Heparin 5,000 UNITS/ML VIAL SC SCH ×3 (16:06→20:03)
[2020-10-10] MEDS ORDERED: Vancomycin 1 GM in Premix Bag 1 BAG IVPB SCH (17:00)
[2020-10-10 17:22] LABS: Vancomycin, Random 16.9 ug/mL (See Comment)
--- NOTE | 2020-10-10 17:28 | CON ---
DATE OF CONSULTATION: 10/10/2020 CHIEF COMPLAINT: Abdominal distention. HISTORY OF PRESENT ILLNESS: Mr. Blum is a 75-year-old man who was admitted on 09/24/2020, after he was found down at home and was ultimately admitted with rhabdomyolysis and acute on chronic renal insufficiency and [id number] [place] and COVID pneumonia. He has had no nausea or vomiting. He had a bowel movement reported a couple of nights ago. No abdominal pain. He was found to have progressive abdominal distention yesterday and a CT scan of the abdomen and pelvis was obtained, which showed stool in the colon and dilation of the colon to 12 cm at the level of the cecum. Minimal fat stranding was noted in the presacral fat and colon was distended throughout on imaging. There is stool scattered to the colon as well noted. Today, he has no abdominal pain. He has had some liquid stool in a rectal tube which was placed yesterday. No blood in the stool. The patient has had a prior stroke and has left-sided weakness and has very limited mobility. PAST MEDICAL HISTORY: Ischemic cardiomyopathy and coronary artery disease, chronic renal insufficiency, stroke, hypertension, hyperlipidemia. PAST SURGICAL HISTORY: Coronary artery bypass graft, cardiac stent, eye surgery, tonsillectomy, hip surgery. FAMILY HISTORY: Negative for GI malignancies. SOCIAL HISTORY: No alcohol, tobacco, or drugs. He is residing in an independent living facility prior to admission. ALLERGIES: IODINE CONTRAST. MEDICATIONS: Include; 1. Amlodipine. 2. Aspirin. 3. Atorvastatin. 4. Carvedilol. 5. Cefepime. 6. Clopidogrel. 7. Dexamethasone. 8. Epoetin. 9. Iron. 10. Finasteride. 11. Heparin 5000 units t.i.d. subcu. 12. Insulin sliding scale. 13. Isosorbide mononitrate. 14. Dulera inhaler. 15. Oxybutynin. 16. Pantoprazole. 17. Sertraline. 18. Tamsulosin. 19. Zinc. 20. Vancomycin. REVIEW OF SYSTEMS: Negative x10 systems reviewed except as stated in the history of present illness. PHYSICAL EXAMINATION: VITAL SIGNS: Temperature is 98.3, pulse 62, blood pressure 138/64. GENERAL: He is in no acute distress. He is oriented to his name and year and location. He is appropriately responsive to questions. HEENT: His eyes have no scleral icterus. Oropharynx has dry mucous membranes. No cervical or supraclavicular lymphadenopathy. LUNGS: Clear to auscultation bilaterally. HEART: Regular rate and rhythm without murmur. ABDOMEN: Distended, but soft and nontender. Bowel sounds are present. EXTREMITIES: 1+ lower extremity edema. The rectal tube was removed and digital exam was performed with the release of significant amount of air and liquid stool. I replaced the rectal tube, but this would not reinflate as it apparently is clogged, so it was removed again. LABORATORY DATA: White blood cell count 14.9, hemoglobin 9.1, platelets 244, creatinine 3.41. Ferritin 893. Labs from 10/04 showed a bilirubin of 0.3, AST 26, ALT 11, alkaline phosphatase 45, albumin of 2.9. 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 He has passed some liquid stool originally with placement of rectal tube, now with digital stimulation, he has been able to pass some air and more liquid stool. There is no impaction in the rectal vault. He had colonoscopy in 2018, which was negative except for a couple of small adenomas. Diverticulosis was also noted in the left colon. RECOMMENDATIONS: 1. We will give scheduled Dulcolax suppository and digital stimulation to assist with passage of air and stool. The rectal tube is collapsible and easily pinches off and at this point, I think he will benefit more from the suppository and digital stimulation than replacing the rectal tube. 2. Start Reglan. 3. Hold iron. 4. We will place an NG tube to suction for the next 24 hours. 5. Recheck abdominal x-ray tomorrow to see how he is responding. Currently, he has no abdominal pain and has no signs of ischemia. His white blood cell count did decrease from yesterday to today. 6. We will avoid neostigmine for now, given the recent respiratory problems and COVID pneumonia. He appears to be breathing comfortably at this time, however. Still neostigmine would require transfer to a monitored bed and close monitoring of his respiratory status and risk for significant secretions and respiratory compromise. If he requires decompression, flexible sigmoidoscopy might be a better option for him to try to decompress the colon that way, but at this time, he does not appear excessively distended and his family has been indicating that he has expressed to them that he would want to avoid any type of invasive procedures previously. For now, the patient seems capable of making his own decisions, but Palliative Care Team and Ethics Committee are involved with that to help determine that further. For now, we will treat with the above plan and avoid neostigmine or endoscopy. 7. I will hold the oxybutynin as well due to potential side effects worsening his colonic motility. Job ID: [id number]
[2020-10-10] MEDS ORDERED: Vancomycin HCl 750 MG in Sodium Chloride 0.9% 250 ML 250 ML IVPB SCH (18:00)
[2020-10-10] MEDS: Carvedilol 25 MG TAB PO SCH ×2 (19:08→19:09)
[2020-10-10] MEDS: Sodium Chloride 0.9% 1,000 ML IV SCH ×2 (19:09→20:12)
[2020-10-10] MEDS: Amlodipine 10 MG TAB PO SCH (19:09)
[2020-10-10] MEDS: Aspirin 81 mg Enteric Coated Tablet PO SCH (19:09)
[2020-10-10] MEDS: Ascorbic Acid 500 mg Chewable Tablet PO SCH (19:09)
[2020-10-10] MEDS: Cholecalciferol 1,000 UNITS (25 MCG) TAB PO SCH ×2 (19:10→21:41)
[2020-10-10] MEDS: Clopidogrel Bisulfate 75 MG TAB PO SCH (19:10)
[2020-10-10] MEDS: Dexamethasone 4 mg/ml Vial SLOW IVP SCH (19:10)
[2020-10-10] MEDS: Zinc Sulfate 220 MG CAP PO SCH (19:11)
[2020-10-10] MEDS: Tamsulosin HCl 0.4 MG CAP PO SCH ×2 (19:11→21:42)
[2020-10-10] MEDS: Bisacodyl 10 MG SUPP PR SCH ×2 (19:12→22:05)
[2020-10-10] MEDS: Ferrous Sulfate 325 MG TAB PO SCH (19:29)
[2020-10-10] MEDS: Oxybutynin 5 MG TAB PO SCH (19:30)
[2020-10-10] MEDS: Metoclopramide HCl 10 MG/2 ML VIAL IVP SCH (20:03)
[2020-10-10] MEDS: Insulin Glargine 15 UNITS in Pre-Filled Syringe 1 EACH SC SCH (20:07)
[2020-10-10] MEDS: Finasteride 5 MG TAB PO SCH (21:41)
[2020-10-10] MEDS: Atorvastatin Calcium 40 MG TAB PO SCH (21:41)
[2020-10-11] MEDS: Metoclopramide HCl 10 MG/2 ML VIAL IVP SCH ×4 (00:13→17:46)
[2020-10-11] MEDS: Cefepime 2 GM in Sodium Chloride 0.9% 100 ML IVPB SCH (00:13)
[2020-10-11] MEDS ORDERED: Sterile Water 10 ML ONE (05:47)
[2020-10-11] MEDS: Mometasone 100 MCG/Formoterol 5 MCG 120 PUFF INHALER INH SCH ×2 (06:10→17:46)
[2020-10-11] MEDS: Bisacodyl 10 MG SUPP PR SCH ×3 (06:11→22:03)
[2020-10-11] MEDS: Dextrose 50% Abboject 50 ML SYRINGE SLOW IVP PRN ×2 (06:11→11:02)
[2020-10-11] MEDS ORDERED: Dextrose 5 % And 0.9 % NaCl 1,000 ML IV SCH (08:00)
[2020-10-11] MEDS: Dexamethasone 4 mg/ml Vial SLOW IVP SCH (08:21)
[2020-10-11] MEDS: Heparin 5,000 UNITS/ML VIAL SC SCH (08:21)
[2020-10-11] MEDS: Amlodipine 10 MG TAB PO SCH (08:22)
[2020-10-11] MEDS: Ascorbic Acid 500 mg Chewable Tablet PO SCH (08:22)
[2020-10-11] MEDS: Clopidogrel Bisulfate 75 MG TAB PO SCH (08:22)
[2020-10-11] MEDS: Carvedilol 25 MG TAB PO SCH ×2 (08:22→16:01)
[2020-10-11] MEDS: Aspirin 81 mg Enteric Coated Tablet PO SCH (08:22)
[2020-10-11] MEDS: Cholecalciferol 1,000 UNITS (25 MCG) TAB PO SCH ×2 (08:22→22:23)
[2020-10-11] MEDS: hydrALAZINE 25 MG TAB PO SCH ×3 (08:23→22:23)
[2020-10-11] MEDS: Zinc Sulfate 220 MG CAP PO SCH (08:23)
[2020-10-11] MEDS: Tamsulosin HCl 0.4 MG CAP PO SCH ×2 (08:23→22:23)
--- NOTE | 2020-10-11 08:45 | PDOC.HOSPP ---
- Subjective Encounter Date: 10/11/20 Encounter Time: 08:38 Subjective: "bored" - Objective Vital Signs & Weight: Vital Signs (12 hours) Temp Pulse Resp BP Pulse Ox 10/11/20 03:10 98.6 F 68 20 162/68 H 100 10/10/20 23:41 98.2 F 68 18 179/77 H 98 Weight Admit Weight 214 lb Weight 221 lb 3.2 oz I&O: 10/10/20 10/11/20 10/12/20 06:59 06:59 06:59 Intake Total 1211 520 Output Total 800 500 Balance 411 20 Result Diagrams: 10/10/20 04:45 10/10/20 04:45 Additional Labs: Accuchecks 10/11/20 10/10/20 10/10/20 06:31 20:02 17:13 POC Glucose 143 H 122 H 121 H 10/10/20 10/08/20 09:57 16:52 POC Glucose 109 H 300 H Hospitalist ROS - Medication Medications: Active Medications Generic Name Dose Route Start Last Admin Trade Name Freq PRN Reason Stop Dose Admin Acetaminophen 650 mg 09/24/20 21:11 10/10/20 01:10 Acetaminophen 325 Mg Tab PO 650 mg Q4H PRN Administration Headache/Fever or Pain Hydrocodone Bitart/Acetaminophen 1 tab 10/01/20 08:52 10/04/20 21:44 Hydrocodone/Acetaminophen 5/325 Mg Tablet PO 1 tab Q4H PRN Administration Moderate Pain (4-6) Amlodipine Besylate 10 mg 09/26/20 09:00 10/11/20 08:22 Amlodipine 10 Mg Tab PO Not Given DAILY [facility] Ascorbic Acid 1,000 mg 09/26/20 09:00 10/11/20 08:22 Ascorbic Acid 500 Mg Chewable Tablet PO Not Given DAILY [facility] Aspirin 81 mg 09/26/20 09:00 10/11/20 08:22 Aspirin 81 Mg Enteric Coated Tablet PO Not Given DAILY [facility] Atorvastatin Calcium 40 mg 09/24/20 21:00 10/10/20 21:41 Atorvastatin Calcium 40 Mg Tab PO Not Given QPM AIDAN Bisacodyl 10 mg 10/10/20 14:00 10/11/20 06:11 Bisacodyl 10 Mg Supp MO 10/11/20 22:01 10 mg Q8HR AIDAN Administration Carvedilol 25 mg 10/09/20 08:00 10/11/20 08:22 Carvedilol 25 Mg Tab PO Not Given BID-[facility] Cholecalciferol 2,000 units 09/25/20 21:00 10/11/20 08:22 Cholecalciferol 1,000 Units (25 Mcg) Tab PO Not Given BID [facility] Clopidogrel Bisulfate 75 mg 09/26/20 09:00 10/11/20 08:22 Clopidogrel Bisulfate 75 Mg Tab PO Not Given DAILY [facility] Dexamethasone 6 mg 10/09/20 09:00 10/11/20 08:21 Dexamethasone 4 Mg/Ml Vial SLOW IVP 6 mg DAILY AIDAN Administration Dextrose/Water 25 gm 09/25/20 10:13 10/11/20 06:11 Dextrose 50% Abboject 50 Ml Syringe SLOW IVP 25 gm PRN PRN Administration Hypoglycemia Epoetin Hubert-epbx 10,000 unit 10/08/20 17:00 10/08/20 19:58 Epoetin Hubert-Epbx (Esrd) 10,000 Unit/Ml Vial SC 10,000 unit Q7D AIDAN Administration Finasteride 5 mg 09/25/20 21:00 10/10/20 21:41 Finasteride 5 Mg Tab PO Not Given HS AIDAN Glucagon 1 mg 09/25/20 10:13 10/11/20 05:50 Glucagon 1 Mg/Ml Vial IM 1 mg PRN PRN Administration Hypoglycemia Heparin Sodium (Porcine) 5,000 units 09/26/20 15:00 10/11/20 08:21 Heparin 5,000 Units/Ml Vial SC 5,000 units TID AIDAN Administration Hydralazine HCl 10 mg 09/26/20 09:02 09/30/20 00:41 Hydralazine 20 Mg/Ml Vial SLOW IVP 10 mg Q4H PRN Administration Blood Pressure Hydralazine HCl 100 mg 10/07/20 21:00 10/11/20 08:23 Hydralazine 25 Mg Tab PO Not Given TID [facility] Dextrose/Water 1,000 mls @ 0 mls/hr 09/25/20 10:13 09/26/20 05:36 D5w IV 1,000 mls .Q0M PRN Administration Hypoglycemia As Directed Potassium Chloride 40 meq/ 270 mls @ 67.5 mls/hr 10/02/20 23:59 10/03/20 00:06 Sodium Chloride IVPB 10/03/20 07:59 270 mls 0400,2359 AIDAN Administration Insulin Glargine 15 units/ 0.15 mls @ 0 mls/hr 10/07/20 21:00 10/10/20 20:07 Miscellaneous Medication SC 0.15 mls HS AIDAN Administration Cefepime HCl 2 gm/ Sodium 100 mls @ 200 mls/hr 10/10/20 01:00 10/11/20 00:13 Chloride IVPB 100 mls 0100 AIDAN Administration Dextrose/Sodium Chloride 1,000 mls @ 50 mls/hr 10/11/20 08:00 10/11/20 08:24 D5 0.9% Ns IV 1,000 mls .Q20H AIDAN Administration Insulin Human Lispro 0 units 09/25/20 10:15 10/09/20 11:11 Humalog 300 Units/3 Ml Vial SC 3 unit .AGGRESSIVE SLIDING AIDAN Administration Insulin Human Lispro 0 units 09/26/20 21:18 10/08/20 22:26 Humalog 300 Units/3 Ml Vial SC 3 unit .BEDTIME SLIDING SC PRN Administration Bedtime Correctional Scale Isosorbide Mononitrate 30 mg 09/26/20 09:00 10/11/20 08:23 Isosorbide Mononitrate Er 30 Mg Tab PO Not Given DAILY [facility] Melatonin 3 mg 10/01/20 08:52 10/09/20 00:16 Melatonin 3 Mg Tab PO 3 mg HS PRN Administration Insomnia Metoclopramide HCl 10 mg 10/10/20 18:00 10/11/20 06:11 Metoclopramide Hcl 10 Mg/2 Ml Vial IVP 10/14/20 06:01 10 mg Q6HR AIDAN Administration Mometasone Furoate/Formoterol Fumar 2 puff 10/03/20 18:30 10/11/20 06:10 Mometasone 100 Mcg/Formoterol 5 Mcg 120 Puff Inhaler INH 2 puff BID-RT AIDAN Administration Pantoprazole Sodium 40 mg 09/25/20 07:30 10/11/20 08:22 Pantoprazole 40 Mg Tab PO Not Given DAILY-AC [facility] Senna/Docusate Sodium 2 tab 09/25/20 14:08 10/09/20 17:51 Senokot S 8.6-50 Mg Tab PO 2 tab BIDPRN PRN Administration Constipation Sertraline HCl 50 mg 09/25/20 09:00 10/11/20 08:23 Sertraline Hcl 25 Mg Tab PO Not Given DAILY [facility] Sodium Chloride 10 ml 09/24/20 21:00 10/11/20 08:23 Flush - Normal Saline 10 Ml Syringe IVF 10 ml Q12HR AIDAN Administration Sodium Chloride 10 ml 09/24/20 19:15 10/11/20 06:11 Flush - Normal Saline 10 Ml Syringe IVF 10 ml PRN PRN Administration Saline Flush Tamsulosin HCl 0.4 mg 09/24/20 21:00 10/11/20 08:23 Tamsulosin Hcl 0.4 Mg Cap PO Not Given BID [facility] Zinc Sulfate 220 mg 09/25/20 09:00 10/11/20 08:23 Zinc Sulfate 220 Mg Cap PO Not Given DAILY [facility] Hospitalist Exam Vitals: Vital Signs (12 hours) Temp Pulse Resp BP Pulse Ox 10/11/20 03:10 98.6 F 68 20 162/68 H 100 10/10/20 23:41 98.2 F 68 18 179/77 H 98 Weight Admit Weight 214 lb Weight 221 lb 3.2 oz General Appearance: awake alert Neck: no JVD Heart: RRR, no murmur Respiratory - other findings: fine rales Gastrointestinal: distended, diminished bowl sounds Gastrointestinal - other findings: tympanitic Extremities: no edema Hosp A/P (1) Myocardial infarction type 2 Code(s): I21.A1 - MYOCARDIAL INFARCTION TYPE 2 Status: Acute (2) Acute kidney injury superimposed on chronic kidney disease Code(s): N17.9 - ACUTE KIDNEY FAILURE, UNSPECIFIED; N18.9 - CHRONIC KIDNEY DISEASE, UNSPECIFIED Status: Acute (3) COVID-19 Code(s): U07.1 - COVID-19 Status: Acute (4) Pneumonia due to 2019 novel coronavirus Code(s): U07.1 - COVID-19; J12.82 - PNEUMONIA DUE TO CORONAVIRUS DISEASE 2019 Status: Acute (5) Acute on chronic combined systolic (congestive) and diastolic (congestive) heart failure Code(s): I50.43 - ACUTE ON CHRONIC COMBINED SYSTOLIC AND DIASTOLIC HRT FAIL Status: Acute (6) CAD (coronary artery disease) Code(s): I25.10 - ATHSCL HEART DISEASE OF [place] CORONARY ARTERY W/O ANG PCTRS Status: Chronic Qualifiers: Coronary Disease-Associated Artery/Lesion type: [place] artery [place] vs. 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
--- NOTE | 2020-10-11 10:18 | RAD ---
Supine KUB: 10/11/2020 COMPARISON: 10/09/2020 HISTORY: Reevaluate colonic distention FINDINGS: There is stable marked gaseous distention of the colon from the level of the cecum through the level of the rectum. Supine imaging limits assessment for free intraperitoneal air and small bowel obstruction. Secondary to overlapping segments of dilated colon, exact measurement of the cecum is difficult. Cecu m probably measures at least 12-13 cm in greatest transverse dimension, stable. There is a nasogastric tube extending into the left upper quadrant, distal tip likely in the region o f the gastric fundus or proximal gastric body. IMPRESSION: No significant interval change in diffuse colonic gaseous distention.
[2020-10-11 11:02] LABS: Anion Gap 16 mmol/L (10-20); BUN (Urea Nitrogen) 123 mg/dL (8.4-25.7); Calc. Creatinine Clearance 29 mL/min (70-130); Calcium 7.4 mg/dL (7.8-10.44); Carbon Dioxide 20 mmol/L (23-31); Chloride 115 mmol/L (98-107); Potassium 3.1 mmol/L (3.5-5.1); Sodium 148 mmol/L (136-145)
[2020-10-11 11:07] LABS: Glucose 54 mg/dL (83-110)
--- NOTE | 2020-10-11 11:22 | PRG ---
DATE OF SERVICE: 10/11/2020 SUBJECTIVE: A 75-year-old gentleman being seen for acute kidney injury. The patient denies nausea, vomiting, or chest pain. OBJECTIVE: GENERAL: The patient is awake and alert. VITAL SIGNS: Afebrile, pulse 75, breathing 16, blood pressure 149/70. HEENT: Head normocephalic and atraumatic. Eyes intact, no ulcers. Nose intact, no ulcers. Ears intact, no ulcers. NECK: Supple. No JVD. CHEST: Symmetrical and clear. CARDIOVASCULAR: Shows S1 and S2, no rub, no murmur. GASTROINTESTINAL: Abdomen is soft, bowel sounds positive. EXTREMITIES: Show no edema or ulcers. SKIN: Shows no rash or petechiae. MUSCULOSKELETAL: Shows no joint swelling or stiffness. GENITOURINARY: Shows no Grubbs or CVA tenderness. NEUROLOGIC: Motor intact. Cranial nerves intact. LABORATORY DATA: Creatinine is pending. ASSESSMENT AND RECOMMENDATIONS: 1. Acute kidney injury, chronic kidney disease stage 4. Follow labs. 2. Hypertensive, stable. 3. Anemia, stable. 4. No urgent indication for dialysis as of labs yesterday. We will follow today's labs. Job ID: [id number]
[2020-10-11 17:28] LABS: Vancomycin, Random 19.3 ug/mL (See Comment)
[2020-10-11] MEDS ORDERED: Dextrose 5% in Water 1,000 ML IV SCH (17:30)
--- NOTE | 2020-10-11 17:43 | PRG ---
DATE OF SERVICE: 10/11/2020 SUBJECTIVE: Mr. Blum does not really have any complaints for me. He says he is very bored being here. He denies any nausea or significant abdominal pain. He has been passing small amounts of gas with digital stimulation. Per nursing staff, his abdominal x-ray shows stable, marked dilation of the entire colon. OBJECTIVE: VITAL SIGNS: Temperature 98.3, pulse 61, blood pressure 182/74, and 98% oxygen saturation on 6 L nasal cannula. GENERAL: Lying in bed comfortably, in no acute distress. HEART: Regular rate and rhythm. LUNGS: No respiratory distress. Some bibasilar crackles. Nasogastric tube is in place with about 400 mL of brown gastric contents in the canister. ABDOMEN: Distended, tympanitic to percussion throughout. Bowel sounds are hypoactive, but present. Soft and nontender to palpation throughout. EXTREMITIES: No peripheral edema. LABORATORY STUDIES: WBC is down to 14.9, hemoglobin 9.1, and platelets 244. Sodium 148, potassium 3.1, BUN 123, creatinine 3.25, glucose 88, and calcium 7.4. IMAGING STUDIES: Abdominal x-ray from today shows persistent marked dilation of the colon with cecum measuring 12 to 13 cm. Nasogastric tube in place. 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 Clinically, the patient is stable. There is really no change on abdominal x-ray and his marked colonic distention, but thankfully he is nontoxic and not having any significant abdominal pain. Continue with current measures to include scheduled Dulcolax suppositories and digital stimulation, IV Reglan 10 mg q.6 hours and continue nasogastric tube to low-intermittent suction. Mobilize as much as possible. Hold oral iron and oxybutynin. I agree with Dr. Licona's recommendation to try to avoid neostigmine administration or any lower endoscopy, given the patient's comorbidities. GI can continue to follow. Job ID: [id number]
[2020-10-11] MEDS ORDERED: Vancomycin HCl 750 MG in Sodium Chloride 0.9% 250 ML 250 ML IVPB SCH (18:15)
[2020-10-11] MEDS: hydrALAZINE 20 MG/ML VIAL SLOW IVP PRN (22:23)
[2020-10-11] MEDS: Insulin Glargine 15 UNITS in Pre-Filled Syringe 1 EACH SC SCH (22:23)
[2020-10-11] MEDS: Finasteride 5 MG TAB PO SCH (22:23)
[2020-10-11] MEDS: Atorvastatin Calcium 40 MG TAB PO SCH (22:23)
[2020-10-12] MEDS: Cefepime 2 GM in Sodium Chloride 0.9% 100 ML IVPB SCH (00:07)
[2020-10-12] MEDS: Metoclopramide HCl 10 MG/2 ML VIAL IVP SCH ×4 (00:07→18:26)
[2020-10-12] MEDS: Mometasone 100 MCG/Formoterol 5 MCG 120 PUFF INHALER INH SCH ×2 (06:07→18:26)
[2020-10-12 06:17] LABS: Anion Gap 15 mmol/L (10-20); BUN (Urea Nitrogen) 117 mg/dL (8.4-25.7); Calc. Creatinine Clearance 31 mL/min (70-130); Calcium 7.5 mg/dL (7.8-10.44); Carbon Dioxide 19 mmol/L (23-31); Chloride 117 mmol/L (98-107); Glucose 154 mg/dL (83-110); Potassium 3.2 mmol/L (3.5-5.1); Sodium 148 mmol/L (136-145)
--- NOTE | 2020-10-12 08:54 | PDOC.HOSPP ---
- Subjective Encounter Date: 10/12/20 Encounter Time: 08:48 Subjective: "bored" - Objective Vital Signs & Weight: Vital Signs (12 hours) Temp Pulse Resp BP BP Pulse Ox 10/12/20 08:30 95 10/12/20 05:05 98 F 82 24 H 167/62 H 96 10/11/20 23:00 181/75 H 10/11/20 22:23 76 182/72 H Weight Admit Weight 214 lb Weight 218 lb 11.2 oz I&O: 10/11/20 10/12/20 10/13/20 06:59 06:59 06:59 Intake Total 520 1429.5 Output Total 500 1450 Balance 20 -20.5 Result Diagrams: 10/10/20 04:45 10/12/20 05:30 Additional Labs: Accuchecks 10/11/20 10/11/20 10/11/20 20:22 16:41 11:39 POC Glucose 92 88 112 H Hospitalist ROS - Medication Medications: Active Medications Generic Name Dose Route Start Last Admin Trade Name Freq PRN Reason Stop Dose Admin Acetaminophen 650 mg 09/24/20 21:11 10/10/20 01:10 Acetaminophen 325 Mg Tab PO 650 mg Q4H PRN Administration Headache/Fever or Pain Amlodipine Besylate 10 mg 09/26/20 09:00 10/11/20 08:22 Amlodipine 10 Mg Tab PO Not Given DAILY [facility] Ascorbic Acid 1,000 mg 09/26/20 09:00 10/11/20 08:22 Ascorbic Acid 500 Mg Chewable Tablet PO Not Given DAILY [facility] Aspirin 81 mg 09/26/20 09:00 10/11/20 08:22 Aspirin 81 Mg Enteric Coated Tablet PO Not Given DAILY [facility] Atorvastatin Calcium 40 mg 09/24/20 21:00 10/11/20 22:23 Atorvastatin Calcium 40 Mg Tab PO Not Given QPM [facility] Carvedilol 25 mg 10/09/20 08:00 10/11/20 16:01 Carvedilol 25 Mg Tab PO Not Given BID-[facility] Cholecalciferol 2,000 units 09/25/20 21:00 10/11/20 22:23 Cholecalciferol 1,000 Units (25 Mcg) Tab PO Not Given BID [facility] Clopidogrel Bisulfate 75 mg 09/26/20 09:00 10/11/20 08:22 Clopidogrel Bisulfate 75 Mg Tab PO Not Given DAILY [facility] Dexamethasone 6 mg 10/09/20 09:00 10/11/20 08:21 Dexamethasone 4 Mg/Ml Vial SLOW IVP 6 mg DAILY AIDAN Administration Dextrose/Water 25 gm 09/25/20 10:13 10/11/20 11:02 Dextrose 50% Abboject 50 Ml Syringe SLOW IVP 25 gm PRN PRN Administration Hypoglycemia Epoetin Hubert-epbx 10,000 unit 10/08/20 17:00 10/08/20 19:58 Epoetin Hubert-Epbx (Esrd) 10,000 Unit/Ml Vial SC 10,000 unit Q7D AIDAN Administration Finasteride 5 mg 09/25/20 21:00 10/11/20 22:23 Finasteride 5 Mg Tab PO Not Given HS AIDAN Glucagon 1 mg 09/25/20 10:13 10/11/20 05:50 Glucagon 1 Mg/Ml Vial IM 1 mg PRN PRN Administration Hypoglycemia Hydralazine HCl 10 mg 09/26/20 09:02 10/11/20 22:23 Hydralazine 20 Mg/Ml Vial SLOW IVP 10 mg Q4H PRN Administration Blood Pressure Hydralazine HCl 100 mg 10/07/20 21:00 10/11/20 22:23 Hydralazine 25 Mg Tab PO Not Given TID AIDAN Dextrose/Water 1,000 mls @ 0 mls/hr 09/25/20 10:13 09/26/20 05:36 D5w IV 1,000 mls .Q0M PRN Administration Hypoglycemia As Directed Potassium Chloride 40 meq/ 270 mls @ 67.5 mls/hr 10/02/20 23:59 10/03/20 00:06 Sodium Chloride IVPB 10/03/20 07:59 270 mls 0400,2359 AIDAN Administration Insulin Glargine 15 units/ 0.15 mls @ 0 mls/hr 10/07/20 21:00 10/11/20 22:23 Miscellaneous Medication SC Not Given HS AIDAN Cefepime HCl 2 gm/ Sodium 100 mls @ 200 mls/hr 10/10/20 01:00 10/12/20 00:07 Chloride IVPB 100 mls 0100 AIDAN Administration Insulin Human Lispro 0 units 09/25/20 10:15 10/09/20 11:11 Humalog 300 Units/3 Ml Vial SC 3 unit .AGGRESSIVE SLIDING AIDAN Administration Insulin Human Lispro 0 units 09/26/20 21:18 10/08/20 22:26 Humalog 300 Units/3 Ml Vial SC 3 unit .BEDTIME SLIDING SC PRN Administration Bedtime Correctional Scale Isosorbide Mononitrate 30 mg 09/26/20 09:00 10/11/20 08:23 Isosorbide Mononitrate Er 30 Mg Tab PO Not Given DAILY [facility] Melatonin 3 mg 10/01/20 08:52 10/09/20 00:16 Melatonin 3 Mg Tab PO 3 mg HS PRN Administration Insomnia Metoclopramide HCl 10 mg 10/10/20 18:00 10/12/20 06:09 Metoclopramide Hcl 10 Mg/2 Ml Vial IVP 10/14/20 06:01 10 mg Q6HR AIDAN Administration Mometasone Furoate/Formoterol Fumar 2 puff 10/03/20 18:30 10/12/20 06:07 Mometasone 100 Mcg/Formoterol 5 Mcg 120 Puff Inhaler INH 2 puff BID-RT AIDAN Administration Pantoprazole Sodium 40 mg 09/25/20 07:30 10/11/20 08:22 Pantoprazole 40 Mg Tab PO Not Given DAILY-AC [facility] Senna/Docusate Sodium 2 tab 09/25/20 14:08 10/09/20 17:51 Senokot S 8.6-50 Mg Tab PO 2 tab BIDPRN PRN Administration Constipation Sertraline HCl 50 mg 09/25/20 09:00 10/11/20 08:23 Sertraline Hcl 25 Mg Tab PO Not Given DAILY [facility] Sodium Chloride 10 ml 09/24/20 21:00 10/11/20 22:23 Flush - Normal Saline 10 Ml Syringe IVF Not Given Q12HR AIDAN Sodium Chloride 10 ml 09/24/20 19:15 10/11/20 06:11 Flush - Normal Saline 10 Ml Syringe IVF 10 ml PRN PRN Administration Saline Flush Tamsulosin HCl 0.4 mg 09/24/20 21:00 10/11/20 22:23 Tamsulosin Hcl 0.4 Mg Cap PO Not Given BID [facility] Zinc Sulfate 220 mg 09/25/20 09:00 10/11/20 08:23 Zinc Sulfate 220 Mg Cap PO Not Given DAILY [facility] Hospitalist Exam Vitals: Vital Signs (12 hours) Temp Pulse Resp BP BP Pulse Ox 10/12/20 08:30 95 10/12/20 05:05 98 F 82 24 H 167/62 H 96 10/11/20 23:00 181/75 H 10/11/20 22:23 76 182/72 H Weight Admit Weight 214 lb Weight 218 lb 11.2 oz General Appearance: awake alert Neck: no JVD Heart: RRR, no murmur Respiratory - other findings: diffuse rales, rhonchi Gastrointestinal: soft, distended, diminished bowl sounds Extremities: 1+ LE edema Hosp A/P (1) Myocardial infarction type 2 Code(s): I21.A1 - MYOCARDIAL INFARCTION TYPE 2 Status: Resolved (2) Acute kidney injury superimposed on chronic kidney disease Code(s): N17.9 - ACUTE KIDNEY FAILURE, UNSPECIFIED; N18.9 - CHRONIC KIDNEY DISEASE, UNSPECIFIED Status: Acute (3) COVID-19 Code(s): U07.1 - COVID-19 Status: Acute (4) Pneumonia due to 2019 novel coronavirus Code(s): U07.1 - COVID-19; J12.82 - PNEUMONIA DUE TO CORONAVIRUS DISEASE 2019 Status: Acute (5) Acute on chronic combined systolic (congestive) and diastolic (congestive) heart failure Code(s): I50.43 - ACUTE ON CHRONIC COMBINED SYSTOLIC AND DIASTOLIC HRT FAIL Status: Acute (6) CAD (coronary artery disease) Code(s): I25.10 - ATHSCL HEART DISEASE OF [place] CORONARY ARTERY W/O ANG PCTRS Status: Chronic Qualifiers: Coronary Disease-Associated Artery/Lesion type: [place] artery [place] vs. transplanted heart: [place] heart (7) DM2 (diabetes mellitus, type 2) Status: Chronic Qualifiers: Diabetes mellitus mcc insulin use: with mcc use Diabetes mellitus complication status: with kidney complications Diabetes mellitus complication detail: with chronic kidney disease Chronic kidney disease stage: stage 3 (moderate) (8) Hypertension Code(s): I10 - ESSENTIAL (PRIMARY) HYPERTENSION Status: Chronic Qualifiers: Hypertension type: essential hypertension Qualified Code(s): I10 - Essential (primary) hypertension (9) Hypernatremia Code(s): E87.0 - HYPEROSMOLALITY AND HYPERNATREMIA Status: Acute (10) Hypokalemia Code(s): E87.6 - HYPOKALEMIA Status: Acute (11) Hypokalemia Code(s): E87.6 - HYPOKALEMIA Status: Acute - Plan cont steroids, O2 supplementation NGT to suction per GI change iv to D5 at 100ml/hr IV K-phos NG aspirate blood tinged-hold heparin prognosis guarded
[2020-10-12] MEDS ORDERED: Potassium Phosphate 15 MMOL in Sodium Chloride 0.9% 250 ML 250 ML IVPB SCH (09:00)
[2020-10-12] MEDS: Carvedilol 25 MG TAB PO SCH ×2 (09:50→18:05)
[2020-10-12] MEDS: Aspirin 81 mg Enteric Coated Tablet PO SCH (09:50)
[2020-10-12] MEDS: hydrALAZINE 25 MG TAB PO SCH ×2 (09:50→15:50)
[2020-10-12] MEDS: Amlodipine 10 MG TAB PO SCH (09:50)
[2020-10-12] MEDS: Tamsulosin HCl 0.4 MG CAP PO SCH (09:50)
[2020-10-12] MEDS: Ascorbic Acid 500 mg Chewable Tablet PO SCH (09:50)
[2020-10-12] MEDS: Zinc Sulfate 220 MG CAP PO SCH (09:50)
[2020-10-12] MEDS: Clopidogrel Bisulfate 75 MG TAB PO SCH (09:50)
[2020-10-12] MEDS: Cholecalciferol 1,000 UNITS (25 MCG) TAB PO SCH ×2 (09:50→21:07)
[2020-10-12] MEDS: Dextrose 5% in Water 1,000 ML IV SCH (09:56)
--- NOTE | 2020-10-12 10:12 | PRG ---
DATE OF SERVICE: 10/12/2020 SUBJECTIVE: A 75-year-old gentleman, being seen for acute kidney injury. No issues reported. OBJECTIVE: GENERAL: The patient is resting. VITAL SIGNS: Afebrile, pulse 84, breathing 16, blood pressure 167/62. Examination per nursing history. LABORATORY DATA: Reviewed. ASSESSMENT: 1. Acute kidney injury, chronic kidney disease, improved. 2. Hypertension, stable. 3. Hypernatremia, start D5 water. 4. Hypokalemia, recommend potassium replacement. 5. Metabolic acidosis, stable. No indication for dialysis at this time. Job ID: [id number]
[2020-10-12] MEDS: Dexamethasone 4 mg/ml Vial SLOW IVP SCH (11:14)
--- NOTE | 2020-10-12 11:30 | RAD ---
KUB: 10/12/2020 COMPARISON: 10/11/2020 HISTORY: Reevaluate colonic distention FINDINGS: Supine imaging limits assessment for free intraperitoneal air. There is gaseous distention of the colon diffusely, similar if not worsened when compared to the most recent prior exam. There is a nasogastric tube with distal tip extending to the region of the gastroesophageal junction. Recom mend advancing the nasogastric tube. The cecum is quite distended, probably measuring up to 13.6 cm. IMPRESSION: Diffuse marked gaseous distention of the colon, likely worsened, with cecum measuring up to 13.6 cm in transverse dimension. Recommend advancing the nasogastric tube.
[2020-10-12] MEDS: hydrALAZINE 20 MG/ML VIAL SLOW IVP PRN ×2 (11:47→21:06)
[2020-10-12 13:44] VITALS: BMI 33.2
[2020-10-12] MEDS ORDERED: Labetalol HCl 100 MG/20 ML VIAL SLOW IVP PRN (15:51)
[2020-10-12 17:03] LABS: Vancomycin, Random 20.1 ug/mL (See Comment)
--- NOTE | 2020-10-12 17:14 | PRG ---
DATE OF SERVICE: 10/12/2020 SUBJECTIVE: The patient developed [place] syndrome and has had an NG tube placed to help decompress his colon plus laxatives. May need a flexible sigmoidoscopy. This syndrome was identified on the abdomen and pelvis CT, showed diffuse colonic distention including cecum measuring up to 12 cm, but no evidence of small-bowel obstruction or free air. He does not appear well, but he does not have any complaints right now and denies any dyspnea. No abdominal pain. OBJECTIVE: VITAL SIGNS: His T-max 98.7, BP 170/78, saturating 95 on 3 L nasal cannula, pulse 76, and breathing 20 to 24 times a minute. NG tube in place. LUNGS: Symmetric air entry. Faint basilar crackles. HEART: S1 and S2. Regular rate. ABDOMEN: Distended, tympanitic, but not tender. He has an indwelling Grubbs catheter, output was 1200 today thus far. MEDICATIONS: He is on cefepime, Coreg, and Decadron among other scheduled medications. ASSESSMENT: 1. Ischemic cardiomyopathy. 2. Chronic kidney disease, stage 3. 3. Type 2 diabetes. 4. Hypertension. 5. COVID-19, today is the day, so the isolation precautions can be discontinued. He has developed what appears to be [place] syndrome and he is undergoing treatment for it. In the meantime, his x-rays are worse, but his oxygenation is better with decreased requirement for O2 supplementation, which is paradoxical. White cell count is elevated, but this could reflect demargination from the corticosteroids. He has been on Decadron since 09/26, and I believe we can now start tapering it off and discontinued in 2 or 3 days. Regarding the nature of the pulmonary findings, he has been treated empirically as if he had nosocomial pneumonia, although this could be just either fluid overload or superimposed fluid overload on COVID-19. At this stage of his illness, the frequency of bacterial superinfection is higher than at the beginning of the process, so I think it is reasonable to assume superimposed bacterial pneumonitis. Job ID: [id number]
[2020-10-12] MEDS: HumaLOG 300 UNITS/3 ML VIAL SC SCH (17:19)
--- NOTE | 2020-10-12 18:45 | PRG ---
DATE OF SERVICE: 10/12/2020 REASON FOR CONSULTATION: [place] syndrome/colonic pseudo-obstruction. SUBJECTIVE: Today, the patient states he had no acute events or problems overnight and he is currently bored with his current clinical status. He denies any nausea, vomiting, fevers, chills, hematemesis, melena, hematochezia, or abdominal pain. Per the patient and per nursing staff, he had been passing gas overnight and did have a smaller volume bowel movement earlier this morning consisting of semi-solid liquid stool. OBJECTIVE: VITAL SIGNS: Temperature 98.8, pulse 81, blood pressure 186/77, respiratory rate 28, and saturating 95% on 2 L nasal cannula. GENERAL: The patient was lying in bed, in no acute distress. Alert and oriented x4. CARDIOVASCULAR: Regular rate and rhythm. RESPIRATORY: Clear to auscultation bilaterally, but with poor inspiratory effort. ABDOMEN: Hypoactive bowel sounds. Tympanic to percussion throughout the entire abdomen. Pvsxiqoh-su-[id number] abdominal distention; however, nontender to palpation in all abdominal quadrants. EXTREMITIES: No cyanosis, clubbing, or edema. LABORATORY DATA: Chemistry with a sodium of 148, potassium 3.2, chloride 117, CO2 of 19, BUN 117, creatinine 3.01, and glucose 154. IMAGING DATA: KUB was obtained on 10/12/2020, which showed gaseous distention of the colon diffusely similar if not worsened when compared to most recent examination with the cecum being quite distended probably up to 13.6 cm in diameter. The nasogastric tube was also seen with the tip at approximately the gastroesophageal junction. 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 The patient is presenting with active COVID infection, [id number] myocardial infarction, as well as altered mental status after being found down at home prior to admission, now presenting with severe colonic distention without evidence of obstruction, consistent with an [place] syndrome type picture. Currently, he seems to be responding to administration of Reglan and rectal stimulation as evidenced by the patient being able to pass gas and having a smaller volume bowel movement earlier today. However, his KUB from today shows no significant change in terms of the colonic distention with a cecal diameter concerning for impending perforation. However, the patient is at high risk for any sort of intervention whether be endoscopic, surgical, or neostigmine administration. Given his medical comorbidities with administration of neostigmine in a patient with a recent NSTEMI, it could prompt further cardiac decline and any sort of endoscopic evaluation would have to be unprepped and the patient may not to be able to tolerate the procedure, especially in light of his recent Aaq-UB-iixgdjjso myocardial infarction and active COVID infection. At this time, the patient's prognosis is guarded, especially in light of the enlarged cecal diameter with increased risk of perforation at the current diameter. RECOMMENDATIONS: 1. Continue digital rectal stimulation every 8 hours for at least the next 24 hours. 2. Continue with Reglan 10 mg IV every 6 hours. 3. Continue with the NG tube to low intermittent wall suction. However, I would recommend advancing it into the stomach based on the recent KUB. 4. Would refrain from administering any antimotility agents. 5. Would defer to the primary service on monitoring the patient's blood pressure. I would attempt to maintain his normotensive pressures as possible. As a result of pain, the patient may need to take little sips of water with oral medications and holding the NG tube to the suction at the time of administration, but restarting the NG tube later. 6. Would obtain a KUB tomorrow morning for repeat evaluation. We will continue to follow. Please call with any questions. Dr. Licona will reassess the patient tomorrow. Job ID: [id number]
[2020-10-12] MEDS: Insulin Glargine 15 UNITS in Pre-Filled Syringe 1 EACH SC SCH (21:06)
[2020-10-12] MEDS: Finasteride 5 MG TAB PO SCH (21:07)
[2020-10-13] MEDS: Cefepime 2 GM in Sodium Chloride 0.9% 100 ML IVPB SCH (00:44)
[2020-10-13] MEDS: Dextrose 5% in Water 1,000 ML IV SCH ×2 (00:44→11:26)
[2020-10-13] MEDS: Metoclopramide HCl 10 MG/2 ML VIAL IVP SCH ×4 (00:45→16:56)
[2020-10-13] MEDS: hydrALAZINE 20 MG/ML VIAL SLOW IVP PRN ×3 (04:00→16:56)
[2020-10-13 05:23] LABS: Anion Gap 13 mmol/L (10-20); BUN (Urea Nitrogen) 113 mg/dL (8.4-25.7); Calc. Creatinine Clearance 30 mL/min (70-130); Calcium 7.4 mg/dL (7.8-10.44); Carbon Dioxide 21 mmol/L (23-31); Chloride 115 mmol/L (98-107); Glucose 308 mg/dL (83-110); Potassium 3.3 mmol/L (3.5-5.1); Sodium 146 mmol/L (136-145)
[2020-10-13] MEDS: Mometasone 100 MCG/Formoterol 5 MCG 120 PUFF INHALER INH SCH ×2 (07:53→20:03)
[2020-10-13] MEDS ORDERED: Dexamethasone 4 mg/ml Vial SLOW IVP SCH (09:00)
[2020-10-13] MEDS: Cholecalciferol 1,000 UNITS (25 MCG) TAB PO SCH ×2 (09:03→20:00)
[2020-10-13] MEDS: Carvedilol 25 MG TAB PO SCH ×2 (09:03→17:57)
[2020-10-13] MEDS: Ascorbic Acid 500 mg Chewable Tablet PO SCH (09:03)
[2020-10-13] MEDS: Zinc Sulfate 220 MG CAP PO SCH (09:04)
--- NOTE | 2020-10-13 10:04 | PDOC.PALPN ---
Palliative Progress Note - Subjective Lethargic, arouses, speech soft. Significant weakness, NG to suction appears to have bloody drainage. No able to answer simple questions or engage.Uncertain of accuracy of review of systems secondary to confusion. - Objective Vital Signs: Vital Signs - Most Recent Temp Pulse Resp BP Pulse Ox 98.8 F 74 24 H 160/72 H 95 10/13/20 03:30 10/13/20 05:30 10/13/20 03:30 10/13/20 05:30 10/13/20 03:30 - Physical Exam Constitutional: encephalitic, ill appearing HEENT: moist MMs, sclera anicteric Respiratory: diminished lung sound Cardiovascular: RRR Gastrointestinal: soft Deviation from normal: distended Genitourinary: gonzalez catheter Musculoskeletal: edema present, diffuse muscle atrophy Neurology: no focal deficits Skin: cap refill <2 seconds, bruising, fragile Deviation from normal: pallor Deviation from normal: Oriented to self, place. lethargic - Assessment (1) COVID-19 Code(s): U07.1 - COVID-19 Current Visit: Yes Status: Acute (2) Myocardial infarction type 2 Code(s): I21.A1 - MYOCARDIAL INFARCTION TYPE 2 Current Visit: Yes Status: Resolved (3) Pneumonia due to 2019 novel coronavirus Code(s): U07.1 - COVID-19; J12.82 - PNEUMONIA DUE TO CORONAVIRUS DISEASE 2019 Current Visit: Yes Status: Acute (4) Palliative care encounter Code(s): Z51.5 - ENCOUNTER FOR PALLIATIVE CARE Current Visit: No Status: Acute - Plan Plan: Patient not able to engage in conversation today. He previously confirmed Marilu as his MPOA. Case management working with Marilu for goals of care as Mr Blum not decisional at this time. Case Management working with Marilu for discharge plan. Marilu has communicated with [facility] and they are discussing discharge options from what Marilu understands Mr Blum would desire from past conversations. Mr Blum nodded when discussed transition back to [facility]. Called Ms Con RAZO, transition to [facility]. Confirmed with Estrella LOVELL, consent completed. Marilu Andujar and her son Jon will be here next week, Marilu Saturday and Jon later in the week. Communicated with Dr David, provided Patricias number for contact. Palliative care will follow at a distance for emotional support and therapeutic listening. [45] minutes spent on this encounter with >50% of the time in counseling and coordination of care. - ROS Non Response: due to mental status
--- NOTE | 2020-10-13 11:24 | PDOC.HOSPP ---
- Subjective Encounter Date: 10/13/20 Encounter Time: 11:20 Subjective: no appropriate response. bloody NG aspirate - Objective Vital Signs & Weight: Vital Signs (12 hours) Temp Pulse Resp BP BP Pulse Ox 10/13/20 11:04 74 10/13/20 08:00 175/77 H 10/13/20 05:30 74 160/72 H 10/13/20 04:33 73 173/74 H 10/13/20 04:00 75 194/81 H 10/13/20 03:30 98.8 F 74 24 H 194/81 H 95 10/12/20 23:30 98.7 F 75 20 170/74 H 97 Weight Admit Weight 214 lb Weight 218 lb 4.8 oz I&O: 10/12/20 10/13/20 10/14/20 06:59 06:59 06:59 Intake Total 1429.5 900 Output Total 1450 1770 Balance -20.5 -870 Result Diagrams: 10/10/20 04:45 10/13/20 04:38 Additional Labs: Accuchecks 10/12/20 10/12/20 10/12/20 20:42 16:41 11:24 POC Glucose 259 H 228 H 185 H Hospitalist ROS - Medication Medications: Active Medications Generic Name Dose Route Start Last Admin Trade Name Ilana PRN Reason Stop Dose Admin Acetaminophen 650 mg 09/24/20 21:11 10/10/20 01:10 Acetaminophen 325 Mg Tab PO 650 mg Q4H PRN Administration Headache/Fever or Pain Ascorbic Acid 1,000 mg 09/26/20 09:00 10/13/20 09:03 Ascorbic Acid 500 Mg Chewable Tablet PO Not Given DAILY AIDAN Carvedilol 25 mg 10/09/20 08:00 10/13/20 09:03 Carvedilol 25 Mg Tab PO Not Given BID-[facility] Cholecalciferol 2,000 units 09/25/20 21:00 10/13/20 09:03 Cholecalciferol 1,000 Units (25 Mcg) Tab PO Not Given BID AIDAN Dexamethasone 4 mg 10/13/20 09:00 10/13/20 08:53 Dexamethasone 4 Mg/Ml Vial SLOW IVP 4 mg DAILY AIDAN Administration Dextrose/Water 25 gm 09/25/20 10:13 10/11/20 11:02 Dextrose 50% Abboject 50 Ml Syringe SLOW IVP 25 gm PRN PRN Administration Hypoglycemia Epoetin Hubert-epbx 10,000 unit 10/08/20 17:00 10/08/20 19:58 Epoetin Hubert-Epbx (Esrd) 10,000 Unit/Ml Vial SC 10,000 unit Q7D AIDAN Administration Finasteride 5 mg 09/25/20 21:00 10/12/20 21:07 Finasteride 5 Mg Tab PO Not Given HS AIDAN Glucagon 1 mg 09/25/20 10:13 10/11/20 05:50 Glucagon 1 Mg/Ml Vial IM 1 mg PRN PRN Administration Hypoglycemia Hydralazine HCl 20 mg 10/12/20 15:50 10/13/20 11:04 Hydralazine 20 Mg/Ml Vial SLOW IVP 20 mg Q6H PRN Administration SBP GREATER THAN 160 Dextrose/Water 1,000 mls @ 0 mls/hr 09/25/20 10:13 09/26/20 05:36 D5w IV 1,000 mls .Q0M PRN Administration Hypoglycemia As Directed Potassium Chloride 40 meq/ 270 mls @ 67.5 mls/hr 10/02/20 23:59 10/03/20 00:0 6 Sodium Chloride IVPB 10/03/20 07:59 270 mls 0400,2359 AIDAN Administration Insulin Glargine 15 units/ 0.15 mls @ 0 mls/hr 10/07/20 21:00 10/12/20 21:06 Miscellaneous Medication SC 0.15 mls HS AIDAN Administration Cefepime HCl 2 gm/ Sodium 100 mls @ 200 mls/hr 10/10/20 01:00 10/13/20 00:44 Chloride IVPB 100 mls 0100 AIDAN Administration Dextrose/Water 1,000 mls @ 100 mls/hr 10/12/20 08:30 10/13/20 00:44 D5w IV 1,000 mls .Q10H AIDAN Administration Insulin Human Lispro 0 units 09/25/20 10:15 10/12/20 17:19 Humalog 300 Units/3 Ml Vial SC 6 unit .AGGRESSIVE SLIDING AIDAN Administration Insulin Human Lispro 0 units 09/26/20 21:18 10/08/20 22:26 Humalog 300 Units/3 Ml Vial SC 3 unit .BEDTIME SLIDING SC PRN Administration Bedtime Correctional Scale Labetalol HCl 10 mg 10/12/20 15:51 10/12/20 18:39 Labetalol Hcl 100 Mg/20 Ml Vial SLOW IVP 2 ml Q4H PRN Administration SBP Greater Than 180 Metoclopramide HCl 10 mg 10/10/20 18:00 10/13/20 11:07 Metoclopramide Hcl 10 Mg/2 Ml Vial IVP 10/14/20 06:01 10 mg Q6HR AIDAN Administration Mometasone Furoate/Formoterol Fumar 2 puff 10/03/20 18:30 10/13/20 07:53 Mometasone 100 Mcg/Formoterol 5 Mcg 120 Puff Inhaler INH 2 puff BID-RT AIDAN Administration Pantoprazole Sodium 40 mg 09/25/20 07:30 10/13/20 09:03 Pantoprazole 40 Mg Tab PO Not Given DAILY-AC AIDAN Senna/Docusate Sodium 2 tab 09/25/20 14:08 10/09/20 17:51 Senokot S 8.6-50 Mg Tab PO 2 tab BIDPRN PRN Administration Constipation Sertraline HCl 50 mg 09/25/20 09:00 10/13/20 09:03 Sertraline Hcl 25 Mg Tab PO Not Given DAILY AIDAN Sodium Chloride 10 ml 09/24/20 21:00 10/13/20 11:04 Flush - Normal Saline 10 Ml Syringe IVF 10 ml Q12HR AIDAN Administration Sodium Chloride 10 ml 09/24/20 19:15 10/13/20 00:45 Flush - Normal Saline 10 Ml Syringe IVF 10 ml PRN PRN Administration Saline Flush Zinc Sulfate 220 mg 09/25/20 09:00 10/13/20 09:04 Zinc Sulfate 220 Mg Cap PO Not Given DAILY AIDAN Hospitalist Exam Vitals: Vital Signs (12 hours) Temp Pulse Resp BP BP Pulse Ox 10/13/20 11:04 74 10/13/20 08:00 175/77 H 10/13/20 05:30 74 160/72 H 10/13/20 04:33 73 173/74 H 10/13/20 04:00 75 194/81 H 10/13/20 03:30 98.8 F 74 24 H 194/81 H 95 10/12/20 23:30 98.7 F 75 20 170/74 H 97 Weight Admit Weight 214 lb Weight 218 lb 4.8 oz Neck: no JVD Heart: RRR Respiratory: CTAB Gastrointestinal: soft, distended, diminished bowl sounds Extremities: 2+ LE edema Hosp A/P (1) Myocardial infarction type 2 Code(s): I21.A1 - MYOCARDIAL INFARCTION TYPE 2 Status: Resolved (2) Acute kidney injury superimposed on chronic kidney disease Code(s): N17.9 - ACUTE KIDNEY FAILURE, UNSPECIFIED; N18.9 - CHRONIC KIDNEY DISEASE, UNSPECIFIED Status: Acute (3) COVID-19 Code(s): U07.1 - COVID-19 Status: Acute (4) Pneumonia due to 2019 novel coronavirus Code(s): U07.1 - COVID-19; J12.82 - PNEUMONIA DUE TO CORONAVIRUS DISEASE 2019 Status: Acute (5) Acute on chronic combined systolic (congestive) and diastolic (congestive) heart failure Code(s): I50.43 - ACUTE ON CHRONIC COMBINED SYSTOLIC AND DIASTOLIC HRT FAIL Status: Acute (6) CAD (coronary artery disease) Code(s): I25.10 - ATHSCL HEART DISEASE OF [place] CORONARY ARTERY W/O ANG PCTRS Status: Chronic Qualifiers: Coronary Disease-Associated Artery/Lesion type: [place] artery [place] vs. transplanted heart: [place] heart (7) DM2 (diabetes mellitus, type 2) Status: Chronic Qualifiers: Diabetes mellitus technician terminal and repeater insulin use: with technician terminal and repeater use Diabetes mellitus complication status: with kidney complications Diabetes mellitus complication detail: with chronic kidney disease Chronic kidney disease stage: stage 3 (moderate) (8) Hypertension Code(s): I10 - ESSENTIAL (PRIMARY) HYPERTENSION Status: Chronic Qualifiers: Hypertension type: essential hypertension Qualified Code(s): I10 - Essential (primary) hypertension (9) Hypernatremia Code(s): E87.0 - HYPEROSMOLALITY AND HYPERNATREMIA Status: Acute (10) Hypokalemia Code(s): E87.6 - HYPOKALEMIA Status: Acute (11) Hypokalemia Code(s): E87.6 - HYPOKALEMIA Status: Acute (12) Colon distention Code(s): K63.89 - OTHER SPECIFIED DISEASES OF INTESTINE Status: Acute (13) Upper gastrointestinal bleeding Code(s): K92.2 - GASTROINTESTINAL HEMORRHAGE, UNSPECIFIED Status: Acute - Plan cont steroids, O2 supplementation NGT to suction per GI change iv to D5 at 100ml/hr IV K-phos iv apressoline/labetolol for BP control NG aspirate blood tinged-hold heparin, asa , plavix prognosis guarded
--- NOTE | 2020-10-13 11:38 | PRG ---
DATE OF SERVICE: SUBJECTIVE: A 75-year-old gentleman being seen for acute kidney injury. The patient denies any nausea, vomiting, or chest pain. OBJECTIVE: GENERAL: The patient is awake and alert. VITAL SIGNS: Pulse 74, breathing at 16, blood pressure 162/72. HEENT: Head normocephalic and atraumatic. Eyes intact, no ulcers. Nose intact, no ulcers. Ears intact, no ulcers. NECK: Supple. No JVD. CHEST: Symmetrical and clear. CARDIOVASCULAR: Shows S1 and S2, no rub, no murmur. GASTROINTESTINAL: Abdomen is soft, bowel sounds positive. EXTREMITIES: Show no edema or ulcers. SKIN: Shows no rash or petechiae. MUSCULOSKELETAL: Shows no joint swelling or stiffness. GENITOURINARY: Shows no Grubbs or CVA tenderness. NEUROLOGIC: Motor intact. Cranial nerves intact. LABORATORY DATA: Hemoglobin 9.1. Creatinine 3.0. ASSESSMENT AND PLAN: 1. Acute kidney injury with chronic kidney disease stage 4, stable. 2. Elevated BUN due to steroids. 3. Hypokalemia. Recommend potassium replacement. 4. Metabolic acidosis, stable. 5. Hypernatremia. Continue D5 water. No indication for dialysis. Continue hydration. Job ID: [id number]
[2020-10-13] MEDS: HumaLOG 300 UNITS/3 ML VIAL SC PRN (12:17)
[2020-10-13 12:27] LABS: Hemoglobin 9.6 g/dL (14.0-18.0); Mean Corpuscular HGB CONC 32.4 g/dL (32.0-36.0); Mean Corpuscular Volume 95.7 fL (78.0-98.0); Mean Platelet Volume 9.3 fL (7.4-10.4); Platelet Count 186 thou/uL (130-400); RBC Distribution Width 12.1 % (11.5-14.5); Red Blood Cell (RBC) Count 3.09 mill/uL (4.70-6.10); White Blood Cell (WBC) Count 13.2 thou/uL (4.8-10.8)
[2020-10-13 12:46] LABS: ALT (SGPT) 70 U/L (8-55); AST (SGOT) 29 U/L (5-34); Albumin 2.6 g/dL (3.4-4.8); Alkaline Phosphatase 71 U/L (40-110); Anion Gap 14 mmol/L (10-20); BUN (Urea Nitrogen) 112 mg/dL (8.4-25.7); Bilirubin, Total 0.4 mg/dL (0.2-1.2); Calc. Creatinine Clearance 30 mL/min (70-130); Calcium 7.2 mg/dL (7.8-10.44); Carbon Dioxide 20 mmol/L (23-31); Chloride 115 mmol/L (98-107); Globulin 2.8 g/dL (2.4-3.5); Glucose 353 mg/dL (83-110); Potassium 3.2 mmol/L (3.5-5.1); Protein, Total 5.4 g/dL (5.8-8.1); Sodium 146 mmol/L (136-145)
[2020-10-13 12:57] LABS: Band 8 % (5-11); Lymphocytes 3 % (21-51); MDiff Complete? YES; Monocytes 6 % (0-10); Neutrophil 83 % (42-75); Platelet Morphology Comment Appears Adequate; Polychromasia SLIGHT = 2-3 cells (100X) (0-2/hpf); Schistocytes SLIGHT = 2-5 cells (100X) (0-1/hpf)
--- NOTE | 2020-10-13 14:46 | RAD ---
EXAM: Single view of the abdomen HISTORY: Colonic distention COMPARISON: 10/12/2020 FINDINGS: Single view of the abdomen shows a nonspecific, nonobstructive bowel gas pattern. The NG tu be is no longer visualized. An air-filled colon is again seen, unchanged. No suspicious calcifications are seen. The patient is status post left hip arthroplasty. IMPRESSION: Stable air-filled colon
--- NOTE | 2020-10-13 16:27 | PRG ---
DATE OF SERVICE: 10/13/2020 SUBJECTIVE: Mr. Blum wakes up when he is stimulated and was able to shake his head. He is having no pain or discomfort. OBJECTIVE: HEENT: His eyes have no scleral icterus. His oropharynx is dry. He has an NG tube in place. He has bloody aspirate from his NG tube in the canister and staining the NG tube toro. ABDOMEN: Distended and tight and tympanic. Bowel sounds are hypoactive. EXTREMITIES: Have 2+ lower extremity edema. LABORATORY DATA: White blood cell count 13.2, hemoglobin 9.6, and platelets 186. Creatinine 3.10 and albumin 2.6. IMPRESSION: [place] syndrome/colonic pseudo-obstruction. His colon remains markedly distended by x-ray. He is having minimal output despite continued Reglan and anal digital stimulation and suppositories. I did advance his nasogastric tube on down to the stomach and lavaged and then the blood cleared. He just had some old coffee-ground material in there. He could have had some nose bleed or gastritis, but does not appear to have ongoing bleeding at this point. He seems to be responding at this point inadequately to the Reglan and anal stimulation and suppositories at this point. Neostigmine is not a good option for him given the potential for respiratory compromise and bradycardia with recent cardiac event in the setting of a do not intubate patient. The another option for treatment of his [place]'s at this point would be decompression with flexible sigmoidoscopy and placement of a colon decompression tube. I discussed this with his power of accordion repairer, Marilu, and the potential options for flexible sigmoidoscopy versus just continued supportive care with medical treatment and she prefers to avoid any procedures at this time and has been discussing potential options with hospice care. For now, we will continue the NG suction and Reglan and suppositories. Job ID: [id number]
[2020-10-13] MEDS: HumaLOG 300 UNITS/3 ML VIAL SC SCH (16:52)
[2020-10-13 19:25] VITALS: BP 170/74; TEMP 98.5
[2020-10-13] MEDS: Finasteride 5 MG TAB PO SCH (20:00)
[2020-10-13] MEDS: Insulin Glargine 15 UNITS in Pre-Filled Syringe 1 EACH SC SCH (20:02)
== END 2020-10-13 21:52 | disposition hospice, inpatient (51) | DRG 177 ==
LOC: ERS 09:37 → ERHOLD 12:57 → 2NO 18:52 → ERHOLD 19:12 → 2NO 20:43 → 2SW 09-26 00:21
PROVIDERS: ADMIT Internal Medicine; ATTEND Internal Medicine
PROC: 8E0ZXY6 Isolation (ICD-10-PCS; principal; 2020-09-24)
DX: U07.1 COVID-19 (principal); J12.82 Pneumonia due to coronavirus disease 2019; J96.21 Acute and chronic respiratory failure with hypoxia; I50.43 Acute on chronic combined systolic (congestive) and diastolic (congestive) heart failure; I21.A1 Myocardial infarction type 2; Z51.5 Encounter for palliative care; M62.82 Rhabdomyolysis; N39.0 Urinary tract infection, site not specified; N04.9 Nephrotic syndrome with unspecified morphologic changes; I13.0 Hypertensive heart and chronic kidney disease with heart failure and stage 1 through stage 4 chronic kidney disease, or unspecified chronic kidney disease; N17.9 Acute kidney failure, unspecified; E87.2 Acidosis; E87.0 Hyperosmolality and hypernatremia; K92.2 Gastrointestinal hemorrhage, unspecified; I25.10 Atherosclerotic heart disease of native coronary artery without angina pectoris; E11.22 Type 2 diabetes mellitus with diabetic chronic kidney disease; E78.5 Hyperlipidemia, unspecified; E11.319 Type 2 diabetes mellitus with unspecified diabetic retinopathy without macular edema; N40.0 Benign prostatic hyperplasia without lower urinary tract symptoms; N18.30 Chronic kidney disease, stage 3 unspecified; I25.5 Ischemic cardiomyopathy; D63.1 Anemia in chronic kidney disease; D72.829 Elevated white blood cell count, unspecified; T38.0X5A Adverse effect of glucocorticoids and synthetic analogues, initial encounter; E87.6 Hypokalemia; R00.1 Bradycardia, unspecified; K59.81 Ogilvie syndrome; Z95.1 Presence of aortocoronary bypass graft; Z86.73 Personal history of transient ischemic attack (TIA), and cerebral infarction without residual deficits; Z91.041 Radiographic dye allergy status; Z95.5 Presence of coronary angioplasty implant and graft
CPT/HCPCS: 36415; 36416; 70450; 71045; 71250; 74018; 74176; 74177; 76770; 78451; 80048; 80053; 80061; 80202; 81003; 81015; 82550; 82553; 82728; 83540; 83550; 83605; 83690; 83735; 83880; 84100; 84484; 85025; 85379; 85730; 86140; 86141; 86769; 87040; 87077; 87086; 87186; 87635; 93005; 93970; 94760; 96372; 97139; A9540; J0360; J0692; J0696; J1100; J1610; J1644; J1650; J1815; J1940; J2543; J2765; J3370; J3480; J3490; J7050; J8540; Q5105; U0003; U0005

== ENCOUNTER 2020-10-13 22:00 | Inpatient (IN) | payer OTHER ==
[2020-10-13] MEDS ORDERED: Lorazepam 2 MG/ML VIAL SLOW IVP PRN (22:17)
[2020-10-13] MEDS ORDERED: Acetaminophen 650 MG Suppository PR PRN (22:17)
[2020-10-13 22:36] VITALS: BMI 33.1
[2020-10-14] MEDS: hydrALAZINE 20 MG/ML VIAL SLOW IVP PRN (16:14)
[2020-10-14] MEDS: Ondansetron PF 4 MG/2 ML Vial IVP PRN (16:31)
[2020-10-15] MEDS: hydrALAZINE 20 MG/ML VIAL SLOW IVP PRN (00:40)
[2020-10-15] MEDS: Ondansetron PF 4 MG/2 ML Vial IVP PRN (00:46)
[2020-10-15] MEDS ORDERED: Scopolamine 1.5 mg/72 hour Patch TOP SCH (04:00)
[2020-10-15] MEDS: Morphine 2 MG/ML VIAL SLOW IVP PRN (16:39)
[2020-10-16] MEDS: Morphine 2 MG/ML VIAL SLOW IVP PRN (03:46)
[2020-10-16 08:00] VITALS: BP 151/83; TEMP 98.7
== END 2020-10-16 13:29 | disposition expired | DRG 951 ==
LOC: 2SW 22:00 → SJJU 10-14 22:42
PROVIDERS: ADMIT Internal Medicine Nephrology; ATTEND Internal Medicine Nephrology
DX: Z51.5 Encounter for palliative care (principal); I21.4 Non-ST elevation (NSTEMI) myocardial infarction; I13.0 Hypertensive heart and chronic kidney disease with heart failure and stage 1 through stage 4 chronic kidney disease, or unspecified chronic kidney disease; N39.0 Urinary tract infection, site not specified; M62.82 Rhabdomyolysis; I25.10 Atherosclerotic heart disease of native coronary artery without angina pectoris; E11.22 Type 2 diabetes mellitus with diabetic chronic kidney disease; N18.30 Chronic kidney disease, stage 3 unspecified; E78.5 Hyperlipidemia, unspecified; N40.0 Benign prostatic hyperplasia without lower urinary tract symptoms; E11.319 Type 2 diabetes mellitus with unspecified diabetic retinopathy without macular edema; Z86.73 Personal history of transient ischemic attack (TIA), and cerebral infarction without residual deficits; Z95.1 Presence of aortocoronary bypass graft; Z91.041 Radiographic dye allergy status; Z79.899 Other long term (current) drug therapy; Z79.82 Long term (current) use of aspirin; Z95.5 Presence of coronary angioplasty implant and graft; Z98.890 Other specified postprocedural states
CPT/HCPCS: 36416; J0360; J2060; J2270; J2405